=== PATIENT | male | born 1950 | race Caucasian/White ===

== ENCOUNTER 2019-10-17 04:38 | Emergency (ER) | payer OTHER, SELFPAY ==
[2019-10-17 04:39] VITALS: BP 125/73; PULSE 89; RESP 16; TEMP 36; O2SAT 97
--- NOTE | 2019-10-17 04:45 | ED.GENADUL_ITS ---
Discharge Plan Disposition Patient Disposition[facility] Condition: Stable Discharge Details Chief Complaint: Trauma Clinical Impression: Alcohol intoxication, Fall Primary Care Provider: [facility] ED Provider: Jae Andrew Home Meds and New Rx's Prescriptions: Continued tamsulosin [Flomax] 0.4 MG capsule 0.4 mg PO DAILY AM RF: 0 phenazopyridine 100 MG tablet PRNRF: 0 ibuprofen 600 MG tablet 600 mg PO Q6H PRNQty: 16 RF: 0 aspirin [Aspir-81] 81 mg Tablet,Delayed Release (Dr/Ec) RF: 0 Discharge Instructions Instructions: Alcohol Intoxication (ED) Additional Instructions: limit alcohol use to 2 drinks daily follow up with your primary care provider within 1-2 weeks Medical Decision Making 69 yo male with unknown medical history comes in with ems after he was found by a neighbor at the bottom of his stairs. EMS states when they arrived he was only reacting to sternal rubs. BGFS 130 per ems. He arrives alert though refusing to answer most questions but does have clear speech when he does talk. Refuses to cooperate with neuro exam. Has bruising of the left scalp, does move all extremities spontaneously. He has strong odor of alcohol on his breath. Given his intoxictaion and likely fall down stairs will obtain ct head/cspine/chest/abd/pelvis to evaluate for traumatic injuries. labs unrmarkable other than etoh over 300, awaiting CT results labs and imaging unremarkable other than the alcohol level, nonspecific thickening or right collecting system without evidence on exam and hx not consistent with kidney stone as he has no pain. Will consult mental health for ICP to have him brought to custodial while he lala Differential Diagnosis Differential Diagnosis: alcohol intoxication, tbi, c spine injury Imaging Data Radiologic Study: Attestation: I personally reviewed and interpreted this imaging study as follows: Imaging: CT Scan Radiologist's impression: no acute findings on head, c spine and chest CT IMPRESSION: No acute findings Fullness of the right-sided renal collecting system and ureter without evidence for ureteral stone. Slight thickening noted at the right UVJ. Further evaluation is recommended if symptoms of rightsided renal colic are present. Lab Data Lab results reviewed: Yes I reviewed the patient's lab results. ECG Data Attestation: I personally reviewed and interpreted this ECG (s) as follows: Prior ECG tracings: not available for review Interpretation: sinus rhythm, rate of 96, pr 122, no acute st t wave ischemic findings HPI General Mode of arrival: ambulatory . Date/Time Provider Initiated Documentation: 10/17/19 04:44 . Limitations to Documentation: no limitations . Information obtained by: patient . History of Present Illness 69 year old M presents to the emergency department with the chief complaint of found at bottom of stairs, Patient started experiencing this unknown Patient notes denies cough. Patient did receive the following treatments prior to arrival, none Related Data Home Medications Medication Instructions Recorded Confirmed ibuprofen 600 mg PO Q6H PRN #16 tablet 10/16/17 phenazopyridine PRN 10/16/17 tamsulosin [Flomax] 0.4 mg PO DAILY AM 10/16/17 10/16/17 aspirin [Aspir-81] 10/17/19 Previous Rx's Medication Instructions Recorded ibuprofen 600 mg PO Q6H PRN #16 tablet 10/16/17 Allergies Allergy/AdvReac Type Severity Reaction Status Date / Time No Known Allergies Allergy Unverified 10/17/19 04:51 Review of Systems Unobtainable due to mental status (alcohol intoxication, refuses to answer) PFSH Social History Smoking/Tobacco Use Status: Never Alcohol Intake: current Details: pt chooses not to answers questions, states back up, just back up Additional Social history: pt chooses not to answer Exam Const General: no acute distress Orientation: alert HENMT Head: no palpable skull fracture Ears: external ears normal General nose exam: external nose normal Mouth: moist mucous membranes Eyes General: appearance normal, both eyes and all related structures Neck Neck: normal visual inspection Resp Effort & Inspection: normal respiratory effort and able to speak in complete sentences Cardio Rate: regular rate GI Palpation: soft Skin General skin exam: no rashes or lesions noted Neuro General: alert Extrem General: normal to inspection Psych Mental Status: mental status grossly normal
[2019-10-17 04:47] VITALS: BP 125/73; PULSE 88; RESP 14
--- NOTE | 2019-10-17 05:11 | DI.CT_ITS ---
EXAM: CT HEAD CERVICAL SPINE WO CLINICAL HISTORY: trauma, alcohol TECHNIQUE: The exam was performed according to the usual protocol without contrast. COMPARISON: No exams were available for comparison FINDINGS: CT head: No acute intracranial hemorrhage. No acute midline shift or mass effect. Physiologic calcifications are seen in the basal ganglia bilaterally in the cerebellum. The ventricles are intact. The basila r cisterns are patent. There is a cavum septum pellucidum which is a normal variant. Areas of decre ased attenuation in the white matter are most suggestive of small vessel ischemic disease. No calvar ial fracture is seen. The visualized paranasal sinuses are clear. CT cervical spine: The odontoid is intact. The lateral masses are well aligned. No acute fracture or subluxation in th e cervical spine is noted. There are nondisplaced fractures of the left transverse processes of T1 and T2. Prevertebral soft tissues are unremarkable. There are moderate degenerative changes seen in the cervical spine. IMPRESSION: 1. No acute intracranial process. 2. No evidence of a fracture or subluxation of the cervical spine. 3. Nondisplaced fractures involving the left transverse processes of T1 and T2. 4. The findings were discussed with the emergency department on the date of the examination.
[2019-10-17 05:15] LABS: ALT 48 U/L (16-63); AST 30 U/L (15-37); Albumin 3.7 g/dL (3.4-5.0); Alkaline Phosphatase 97 U/L (46-116); Anion Gap 12.9 mmol/L (3-11); BUN 13 mg/dL (7-18); Bilirubin, Total 0.3 mg/dL (0.2-1.0); CO2 26.1 mmol/L (21.0-32.0); CREATININE 1.32 mg/dL (0.70-1.30); Calcium 8.6 mg/dL (8.5-10.1); Chloride 105 mmol/L (98-107); Estimated GFR 53.78 (mL/min/1.73m2); Glucose 151 mg/dL (74-106); Potassium 3.7 mmol/L (3.5-5.1); Sodium 144 mmol/L (136-145); Total Protein 7.6 g/dL (6.4-8.2)
[2019-10-17 05:18] LABS: Prothrombin Time 9.7 sec (9.3-11.0)
[2019-10-17 05:20] LABS: ETHANOL BLOOD 306.2 mg/dL (<3)
--- NOTE | 2019-10-17 05:20 | DI.CT_ITS ---
EXAM: CT CHEST/ABD/PEL W CLINICAL HISTORY: trauma, alcohol. TECHNIQUE: Imaging Protocol: Axial computed tomography images of the with coronal and sagittal refo rmatted images were created and reviewed CONTRAST MATERIAL: Intravenous: Omnipaque 350 Contrast volume:100 mL contrast route:IV - Oral: No COMPARISON: No exams were available for comparison FINDINGS: CHEST: Tracheobronchial tree: Patent where visualized. Mediastinum and Essie: No dominant adenopathy or fluid collection. Pulmonary parenchyma: Dependent atelectasis. No focal consolidating infiltrate. No architectural di stortion. Pleura: No effusion or pneumothorax. Aorta: No aneurysm or dissection. Atherosclerosis. Lymph nodes: Within normal limits. Heart: No cardiomegaly. No pericardial effusion. Coronary artery calcifications. Bones: Nondisplaced fractures involving the left transverse processes of T1 through T4. There are al so nondisplaced fractures involving the posteromedial aspects of the left 4th through 8th ribs. The re may also be fractures in the posteromedial aspects of the left 2nd and 3rd ribs. There is a compr ession deformity of the L1 vertebral body which appears old. ABDOMEN: Liver: Normal density. No measurable mass. Gallbladder and biliary tract: No radiodense calculus or dilation. Pancreas: Normal density, no abnormal calcifications or inflammatory process. Spleen: Normal. Kidneys: Normal size, contour and axis. Bilateral nephrolithiasis. Renal cysts. Mild prominence of the renal collecting systems. No ureteral stone is present. No obstructing mass is seen. Adrenal glands: No masses seen. Lymph nodes: Within normal limits. Aorta: Atherosclerosis. No aneurysm. PELVIS: Bladder: Symmetric distention, no gross wall thickening. Bowel: No obstruction or bowel wall thickening. No evidence of acute appendicitis. Peritoneal cavity: No ascites, collection or mesenteric inflammatory response. Small bilateral fat co ntaining inguinal hernia. Reproductive organs: Prostate gland is mildly enlarged and impinges upon the base of the urinary david dder. Bones: No acute fracture. IMPRESSION: 1. Nondisplaced fractures involving the left transverse processes of T1 through T4. 2. Nondisplaced fractures involving the posterior medial aspects of the left 4th through 8th ribs. 3. No evidence of abdominal or pelvic organ injury. 4. These findings were discussed with the emergency department on the date of the examination. DATA REPOSITORY: All CT scans at this facility are submitted to the National Radiology Data Registry (NRDR) Dose Index Registry (DIR) with the [employer] (A[employer]). RADIATION OPTIMIZATION: All CT scans at this facility use at least one of these dose optimization te chniques: automated exposure control; mA and/or kV adjustment per patient size (includes targeted exa ms where dose is matched to clinical indication); or iterative reconstruction.
[2019-10-17 05:28] VITALS: BP 140/69; PULSE 96; PULSE 98; RESP 22; O2SAT 96
[2019-10-17] MEDS: Omnipaque 350 MG/ML 100 ML BTL IJ (05:28)
[2019-10-17 05:30] VITALS: BP 152/77; PULSE 92; PULSE 98; RESP 23; O2SAT 98
[2019-10-17 05:33] LABS: Abs Immature Grans 0.09 k/cumm (0.0-0.09); Absolute Basophil Count 0.05 k/cumm (0.0-0.2); Absolute Eosinophil Count 0.04 k/cumm (0.0-0.7); Absolute Lymphocyte Count 3.45 k/cumm (1.2-3.4); Absolute Monocyte Count 0.97 k/cumm (0.11-0.7); Basophils % 0.5; Eosinophils % 0.4; HCT 45.3 % (40.0-50.0); HGB 15.2 g/dL (13.5-17.5); Immature Grans % 0.8 %; Lymphocytes % 31.9; Mean Corp. HGB Concentration 33.6 g/dL (32.0-36.0); Mean Corpuscular Hemoglobin 33.8 pg (27.0-33.0); Mean Corpuscular Volume 100.7 fL (80-95); Mean Platelet Volume 9.2 fL (8.0-11.0); Neutrophils % 57.4; Platelet Count 245 x1000/uL (130-400); RBC Distribution Width 12.3 % (11.8-14.1); White Blood Cell Count 10.81 k/cumm (4.4-10.8)
--- NOTE | 2019-10-17 05:39 | DI.VRAD_ITS ---
PROCEDURE INFORMATION: Exam: CT Head Without Contrast Exam date and time: 10/17/2019 5:07 AM Age: 69 years old Clinical indication: Injury or trauma; Fall; Initial encounter; Blunt trauma (contusions or hematomas); With loss of consciousness; Not specified; Injury date: 10/16/19; Injury details: Found at the bottom of the stairs, AMS, unable to give detail of injury; Patient HX: Chest pain, AMS TECHNIQUE: Imaging protocol: Computed tomography of the head without contrast. Radiation optimization: All CT scans at this facility use at least one of these dose optimization techniques: automated exposure control; mA and/or kV adjustment per patient size (includes targeted exams where dose is matched to clinical indication); or iterative reconstruction. COMPARISON: No relevant prior studies available. FINDINGS: Brain: Calcifications within the basal ganglia/lentiform nuclei is believed to be physiologic. No CT evidence of mass hemorrhage or acute infarction. Midline shift: No bleed, mass, or shift of structures. Mild atrophy. Areas of low attenuation in the periventricular white matter believed to be the manifestatiion of small vessel ischemic disease. Ventricles: Persistent cavum septum pellucidum. This is a normal variant. Bones/joints: Unremarkable. No acute fracture. Sinuses: Visualized sinuses are unremarkable. No fluid levels. Mastoid air cells: Visualized mastoid air cells are well aerated. Soft tissues: Unremarkable. IMPRESSION: No acute intracranial process is appreciated. PROCEDURE INFORMATION: Exam: CT Cervical Spine Without Contrast Exam date and time: 10/17/2019 5:07 AM Age: 69 years old Clinical indication: Injury or trauma; Fall; Initial encounter; Blunt trauma (contusions or hematomas); With loss of consciousness; Not specified; Injury date: 10/16/19; Injury details: Found at the bottom of the stairs, AMS, unable to give detail of injury; Patient HX: Chest pain, AMS TECHNIQUE: Imaging protocol: Computed tomography images of the cervical spine without contrast. Radiation optimization: All CT scans at this facility use at least one of these dose optimization techniques: automated exposure control; mA and/or kV adjustment per patient size (includes targeted exams where dose is matched to clinical indication); or iterative reconstruction. COMPARISON: No relevant prior studies available. FINDINGS: Vertebrae: alignment is normal. posterior vertebral line and the spinal laminar line are normal odontoid process normal no fracture Discs/Spinal canal/Neural foramina: Diffuse severe degenerative disc disease throughout the cervical spine. Soft tissues: Unremarkable. Lungs: Lung apices are normal. Other findings: . IMPRESSION: 1. No fracture. 2. Diffuse severe degenerative disc disease throughout the cervical spine. Dictated and Authenticated by: Ravin Sun MD. Ordering:AYANA Rowe MD
--- NOTE | 2019-10-17 05:42 | DI.VRAD_ITS ---
PROCEDURE INFORMATION: Exam: CT Chest With Contrast Exam date and time: 10/17/2019 5:18 AM Age: 69 years old Clinical indication: Injury or trauma; Fall; Initial encounter; Generalized; Blunt trauma (contusions or hematomas); Injury date: 10/16/19; Injury details: Found at the bottom of the stairs, unknown details of trauma, AMS, unable to answer questions TECHNIQUE: Imaging protocol: Computed tomography of the chest with intravenous contrast. Radiation optimization: All CT scans at this facility use at least one of these dose optimization techniques: automated exposure control; mA and/or kV adjustment per patient size (includes targeted exams where dose is matched to clinical indication); or iterative reconstruction. Contrast material: OMNIPAQUE 350; Contrast volume: 100 ml; Contrast route: IV RAC; COMPARISON: No relevant prior studies available. FINDINGS: Lungs: Basilar dependent pulmonary atelectasis is present. Pleural space: Unremarkable. No pneumothorax. No pleural effusion. Heart: Unremarkable. No cardiomegaly. No pericardial effusion. Aorta: Unremarkable. No aortic aneurysm. Lymph nodes: Unremarkable. No enlarged lymph nodes. Bones/joints: Unremarkable. No acute fracture. Soft tissues: Unremarkable. IMPRESSION: No acute findings PROCEDURE INFORMATION: Exam: CT Abdomen And Pelvis With Contrast Exam date and time: 10/17/2019 5:18 AM Age: 69 years old Clinical indication: Injury or trauma; Fall; Initial encounter; Generalized; Blunt trauma (contusions or hematomas); Injury date: 10/16/19; Injury details: Found at the bottom of the stairs, unknown details of trauma, AMS, unable to answer questions TECHNIQUE: Imaging protocol: Computed tomography of the abdomen and pelvis with intravenous contrast. Radiation optimization: All CT scans at this facility use at least one of these dose optimization techniques: automated exposure control; mA and/or kV adjustment per patient size (includes targeted exams where dose is matched to clinical indication); or iterative reconstruction. Contrast material: OMNIPAQUE 350; Contrast volume: 100 ml; Contrast route: IV RAC; COMPARISON: No relevant prior studies available. FINDINGS: Liver: Normal. No mass. Gallbladder and bile ducts: Normal. No calcified stones. No ductal dilation. Pancreas: Normal. No ductal dilation. Spleen: Normal. No splenomegaly. Adrenals: Normal. No mass. Kidneys and ureters: Fullness of the right-sided renal collecting system and ureter without evidence for ureteral stone. Slight thickening noted at the right UVJ. Further evaluation is recommended if symptoms of right-sided renal colic are present. Stomach and bowel: Unremarkable. No obstruction. No mucosal thickening. Appendix: No evidence of appendicitis. Intraperitoneal space: Unremarkable. No free air. No significant fluid collection. Vasculature: Unremarkable. No abdominal aortic aneurysm. Lymph nodes: Unremarkable. No enlarged lymph nodes. Bladder: Unremarkable as visualized. Reproductive: Unremarkable as visualized. Bones/joints: Probable old L1 compression fracture deformity Soft tissues: Unremarkable. IMPRESSION: No acute findings Fullness of the right-sided renal collecting system and ureter without evidence for ureteral stone. Slight thickening noted at the right UVJ. Further evaluation is recommended if symptoms of right-sided renal colic are present. Dictated and Authenticated by: Denis Pat MD. Ordering:AYANA Rowe MD
[2019-10-17 05:45] VITALS: BP 132/83; PULSE 94; O2SAT 97
[2019-10-17 06:09] LABS: Troponin I < 0.05 ng/Ml (<0.06)
--- NOTE | 2019-10-17 06:13 | NUR.NOTE ---
Nursing Note: Pt assisted multiple times with urinal in bed- attempting to exit bed over and over again. Pt much more alert, though asking repetitive questions. Pt grabbed and held this nurse's arm tightly and would not let go. Pt asked to remove chinchilla farmer numerous times. This nurse stated I have to go now and take care of another one of my patients Pt responded No you don't, I'm more important than they are. Eventually, loosened chinchilla farmer on arm and this nurse was able to pull away. Assisted wth urinal, warm blankets given.
--- NOTE | 2019-10-17 06:38 | NUR.NOTE ---
Nursing Note: Mental health in to see pt at approx 0620 to evaluate pt for ICP.
--- NOTE | 2019-10-17 20:22 | W.ED.FU ---
Received call from radiology noting that there was a discrepancy in the imaging read as negative on his ED visit earlier today. Read of CT abdomen and pelvis per virtual radiology read as negative. In-house radiologist noted 1. Nondisplaced fractures involving the left transverse processes of T1 through T4. 2. Nondisplaced fractures involving the posterior medial aspects of the left 4th through 8th ribs. Transverse process fractures discussed with Ortho and there are no acute recommendations. Patient was discharged to the correctional facility from the emergency department this morning. Per ED staff, plan was to discharge patient from the correctional facility once his alcohol level was 0. Called the correctional facility to inform patient to call the ED once he is sober for his radiology results but did not hear from the patient. Patient has no contact number listed in his chart. Case was discussed with care management who will attempt to reach patient to inform him of these findings and recommend follow-up with the PCP, incentive spirometry, pain control.
--- NOTE | 2019-10-19 15:48 | CMPROGNOTE_ITS ---
- If Service Date Differs Date of service: 10/17/19 Time of Service: 21:00 Care Management Progress Note CM was contacted by to follow up with patient after ED visit and ensure he has follow up with his primary care provider r/t fractured ribs. CM contacted [place] police department and spoke with dispatch. Dispatch is unfamiliar with the patient however identified officer Naresh as the one to contact. CM left a voicemail for the officer and requested a well check if he kn ows patients whereabouts. CM contacted [facility] police and they sent CM to correctional facility. Per corrections he was released yesterday. [facility]. MARY reviewed film findings with RN coordinator Arielle Cerda and [facility]ed all reports and [facility] to the [facility], She has no additional contact information for the patient. CM reached out to home health agency they also do not have contact information. CM is unable to contact the patient, will update provider and wait for return call from [place] police or patrol park officer.
== END 2019-10-17 07:30 | disposition home or self-care (01) ==
PROVIDERS: Emergency Provider Emergency Medicine; PCP Internal Medicine
DX: F10.120 Alcohol abuse with intoxication, uncomplicated (principal); Y90.8 Blood alcohol level of 240 mg/100 ml or more; R47.81 Slurred speech; S00.03XA Contusion of scalp, initial encounter; W10.8XXA Fall (on) (from) other stairs and steps, initial encounter
CPT/HCPCS: 74177; 80053; 93005; 99285; 70450; 71260; 72125; 80320; 84484; 85025; 85610; 85730; 93010; 99284; J3490

== ENCOUNTER 2020-09-17 04:02 | Emergency (ER) | payer OTHER, SELFPAY ==
[2020-09-17] VITALS (13 sets, daily range): BP systolic 120–153; BP diastolic 69–84; PULSE 73–99; RESP 13–23; O2SAT 91–99
--- NOTE | 2020-09-17 03:45 | RT.EKG_ITS ---
APPROVED REPORT Exam: Resting ECG Patient Location: E HR:96 bpm ECG Measurements Heart Rate 96 AXIS IN 135 P 60 QRSd 81 QRS 53 QT 361 T 68 QTc 457 Conclusion Sinus rhythm...normal P axis, V-rate 60- 99 Probable left atrial enlargement...P >50mS, <-0.10mV V1
--- NOTE | 2020-09-17 04:12 | ED.GENADUL_ITS ---
Discharge Plan Disposition Patient Disposition: HOME Condition: Stable Discharge Details Clinical Impression: Chest pain, Alcohol intoxication Primary Care Provider: Jae Del Toro ED Provider: Victor M Bailey Home Meds and New Rx's Prescriptions: Continued hydroxyzine HCl 50 mg Tablet 50 mg PO BID PRNRF: 0 tramadol 50 mg Tablet 50 mg PO QHS PRNRF: 0 bupropion HCl 150 mg Tablet Extended Release 24 Hr 150 mg PO QAM RF: 0 ibuprofen 600 MG tablet 800 mg PO Q6H PRNRF: 0 rosuvastatin [Crestor] 10 mg Tablet 10 mg PO DAILY RF: 0 tamsulosin [Flomax] 0.4 MG capsule 0.4 mg PO DAILY AM RF: 0 phenazopyridine 100 MG tablet 200 mg PO TID PRNRF: 0 aspirin [Aspir-81] 81 mg Tablet,Delayed Release (Dr/Ec) 81 mg PO DAILY RF: 0 No Action cyclobenzaprine [Flexeril] 10 mg Tablet 10 mg PO TID PRNRF: 0 acetaminophen [Tylenol] 325 mg Tablet 325 mg PO QID PRNRF: 0 loperamide 2 mg Capsule 2 mg PO Q6H PRNRF: 0 docusate sodium 50 mg Capsule 50 mg PO BID PRNRF: 0 oxycodone-acetaminophen 5-325 mg Tablet 1 tab PO Q6H PRNRF: 0 dicyclomine [Bentyl] 20 mg Tablet 20 mg PO TID PRNRF: 0 buspirone 10 mg Tablet 10 mg PO BID RF: 0 pvzufyrvrn-sgnhobi-ruaprhsa [Fiorinal] 50-325-40 mg Tablet 1 tab PO Q6H PRNRF: 0 B12 Active 1,000 mcg Tablet,Chewable 1,000 mcg PO DAILY RF: 0 Discharge Instructions Instructions: Chest Pain (ED), Alcohol Intoxication (ED) Additional Instructions: Your CT scan showed no evidence of pulmonary embolism, cardiac size was normal. A final reading will be performed by our in-house radiologist and may be reviewed with your primary care physician. Follow up with your primary care provider this week Try to limit alcohol consumption If you have severe worsening pain, feel more ill or have worsening difficulty breathing return to the emergency department Medical Decision Making <Jae Andrew MD - Last Filed: 09/17/20 07:22> 70 yo male who denies any chronic medical problems comes in with ems after he called for chest pain that resolved when ems arrived but now states on arrival he does have pain. He admits to drinking alcohol and on arrival appears anxious. He will intermittently fall asleep and will awaken to painful stimuli. He withdraws all extremities to painful stimuli but doesn't follow commands. HE will intermittently say I don't know to questions but then several minutes later will know the answer (for exam when asked what year it is he said he didn't know but then was able to answer the year, his full name, , where he was and most other questions but then goes back to saying I don't know.). He has no abdominal tenderness clear lungs and no jvd or lower extremity swelling or calf pain. I suspect his symptoms could be due to anxiety vs alcohol intoxication and possible drug ingestion though he denies. Given the altered mental status intermittently will obtain ct head though symptoms don't seem conssitent with cva and unknown last known well time. Heart score is 3, will obtain troponin. No tearing back pain so doubt dissection. Given he has chest pain and shortness of breath per report will obtain CTA to evaluate for PE pts labs unremarkable other than mild increase in creatinine and significantly elevated alcohol level, ct of the head and his cta of the chest show no acute findings. He is now sleeping on reassessment and awakens to voice and is caox4 without complaints. He states he drinks a pint of hard alcohol a night and doesn't feel intoxicated. Will continue to monitor and obtain delta troponin and ecg pt signed out pending reassessment when clinically sober Differential Diagnosis Differential Diagnosis: alcohol intoxication, acs, pe, anxiety Imaging Data Radiologic Study: Attestation: I personally reviewed and interpreted this imaging study as follows: Imaging: CT Scan Radiologist's impression: PROCEDURE INFORMATION: Exam: CT Head Without Contrast Exam date and time: 09/17/2020 4:10 AM Age: 70 years old Clinical indication: Altered mental status/memory loss; Confusion or disorientation; Patient HX: AMS; Additional info: Could not answer questions about medical HX TECHNIQUE: Imaging protocol: Computed tomography of the head without contrast. Radiation optimization: All CT scans at this facility use at least one of these dose optimization techniques: automated exposure control; mA and/or kV adjustment per patient size (includes targeted exams where dose is matched to clinical indication); or iterative r econstruction. COMPARISON: CT HEAD CERVICAL SPINE WO 10/17/2019 5:11 AM FINDINGS: Brain: Mild volume loss No hemorrhage. Unremarkable white matter. No mass effect. Basal ganglia and cerebellar calcifications noted Cerebral ventricles: No ventriculomegaly. A cavum septum pellucidum at vergae is noted, a normal variant. Bones/joints: Unremarkable. No acute fracture. Paranasal sinuses: A polyp/retention cyst is noted in the left maxillary sinus.No fluid levels. Mastoid air cells: Visualized mastoid air cells are well aerated. Soft tissues: Unremarkable. IMPRESSION: No acute intracranial abnormality. Radiologic Study #2: Attestation: I personally reviewed and interpreted this imaging study as follows: Imaging: CT Scan Radiologist's impression: IMPRESSION: 1. No evidence of acute pulmonary embolism. 2. Cardiac size normal. No pericardial effusion. No right heart strain. 3. Aorta normal caliber without aneurysm, dissection or disruption. 4. Borderline congestive changes. Mild dependent basilar atelectasis. No consolidative pneumonia. No overt pulmonary edema Lab Data Lab results reviewed: Yes I reviewed the patient's lab results. ECG Data Attestation: I personally reviewed and interpreted this ECG (s) as follows: Prior ECG tracings: not available for review Interpretation: sinus rhythm, rate of 96, pr 135, qtc 457 2nd ekg shows sinus rhythm, rate of 74, pr 135, qtc 433, no acute st t wave ischemic changes <Victor M Bailey MD - Last Filed: 09/17/20 08:25> Patient signout from Dr. Andrew. Please see his note regarding details of the initial presentation, exam, plan of care. Patient's repeat troponin unremarkable. He arouses normally, ordered and ate breakfast, felt improved and was ambulatory without distress. We briefly discussed his alcohol consumption which he acknowledges, but does not want to pursue any treatment at this time, preferring to self limit his use. We will arrange outpatient follow-up for him in primary care clinic.. Lab Data Lab results reviewed: Yes I reviewed the patient's lab results. Labs: Laboratory Results - last 24 hr 09/17/20 09/17/20 09/17/20 04:18 04:18 04:18 WBC 9.12 RBC 4.74 Hgb 15.9 Hct 46.2 MCV 97.5 H MCH 33.5 H MCHC 34.4 RDW 12.5 Plt Count 245 MPV 9.4 Immature Gran % 1.0 Neutrophils % 44.2 Lymphocytes % 46.9 Monocytes % 6.9 Eosinophils % 0.7 Basophils % 0.3 Nucleated RBC % 0 Absolute Neutrophils 4.03 Absolute Lymphocytes 4.28 H Absolute Monocytes 0.63 Absolute Eosinophils 0.06 Absolute Basophils 0.03 PT 10.0 INR 1.0 APTT 24.9 Sodium 141 Potassium 3.4 L Chloride 105 Carbon Dioxide 22.9 Anion Gap 13.1 H BUN 11 Creatinine 1.53 H Estimated GFR/1.73 m2 45.22 Glucose 112 H Calcium 9.1 Magnesium 2.2 Total Bilirubin 0.3 Conjugated Bilirubin 0.12 AST 25 ALT 37 Alkaline Phosphatase 103 Troponin I < 0.05 NT-Pro-B Natriuret Pep 21 Total Protein 7.8 Albumin 4.0 Lipase 134 Urine Color Urine Clarity Urine pH Ur Specific Proctor Urine Protein Urine Ketones Urine Blood Urine Nitrite Urine Bilirubin Urine Urobilinogen Ur Leukocyte Esterase Urine RBC Urine WBC Ur Epithelial Cells Urine Crystals Urine Bacteria Urine Casts Urine Mucus Ur Culture Indicated? Urine Glucose Urine Opiates Screen Urine Methadone Screen Ur Barbiturates Screen Ur Tricyclics Screen Ur Amphetamines Screen U Benzodiazepines Scrn Urine Cocaine Screen Ur THC Screen Ethyl Alcohol 09/17/20 09/17/20 09/17/20 04:18 05:20 05:20 WBC RBC Hgb Hct MCV MCH MCHC RDW Plt Count MPV Immature Gran % Neutrophils % Lymphocytes % Monocytes % Eosinophils % Basophils % Nucleated RBC % Absolute Neutrophils Absolute Lymphocytes Absolute Monocytes Absolute Eosinophils Absolute Basophils PT INR APTT Sodium Potassium Chloride Carbon Dioxide Anion Gap BUN Creatinine Estimated GFR/1.73 m2 Glucose Calcium Magnesium Total Bilirubin Conjugated Bilirubin AST ALT Alkaline Phosphatase Troponin I NT-Pro-B Natriuret Pep Total Protein Albumin Lipase Urine Color Yellow Urine Clarity Clear Urine pH 6.0 Ur Specific Proctor 1.010 Urine Protein Negative Urine Ketones Negative Urine Blood Trace-intact H Urine Nitrite Negative Urine Bilirubin Negative Urine Urobilinogen 0.2 Ur Leukocyte Esterase Negative Urine RBC 0-2 Urine WBC Negative Ur Epithelial Cells Negative Urine Crystals Negative Urine Bacteria Negative Urine Casts Negative Urine Mucus Negative Ur Culture Indicated? No Urine Glucose Negative Urine Opiates Screen Negative Urine Methadone Screen Negative Ur Barbiturates Screen Negative Ur Tricyclics Screen Negative Ur Amphetamines Screen Negative U Benzodiazepines Scrn Negative Urine Cocaine Screen Negative Ur THC Screen Negative Ethyl Alcohol 294.2 09/17/20 07:15 WBC RBC Hgb Hct MCV MCH MCHC RDW Plt Count MPV Immature Gran % Neutrophils % Lymphocytes % Monocytes % Eosinophils % Basophils % Nucleated RBC % Absolute Neutrophils Absolute Lymphocytes Absolute Monocytes Absolute Eosinophils Absolute Basophils PT INR APTT Sodium Potassium Chloride Carbon Dioxide Anion Gap BUN Creatinine Estimated GFR/1.73 m2 Glucose Calcium Magnesium Total Bilirubin Conjugated Bilirubin AST ALT Alkaline Phosphatase Troponin I < 0.05 NT-Pro-B Natriuret Pep Total Protein Albumin Lipase Urine Color Urine Clarity Urine pH Ur Specific Proctor Urine Protein Urine Ketones Urine Blood Urine Nitrite Urine Bilirubin Urine Urobilinogen Ur Leukocyte Esterase Urine RBC Urine WBC Ur Epithelial Cells Urine Crystals Urine Bacteria Urine Casts Urine Mucus Ur Culture Indicated? Urine Glucose Urine Opiates Screen Urine Methadone Screen Ur Barbiturates Screen Ur Tricyclics Screen Ur Amphetamines Screen U Benzodiazepines Scrn Urine Cocaine Screen Ur THC Screen Ethyl Alcohol HPI <Jae Andrew MD - Last Filed: 09/17/20 07:22> General Mode of arrival: EMS . Date/Time Provider Initiated Documentation: 09/17/20 04:07 . Limitations to Documentation: altered mental status . Information obtained by: patient . History of Present Illness 70 year old M presents to the emergency department with the chief complaint of chest pain, described as moderate, and it has been constant. No relieving factors impr ove symptom(s), No exacerbating factors reported . Patient did receive the following treatments prior to arrival, none Related Data Home Medications Medication Instructions Recorded Confirmed phenazopyridine 200 mg PO TID PRN 10/16/17 09/17/20 tamsulosin [Flomax] 0.4 mg PO DAILY AM 10/16/17 09/17/20 aspirin [Aspir-81] 81 mg PO DAILY 10/17/19 09/17/20 acetaminophen [Tylenol] 325 mg PO QID PRN 09/17/20 09/17/20 bupropion HCl 150 mg PO QAM 09/17/20 09/17/20 buspirone 10 mg PO BID 09/17/20 09/17/20 mazrimymtg-ahdvadv-epvypogy 1 tab PO Q6H PRN 09/17/20 09/17/20 [Fiorinal] cyclobenzaprine [Flexeril] 10 mg PO TID PRN 09/17/20 09/17/20 dicyclomine [Bentyl] 20 mg PO TID PRN 09/17/20 09/17/20 docusate sodium 50 mg PO BID PRN 09/17/20 09/17/20 hydroxyzine HCl 50 mg PO BID PRN 09/17/20 09/17/20 ibuprofen 800 mg PO Q6H PRN 09/17/20 09/17/20 loperamide 2 mg PO Q6H PRN 09/17/20 09/17/20 mecobalamin (vitamin B12) [B12 1,000 mcg PO DAILY 09/17/20 09/17/20 Active] oxycodone-acetaminophen 1 tab PO Q6H PRN 09/17/20 09/17/20 rosuvastatin [Crestor] 10 mg PO DAILY 09/17/20 09/17/20 tramadol 50 mg PO QHS PRN 09/17/20 09/17/20 Allergies Allergy/AdvReac Type Severity Reaction Status Date / Time No Known Allergies Allergy Unverified 09/17/20 04:10 General Stated Complaint: AMS/LOC RICKI: 2 Review of Systems <Jae Andrew MD - Last Filed: 09/17/20 07:22> All systems reviewed & are unremarkable except as noted in HPI and below Constitutional Constitutional: Denies chills, Denies fever(s) and Denies weakness Respiratory Respiratory: Denies cough Gastrointestinal Gastrointestinal: Denies abdominal pain, Denies nausea and Denies vomiting Musculoskeletal Musculoskeletal: Denies joint swelling Integumentary/Breasts Skin/Breast: Denies rash Neurologic Neurologic: Denies weakness Endocrine Endocrine: Denies heat intolerance PFS <Jae Andrew MD - Last Filed: 09/17/20 07:22> Medical History (Updated 09/17/20 @ 05:09 by Jae Andrew MD) Anxiety BPH (benign prostatic hyperplasia) Depression High cholesterol Kidney stones Sleep apnea Social History Smoking/Tobacco Use Status: Never Smoking risk assessment performed?: Yes Alcohol Intake: current Alcohol Intake frequency: 0-2 drinks per day Alcohol type: hard liquor Substance use type: does not use Do you feel safe at home: Yes Do you feel safe in your relationship?: Yes Exam <Jae Andrew MD - Last Filed: 09/17/20 07:22> Const General: anxious Orientation: alert HENPA Head: normal to inspection Ears: external ears normal General nose exam: external nose normal Mouth: moist mucous membranes Eyes General: appearance normal, both eyes and all related structures Neck Neck: normal visual inspection Resp Effort & Inspection: normal respiratory effort and able to speak in complete sentences Cardio Rate: regular rate Skin General skin exam: no rashes or lesions noted Neuro General: patient alert and patient oriented x3 Extrem General: normal to inspection Course <Jae Andrew MD - Last Filed: 09/17/20 07:22> Vital Signs Vital signs: Vital Signs Pulse 99 H 09/17/20 04:02 Respiratory Rate 18 09/17/20 04:02 Blood Pressure 153/80 H 09/17/20 04:02 Pulse Oximetry 99 09/17/20 04:02 Pulse 99 H 09/17/20 04:02 Respiratory Rate 18 09/17/20 04:02 Blood Pressure 153/80 H 09/17/20 04:02 Blood Pressure Position Supine 09/17/20 04:02 Pulse Oximetry 99 09/17/20 04:02 Oxygen Delivery Method Room Air 09/17/20 04:02 Oxygen Flow Rate 0 09/17/20 04:02 Pain Level 7 09/17/20 04:02 Sign Out <Jae Andrew MD - Last Filed: 09/17/20 07:22> Sign Out Data: Sign Out Comment: alcohol intoxication and chest pain, reassess when clinically sober Last updated by Jae Andrew MD at 09/17/20 06:11
[2020-09-17] MEDS: Omnipaque 350 MG/ML 100 ML BTL IJ (04:22)
[2020-09-17 04:25] LABS: Abs Immature Grans 0.09 10^3/uL (0.0-0.06); Absolute Basophil Count 0.03 10^3/uL (0.0-0.2); Absolute Eosinophil Count 0.06 10^3/uL (0.0-0.7); Absolute Lymphocyte Count 4.28 10^3/uL (1.2-3.4); Absolute Monocyte Count 0.63 10^3/uL (0.1-0.8); Absolute Neutrophil Count 4.03 10^3/uL (1.2-6.7); Basophils % 0.3; Eosinophils % 0.7; HCT 46.2 % (40.0-50.0); HGB 15.9 g/dL (13.5-17.5); Lymphocytes % 46.9; MCH 33.5 pg (27.0-33.0); MCHC 34.4 % (32.0-36.0); MCV 97.5 fL (80-95); MPV 9.4 fL (8.0-11.0); Monocytes % 6.9; Neutrophils % 44.2; Nucleated RBC 0 %; Platelet Count 245 10^3/uL (130-400); RBC 4.74 10^6/uL (4.36-5.78); RDW 12.5 % (11.8-14.1); RDW-SD 45.1 fL; WBC 9.12 10^3/uL (4.4-10.8)
--- NOTE | 2020-09-17 04:40 | DI.CT_ITS ---
EXAM: CT HEAD WO CLINICAL HISTORY: altered mental status. TECHNIQUE: Imaging Protocol: Axial computed tomography images with coronal and sagittal reformatted images were created and reviewed COMPARISON: CT CT HEAD CERVICAL SPINE WO from 10/17/2019 FINDINGS: Ventricles and Extra axial spaces: Normal in size and morphology for the patient's age. Note is made of a cavum septum pellucidum and vergae which is a normal variant. Hemorrhage: None. Cerebral parenchyma: Normal. There are stable calcifications seen in the basal ganglia and cerebellum . Midline shift: None. Brainstem/Cerebellum: Normal. Calvarium: Normal. Visualized Paranasal sinuses/Mastoids: There is a mucous retention cyst or polyp in the left maxillar y sinus. The remaining visualized paranasal sinuses and mastoid air cells are clear. Soft Tissues: Unremarkable. IMPRESSION: No acute intracranial process. RADIATION DOSE DELIVERED: 784.25mGy.cm Total DLP DATA REPOSITORY: All CT scans at this facility are submitted to the National Radiology Data Registry (NRDR) Dose Index Registry (DIR) with the [employer] (ACR). RADIATION OPTIMIZATION: All CT scans at this facility use at least one of these dose optimization te chniques: automated exposure control; mA and/or kV adjustment per patient size (includes targeted exa ms where dose is matched to clinical indication); or iterative reconstruction.
[2020-09-17 04:41] LABS: ETHANOL BLOOD 294.2 mg/dL (<3)
[2020-09-17] MEDS: Normal Saline Flush 10 ML SYR IVP (04:42)
--- NOTE | 2020-09-17 04:45 | DI.CT_ITS ---
EXAM: CT CHEST PE CTA CLINICAL HISTORY: chest pain and shortness of breath. TECHNIQUE: Imaging Protocol: Axial CT angiography was performed with multi-slice acquisition and mu lti-planar and/or 3D reconstructions. CONTRAST MATERIAL: Intravenous: Omnipaque 350 Contrast volume:100 mL COMPARISON: CT CT CHEST/ABD/PEL W from 10/17/2019 FINDINGS: Pulmonary Arteries: No evidence of filling defect to suggest pulmonary emboli. Tracheobronchial tree: Patent where visualized. Mediastinum and Essie: No dominant adenopathy or fluid collection. Pulmonary parenchyma: No consolidation or dominant measurable mass. No architectural distortion. Mild dependent atelectasis. Pleura: No effusion or pneumothorax. Heart: The heart is not dilated. No coronary artery calcifications are seen. No pericardial effusion. Aorta: Thoracic aorta non-dilated. No evidence of dissection. Mild atherosclerosis. Upper abdomen: Stable left renal cyst. Bones: Degenerative changes are seen in the spine. There is a stable old L1 compression fracture def ormity. Soft tissues: Unremarkable. IMPRESSION: 1. No evidence of pulmonary embolism, thoracic aortic dissection or aneurysm. 2. Mild dependent atelectasis. RADIATION DOSE DELIVERED: 443.04mGy.cm Total DLP DATA REPOSITORY: All CT scans at this facility are submitted to the National Radiology Data Registry (NRDR) Dose Index Registry (DIR) with the [employer] (ACR). RADIATION OPTIMIZATION: All CT scans at this facility use at least one of these dose optimization te chniques: automated exposure control; mA and/or kV adjustment per patient size (includes targeted exa ms where dose is matched to clinical indication); or iterative reconstruction.
--- NOTE | 2020-09-17 04:48 | DI.VRAD_ITS ---
PROCEDURE INFORMATION: Exam: CT Head Without Contrast Exam date and time: 09/17/2020 4:10 AM Age: 70 years old Clinical indication: Altered mental status/memory loss; Confusion or disorientation; Patient HX: AMS; Additional info: Could not answer questions about medical HX TECHNIQUE: Imaging protocol: Computed tomography of the head without contrast. Radiation optimization: All CT scans at this facility use at least one of these dose optimization techniques: automated exposure control; mA and/or kV adjustment per patient size (includes targeted exams where dose is matched to clinical indication); or iterative reconstruction. COMPARISON: CT HEAD CERVICAL SPINE WO 10/17/2019 5:11 AM FINDINGS: Brain: Mild volume loss No hemorrhage. Unremarkable white matter. No mass effect. Basal ganglia and cerebellar calcifications noted Cerebral ventricles: No ventriculomegaly. A cavum septum pellucidum at vergae is noted, a normal variant. Bones/joints: Unremarkable. No acute fracture. Paranasal sinuses: A polyp/retention cyst is noted in the left maxillary sinus.No fluid levels. Mastoid air cells: Visualized mastoid air cells are well aerated. Soft tissues: Unremarkable. IMPRESSION: No acute intracranial abnormality. Dictated and Authenticated by: Jose Caballero MD. Ordering:AYANA Rowe MD
[2020-09-17 04:49] LABS: ALT 37 U/L (16-63); AST 25 U/L (15-37); Alkaline Phosphatase 103 U/L (46-116); Anion Gap 13.1 mmol/L (3-11); BUN 11 mg/dL (7-18); Bilirubin, Direct 0.12 mg/dL (0.00-0.20); Bilirubin, Total 0.3 mg/dL (0.2-1.0); CO2 22.9 mmol/L (21.0-32.0); CREATININE 1.53 mg/dL (0.70-1.30); Calcium 9.1 mg/dL (8.5-10.1); Chloride 105 mmol/L (98-107); Estimated GFR 45.22 (mL/min/1.73m2); Glucose 112 mg/dL (74-106); Lipase 134 U/L (73-393); Magnesium 2.2 mg/dL (1.8-2.4); NT-proBNP 21 pg/mL (<300); Potassium 3.4 mmol/L (3.5-5.1); Sodium 141 mmol/L (136-145); Total Protein 7.8 g/dL (6.4-8.2)
[2020-09-17] MEDS: Normal Saline - Diluent 50 ML VIAL IV (04:49)
[2020-09-17 04:51] LABS: Troponin I < 0.05 ng/mL (<0.06)
--- NOTE | 2020-09-17 04:59 | DI.VRAD_ITS ---
PROCEDURE INFORMATION: Exam: CT Angiography Chest With Contrast Exam date and time: 09/17/2020 4:10 AM Age: 70 years old Clinical indication: Shortness of breath; Type not specified; Patient HX: Chest pain SOB TECHNIQUE: Imaging protocol: Computed tomographic angiography of the chest with intravenous contrast. 3D rendering (Not supervised by radiologist): MIP and/or 3D reconstructed images were created by the technologist. Radiation optimization: All CT scans at this facility use at least one of these dose optimization techniques: automated exposure control; mA and/or kV adjustment per patient size (includes targeted exams where dose is matched to clinical indication); or iterative reconstruction. Contrast material: OMNIPAQUE 350; Contrast volume: 100 ml; Contrast route: INTRAVENOUS (IV); COMPARISON: CT CHEST/ABD/PEL W 10/17/2019 5:20 AM FINDINGS: Pulmonary arteries: No evidence of acute pulmonary embolism. Aorta: Aorta normal caliber without aneurysm, dissection or disruption. Lungs: Borderline congestive changes. Mild dependent basilar atelectasis. No consolidative pneumonia. No overt pulmonary edema. Pleural space: No pleural effusions. No pneumothorax. Heart: Cardiac size normal. No pericardial effusion. No right heart strain. Mediastinal space: Patulous distal esophagus. Lymph nodes: Unremarkable. No enlarged lymph nodes. Kidneys and ureters: Left renal cyst measures 1.8 cm. Bones/joints: Mild degenerative changes noted throughout the spine. Remote superior endplate compression L1, stable. No acute fracture or posttraumatic subluxation. No displaced rib fractures. No sternal fracture. Soft tissues: Unremarkable. IMPRESSION: 1. No evidence of acute pulmonary embolism. 2. Cardiac size normal. No pericardial effusion. No right heart strain. 3. Aorta normal caliber without aneurysm, dissection or disruption. 4. Borderline congestive changes. Mild dependent basilar atelectasis. No consolidative pneumonia. No overt pulmonary edema. Dictated and Authenticated by: Stuart Singer MD. Ordering:AYANA Rowe MD
--- NOTE | 2020-09-17 05:00 | RT.EKG_ITS ---
APPROVED REPORT Exam: Resting ECG Patient Location: E HR:74 bpm ECG Measurements Heart Rate 74 AXIS HI 135 P 20 QRSd 79 QRS 50 QT 390 T 47 QTc 433 Conclusion Sinus rhythm...normal P axis, V-rate 60- 99
[2020-09-17 05:08] LABS: PTT Activated 24.9 sec (21.0-27.5)
[2020-09-17 05:32] LABS: Bilirubin Negative (Negative); Blood Trace-intact (Negative); Clarity Clear (Clear); Glucose Negative (Negative); Ketones Negative (Negative); Leukocyte Esterase Negative (Negative); Nitrite Negative (Negative); Urobilinogen 0.2 EU/dL (Up TO 0.2)
[2020-09-17 05:37] LABS: *AMPHETAMINES SCREEN URINE Negative (Negative); *BARBITURATES SCREEN URINE Negative (Negative); *BENZODIAZEPINES SCREEN URINE Negative (Negative); Cannabinoids THC Negative (Negative); Cocaine Screen,Urine Negative (Negative); METHADONE URINE SCREEN Negative (Negative); OPIATES URINE SCREEN Negative (Negative)
[2020-09-17 05:38] LABS: Tricyclic Antidepressants Negative (Negative)
[2020-09-17 05:46] LABS: Bacteria Negative HPF (Negative); C & S Indicated? No; Casts Negative LPF (Negative); Crystals Negative HPF (Negative); Epithelial Cells Negative HPF (Negative); Mucus Negative (Negative); RBC 0-2 HPF (0-2); WBC Negative HPF (0-5)
[2020-09-17 07:48] LABS: Troponin I < 0.05 ng/mL (<0.06)
--- NOTE | 2020-09-17 08:32 | NUR.NOTE ---
pt awake and ALERT. pain free. eating breakfast. tolerating without difficulty.:
== END 2020-09-17 09:55 | disposition home or self-care (01) ==
PROVIDERS: Emergency Medicine; Emergency Provider Emergency Medicine; PCP Internal Medicine
DX: R07.89 Other chest pain (principal); F10.120 Alcohol abuse with intoxication, uncomplicated; Y90.8 Blood alcohol level of 240 mg/100 ml or more
CPT/HCPCS: 36415; 71275; 80053; 80307; 83690; 93005; 99285; 70450; 80320; 81003; 81015; 82248; 83735; 83880; 84484; 85025; 85610; 85730; 93010; J3490

== ENCOUNTER 2020-10-01 15:05 | Emergency (ER) | payer OTHER, SELFPAY ==
[2020-10-01] VITALS (54 sets, daily range): BP systolic 116–159; BP diastolic 67–100; PULSE 79–118; RESP 11–26; TEMP 36.1; O2SAT 95–99
--- NOTE | 2020-10-01 15:00 | RT.EKG_ITS ---
APPROVED REPORT Exam: Resting ECG Patient Location: E HR:104 bpm ECG Measurements Heart Rate 104 AXIS NC 113 P 53 QRSd 76 QRS 43 QT 331 T 38 QTc 436 Conclusion Sinus tachycardia...rate> 99 physician: Rate 104, intervals normal, sinus tachycardia, no significant ST elevations or depressions . Small Q waves in lead III. No evidence of STEMI
--- NOTE | 2020-10-01 15:15 | DI.CT_ITS ---
EXAM: CT CHEST PE CTA CLINICAL HISTORY: CP, SOB, r/o PE. TECHNIQUE: Imaging Protocol: Axial CT angiography was performed with multi-slice acquisition and mu lti-planar and/or 3D reconstructions. CONTRAST MATERIAL: Intravenous: Omnipaque 350 Contrast volume:structured data in ml COMPARISON: CT CT CHEST/ABD/PEL W from 10/17/[address] CHEST PE CTA from 09/17/2020 FINDINGS: CT angiography of the chest was performed with intravenous infusion of 80 cc of Omnipaque 350. The lungs are clear. No pleural effusion. Tracheobronchial tree appears intact. No evidence of pulmonary embolic disease. Thoracic aorta is of normal diameter, no thoracic aortic an eurysm or dissection, major branch vessels appear intact. No mediastinal or hilar adenopathy. Images obtained through the upper abdomen show unremarkable appearance of the visualized portions of the liver, spleen, pancreas, adrenals, and kidneys with small incidental left renal cyst noted. There is an apparent interval flap of posterior aspect of the abdominal aorta at the level of the destin al artery origins, this appears slightly larger than on prior CT October 17, 2019. This suggests inc reased risk of dissection at this site, no gross aneurysm or pseudoaneurysm. Vascular surgery consul t recommended. IMPRESSION: No evidence of acute pulmonary embolic disease. 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 This measures about 5 x 15 x 8 millimeters in size. Incre ased risk for propagation of dissection, vascular surgery consult recommended. RADIATION DOSE DELIVERED: 481.19mGy.cm Total DLP 481.19mGy.cm Total DLP DATA REPOSITORY: All CT scans at this facility are submitted to the National Radiology Data Registry (NRDR) Dose Index Registry (DIR) with the [employer] (ACR). RADIATION OPTIMIZATION: All CT scans at this facility use at least one of these dose optimization te chniques: automated exposure control; mA and/or kV adjustment per patient size (includes targeted exa ms where dose is matched to clinical indication); or iterative reconstruction.
--- NOTE | 2020-10-01 15:35 | ED.GENADUL_ITS ---
Discharge Plan Disposition Patient Disposition: [facility] Condition: Stable Discharge Details Clinical Impression: Chest pain Primary Care Provider: Jae Del Toro ED Provider: Jenn Oleary Home Meds and New Rx's Prescriptions: No Action ibuprofen 600 MG tablet 800 mg PO BID PRNRF: 0 acetaminophen [Tylenol] 325 mg Tablet 325 mg PO QID PRNRF: 0 rosuvastatin [Crestor] 10 mg Tablet 5 mg PO DAILY RF: 0 tamsulosin [Flomax] 0.4 MG capsule 0.4 mg PO DAILY AM RF: 0 famotidine 10 mg Tablet 10 mg PO BID RF: 0 hydroxyzine HCl 50 mg Tablet 50 mg PO BID PRNRF: 0 melatonin 3 mg Tablet 3 mg PO HS PRNRF: 0 vitamin A 10,000 unit Capsule 10,000 unit PO DAILY RF: 0 psyllium Powder 1 tbsp PO BID RF: 0 carboxymethylcellulose sodium 0.5 % Drops 1 drp ophthalmic (eye) QID RF: 0 pantoprazole 40 mg Tablet,Delayed Release (Dr/Ec) 40 mg PO DAILY RF: 0 folic acid 1 mg Tablet 1 mg PO DAILY RF: 0 albuterol 90 mcg/actuation Aerosol INHALATION QID PRNRF: 0 finasteride 5 mg Tablet 5 mg PO DAILY RF: 0 bupropion HCl 300 mg Tablet Extended Release 24 Hr 300 mg PO QAM RF: 0 tiotropium bromide 18 mcg Capsule, W/Inhalation Device 1 cap INHALATION DAILY RF: 0 budesonide-formoterol 160-4.5 mcg/actuation Hfa Aerosol Inhaler 2 puff INHALATION BID RF: 0 diclofenac sodium 1 % Gel 2 g TOPICAL QID RF: 0 simethicone 80 mg Tablet 80 mg PO BID-QID PRNRF: 0 magnesium oxide 400 mg magnesium Tablet 400 mg PO DAILY RF: 0 Discharge Data Discharge Date/Time-TO BE ENTERED AT DEPARTURE: 10/01/20 22:40 Medical Decision Making <Tan Loredo DO - Last Filed: 10/01/20 15:51> 70-year-old male with a past medical history of BPH, high cholesterol, previous kidney stones, presents today for evaluation of chest pain and shortness of breath. Patient states that for the last 2 weeks he has had sharp chest pain which is transitioned to dull pain, radiates to his left arm, there is a pleuritic component, he also has notable shortness of breath compared to normal. His symptoms definitely worsened with exertion and activity and he states they improved with rest. He did have a vertebral body fusion surgery 2 months ago, otherwise he denies any long trips, cough, or hemoptysis. No other complaints at this time. He denies history of cardiac disease. He did smoke in the distant past. No other modifying factors. Physical exam is unremarkable, patient does demonstrate mild tachycardia, of her O2 saturations are normal. Differential includes PE from his recent surgery, cardiac etiology 2 weeks ago, less likely musculoskeletal chest pain. Will get CTA, cardiac work-up, monitor closely and reassess. Of note the patient was evaluated 2 weeks ago with similar symptoms, was intoxicated at that time. CTA was negative then, but with the persistent symptoms I do feel that repeat imaging is indicated. The patient will be signed out to my colleague Jenn for reassessment, follow-up on labs and imaging and final disposition. EKG 15: 17 Rate 104, intervals normal, sinus tachycardia, no significant ST elevations or depressions. Small Q waves in lead III. No evidence of STEMI. <ROMIE Gregory - Last Filed: 10/05/20 23:43> Care transitioned to myself from Dr. Loredo with labs and imaging pending. Please see his initial note for history, exam and presentation. Labs reviewed. No leukocytosis. Stable H&H. Creatinine is elevated at 1.51, this is chronic. Troponin <0.05. Contacted by radiologist. He notes that the patient has chronic appearing, focal abdominal aorta at the level of the renal arteries. He states stable from 2 weeks ago. Did not recommend emergent evaluation for this. FINDINGS: Pulmonary arteries: No filling defects within the pulmonary arteries are identified to suggest pulmonary embolism. The central pulmonary arteries are not dilated. Aorta: There is no thoracic aortic dissection or aneurysm. There is moderate to severe atherosclerotic calcification involving the visualized superior aspect of the abdominal aorta. There is a focal intimal flap within the posterior aspect of the abdominal aorta at the level of the renal arteries, as seen around image 625, series 7. This is unchanged from prior study. There is no intimal flap extending distally from this region within the abdominal aorta. There is no involvement of branch vessels. Lungs: There is mild subsegmental atelectasis at both lung bases. Lungs are otherwise clear. The central airways are patent. Pleural space: Unremarkable. No pneumothorax. No pleural effusion. Heart: There is no bowing of the interventricular septum or disproportionate enlargement of the right heart. There is no reflux of contrast into the IVC or hepatic veins. The heart is normal in size. There is no pericardial effusion. Lymph nodes: Unremarkable. No enlarged lymph nodes. Kidneys and ureters: Again noted is an exophytic left lower pole renal cyst as well as a parapelvic right renal cyst, the largest cyst residing on the right and measuring 1.8 x 2.3 cm, stable. Bones/joints: There is a stable chronic appearing anterior wedge compression deformity of the L1 vertebra. There is stable multilevel mild degenerative changes of the lower thoracic spine. Soft tissues: Unremarkable. IMPRESSION: 1. No pulmonary embolism identified. 2. Moderate to severe atherosclerotic calcification of the visualized abdominal aorta with focal intimal flap visualized within its lumen at the level of the renal arteries, unchanged from prior study. This may be chronic. There is no distal propagation of the intimal flap or involvement of branch vessels. Discussed findings witht he patient. While the disection was reported chronic. His history is most concerning for unstable angina. He responded well to SL nitro. I am concerned about safety of the patient going home despite no ischemic changes on ECG as well as normal troponin. Will consult with vascular regarding stress testing with the focal dissection. Dr. Zee from vascular surgery. We discussed imaging and findings of the dissection. He agrees for f/u with vascular. Advises Vascular medicine instead of vascular , in particular, Dr. Palacios. He advises that the patient can be stressed as we typically woud despite the dissection. Discussed admissionwith the patient, he agrees to admission. Consulted with Dr. Bernal who agrees to admission for CP. Patient and I discussed disposition. [facility] if [facility] would [facility], patient typically gets [facility]. Pain is coming back, will give more SL nitro. Patient states this was less effective but believes some is hunger, pain relieved after eating. [facility] accepted the patient. He was transferred via EMS to [facility] in [facility]. Pain well controlled. All of his questions and concerns were addressed, he is in agreement with this plan. HPI <Tan Loredo DO - Last Filed: 10/01/20 15:51> General Date/Time Provider Initiated Documentation: 10/01/20 15:06 . HPI Narrative: 70-year-old male with a past medical history of BPH, high cholesterol, previous kidney stones, presents today for evaluation of chest pain and shortness of breath. Patient states that for the last 2 weeks he has had sharp chest pain which is transitioned to dull pain, radiates to his left arm, there is a pleuritic component, he also has notable shortness of breath compared to normal. His symptoms definitely worsened with exertion and activity and he states they improved with rest. He did have a vertebral body fusion surgery 2 months ago, otherwise he denies any long trips, cough, or hemoptysis. No other complaints at this time. He denies history of cardiac disease. He did smoke in the distant past. No other modifying factors. Patient did take 650 mg of aspirin prior to arrival. Related Data Home Medications Medication Instructions Recorded Confirmed tamsulosin [Flomax] 0.4 mg PO DAILY AM 10/16/17 10/01/20 acetaminophen [Tylenol] 325 mg PO QID PRN 09/17/20 10/01/20 ibuprofen 800 mg PO BID PRN 09/17/20 10/01/20 rosuvastatin [Crestor] 5 mg PO DAILY 09/17/20 10/01/20 albuterol mcg INHALATION QID PRN 10/01/20 budesonide-formoterol 2 puff INHALATION BID 10/01/20 10/01/20 bupropion HCl 300 mg PO QAM 10/01/20 10/01/20 carboxymethylcellulose sodium 1 drp OPHTHALMIC (EYE) QID 10/01/20 10/01/20 diclofenac sodium 2 g TOPICAL QID 10/01/20 10/01/20 famotidine 10 mg PO BID 10/01/20 10/01/20 finasteride 5 mg PO DAILY 10/01/20 10/01/20 folic acid 1 mg PO DAILY 10/01/20 10/01/20 hydroxyzine HCl 50 mg PO BID PRN 10/01/20 10/01/20 magnesium oxide 400 mg PO DAILY 10/01/20 10/01/20 melatonin 3 mg PO HS PRN 10/01/20 10/01/20 pantoprazole 40 mg PO DAILY 10/01/20 10/01/20 psyllium 1 tbsp PO BID 10/01/20 10/01/20 simethicone 80 mg PO BID-QID PRN 10/01/20 10/01/20 tiotropium bromide 1 cap INHALATION DAILY 10/01/20 10/01/20 vitamin A 10,000 unit PO DAILY 10/01/20 10/01/20 Allergies Allergy/AdvReac Type Severity Reaction Status Date / Time No Known Allergies Allergy Unverified 10/01/20 15:14 General Stated Complaint: Chest Pain RICKI: 2 <ROMIE Gregory - Last Filed: 10/05/20 23:43> General Mode of arrival: ambulatory . Limitations to Documentation: no limitations . Information obtained by: patient . Review of Systems <Tan Loredo DO - Last Filed: 10/01/20 15:51> All systems reviewed & are unremarkable except as noted in HPI and below PFSH <Tan Loredo DO - Last Filed: 10/01/20 15:51> Medical History Anxiety BPH (benign prostatic hyperplasia) Depression High cholesterol Kidney stones Sleep apnea Social History Smoking/Tobacco Use Status: Never Smoking risk assessment performed?: Yes Alcohol Intake: current Alcohol Intake frequency: 0-2 drinks per day Alcohol type: hard liquor Drug use: Never Substance use type: does not use Do you feel safe at home: Yes Do you feel safe in your relationship?: Yes Exam <Tan Loredo DO - Last Filed: 10/01/20 15:51> Narrative Exam Narrative: 1.Const: Well-nourished, Well-developed, appearing stated age 2.Eyes: PERRL, no conjunctival injection, and symmetrical lids. 3.ENT: Atraumatic external nose and ears. Moist MM. Neck: Symmetric, trachea midline, No thyromegaly. 4.CVS: +S1/S2, No murmurs or gallops. Peripheral pulses 2+ and equal in all extremities. Brisk capillary refill in all extremities. 5.RESP: Unlabored respiratory effort. Clear to auscultation bilaterally. No wheezes rales or rhonchi 6.GI: Soft, Nontender/Nondistended, No hepatosplenomegaly. No guarding or rebound. 7.MSK: Normocephalic/Atraumatic, Extremities w/o deformity or ttp No cyanosis or clubbing, Normal movement of all extremities no calf tenderness. 8.Skin: Warm, Dry. No rashes or lesions. 9.Neuro: engine lathe tender II-XII grossly intact. Sensation grossly intact, no focal neurologic deficits. 10.Psych: (AAO) x3. Appropriate mood and affect Course <Tan Loredo DO - Last Filed: 10/01/20 15:51> Vital Signs Vital signs: Vital Signs Temperature 36.1 C L 10/01/20 15:11 Pulse 108 H 10/01/20 15:11 Respiratory Rate 22 10/01/20 15:11 Blood Pressure 152/96 H 10/01/20 15:11 Pulse Oximetry 99 10/01/20 15:11 Temperature 36.1 C L 10/01/20 15:11 Temperature Source Skin 10/01/20 15:11 Pulse 108 H 10/01/20 15:11 Respiratory Rate 22 10/01/20 15:11 Blood Pressure 152/96 H 10/01/20 15:11 Blood Pressure Position Sitting 10/01/20 15:11 Pulse Oximetry 99 10/01/20 15:11 Oxygen Delivery Method Room Air 10/01/20 15:11 Oxygen Flow Rate 0 10/01/20 15:11 Pain Level 8 10/01/20 15:11 Sign Out <Tan Loredo DO - Last Filed: 10/01/20 15:51> Sign Out Data: Sign Out Comment: Pending labs, imaging, and follow-up. Last updated by Tan Loredo DO at 10/01/20 16:06
[2020-10-01 15:36] LABS: Abs Immature Grans 0.03 10^3/uL (0.0-0.06); Absolute Basophil Count 0.03 10^3/uL (0.0-0.2); Absolute Eosinophil Count 0.03 10^3/uL (0.0-0.7); Absolute Lymphocyte Count 2.27 10^3/uL (1.2-3.4); Absolute Monocyte Count 0.85 10^3/uL (0.1-0.8); Basophils % 0.3; Eosinophils % 0.3; HCT 48.3 % (40.0-50.0); Immature Grans % 0.3; Lymphocytes % 24.6; MCH 34.2 pg (27.0-33.0); MCHC 35.2 % (32.0-36.0); MCV 97.2 fL (80-95); MPV 9.2 fL (8.0-11.0); Monocytes % 9.2; Neutrophils % 65.3; Nucleated RBC 0 %; Platelet Count 268 10^3/uL (130-400); RBC 4.97 10^6/uL (4.36-5.78); RDW 11.7 % (11.8-14.1); RDW-SD 42.4 fL; WBC 9.21 10^3/uL (4.4-10.8)
--- NOTE | 2020-10-01 15:47 | NUR.NOTE ---
Nursing Note: Pt unsure of current medications and [facility] [place], and requested medication list to be faxed to ED.
[2020-10-01] MEDS: nitroGLYcerin 0.4 MG TAB SL ×3 (15:48→19:01)
[2020-10-01 15:53] LABS: Prothrombin Time 10.4 sec (9.3-11.0)
[2020-10-01 16:02] LABS: ALT 49 U/L (16-63); AST 39 U/L (15-37); Albumin 4.1 g/dL (3.4-5.0); Alkaline Phosphatase 112 U/L (46-116); Anion Gap 7.6 mmol/L (3-11); BUN 11 mg/dL (7-18); Bilirubin, Total 0.6 mg/dL (0.2-1.0); CO2 28.4 mmol/L (21.0-32.0); CREATININE 1.51 mg/dL (0.70-1.30); Calcium 9.2 mg/dL (8.5-10.1); Chloride 101 mmol/L (98-107); Estimated GFR 45.91 (mL/min/1.73m2); Glucose 113 mg/dL (74-106); Magnesium 1.6 mg/dL (1.8-2.4); NT-proBNP 11 pg/mL (<300); Potassium 4.3 mmol/L (3.5-5.1); Sodium 137 mmol/L (136-145)
[2020-10-01 16:05] LABS: Troponin I < 0.05 ng/mL (<0.06)
[2020-10-01] MEDS: Omnipaque 350 MG/ML 100 ML BTL IV (16:24)
[2020-10-01] MEDS: Normal Saline - Diluent 50 ML VIAL IV (16:48)
[2020-10-01] MEDS: Normal Saline Flush 10 ML SYR IVP (16:49)
--- NOTE | 2020-10-01 17:22 | DI.VRAD_ITS ---
PROCEDURE INFORMATION: Exam: CT Angiography Chest With Contrast Exam date and time: 10/01/2020 3:28 PM Age: 70 years old Clinical indication: Other: Cp, SOB, R/O pe TECHNIQUE: Imaging protocol: Computed tomographic angiography of the chest with intravenous contrast. 3D rendering (Not supervised by radiologist): MIP and/or 3D reconstructed images were created by the technologist. Radiation optimization: All CT scans at this facility use at least one of these dose optimization techniques: automated exposure control; mA and/or kV adjustment per patient size (includes targeted exams where dose is matched to clinical indication); or iterative reconstruction. Contrast material: OMNIPAQUE 350; Contrast volume: 80 ml; Contrast route: INTRAVENOUS (IV); COMPARISON: CT CHEST PE CTA 09/17/2020 4:34 AM FINDINGS: Pulmonary arteries: No filling defects within the pulmonary arteries are identified to suggest pulmonary embolism. The central pulmonary arteries are not dilated. Aorta: There is no thoracic aortic dissection or aneurysm. There is moderate to severe atherosclerotic calcification involving the visualized superior aspect of the abdominal aorta. There is a focal intimal flap within the posterior aspect of the abdominal aorta at the level of the renal arteries, as seen around image 625, series 7. This is unchanged from prior study. There is no intimal flap extending distally from this region within the abdominal aorta. There is no involvement of branch vessels. Lungs: There is mild subsegmental atelectasis at both lung bases. Lungs are otherwise clear. The central airways are patent. Pleural space: Unremarkable. No pneumothorax. No pleural effusion. Heart: There is no bowing of the interventricular septum or disproportionate enlargement of the right heart. There is no reflux of contrast into the IVC or hepatic veins. The heart is normal in size. There is no pericardial effusion. Lymph nodes: Unremarkable. No enlarged lymph nodes. Kidneys and ureters: Again noted is an exophytic left lower pole renal cyst as well as a parapelvic right renal cyst, the largest cyst residing on the right and measuring 1.8 x 2.3 cm, stable. Bones/joints: There is a stable chronic appearing anterior wedge compression deformity of the L1 vertebra. There is stable multilevel mild degenerative changes of the lower thoracic spine. Soft tissues: Unremarkable. IMPRESSION: 1. No pulmonary embolism identified. 2. Moderate to severe atherosclerotic calcification of the visualized abdominal aorta with focal intimal flap visualized within its lumen at the level of the renal arteries, unchanged from prior study. This may be chronic. There is no distal propagation of the intimal flap or involvement of branch vessels. Findings were discussed with Jenn GRUBBS at 10/01/2020 5:20 PM EST. Dictated and Authenticated by: Milind Arreguin MD. Ordering:LEONOR Maddox MD
--- NOTE | 2020-10-01 18:00 | RT.EKG_ITS ---
APPROVED REPORT Exam: Resting ECG Patient Location: E HR:94 bpm ECG Measurements Heart Rate 94 AXIS CO 113 P 41 QRSd 83 QRS 35 QT 362 T 39 QTc 453 Conclusion Sinus rhythm...normal P axis, V-rate 60- 99 I have reviewed and interpreted ECG and agree with software generated interpretation.
[2020-10-01 18:57] LABS: Troponin I < 0.05 ng/mL (<0.06)
[2020-10-01 22:53] LABS: Troponin I < 0.05 ng/mL (<0.06)
[2020-10-02 20:50] LABS: COVID-19 RT-PCR UVMMC Result Negative (Negative)
--- NOTE | 2020-10-03 08:34 | NUR.NOTE ---
Nursing Note: [id number]---There is not a phone number or a area field person for Oniel Barbosa. A letter with the Negative Covid test result was mailed to the address listed in his demographic data.
== END 2020-10-01 22:40 | disposition short-term general hospital (02) ==
PROVIDERS: Student in an Organized Health Care Education/Training Program; Emergency Provider Physician Assistant; PCP Internal Medicine
DX: R07.89 Other chest pain (principal); R06.02 Shortness of breath; Z03.818 Encounter for observation for suspected exposure to other biological agents ruled out; Z87.891 Personal history of nicotine dependence
CPT/HCPCS: 36415; 71275; 80053; 93005; 99285; U0003; 83735; 83880; 84484; 85025; 85610; 85730; 93010; J3490

== ENCOUNTER 2021-06-02 19:51 | Outpatient (REF) | payer SELFPAY ==
[2021-06-04 16:48] LABS: COVID-19 RT-PCR UVMMC Result Negative (Negative)
== END 2021-06-02 19:52 | disposition home or self-care (01) ==
LOC: LBN 19:51
PROVIDERS: PCP Internal Medicine; Visit Provider Internal Medicine
DX: Z20.822 Contact with and (suspected) exposure to COVID-19 (principal)
CPT/HCPCS: U0003

== ENCOUNTER 2021-06-25 19:11 | Outpatient (REF) | payer SELFPAY ==
[2021-06-27 10:53] LABS: COVID-19 RT-PCR UVMMC Result Negative (Negative)
== END 2021-06-25 19:12 | disposition home or self-care (01) ==
LOC: LBN 19:11
PROVIDERS: PCP Internal Medicine; Visit Provider Internal Medicine
DX: Z20.822 Contact with and (suspected) exposure to COVID-19 (principal)
CPT/HCPCS: U0003

== ENCOUNTER 2022-02-23 04:36 | Outpatient (CLI) | payer OTHER, SELFPAY ==
--- NOTE | 2022-02-23 10:53 | PDOC.EEG ---
Neurology EEG EEG: [facility] Department of Neurology EEG REPORT Date of Recordin02/23/22 Interpreting Physician: Dr. Paola Chavez PCP/Referring Provider: Dr. Jabari Padron Reason for study: Mr. Barbosa is a 71 year-old man with 2 recent unwitnessed episodes of loss of counsciousness. Current Medications: buspirone 10mg daily, diltiazem 30mg BID, famotidine 10mg BID, finasteride 5mg daily, hydroxyzine 50mg prn, metaxalone 800mh, propranolol 10mg TID, rosuvastatin 20mg daily, terazosin 2mg HS. METHODS: A 21 channel digitized electroencephalogram was performed in the [facility] Clinical Neurophysiology Laboratory. The 10/20 international system of electrode placement was used and bipolar and referential electrode montages were recorded. In addition to EEG the patient was monitored for EKG and lateral/vertical eye movements. Activation procedures of photic stimulation and hyperventilation were performed if applicable. Video was used during activation procedures and during events where applicable. The duration of the recording was 30 minutes. DESCRIPTION OF EEG: The patient was noted to be awake only during the recording. During maximal wakefulness a 9-Hz posterior background rhythm was present which was well-modulated, symmetrical, reactive to eye opening, and of moderate voltage. With eye opening the background activity changed to a low voltage mixture of alpha, beta, and occasional theta range frequencies. Faster frequencies were present in the bilateral anterior head regions. There was a normal anterior-posterior voltage gradient. No drowsiness or stage II sleep was recorded. Activating Procedures: Photic stimulation was performed which produced no posterior driving response. Hyperventilation was performed with moderate effort and produced no physiological slowing of the background. EKG: EKG revealed normal sinus rhythm. INTERPRETATION: This EEG is normal during the awake state as well as during photic stimulation and hyperventilation. PRIOR EEG: none CLINICAL CORRELATION: No focal regions of cerebral dysfunction or epileptiform activity was present. No sleep was recorded during the study which reduces the sensitivity of the exam. If seizure remains a part of the differential, consider a repeat sleep-deprived EEG or overnight ambulatory EEG. Paola Chavez MD
== END 2022-02-23 04:37 | disposition home or self-care (01) ==
LOC: RT 04:37
PROVIDERS: PCP Internal Medicine; Visit Provider Psychiatry & Neurology Neurology
DX: R55 Syncope and collapse (principal)
CPT/HCPCS: 95816

== ENCOUNTER 2022-06-19 15:58 | Inpatient (IN) | payer OTHER, SELFPAY ==
[2022-06-19] VITALS (43 sets, daily range): BP systolic 110–189; BP diastolic 62–96; PULSE 68–116; RESP 11–28; TEMP 37.1–38.7; O2SAT 96–100
--- NOTE | 2022-06-19 16:00 | RT.EKG_ITS ---
APPROVED REPORT Exam: Resting ECG Reason for Exam: chest pain Patient Location: E HR:99 bpm ECG Measurements Heart Rate 99 AXIS ME 123 P 51 QRSd 79 QRS 51 QT 339 T 41 QTc 436 Conclusion Sinus rhythm...normal P axis, V-rate 60- 99 Probable left atrial enlargement...P >50mS, <-0.10mV V1 Low voltage, precordial leads...precordial leads <1.0mV Physician: no stemi, unchanged
--- NOTE | 2022-06-19 16:29 | DI.CT_ITS ---
Exam(s) CT THORAX ABD/PEL CTA EXAM: CT THORAX ABD/PEL CTA CLINICAL HISTORY: chest and epigastric pain, hx of dissection/aaa. TECHNIQUE: Imaging Protocol: Axial computed tomography images with coronal and sagittal reformatted images were created and reviewed CONTRAST MATERIAL: Intravenous: Omnipaque 350 Contrast volume:100 ml Oral: None COMPARISON: CT CT CHEST PE CTA from 10/01/2020 FINDINGS: CHEST: AORTA: The diameter of the thoracic aorta is within normal limits. The maximum diameter of the ascen ding thoracic aorta is 3.5 cm. There is no evidence of dissection flap in the thoracic aorta. No si gnificant findings at the origin of the great vessels off the aortic arch. Diameter of the descendin g thoracic aorta is within normal limits. The abdominal aorta exhibits some atherosclerotic disease but no aneurysmal dilatation. There is a focal nonobstructive intimal flak posteriorly in the aorta just above the level the renal artery takeoff points and this flap not extending into the arterial or igins. This exhibits stable appearance from the prior September 2020 study. No tight stenosis at the origin of the celiac artery. 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 No tight stenosis at the origin of the renal arteries nor intimal flap therein. The inferior mesenteric artery is patent. There is no significant stenosis at the aortic bifurcati on. Diameter of the common and external iliac arteries is upper normal. No intimal flaps therein. No significant stenosis. Common femoral arteries are also patent. PULMONARY ARTERIES: No evidence of intra arterial filling defects to suggest acute pulmonary emboli. LUNGS: No new infiltrates nor pleural effusions. Mild atelectasis in the right middle lobe and lingu lar segment left lung, both unchanged.. Mild benign-appearing increased markings in the posterior ba nikole segment of the left lower lobe, more so than previous.. No significant findings in the trachea a nd mainstem bronchi. MEDIASTINUM: There is no hilar nor mediastinal adenopathy. Visualized thyroid unremarkable. CARDIAC: Heart size upper normal. No pericardial effusion. ABDOMEN: There is no ascites. LIVER: There are no focal hepatic lesions nor dilatation of intrahepatic ducts. GALLBLADDER/BILIARY: No obvious gallbladder pathology. CBD is not dilated. PANCREAS: No evidence of pancreatic mass nor dilatation of the pancreatic duct. SPLEEN: Spleen is not enlarged. There are no intrasplenic lesions. Splenic and portal veins are barr nt. ADRENALS: There are no significant adrenal masses. KIDNEYS: There is a benign exophytic cyst off the lateral aspect of the inferior pole left kidney jakub suring 2 cm. There is a parapelvic cyst in the right kidney measuring 2.6 x 2.5 cm. Smaller cyst in the inferior pole of the right kidney also noted which measures 1.5 cm. No solid renal masses. No solid renal masses. There are 2 small nonobstructive calculi in the right kidney. Other possibly th at these are opacified focal vessels. Similar findings not seen in the left kidney. There is no hyd ronephrosis on either side. Urinary bladder is not distended. Prostate is enlarged, measuring 5 cm transverse by 4.5 cm AP. ABDOMINAL AORTA: As above. LYMPH NODES: There is no retroperitoneal nor para-aortic adenopathy. No obvious mesenteric masses. ABDOMINAL WALL: No evidence of significant anterior abdominal wall hernia. GI: There is no evidence of bowel obstruction, free air, nor abscess.No appendicitis. PELVIS: LYMPH NODES: There is no intrapelvic nor inguinal adenopathy. GI: No evidence of appendicitis.No evidence of sigmoid diverticulitis. URINARY BLADDER: No calculi nor masses evident REPRODUCTIVE: Enlarged prostate gland, measuring 5 cm wide by 4.5 cm AP. Seminal vesicles appear unr emarkable. OSSEOUS: Moles noted invagination in the superior endplate of L1 again noted. Multilevel degenerativ e disc disease in the lumbar spine evident. IMPRESSION: 1. Compared to prior CT scan of 10/01/2020 there is stable appearance of the focal posterior intimal flap within the posterior aspect of the abdominal aorta in the region of the renal artery origins. T here is no flap extension into the renal arteries. There is no evidence of aneurysm inferior OS ossi fic and abdominal aorta. 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 2. No evidence of acute pulmonary emboli. Lungs are clear. No infiltrates and no pleural effusions. 3. No acute intra-abdominal/intrapelvic findings. 4. Enlarged prostate gland. Urinary bladder is not distended. No hydronephrosis. Appendix unremarkable. RADIATION DOSE DELIVERED: 966.98mGy.cm Total DLP DATA REPOSITORY: All CT scans at this facility are submitted to the National Radiology Data Registry (NRDR) Dose Index Registry (DIR) with the [employer] (ACR). RADIATION OPTIMIZATION: All CT scans at this facility use at least one of these dose optimization te chniques: automated exposure control; mA and/or kV adjustment per patient size (includes targeted exa ms where dose is matched to clinical indication); or iterative reconstruction.
--- NOTE | 2022-06-19 16:30 | ED.GENADUL_ITS ---
Discharge Plan Disposition Patient Disposition: [facility] INPATIENT Condition: Improving Discharge Details Clinical Impression: Non-ST elevation SC (NSTEMI), Chest pain Primary Care Provider: Jae Del Toro ED Provider: Tan Loredo Home Meds and New Rx's Prescriptions: No Action ibuprofen 600 MG tablet 800 mg PO BID PRN acetaminophen [Tylenol] 325 mg Tablet 325 mg PO QID PRN rosuvastatin [Crestor] 10 mg Tablet 5 mg PO DAILY tamsulosin [Flomax] 0.4 MG capsule 0.4 mg PO DAILY AM famotidine 10 mg Tablet 10 mg PO BID hydroxyzine HCl 50 mg Tablet 50 mg PO BID PRN melatonin 3 mg Tablet 3 mg PO HS PRN vitamin A 10,000 unit Capsule 10,000 unit PO DAILY psyllium Powder 1 tbsp PO BID carboxymethylcellulose sodium 0.5 % Drops 1 drp ophthalmic (eye) QID pantoprazole 40 mg Tablet,Delayed Release (Dr/Ec) 40 mg PO DAILY folic acid 1 mg Tablet 1 mg PO DAILY albuterol 90 mcg/actuation Aerosol INHALATION QID PRN Rx Instructions: INHALE 2 PUFFS BY MOUTH FOUR TIMES DAILY NEEDED finasteride 5 mg Tablet 5 mg PO DAILY bupropion HCl 300 mg Tablet Extended Release 24 Hr 300 mg PO QAM tiotropium bromide 18 mcg Capsule, W/Inhalation Device 1 cap INHALATION DAILY budesonide-formoterol 160-4.5 mcg/actuation Hfa Aerosol Inhaler 2 puff INHALATION BID diclofenac sodium 1 % Gel 2 g TOPICAL QID Rx Instructions: NTE 16GMS DAILY simethicone 80 mg Tablet 80 mg PO BID-QID PRN magnesium oxide 400 mg magnesium Tablet 400 mg PO DAILY Medical Decision Making This is a 72-year-old male with a past medical history of BPH, depression, high cholesterol, previous kidney stones, as well as an abdominal aortic dissection that is chronic who presents today for evaluation of chest pain. Patient states that for the last 2 to 3 days he has had a sensation of a baseball bat hitting his chest. It is been constant. It is not related to exertion. It does not appear to be changed by position. He has had some noted dizziness and lightheadedness as well. He denies headache or syncope. He denies any vomiting but does admit to nausea. He denies any diarrhea. He denies any blood in his stool. He denies having symptoms like this before. Patient has had a stress test within the last 2 years, and it was negative. He denies any history of previous cardiac disease. He does have a history of COPD and tobacco abuse. He has not taken any breathing treatments. He denies any other complaints at this time Exam demonstrates well-appearing male, mild discomfort. Peripheral pulses are normal. No pulsatile abdominal mass. Bedside ultrasound demonstrates somewhat diminished ejection fraction with what appears to be slight bowing at the apex of the heart. Ejection fraction looks to be around 35 to 40%. Differential includes dissection, ACS, less likely PE. We will evaluate for these concerning etiologies, give nitro, give a breathing treatment for potential reactive airway disease, evaluate for cardiac strain with a proBNP, monitor closely and reassess. Initial screening EKG shows no evidence of STEMI. Unchanged from prior EKGs. 8:16 PM Laboratory work-up returned, no white count bandemia or left shift. Electrolytes and renal function stable. Troponin elevated at 3000, proBNP is 400. Lipase normal. CTA demonstrates no acute process, the old flap is still present and unchanged. Patient's chest pain did resolve after the first nitroglycerin, and then came back. He has required 2 additional doses. last episode of chest pain went away for quite some time and now is slowly coming back in a very mild form. We will apply Nitropaste. Patient otherwise is stable. Symptoms consistent with an. No evidence of STEMI at this time. We did reach out to [facility] they are full and are unable to accept any patients at this time. We did reach out to [facility] and they are also full unable to accept any patients at this time. We did reach out to the [place], and they are full and unable to accept any patients at this time. I did contact [facility] cardiology and discussed the case with , and he agrees with the current plan as the patient has been heparinized, has received 300 of Plavix, and has received full dose aspirin. He recommends calling back in the morning for potential transfer bed availability then. In the meantime we will keep the patient on nitro as needed, heparin, and continued monitoring. I did contact the hospitalist Dr. Diaz, he agrees with the assessment and plan. I have extensively reviewed the treatment plan with the patient. I have addressed all patient concerns at this time. I have also discussed the plan with the admitting physician and they agree with the current assessment and plan and have agreed to assume responsibility for the patient. All parties demonstrate verbal understanding and agreement with our assessment and plan at this time. The documentation in this chart was dictated using [employer] dictation software. Please excuse any dictation errors. FI NDINGS: VASCULATURE: Pulmonary arteries: No evidence of acute pulmonary embolism. Aorta: The thoracic / abdominal aorta is normal in caliber without aneurysm. Stable posterior focal intimal flap (versus ulcerated posterior plaque) within the abdominal aorta in the region of the artery origins. Celiac trunk and mesenteric arteries: No occlusion or significant stenosis. Renal arteries: No occlusion or significant stenosis. Right iliac arteries: No occlusion or significant stenosis. Left iliac arteries: No occlusion or significant stenosis. CHEST: Lungs: No acute infiltrate in either lung base. Pleural spaces: Unremarkable. No pneumothorax. No pleural effusion. Heart: Unremarkable. No cardiomegaly. No pericardial effusion. ABDOMEN AND PELVIS: Liver: No mass. Gallbladder and bile ducts: Unremarkable. No calcified stones. No ductal dilation. Pancreas: Unremarkable. No mass. No ductal dilation. Spleen: Unremarkable. No splenomegaly. Adrenal glands: Unremarkable. No mass. Kidneys and ureters: No perinephric fluid. No hydronephrosis. Non-obstructing calcified renal stones. Right renal stable benign cysts. No follow-up imaging is recommended. Stomach and bowel: No generalized ileus or bowel obstruction. A few scattered colon diverticuli without evidence of diverticulitis. Appendix: Normal appendix. Intraperitoneal space: Unremarkable. No free air. No significant fluid collection. Urinary bladder: Unremarkable. No mass. Reproductive: Enlarged prostate gland measuring 5.1 cm transversely. Lymph nodes: Unremarkable. No enlarged lymph nodes. Bones/joints: Spinal degenerative changes. Minimal retrolisthesis of L5 with respect to L4. Old mild loss of height of L1. Soft tissues: Fat-containing inguinal and umbilical hernias. IMPRESSION: 1. The thoracic / abdominal aorta is normal in caliber without aneurysm. Stable posterior focal intimal flap (versus ulcerated posterior plaque) within the abdominal aorta in the region of the artery origins. 2. No evidence of acute pulmonary embolism. 3. No pulmonary infiltrate or pleural fluid collection. 4. No acute intra-abdominal or pelvic process. 5. A few scattered colon diverticuli without evidence of diverticulitis. 6. Enlarged prostate gland measuring 5.1 cm transversely. Thank you for allowing us to participate in the care of your patient. Dictated and Authenticated by: Greg Lion MD 06/19/2022 6:18 PM Eastern Time ([place] & [place]) HPI General Date/Time Provider Initiated Documentation: 06/19/22 16:12 . HPI Narrative: This is a 72-year-old male with a past medical history of BPH, depression, high cholesterol, previous kidney stones, as well as an abdominal aortic dissection that is chronic who presents today for evaluation of chest pain. Patient states that for the last 2 to 3 days he has had a sensation of a baseball bat hitting his chest. It is been constant. It is not related to exertion. It does not appear to be changed by position. He has had some noted dizziness and lightheadedness as well. He denies headache or syncope. He den ies any vomiting but does admit to nausea. He denies any diarrhea. He denies any blood in his stool. He denies having symptoms like this before. Patient has had a stress test within the last 2 years, and it was negative. He denies any history of previous cardiac disease. He does have a history of COPD and tobacco abuse. He has not taken any breathing treatments. He denies any other complaints at this time Related Data Home Medications Medication Instructions Recorded Confirmed tamsulosin 0.4 mg capsule (Flomax) 0.4 mg PO DAILY AM 10/16/17 10/01/20 acetaminophen 325 mg tablet 325 mg PO QID PRN 09/17/20 10/01/20 (Tylenol) ibuprofen 600 mg tablet 800 mg PO BID PRN 09/17/20 10/01/20 rosuvastatin 10 mg tablet (Crestor) 5 mg PO DAILY 09/17/20 10/01/20 albuterol 90 mcg/actuation aerosol mcg inhalation QID PRN 10/01/20 inhaler budesonide-formoterol HFA 160 2 puff inhalation BID 10/01/20 10/01/20 mcg-4.5 mcg/actuation aerosol inhaler bupropion HCl 300 mg 24 hr tablet, 300 mg PO QAM 10/01/20 10/01/20 extended release carboxymethylcellulose sodium 0.5 1 drp ophthalmic (eye) QID 10/01/20 10/01/20 % eye drops diclofenac sodium 1 % topical gel 2 g topical QID 10/01/20 10/01/20 famotidine 10 mg tablet 10 mg PO BID 10/01/20 10/01/20 finasteride 5 mg tablet 5 mg PO DAILY 10/01/20 10/01/20 folic acid 1 mg tablet 1 mg PO DAILY 10/01/20 10/01/20 hydroxyzine HCl 50 mg tablet 50 mg PO BID PRN 10/01/20 10/01/20 magnesium oxide 400 mg PO DAILY 10/01/20 10/01/20 melatonin 3 mg tablet 3 mg PO HS PRN 10/01/20 10/01/20 pantoprazole 40 mg tablet,delayed 40 mg PO DAILY 10/01/20 10/01/20 release psyllium 1 tbsp PO BID 10/01/20 10/01/20 simethicone 80 mg tablet 80 mg PO BID-QID PRN 10/01/20 10/01/20 tiotropium bromide 18 mcg capsule 1 cap inhalation DAILY 10/01/20 10/01/20 with inhalation device vitamin A 10,000 unit capsule 10,000 unit PO DAILY 10/01/20 10/01/20 Allergies Allergy/AdvReac Type Severity Reaction Status Date / Time No Known Allergies Allergy Unverified 06/19/22 16:09 General Stated Complaint: Chest Pain RICKI: 2 Review of Systems All systems reviewed & are unremarkable except as noted in HPI and below PFSH All Active Problems (Updated 06/19/22 @ 20:29 by Tan Loredo DO) Non-ST elevation SC (NSTEMI) (Acute) Chest pain (Acute) Medical History Anxiety BPH (benign prostatic hyperplasia) Depression High cholesterol Kidney stones Sleep apnea Social History Smoking/Tobacco Use Status: Never Smoking risk assessment performed?: Yes Alcohol Intake: current Alcohol Intake frequency: 0-2 drinks per day Alcohol type: beer and hard liquor Drug use: Never Substance use type: does not use Do you feel safe at home: Yes Do you feel safe in your relationship?: Yes Exam Narrative Exam Narrative: 1.Const: Well-nourished, Well-developed, appearing stated age 2.Eyes: PERRL, no conjunctival injection, and symmetrical lids. 3.ENT: Atraumatic external nose and ears. Moist MM. Neck: Symmetric, trachea midline, No thyromegaly. 4.CVS: +S1/S2, No murmurs or gallops. Peripheral pulses 2+ and equal in all extremities. Brisk capillary refill in all extremities. 5.RESP: Unlabored respiratory effort. Clear to auscultation bilaterally. No wheezes rales or rhonchi. No reproducible chest wall tenderness 6.GI: Soft, Nontender/Nondistended, No hepatosplenomegaly. No guarding or rebound. 7.MSK: Normocephalic/Atraumatic, Extremities w/o deformity or ttp No cyanosis or clubbing, Normal movement of all extremities. Dorsalis pedis and posterior tibial pulses +2 bilaterally. No peripheral edema. 8.Skin: Warm, Dry. No rashes or lesions. 9.Neuro: coater helper II-XII grossly intact. Sensation grossly intact, no focal neurologic deficits. 10.Psych: (AAO) x3. Appropriate mood and affect Course Vital Signs Vital signs: Vital Signs Temperature 37.1 C 06/19/22 16:03 Pulse 108 H 06/19/22 16:03 Respiratory Rate 13 06/19/22 16:03 Blood Pressure 181/96 H 06/19/22 16:03 Pulse Oximetry 100 06/19/22 16:03 Temperature 37.1 C 06/19/22 16:03 Temperature Source Temporal Artery Scan 06/19/22 16:03 Pulse 108 H 06/19/22 16:03 Respiratory Rate 13 06/19/22 16:03 Respiratory Effort Labored 06/19/22 16:07 Blood Pressure 181/96 H 06/19/22 16:03 Blood Pressure Position Sitting 06/19/22 16:03 Pulse Oximetry 100 06/19/22 16:03 Oxygen Delivery Method Room Air 06/19/22 16:03 Oxygen Flow Rate 0 06/19/22 16:03 Critical Care Time Critical Care Time Critical Care Time: Yes Total Critical Care Time: 45 Attestation: Upon my evaluation, this patient had a high probability of imminent or life- threatening deterioration, which required my direct attention, intervention, and personal management. I have personally provided 45 minutes of critical care time exclusive of time spent on separately billable procedures. Time includes review of laboratory data, radiology results, discussion with consultants, and monitoring for potential decompensation. Interventions were performed as documented. PAWSS Have you Been Recently Intoxicated or Drunk Within the Last 30 days?: No Have you Ever Experienced Previous Episodes of Alcohol Withdrawal?: No Have you ever Experienced Withdrawal Seizures?: No Have you ever Experienced Delirium Tremens(DT)s?: No Have you ever undergone Alcohol Rehabilitation Treatment (i.e, inpt ot outpatient treatment programs)?: No Have you ever Experienced Blackouts?: No Have you ever Combined Alcohol with other Downers within the last 90 days?: No Have you ever Combined Alcohol with any other Substance of Abuse during the last 90 days?: No Result: 0
[2022-06-19 16:34] LABS: Abs Immature Grans 0.01 10^3/uL (0.0-0.06); Absolute Basophil Count 0.02 10^3/uL (0.0-0.2); Absolute Eosinophil Count 0.11 10^3/uL (0.0-0.7); Absolute Lymphocyte Count 2.58 10^3/uL (1.2-3.4); Absolute Monocyte Count 0.67 10^3/uL (0.1-0.8); Absolute Neutrophil Count 3.04 10^3/uL (1.2-6.7); Basophils % 0.3; Eosinophils % 1.7; HCT 42.7 % (40.0-50.0); HGB 14.9 g/dL (13.5-17.5); Immature Grans % 0.2; Lymphocytes % 40.1; MCH 31.9 pg (27.0-33.0); MCHC 34.9 % (32.0-36.0); MCV 91 fL (80-95); MPV 9.5 fL (8.0-11.0); Monocytes % 10.4; Neutrophils % 47.3; Platelet Count 230 10^3/uL (130-400); RBC 4.67 10^6/uL (4.36-5.78); RDW 12.1 % (11.8-14.1); RDW-SD 40.6 fL; WBC 6.43 10^3/uL (4.4-10.8)
[2022-06-19] MEDS: Normal Saline 1,000 ML 1000 ML IV (16:42)
[2022-06-19] MEDS: Albuterol/Ipratropium 3 ML UPD VIAL UPD (16:42)
[2022-06-19] MEDS: nitroGLYcerin 0.4 MG TAB SL ×2 (16:42→17:52)
--- NOTE | 2022-06-19 16:44 | NUR.NOTE ---
Nursing Note: 1x Nitro given with effect. Provider notified. Hold Morphine order until further notice.
[2022-06-19 16:45] LABS: Prothrombin Time 9.9 sec (9.3-11.0)
[2022-06-19 16:57] LABS: ALT 29 U/L (16-63); AST 21 U/L (15-37); Albumin 3.7 g/dL (3.4-5.0); Alkaline Phosphatase 82 U/L (46-116); Anion Gap 7.7 mmol/L (3-11); BUN 18 mg/dL (7-18); Bilirubin, Total 0.3 mg/dL (0.2-1.0); CO2 28.3 mmol/L (21.0-32.0); CREATININE 1.4 mg/dL (0.70-1.30); Calcium 9.4 mg/dL (8.5-10.1); Chloride 105 mmol/L (98-107); Glucose 117 mg/dL (74-106); Lipase 95 U/L (73-393); NT-proBNP 411 pg/mL (<300); Potassium 4.1 mmol/L (3.5-5.1); Sodium 141 mmol/L (136-145); Total Protein 7.6 g/dL (6.4-8.2)
[2022-06-19 17:02] LABS: Troponin I 3168 ng/L (<or=60)
[2022-06-19] MEDS: Omnipaque 350 MG/ML 100 ML BTL IJ (17:26)
[2022-06-19] MEDS: Normal Saline Flush 10 ML SYR IVP (17:30)
--- NOTE | 2022-06-19 18:19 | DI.VRAD_ITS ---
PROCEDURE INFORMATION: Exam: CTA Chest With Contrast CTA Abdomen and Pelvis With Contrast Exam date and time: 06/19/2022 5:19 PM Age: 72 years old Clinical indication: Chest and epigastric pain, HX aortic dissection TECHNIQUE: Imaging protocol: Computed tomographic angiography of the chest with contrast. Computed tomographic angiography of the abdomen and pelvis with contrast. 3D rendering (Not supervised by radiologist): MIP and/or 3D reconstructed images were created by the technologist. Contrast material: OMNIOAQUE 350; Contrast volume: 100 ml; Contrast route: INTRAVENOUS (IV); COMPARISON: CT CHEST PE CTA 10/01/2020 4:25 PM FINDINGS: VASCULATURE: Pulmonary arteries: No evidence of acute pulmonary embolism. Aorta: The thoracic / abdominal aorta is normal in caliber without aneurysm. Stable posterior focal intimal flap (versus ulcerated posterior plaque) within the abdominal aorta in the region of the artery origins. Celiac trunk and mesenteric arteries: No occlusion or significant stenosis. Renal arteries: No occlusion or significant stenosis. Right iliac arteries: No occlusion or significant stenosis. Left iliac arteries: No occlusion or significant stenosis. CHEST: Lungs: No acute infiltrate in either lung base. Pleural spaces: Unremarkable. No pneumothorax. No pleural effusion. Heart: Unremarkable. No cardiomegaly. No pericardial effusion. ABDOMEN AND PELVIS: Liver: No mass. Gallbladder and bile ducts: Unremarkable. No calcified stones. No ductal dilation. Pancreas: Unremarkable. No mass. No ductal dilation. Spleen: Unremarkable. No splenomegaly. Adrenal glands: Unremarkable. No mass. Kidneys and ureters: No perinephric fluid. No hydronephrosis. Non-obstructing calcified renal stones. Right renal stable benign cysts. No follow-up imaging is recommended. Stomach and bowel: No generalized ileus or bowel obstruction. A few scattered colon diverticuli without evidence of diverticulitis. Appendix: Normal appendix. Intraperitoneal space: Unremarkable. No free air. No significant fluid collection. Urinary bladder: Unremarkable. No mass. Reproductive: Enlarged prostate gland measuring 5.1 cm transversely. Lymph nodes: Unremarkable. No enlarged lymph nodes. Bones/joints: Spinal degenerative changes. Minimal retrolisthesis of L5 with respect to L4. Old mild loss of height of L1. Soft tissues: Fat-containing inguinal and umbilical hernias. IMPRESSION: 1. The thoracic / abdominal aorta is normal in caliber without aneurysm. Stable posterior focal intimal flap (versus ulcerated posterior plaque) within the abdominal aorta in the region of the artery origins. 2. No evidence of acute pulmonary embolism. 3. No pulmonary infiltrate or pleural fluid collection. 4. No acute intra-abdominal or pelvic process. 5. A few scattered colon diverticuli without evidence of diverticulitis. 6. Enlarged prostate gland measuring 5.1 cm transversely. Dictated and Authenticated by: Greg Lion MD. Ordering:LEONOR Maddox MD
[2022-06-19] MEDS: Clopidogrel 300 MG TAB PO (18:37)
[2022-06-19] MEDS: Aspirin 325 MG TAB PO (18:37)
[2022-06-19] MEDS: nitroGLYcerin 2% 1 INCH/1 GM PKT TP (20:33)
[2022-06-19 20:43] LABS: Source Nasal/Nares
[2022-06-19 21:14] LABS: COVID-19 PCR Negative (Negative)
[2022-06-19 21:19] LABS: Troponin I 3305 ng/L (<or=60)
--- NOTE | 2022-06-19 22:43 | HPE_ITS ---
Date of service: 06/19/22 Time of Service: 22:44 Assessment and Plan Assessment and plan (1) Non-ST elevation CO (NSTEMI): Status: Acute Assessment and plan: Typical cardiac chest pain and elevated troponins c/w ACS, EKG does not demonstrate NTEMI. Currently being monitored with telemetry on ICU, medically stable on ntg patch. Continue anticoag / dual antiplatelet therapy, switch from low- to high-doese statin, nitroglycerin. Pt had a negative experience with morphine in the past, try to avoid. (2) BPH (benign prostatic hyperplasia): Assessment and plan: Stable on medications. Monitor I/Os bladderscan if necessary. (3) Depression: Assessment and plan: Stable, continue buproprion at home dose (4) GERD (gastroesophageal reflux disease): Assessment and plan: Stable on pantoprazole 40 mg BID continue (5) TAYLOR (obstructive sleep apnea): Status: Chronic Assessment and plan: confirm if using home CPAP (6) AAA (abdominal aortic aneurysm) without rupture: Assessment and plan: On rosuvastatin, and other treatments for vascular dz as above. No evidence of progression on CTA of C/A/P. Get [facility] or [place] records. (7) DVT prophylaxis: Status: Acute Assessment and plan: on anticoagulation (8) Discharge planning issues: Status: Acute Assessment and plan: Stable in the ICU on medical treatment for NSTEMI. Pending transfer for catheterization when bed available. 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 This occurs in the context of three months of reoccurring 9/10 non-radiating band-like chest pain. The pain is a/w dizziness and shortness of breath (it hurts to breathe) that occurred as he climbs the three flights of stairs to his apartment, but would resolve with rest. Not a/w diaphoresis or palpitations. He also had a hospitalization 2 yr ago for similar symptoms when he was transferred to the [facility] for chest pain and ruled out for CO. Chest pain finally did resolve in the ED after 4th NTG, returned and then resolved again after NTG paste. He is also having difficulty concentrating, frequent slight headache, sinus problems, medically managed BPH, and medically managed anxiety. Has a lump on left og from falling through stairs over a month ago. Review of Systems Narrative: Positive for recent headache, dizziness, nausea, chest pain, SOB, sinus problems, anxiety, constipation, Negative for emesis, diaphoresis, changes in bowel and bladder habits, edema, p alpitations, syncope Constitutional Constitutional: Reports headache(s) (chronic ROLLE, no change) Eyes Eyes: Reports blurry vision (over the past months, no acute) ENT Ears, Nose, Mouth, and Throat: Reports headache(s) (chronic ROLLE, no change), Denies nasal congestion, Denies nasal discharge and Denies sore throat Respiratory Respiratory: Denies cough and Denies wheezing Gastrointestinal Gastrointestinal: Denies melena and Denies hematochezia Genitourinary Genitourinary: Denies hematuria and Reports difficulty urinating (chronic LUTS) Integumentary/Breasts Skin/Breast: Denies rash and Denies skin ulcer Neurologic Neurologic: Reports headache(s) (chronic ROLLE, no change), Denies localized weak ness and Denies sensory deficit Psychiatric Psychiatric: Reports anxiety (some increase he attributes to the chest pain) and Denies depression Allergic/Immunologic Allergic/Immunologic: Denies wheezing PFSH All Active Problems Discharge planning issues (Acute) DVT prophylaxis (Acute) TAYLOR (obstructive sleep apnea) (Chronic) Non-ST elevation CO (NSTEMI) (Acute) Chest pain (Acute) Medical History AAA (abdominal aortic aneurysm) without rupture Anxiety BPH (benign prostatic hyperplasia) Depression GERD (gastroesophageal reflux disease) High cholesterol Kidney stones Sleep apnea Surgical History (Updated 06/19/22 @ 23:40 by Milind Bernal) S/P spinal surgery multiple cervical and lumbar spine surgeries Family History (Updated 06/19/22 @ 23:42 by Milind Bernal) Father Dementia Mother Dementia Social History (Updated 06/19/22 @ 23:43 by Milind Bernal) Smoking/Tobacco Use Status: Never Smoking risk assessment performed?: Yes Alcohol Intake: current Alcohol Intake frequency: 0-2 drinks per day Alcohol type: beer and hard liquor Drug use: Never Substance use type: does not use Do you feel safe at home: Yes Do you feel safe in your relationship?: Yes Additional Social history: Lives alone [address] in [facility], Grew up in [facility], family goes back generations there. Served in [employer] out of [place], [place]. On disability for spinal injuries since. Meds Allergies and Home Medications Allergies Allergy/AdvReac Type Severity Reaction Status Date / Time simvastatin AdvReac Unknown abdominal Unverified 06/19/22 23:04 pain Home Medications Medication Instructions Recorded Confirmed Type tamsulosin 0.4 mg capsule (Flomax) 0.4 mg PO DAILY AM 10/16/17 10/01/20 History acetaminophen 325 mg tablet 325 mg PO QID PRN 09/17/20 10/01/20 History (Tylenol) ibuprofen 600 mg tablet 800 mg PO BID PRN 09/17/20 10/01/20 History rosuvastatin 10 mg tablet (Crestor) 5 mg PO DAILY 09/17/20 10/01/20 History albuterol 90 mcg/actuation aerosol mcg inhalation QID PRN 10/01/20 History inhaler budesonide-formoterol HFA 160 2 puff inhalation BID 10/01/20 10/01/20 History mcg-4.5 mcg/actuation aerosol inhaler bupropion HCl 300 mg 24 hr tablet, 300 mg PO QAM 10/01/20 10/01/20 History extended release carboxymethylcellulose sodium 0.5 1 drp ophthalmic (eye) QID 10/01/20 10/01/20 History % eye drops diclofenac sodium 1 % topical gel 2 g topical QID 10/01/20 10/01/20 History famotidine 10 mg tablet 10 mg PO BID 10/01/20 10/01/20 History finasteride 5 mg tablet 5 mg PO DAILY 10/01/20 10/01/20 History folic acid 1 mg tablet 1 mg PO DAILY 10/01/20 10/01/20 History hydroxyzine HCl 50 mg tablet 50 mg PO BID PRN 10/01/20 10/01/20 History magnesium oxide 400 mg PO DAILY 10/01/20 10/01/20 History melatonin 3 mg tablet 3 mg PO HS PRN 10/01/20 10/01/20 History pantoprazole 40 mg tablet,delayed 40 mg PO DAILY 10/01/20 10/01/20 History release psyllium 1 tbsp PO BID 10/01/20 10/01/20 History simethicone 80 mg tablet 80 mg PO BID-QID PRN 10/01/20 10/01/20 History tiotropium bromide 18 mcg capsule 1 cap inhalation DAILY 10/01/20 10/01/20 Histo ry with inhalation device vitamin A 10,000 unit capsule 10,000 unit PO DAILY 10/01/20 10/01/20 History Exam Const Other: Pleasant, well-nutritioned, bearded man appearing stated age laying on stretcher shirtless with tele wires with clean jeans and still in sneakers [facility] Ears: hearing grossly impaired ( asked us to speak up a few times) Face and sinus: face symmetric Mouth: oral mucosae normal, oropharynx normal and moist mucous membranes Teeth and gingiva: gingiva normal and poor dentition (missing a few teeth, some crowns / caps) Throat: posterior oropharynx normal Eyes General: appearance normal, both eyes and all related structures Conjunctivae: conjunctivae normal Pupils: PERRL and accommodation normal EOM: EOM intact bilaterally Chest Chest: normal inspection of the chest Resp Other: Lungs clear bilaterally, no wheezes, crackles or rales Cardio Rate: regular rate Rhythm: regular rhythm Heart Sounds: S1 normal and S2 normal Other: no murmers, rubs, or gallops GI Inspection: normal to inspection and obesity Other: no scars, visible pulsations or distensin Skin General skin exam: no rashes or lesions noted Trauma: no lacerations or abrasions Other: One tender lump on left og Neuro General: patient alert, patient awake, patient oriented x3, moves all extremi ties, no meningeal signs and no focal motor deficits Cranial Nerves: PERRL, accommodation normal, EOM intact bilaterally and no nystagmus Cognition: normal cognition Speech: speech normal Extrem General: normal to inspection, no clubbing, cyanosis or edema, no pedal edema and no calf tenderness Right lower extremity: normal to inspection and normal capillary refill Left lower extremity: normal to inspection and normal capillary refill Other: pedal pulses intact b/l Psych Appearance: grossly normal and well kempt Mental Status: mental status grossly normal Speech and Movement: speech and movement normal and speech clear Mood: anxious mood Affect: normal affect (euthymic, reactive, engaging, well-related) Attitude: cooperative Thought Process: normal (linear and goal directed) Thought Content: normal (good fund of knowledge) Insight: insight good Judgment: judgment good Results Imaging EKG: report reviewed and image reviewed (NSR, no ST-T elevation) Imaging Studies: CTA of C/A/P: IMPRESSION: 1.? The thoracic / abdominal aorta is normal in caliber without aneurysm. Stable posterior focal intimal flap (versus ulcerated posterior plaque) within the abdominal aorta in the region of the artery origins. 2.? No evidence of acute pulmonary embolism. 3.? No pulmonary infiltrate or pleural fluid collection. 4.? No acute intra-abdominal or pelvic process. 5.? A few scattered colon diverticuli without evidence of diverticulitis. 6.? Enlarged prostate gland measuring 5.1 cm transversely. Labs Result diagrams: 06/19/22 16:20 06/19/22 16:20 Labs: Laboratory Results - last 24 hr 06/19/22 06/19/22 06/19/22 16:20 16:20 16:20 WBC 6.43 RBC 4.67 Hgb 14.9 Hct 42.7 MCV 91 MCH 31.9 MCHC 34.9 RDW 12.1 Plt Count 230 MPV 9.5 Immature Gran % 0.2 Neutrophils % 47.3 Lymphocytes % 40.1 Monocytes % 10.4 Eosinophils % 1.7 Basophils % 0.3 Nucleated RBC % 0.0 Absolute Neutrophils 3.04 Absolute Lymphocytes 2.58 Absolute Monocytes 0.67 Absolute Eosinophils 0.11 Absolute Basophils 0.02 PT 9.9 INR 1.0 APTT 25.0 Sodium 141 Potassium 4.1 Chloride 105 Carbon Dioxide 28.3 Anion Gap 7.7 BUN 18 Creatinine 1.4 H Est GFR (CKD-EPI 2020) 53.40 Glucose 117 H Calcium 9.4 Total Bilirubin 0.3 AST 21 ALT 29 Alkaline Phosphatase 82 Troponin I 3168 H* NT-Pro-B Natriuret Pep 411 H Total Protein 7.6 Albumin 3.7 Lipase 95 COVID-19 Source SARS-CoV-2 (PCR) 06/19/22 06/19/22 20:30 20:30 WBC RBC Hgb Hct MCV MCH MCHC RDW Plt Count MPV Immature Gran % Neutrophils % Lymphocytes % Monocytes % Eosinophils % Basophils % Nucleated RBC % Absolute Neutrophils Absolute Lymphocytes Absolute Monocytes Absolute Eosinophils Absolute Basophils PT INR APTT Sodium Potassium Chloride Carbon Dioxide Anion Gap BUN Creatinine Est GFR (CKD-EPI 2020) Glucose Calcium Total Bilirubin AST ALT Alkaline Phosphatase Troponin I 3305 H* NT-Pro-B Natriuret Pep Total Protein Albumin Lipase COVID-19 Source Nasal/Nares SARS-CoV-2 (PCR) Negative Last Vital Signs Temp 37.1 C 06/19/22 16:03 Pulse 104 H 06/19/22 18:46 Resp 18 06/19/22 18:50 BP 110/77 06/19/22 18:46 Pulse Ox 99 06/19/22 18:50 PAWSS Have you Been Recently Intoxicated or Drunk Within the Last 30 days?: No Have you Ever Experienced Previous Episodes of Alcohol Withdrawal?: No Have you ever Experienced Withdrawal Seizures?: No Have you ever Experienced Delirium Tremens(DT)s?: No Have you ever undergone Alcohol Rehabilitation Treatment (i.e, inpt ot outpatient treatment programs)?: No Have you ever Experienced Blackouts?: No Have you ever Combined Alcohol with other Downers within the last 90 days?: No Have you ever Combined Alcohol with any other Substance of Abuse during the last 90 days?: No Result: 0
[2022-06-20] VITALS (43 sets, daily range): BP systolic 88–141; BP diastolic 37–80; PULSE 67–107; RESP 11–34; TEMP 36.6–38.5; O2SAT 92–100
[2022-06-20 00:43] LABS: PTT Activated 89.1 sec (21.0-27.5)
[2022-06-20 06:40] LABS: Abs Immature Grans 0.01 10^3/uL (0.0-0.06); Absolute Basophil Count 0.02 10^3/uL (0.0-0.2); Absolute Eosinophil Count 0.11 10^3/uL (0.0-0.7); Absolute Monocyte Count 0.78 10^3/uL (0.1-0.8); Absolute Neutrophil Count 5.11 10^3/uL (1.2-6.7); Basophils % 0.2; Eosinophils % 1.4; HCT 38.7 % (40.0-50.0); Immature Grans % 0.1; Lymphocytes % 24.9; MCH 31.6 pg (27.0-33.0); MCHC 33.6 % (32.0-36.0); MCV 94 fL (80-95); MPV 9.8 fL (8.0-11.0); Monocytes % 9.7; Neutrophils % 63.7; Platelet Count 196 10^3/uL (130-400); RBC 4.11 10^6/uL (4.36-5.78); RDW 12.1 % (11.8-14.1); RDW-SD 42.2 fL; WBC 8.03 10^3/uL (4.4-10.8)
[2022-06-20] MEDS: Acetaminophen 325 MG TAB PO ×2 (06:45→15:25)
[2022-06-20 06:57] LABS: PTT Activated 54.2 sec (21.0-27.5)
--- NOTE | 2022-06-20 07:00 | RT.EKG_ITS ---
APPROVED REPORT Exam: Resting ECG Reason for Exam: NSTEMI Patient Location: I HR:79 bpm ECG Measurements Heart Rate 79 AXIS MI 129 P 10 QRSd 93 QRS 49 QT 400 T 50 QTc 459 Conclusion Sinus rhythm...normal P axis, V-rate 50- 99
[2022-06-20 07:08] LABS: Anion Gap 8.2 mmol/L (3-11); BUN 16 mg/dL (7-18); CO2 25.8 mmol/L (21.0-32.0); CREATININE 1.3 mg/dL (0.70-1.30); Calcium 8.5 mg/dL (8.5-10.1); Chloride 107 mmol/L (98-107); Estimated GFR 58.37 (mL/min/1.73m2); Glucose 120 mg/dL (74-106); Potassium 3.7 mmol/L (3.5-5.1); Sodium 141 mmol/L (136-145)
[2022-06-20 07:12] LABS: Troponin I 11072 ng/L (<or=60)
--- NOTE | 2022-06-20 07:50 | PGE_ITS ---
Date of Service Date of service: 06/20/22 Time of Service: 07:50 Assessment and Plan Assessment and plan (1) Non-ST elevation [place] (NSTEMI): Status: Acute Assessment and plan: Continue heparin drip and nitroglycerin drip. Titrate nitroglycerin drip to alleviate chest discomfort. Patient was loaded with aspirin 325 mg last night and Plavix 300 mg. Daily doses were not reordered for this morning. I have corrected this and ordered 81 mg aspirin and 75 mg of Plavix to be given now. Patient would benefit from low-dose beta-lexi as he is not in any overt heart failure. Patient's rosuvastatin's been increased to 40 mg daily. I discussed his case with [facility] director paid media Dr. John Luther who reviewed the patient's case and has excepted the patient for transfer to [facility] to the service of Dr. Valeria Costa Critical care time spent interviewing and examining the patient, reviewing studies, discussing case with patient's nurse and consulting physicians was 60 minutes outside of time spent performing POCUS exam. Subjective Subjective Interval history since last seen: 72-year-old male with a past medical history of BPH, depression, high cholesterol, previous kidney stones, as well as an abdominal aortic dissection that is chronic but stable and hx of COPD. He has been having CP for past 2 to 3 days, and was found to have NSTEMI last night w/ troponin I of 3100 that lebron to 11,000 this morning. He was given Plavix 300 mg and aspirin 325 mg and begun on heparin drip after he had CTA of his chest and abdomen which did not show any acute dissection (he has posterior intimal flap in the abdominal aorta but no acute dissection and no aneurysm of his thoracic or abdominal aorta and no PE. His EKG demonstrated NSR w/out ST elevation or depression. Patient was put on NTG paste however he has had some more angina this morning. At 2 am he required NTG SL, which he says improved his CP but when I evaluated him he was still having some residual anterior chest pressure/ache rated a 2/10. I have put him on NTG drip which has taken his CP down to 1 (current drip at 5 mcg/min) Exam Narrative Exam Narrative: Mr. aBrbosa is alert and oriented first place time circumstance lying in; competent position. Lungs reveal bibasilar rales Heart is regular rate and rhythm I do not appreciate murmur rub or gallop Abdomen soft and nontender Lower extremities without peripheral edema Objective Last Vital Signs Temp 37.0 C 06/20/22 06:45 Pulse 77 06/20/22 04:01 Resp 18 06/20/22 04:01 BP 128/73 06/20/22 04:01 Pulse Ox 95 06/20/22 04:01 Laboratory Results - last 24 hr 06/19/22 06/19/22 06/19/22 16:20 16:20 16:20 WBC 6.43 RBC 4.67 Hgb 14.9 Hct 42.7 MCV 91 MCH 31.9 MCHC 34.9 RDW 12.1 Plt Count 230 MPV 9.5 Immature Gran % 0.2 Neutrophils % 47.3 Lymphocytes % 40.1 Monocytes % 10.4 Eosinophils % 1.7 Basophils % 0.3 Nucleated RBC % 0.0 Absolute Neutrophils 3.04 Absolute Lymphocytes 2.58 Absolute Monocytes 0.67 Absolute Eosinophils 0.11 Absolute Basophils 0.02 PT 9.9 INR 1.0 APTT 25.0 Sodium 141 Potassium 4.1 Chloride 105 Carbon Dioxide 28.3 Anion Gap 7.7 BUN 18 Creatinine 1.4 H Est GFR (CKD-EPI 2020) 53.40 Glucose 117 H Calcium 9.4 Total Bilirubin 0.3 AST 21 ALT 29 Alkaline Phosphatase 82 Troponin I 3168 H* NT-Pro-B Natriuret Pep 411 H Total Protein 7.6 Albumin 3.7 Lipase 95 COVID-19 Source SARS-CoV-2 (PCR) 06/19/22 06/19/22 06/20/22 20:30 20:30 00:15 WBC RBC Hgb Hct MCV MCH MCHC RDW Plt Count MPV Immature Gran % Neutrophils % Lymphocytes % Monocytes % Eosinophils % Basophils % Nucleated RBC % Absolute Neutrophils Absolute Lymphocytes Absolute Monocytes Absolute Eosinophils Absolute Basophils PT INR APTT 89.1 H* Sodium Potassium Chloride Carbon Dioxide Anion Gap BUN Creatinine Est GFR (CKD-EPI 2020) Glucose Calcium Total Bilirubin AST ALT Alkaline Phosphatase Troponin I 3305 H* NT-Pro-B Natriuret Pep Total Protein Albumin Lipase COVID-19 Source Nasal/Nares SARS-CoV-2 (PCR) Negative 06/20/22 06/20/22 06/20/22 06:30 06:30 06:30 WBC 8.03 RBC 4.11 L Hgb 13.0 L Hct 38.7 L MCV 94 MCH 31.6 MCHC 33.6 RDW 12.1 Plt Count 196 MPV 9.8 Immature Gran % 0.1 Neutrophils % 63.7 Lymphocytes % 24.9 Monocytes % 9.7 Eosinophils % 1.4 Basophils % 0.2 Nucleated RBC % 0.0 Absolute Neutrophils 5.11 Absolute Lymphocytes 2.00 Absolute Monocytes 0.78 Absolute Eosinophils 0.11 Absolute Basophils 0.02 PT INR APTT 54.2 H Sodium 141 Potassium 3.7 Chloride 107 Carbon Dioxide 25.8 Anion Gap 8.2 BUN 16 Creatinine 1.3 Est GFR (CKD-EPI 2020) 58.37 Glucose 120 H Calcium 8.5 Total Bilirubin AST ALT Alkaline Phosphatase [place] I 45656 H* NT-Pro-B Natriuret Pep Total Protein Albumin Lipase COVID-19 Source SARS-CoV-2 (PCR) Reviewed Pertinent PMH: Yes Objective Narrative Objective Narrative: POCUS echocardiogram was performed and based on his limited echocardiogram LV function appears to be well preserved with no apparent wall motion abnormalities. No pericardial effusion. He does have a trace of mitral regurgitation. PAWSS Have you Been Recently Intoxicated or Drunk Within the Last 30 days?: No Have you Ever Experienced Previous Episodes of Alcohol Withdrawal?: No Have you ever Experienced Withdrawal Seizures?: No Have you ever Experienced Delirium Tremens(DT)s?: No Have you ever undergone Alcohol Rehabilitation Treatment (i.e, inpt ot outpatient treatment programs)?: No Have you ever Experienced Blackouts?: No Have you ever Combined Alcohol with other Downers within the last 90 days?: No Have you ever Combined Alcohol with any other Substance of Abuse during the last 90 days?: No Result: 0
[2022-06-20] MEDS: nitroGLYcerin in D5W 50 MG/250 ML BTL IV (08:44)
--- NOTE | 2022-06-20 08:53 | PDOC.CMIN ---
- If Service Date Differs Date of service: 06/20/22 Time of Service: 08:53 Care Management Initial Assess REASON FOR HOSPITALIZATION:: NSTEMI PAST MEDICAL HISTORY/PAST SURGICAL HISTORY:: Medical History . AAA (abdominal aortic aneurysm) without rupture. Anxiety. BPH (benign prostatic hyperplasia). Depression. GERD (gastroesophageal reflux disease). High cholesterol. Kidney stones. Sleep apnea. Surgical History (Updated 06/19/22 @ 23:40 by Milind Bernal). S/P spinal surgery. multiple cervical and lumbar spine surgeries PREVIOUS FUNCTIONAL STATUS/SOCIAL/FAMILY SUPPORTS:: Resides alone in [facility], independent at baseline in the community. ADVANCE DIRECTIVES:: On file: Aracely Epps [phone] Has patient been provided with info about the portal/API?: Yes Did the patient sign up for the portal?: No CODE STATUS:: Full Code INSURANCE COVERAGE / FINANCIAL ISSUES:: MD CURRENT HOME/COMMUNITY SERVICES/EQUIPMENT:: MOW, side rails, CPAP PRIMARY CARE PHYSICIAN:: Jae Del Toro: MD POTENTIAL DISCHARGE NEEDS:: Anticipate transfer coordination. PATIENT/FAMILY EDUCATION NEEDS:: Review of instructions. ANTICIPATED BARRIERS TO DISCHARGE:: Bed availabilty TRANSPORTATION:: EMS PLAN:: Stable in the ICU on medical treatment for NSTEMI. Pending transfer for catheterization when bed available.
--- NOTE | 2022-06-20 09:33 | W.POCUS ---
Pocus Exam Limited Cardiac Exam DATE OF EXAM: 06/20/22 TIME OF EXAM: 09:35 IS THIS A REPEAT EXAM DURING THIS ENCOUNTER: no REASON FOR EXAM: Chest pain and Other (NSTEMI) indication: NSTEMI VISUALIZED STRUCTURES: four chambers, LVOT, aortic valve, mitral valve, Interventricular septum and IVC VIEW OBTAINED: Apical 4-Chamber, Parasternal long-axis, Parasternal short-axis and Subxiphoid PERTINENT FINDINGS/IMPRESSION: Other (dilated LV (5.96 cm LVEDd)) dilated LV w/ low normal LV systolic function w/ no RWMA; no pericardial effusion, trace to mild mitral regurgitation; normal RV systolic function, non-dilated IVC w/ less than 50% collapsibility w/ estimated RAP of 8 cm; Pacheco biplane was not performed. Assisted CO was calculated at average of 3.4 L/min (avg VTI 16.4) ; no IVC inspiratory collapsability (40% collapsability w/ max. IVC diam. of 1.63 cm), No pericardial effusion and No RV dilation Exam complete
[2022-06-20] MEDS: Budesonide/Formoterol 160/4.5 6 GM 60 PUFF INH IH (09:36)
[2022-06-20] MEDS: buPROPion-XL 150 MG TABCR 300 MG PO (09:41)
[2022-06-20] MEDS: Tiotropium Bromide-Respimat 10 PUFF INH 2 PUFF IH (09:42)
[2022-06-20] MEDS: Famotidine 20 MG TAB 10 MG PO (09:43)
[2022-06-20] MEDS: Pantoprazole 40 MG TABCR PO (09:44)
[2022-06-20] MEDS: Magnesium Oxide 400 MG TAB PO (09:44)
[2022-06-20] MEDS: Finasteride 5 MG TAB PO (09:44)
[2022-06-20] MEDS: Folic Acid 1 MG TAB PO (09:44)
[2022-06-20] MEDS: Rosuvastatin 10 MG TAB 40 MG PO (09:45)
[2022-06-20] MEDS: Tamsulosin 0.4 MG CAPCR PO (09:45)
[2022-06-20] MEDS: Refresh PLUS Eye Drops 0.4ml 1 EACH OP (09:46)
[2022-06-20] MEDS: Aspirin E.C. 81 MG TABEC PO (10:25)
[2022-06-20] MEDS: Clopidogrel 75 MG TAB PO (10:25)
--- NOTE | 2022-06-20 12:31 | NUR.NOTE ---
RN calls lab to draw APTT as same is scheduled for 12:30.Nursing Note:
--- NOTE | 2022-06-20 12:55 | NUR.NOTE ---
APTT is drawn by lab.Nursing Note:
[2022-06-20 13:31] LABS: PTT Activated 48.5 sec (21.0-27.5)
--- NOTE | 2022-06-20 13:33 | NUR.NOTE ---
APTT is 48.5 and is therapeutic. No change in dosing is required.Nursing Note:
[2022-06-20 14:20] LABS: Bilirubin Negative (Negative); Blood Negative (Negative); Clarity Clear (Clear); Glucose Negative (Negative); Ketones Negative (Negative); Leukocyte Esterase Negative (Negative); Nitrite Negative (Negative); Urobilinogen 0.2 EU/dL (Up TO 0.2)
--- NOTE | 2022-06-20 14:25 | DSE_ITS ---
Date of service: 06/20/22 Time of Service: 14:25 DS: Diagnosis Discharge Diagnosis (1) Non-ST elevation [place] (NSTEMI): Status: Acute Asessment and Plan: Patient has 3 month hx of waxing and waning exertional CP and dyspnea, and has a PMH of COPD, TAYLOR, BPH, kidney stones, GERD and an abdominal aortic intimal tear that has been stable. he presented to the ED d/t 3 days of chest tightness and was found to have an NSTEMI. Initial EKG did not show any ST elevation or depression, CP improved after 4th NTG SL but returned and improved after initiation of NTG paste. His 1st troponin I was elevated at 3168 and his pro-BNP was elevated minimally at 411. His 2nd troponin plateaued at 3305. He was begun on heparin drip, given ASA 325 mg and Plavix 300 mg. [facility] [place] [place], [place], [place] and [facility] ([facility] in [place], [place]) were consulted however both were at capacity and could not accept the patient in transfer. Therefore, the patient was admitted to the ICU at [facility]. Patient had recurrent CP during the night treated w/ NTG SL 0.3 mg which improved his CP but did not resolve his CP. Repeat troponin on the morning of 06/20/22 was higher at 11,072 and repeat EKG was done which demonstrated NSR w/ no acute ST elevation or depression. His CP improved and resolved w/ NTG drip. Atorvastatin home dose was increased to 40 mg. Lopressor 12.5 mg po q8hr was initiated. Bedside POCUS echo was done. Overall LV systolic fxn appeared to be preserved. LV however is dilated w/ trace to mild MR; no pericardial effusion. RV is not dilated and appears to have normal sytolic function. Formal echocardiogram is not available at this time. Discharge Plan Disposition Patient Disposition: [facility] Condition: Serious Discharge Details Reason For Visit: NSTEMI Admit Date/Time: 06/19/22 20:29 Admit Provider: Milind Bernal Attending Provider: Milind Bernal Primary Care Provider: Jae Del Toro Hospital Course Hospital Course: 72-year-old male [place] who is followed through the [place] clinic in [facility] who presented with acute onset of chest tightness has been going on for 2 days now. He has had intermittent episodes of chest tightness over the last 3 months. Previously had a cardiac stress test 2 years ago that was normal. Evaluation emergency department revealed that he was having NSTEMI. Initially his chest pain improved with a fourth nitroglycerin tablet given in the emergency department but then returned and then resolved after nitroglycerin paste. However throughout the night chest pain waxed and waned and he required a nitroglycerin drip. His EKG showed no acute ST elevation or depression and rhythm remained normal sinus rhythm. He was started on a heparin drip and given a loading dose of Plavix 300 mg and aspirin 325 mg. He was placed on increased dose of rosuvastatin 40 mg daily. He was continued on daily Plavix at 75 mg daily and aspirin 81 mg daily. Chest pain did improve with nitroglycerin drip and is resting comfortably. [facility] was contacted through our ED but because there is no bed availability at [facility] and also no availability at [facility] patient was admitted to [facility] overnight. [facility] was recontacted on 06/20/2022 and I spoke with the solution make up operator Dr. John Goff who accepted the patient for transfer to [facility] on the service of Dr. Anne Bell. The patient's troponin on admission was 3168 on admission and during the night le[place] to 3305 but climbed to 11,702 by the morning of 06/20/22. Repeat EKG was done and again did not demonstrate any ST elevation and no depression.CTA imaging of the chest/abdomen/pelvis was done on admission through the ER d/t his prior hx of abdominal aortic dissection. This did not show any acute dissection and no thoracic or abdominal aortic aneurysm was seen. He has a stable posterior abdominal aortic flab within the region of the artery origins.No P.E. was seen. He has some diverticulosis but no diverticulitis. he has BPH. Patient is being transferred [place] [facility] [place] cardiac cath. He remains in serious but hemodynamically stable condition. Home Meds and New Rx's Prescriptions: No Action ibuprofen 600 MG tablet 800 mg PO BID PRN acetaminophen [Tylenol] 325 mg Tablet 325 mg PO QID PRN rosuvastatin [Crestor] 10 mg Tablet 5 mg PO DAILY tamsulosin [Flomax] 0.4 MG capsule 0.4 mg PO DAILY AM famotidine 10 mg Tablet 10 mg PO BID hydroxyzine HCl 50 mg Tablet 50 mg PO BID PRN melatonin 3 mg Tablet 3 mg PO HS PRN vitamin A 10,000 unit Capsule 10,000 unit PO DAILY psyllium Powder 1 tbsp PO BID carboxymethylcellulose sodium 0.5 % Drops 1 drp ophthalmic (eye) QID pantoprazole 40 mg Tablet,Delayed Release (Dr/Ec) 40 mg PO DAILY folic acid 1 mg Tablet 1 mg PO DAILY albuterol 90 mcg/actuation Aerosol INHALATION QID PRN Rx Instructions: INHALE 2 PUFFS BY MOUTH FOUR TIMES DAILY NEEDED finasteride 5 mg Tablet 5 mg PO DAILY bupropion HCl 300 mg Tablet Extended Release 24 Hr 300 mg PO QAM tiotropium bromide 18 mcg Capsule, W/Inhalation Device 1 cap INHALATION DAILY budesonide-formoterol 160-4.5 mcg/actuation Hfa Aerosol Inhaler 2 puff INHALATION BID diclofenac sodium 1 % Gel 2 g TOPICAL QID Rx Instructions: NTE 16GMS DAILY simethicone 80 mg Tablet 80 mg PO BID-QID PRN magnesium oxide 400 mg magnesium Tablet 400 mg PO DAILY Discharge Instructions Instructions: Heart Attack (GEN), Heart Healthy Diet (DC) Activity:: Bed rest Diet:: Cardiac Discharge Orders Discharge Orders: Discharge Order (Routine); Ordered 06/20/22 Ordered By: Stephen Garcia DS: Summary Time Spent with Patient providing and/or coordinating discharge services: Greater than 30 minutes Specific discharge activities: Interview/exam of patient; review of discharge instructions, completion of prescriptions/discharge instructions; discussion w/ nursing and CM; documentation of hospital visit Status at Discharge Functional status at discharge: independent ambulation Overall status at discharge: patient is not back to baseline Mental Status: mental status grossly normal Speech and Movement: speech and movement normal Mood: congruent mood Affect: normal affect Quality: AMI Clinical Trial Participant: No Contraindication for No Fibrinolytic Therapy: Not indicated Exam Narrative Exam Narrative: Mr. Barbosa is alert and oriented first place time circumstance. Neck: no overt JVD Lungs reveal bibasilar rales Heart is regular rate and rhythm I do not appreciate murmur rub or gallop Abdomen soft and nontender Lower extremities without peripheral edema Psych Mental Status: mental status grossly normal Speech and Movement: speech and movement normal Mood: congruent mood Affect: normal affect DS: Data Vitals/I&O Vitals and I&O: Vital Signs Temperature 37.3 C 06/20/22 12:53 Temperature Source Temporal Artery Scan 06/20/22 12:53 Pulse 88 06/20/22 14:16 Pulse 89 06/20/22 14:16 Respiratory Rate 16 06/20/22 14:16 Respiratory Effort Non-Labored 06/20/22 09:59 Respiratory Depth Normal 06/20/22 09:59 Respiratory Pattern Normal 06/20/22 09:59 Blood Pressure 130/69 06/20/22 14:16 Blood Pressure Mean 82 06/20/22 14:16 Blood Pressure Position Supine 06/20/22 09:59 Pulse Oximetry 96 06/20/22 14:16 Oxygen Delivery Method Room Air 06/20/22 12:53 Oxygen Flow Rate 0 06/20/22 12:53 Pain Level 0 06/20/22 12:53 Intake & Output 06/19/22 06/20/22 06/20/22 23:59 11:59 23:59 Intake Total 1000 / 1744 919.333 / 1079.333 160 / 1079.333 Output Total 300 / 500 200 / 500 Balance 1000 / 1444 619.333 / 579.333 -40 / 579.333 Weight 64 kg Intake: IV 1000 / 1000 55.333 / 55.333 Oral 864 / 1024 160 / 1024 Output: Urine 300 / 500 200 / 500 Other: Urine Color Pale Yellow Urine Appearance Clear Clear Urine Odor Normal None Voiding Methods Urinal Urinal Data Completed and Pending Labs on day of discharge: Labs from last 24 hours 06/20/22 06/20/22 06/20/22 14:17 12:40 06:30 WBC 8.03 RBC 4.11 L Hgb 13.0 L Hct 38.7 L MCV 94 MCH 31.6 MCHC 33.6 RDW 12.1 Plt Count 196 MPV 9.8 Immature Gran % 0.1 Neutrophils % 63.7 Lymphocytes % 24.9 Monocytes % 9.7 Eosinophils % 1.4 Basophils % 0.2 Nucleated RBC % 0.0 Absolute Neutrophils 5.11 Absolute Lymphocytes 2.00 Absolute Monocytes 0.78 Absolute Eosinophils 0.11 Absolute Basophils 0.02 PT INR APTT 48.5 H Sodium Potassium Chloride Carbon Dioxide Anion Gap BUN Creatinine Est GFR (CKD-EPI 2021) Glucose Calcium Total Bilirubin AST ALT Alkaline Phosphatase Troponin I Pending NT-Pro-B Natriuret Pep Total Protein Albumin Lipase Urine Color Urine Clarity Urine pH Ur Specific [place] Urine Protein Urine Ketones Urine Blood Urine Nitrite Urine Bilirubin Urine Urobilinogen Ur Leukocyte Esterase Urine Glucose COVID-19 Source SARS-CoV-2 (PCR) 06/20/22 06/20/22 06/20/22 06:30 06:30 00:30 WBC RBC Hgb Hct MCV MCH MCHC RDW Plt Count MPV Immature Gran % Neutrophils % Lymphocytes % Monocytes % Eosinophils % Basophils % Nucleated RBC % Absolute Neutrophils Absolute Lymphocytes Absolute Monocytes Absolute Eosinophils Absolute Basophils PT INR APTT 54.2 H Sodium 141 Potassium 3.7 Chloride 107 Carbon Dioxide 25.8 Anion Gap 8.2 BUN 16 Creatinine 1.3 Est GFR (CKD-EPI 2020) 58.37 Glucose 120 H Calcium 8.5 Total Bilirubin AST ALT Alkaline [place] [address] H* NT-Pro-B Natriuret Pep Total Protein Albumin Lipase Urine Color Yellow Urine Clarity Clear Urine pH 6.0 Ur Specific [place] 1.020 Urine Protein Negative Urine Ketones Negative Urine Blood Negative Urine Nitrite Negative Urine Bilirubin Negative Urine Urobilinogen 0.2 Ur Leukocyte Esterase Negative Urine Glucose Negative COVID-19 Source SARS-CoV-2 (PCR) 06/20/22 06/19/22 06/19/22 00:15 20:30 20:30 WBC RBC Hgb Hct MCV MCH MCHC RDW Plt Count MPV Immature Gran % Neutrophils % Lymphocytes % Monocytes % Eosinophils % Basophils % Nucleated RBC % Absolute Neutrophils Absolute Lymphocytes Absolute Monocytes Absolute Eosinophils Absolute Basophils PT INR APTT 89.1 H* Sodium Potassium Chloride Carbon Dioxide Anion Gap BUN Creatinine Est GFR (CKD-EPI 2020) Glucose Calcium Total Bilirubin AST ALT Alkaline Phosphatase Troponin I 3305 H* NT-Pro-B Natriuret Pep Total Protein Albumin Lipase Urine Color Urine Clarity Urine pH Ur Specific [place] Urine Protein Urine Ketones Urine Blood Urine Nitrite Urine Bilirubin Urine Urobilinogen Ur Leukocyte Esterase Urine Glucose COVID-19 Source Nasal/Nares SARS-CoV-2 (PCR) Negative 06/19/22 06/19/22 06/19/22 16:20 16:20 16:20 WBC 6.43 RBC 4.67 Hgb 14.9 Hct 42.7 MCV 91 MCH 31.9 MCHC 34.9 RDW 12.1 Plt Count 230 MPV 9.5 Immature Gran % 0.2 Neutrophils % 47.3 Lymphocytes % 40.1 Monocytes % 10.4 Eosinophils % 1.7 Basophils % 0.3 Nucleated RBC % 0.0 Absolute Neutrophils 3.04 Absolute Lymphocytes 2.58 Absolute Monocytes 0.67 Absolute Eosinophils 0.11 Absolute Basophils 0.02 PT 9.9 INR 1.0 APTT 25.0 Sodium 141 Potassium 4.1 Chloride 105 Carbon Dioxide 28.3 Anion Gap 7.7 BUN 18 Creatinine 1.4 H Est GFR (CKD-EPI 2020) 53.40 Glucose 117 H Calcium 9.4 Total Bilirubin 0.3 AST 21 ALT 29 Alkaline Phosphatase 82 Troponin I 3168 H* NT-Pro-B Natriuret Pep 411 H Total Protein 7.6 Albumin 3.7 Lipase 95 Urine Color Urine Clarity Urine pH Ur Specific [place] Urine Protein Urine Ketones Urine Blood Urine Nitrite Urine Bilirubin Urine Urobilinogen Ur Leukocyte Esterase Urine Glucose COVID-19 Source SARS-CoV-2 (PCR) PFSH All Active Problems Discharge planning issues (Acute) DVT prophylaxis (Acute) TAYLOR (obstructive sleep apnea) (Chronic) Non-ST elevation [place] (NSTEMI) (Acute) Chest pain (Acute) Medical History AAA (abdominal aortic aneurysm) without rupture Anxiety BPH (benign prostatic hyperplasia) Depression GERD (gastroesophageal reflux disease) High cholesterol Kidney stones Sleep apnea Surgical History (Updated 06/19/22 @ 23:40 by Milnid Bernal) S/P spinal surgery multiple cervical and lumbar spine surgeries Family History (Updated 06/19/22 @ 23:42 by Milind Bernal) Father Dementia Mother Dementia Social History (Updated 06/19/22 @ 23:43 by Milind Bernal) Smoking/Tobacco Use Status: Never Smoking risk assessment performed?: Yes Alcohol Intake: current Alcohol Intake frequency: 0-2 drinks per day Alcohol type: beer and hard liquor Drug use: Never Substance use type: does not use Do you feel safe at home: Yes Do you feel safe in your relationship?: Yes Additional Social history: Lives alone on [address] in [place], Grew up in [place], family goes back generations there. Served in [employer] out of [place], [place]. On disability for spinal injuries since.
--- NOTE | 2022-06-20 14:28 | NUR.NOTE ---
Patient has been accepted to [facility] but is awaiting a bed assignment.Nursing Note:
[2022-06-20] MEDS: Metoprolol 12.5 MG TAB PO (15:25)
[2022-06-20 15:35] LABS: Troponin I 12869 ng/L (<or=60)
== END 2022-06-20 16:45 | disposition short-term general hospital (02) | DRG 280 ==
LOC: ER 20:37 → ICU 21:53
PROVIDERS: Internal Medicine; Admitting Provider Family Medicine; Emergency Provider Student in an Organized Health Care Education/Training Program; PCP Internal Medicine; Visit Provider Family Medicine
DX: I21.4 Non-ST elevation (NSTEMI) myocardial infarction (principal); I71.02 Dissection of abdominal aorta; N40.0 Benign prostatic hyperplasia without lower urinary tract symptoms; F32.A Depression, unspecified; K21.9 Gastro-esophageal reflux disease without esophagitis; G47.33 Obstructive sleep apnea (adult) (pediatric); F41.9 Anxiety disorder, unspecified; E78.00 Pure hypercholesterolemia, unspecified; Z87.442 Personal history of urinary calculi; I34.0 Nonrheumatic mitral (valve) insufficiency
CPT/HCPCS: 93308; 36415; 71275; 80048; 80053; 83690; 87040; 87635; 93005; 94640; 96360; 99291; 74174; 81003; 83880; 84484; 85025; 85610; 85730; 93010; J3490; J7620

== ENCOUNTER 2022-06-25 12:36 | Emergency (ER) | payer OTHER, SELFPAY ==
[2022-06-25] VITALS (26 sets, daily range): BP systolic 118–144; BP diastolic 60–82; PULSE 62–84; RESP 14–23; O2SAT 97–100
--- NOTE | 2022-06-25 12:30 | RT.EKG_ITS ---
APPROVED REPORT Exam: Resting ECG Reason for Exam: chest pain Patient Location: E HR:77 bpm ECG Measurements Heart Rate 77 AXIS [place] 141 P 21 QRSd 86 QRS 57 QT 369 T 73 QTc 417 Conclusion Sinus rhythm. Probable left atrial enlargement. T wave inversions anterior
--- NOTE | 2022-06-25 12:45 | DI.RAD_ITS ---
Exam(s) XR CHEST 2V PA LATERAL EXAM: XR CHEST 2V PA LATERAL CLINICAL HISTORY: left arm cheikh recent CO TECHNIQUE: 2D digital imaging was performed. COMPARISON: CR PORTABLE AP CHEST from 10/31/2010 FINDINGS: HEART: Normal size. Aorta: PULMONARY VASCULATURE: Normal. LUNGS: Suboptimally inflated but clear. PLEURAL SPACE: No pleural effusion or pneumothorax. BONE:Unremarkable for age. IMPRESSION: No acute abnormality. DATA REPOSITORY: RADIATION DOSE DELIVERED:
--- NOTE | 2022-06-25 12:45 | DI.US_ITS ---
Exam(s) US UPPER EXTREMITY VENOUS LT EXAM: US UPPER EXTREMITY VENOUS LT CLINICAL HISTORY: arm pain, recent CO with cath. TECHNIQUE: Ultrasound examination of the left upper extremity venous system(s) is performed using gr ayscale, color-flow, and spectral Doppler analysis. COMPARISON: No exams were available for comparison FINDINGS: The left internal jugular, axillary, subclavian, cephalic, basilic, brachial, radial, and ulnar veins are patent without evidence of thrombosis. No hematoma or localized fluid collection is seen. IMPRESSION: No negative left upper extremity ultrasound. DATA REPOSITORY:
[2022-06-25 13:07] LABS: Abs Immature Grans 0.02 10^3/uL (0.0-0.06); Absolute Basophil Count 0.03 10^3/uL (0.0-0.2); Absolute Eosinophil Count 0.13 10^3/uL (0.0-0.7); Absolute Neutrophil Count 4.05 10^3/uL (1.2-6.7); Basophils % 0.4; Eosinophils % 1.9; HCT 41.5 % (40.0-50.0); HGB 13.9 g/dL (13.5-17.5); Immature Grans % 0.3; Lymphocytes % 26.4; MCH 31.4 pg (27.0-33.0); MCHC 33.5 % (32.0-36.0); MCV 94 fL (80-95); MPV 9.6 fL (8.0-11.0); Monocytes % 11.7; Neutrophils % 59.3; Platelet Count 267 10^3/uL (130-400); RBC 4.42 10^6/uL (4.36-5.78); RDW-SD 41.5 fL; WBC 6.83 10^3/uL (4.4-10.8)
[2022-06-25 13:35] LABS: ALT 45 U/L (16-63); AST 22 U/L (15-37); Albumin 3.6 g/dL (3.4-5.0); Alkaline Phosphatase 83 U/L (46-116); Anion Gap 6.7 mmol/L (3-11); BUN 17 mg/dL (7-18); Bilirubin, Total 0.5 mg/dL (0.2-1.0); CO2 28.3 mmol/L (21.0-32.0); CREATININE 1.4 mg/dL (0.70-1.30); Chloride 103 mmol/L (98-107); Glucose 83 mg/dL (74-106); Magnesium 1.8 mg/dL (1.8-2.4); NT-proBNP 202 pg/mL (<300); Potassium 3.9 mmol/L (3.5-5.1); Sodium 138 mmol/L (136-145); Total Protein 7.6 g/dL (6.4-8.2)
[2022-06-25 13:36] LABS: Troponin I 3344 ng/L (<or=60)
--- NOTE | 2022-06-25 14:11 | ED.GENADUL_ITS ---
Discharge Plan Disposition Patient Disposition: HOME Condition: Stable Discharge Details Clinical Impression: Nerve pain Primary Care Provider: Jae Del Toro ED Provider: Nichol Acharya Home Meds and New Rx's Prescriptions: New gabapentin [Neurontin] 100 mg capsule 100 mg PO QHS Qty: 7 0RF Continued ibuprofen 600 MG tablet 800 mg PO BID PRN acetaminophen [Tylenol] 325 mg Tablet 325 mg PO QID PRN rosuvastatin [Crestor] 10 mg Tablet 40 mg PO DAILY tamsulosin [Flomax] 0.4 MG capsule 0.4 mg PO DAILY AM famotidine 10 mg Tablet 20 mg PO BID hydroxyzine HCl 50 mg Tablet 50 mg PO BID PRN melatonin 3 mg Tablet 3 mg PO HS PRN vitamin A 10,000 unit Capsule 10,000 unit PO DAILY psyllium Powder 1 tbsp PO BID carboxymethylcellulose sodium 0.5 % Drops 1 drp ophthalmic (eye) QID pantoprazole 40 mg Tablet,Delayed Release (Dr/Ec) 40 mg PO DAILY PRN folic acid 1 mg Tablet 1 mg PO DAILY albuterol 90 mcg/actuation Aerosol INHALATION QID PRN Rx Instructions: INHALE 2 PUFFS BY MOUTH FOUR TIMES DAILY NEEDED finasteride 5 mg Tablet 5 mg PO DAILY bupropion HCl 300 mg Tablet Extended Release 24 Hr 300 mg PO QAM tiotropium bromide 18 mcg Capsule, W/Inhalation Device 1 cap INHALATION DAILY budesonide-formoterol 160-4.5 mcg/actuation Hfa Aerosol Inhaler 2 puff INHALATION BID diclofenac sodium 1 % Gel 2 g TOPICAL QID Rx Instructions: NTE 16GMS DAILY simethicone 80 mg Tablet 80 mg PO BID-QID PRN magnesium oxide 400 mg magnesium Tablet 400 mg PO DAILY clopidogrel [Plavix] 75 mg Tablet 75 mg PO DAILY aspirin 81 mg Capsule 81 mg PO DAILY metoprolol succinate 50 mg Tablet Extended Release 24 Hr 50 mg PO DAILY losartan 25 mg Tablet 25 mg PO DAILY nitroglycerin [Nitrostat] 0.4 mg Tablet, Sublingual 0.4 mg sublingual PRN PRN bupropion HCl 150 mg Tablet Extended Release 24 Hr 300 mg PO DAILY ascorbic acid (vitamin C) 1,000 mg Tablet 1,000 mg PO DAILY ketoconazole 2 % Shampoo 1 applic TOPICAL PRN PRN potassium citrate 10 mEq (1,080 mg) Tablet Extended Release 10 meq PO DAILY oxybutynin chloride 5 mg Tablet 5 mg PO TID diazepam 5 mg Tablet 5 mg PO PRN PRN gabapentin 300 mg Tablet 300 mg PO TID Discharge Instructions Additional Instructions: I suspect this is a superficial branch of the radial nerve, and encouraged rest, Tylenol, this will resolve on its own in the next several weeks You may try taking Neurontin at night if needed for discomfort, use caution with your other medications and do not drive for 8 hours after taking this medication Please return earlier should you have new or worsening complaints and follow-up with both your supervisor last model department and your primary care physician at your scheduled appointment Discharge Data Discharge Date/Time-TO BE ENTERED AT DEPARTURE: 06/25/22 16:54 Medical Decision Making <Mason Hwang NP - Last Filed: 06/29/22 13:54> Patient presenting to the emergency department for chief complaint of left arm pain. Patient recently had NSTEMI and catheterization at [facility]. Today he started having worsening left arm pain. He states that they catheterize his right arm so there was no provoking incident to the left arm pain or discomfort. He does state that it is worse with movement. Patient denies any chest pain shortness of breath or other systemic symptoms. Patient did note some unusual bruising to the left forearm with again no injury or trauma to explain this. Physical exam does show tenderness to the left midshaft forearm that is somewhat reproducible with palpation and there is areas of ecchymosis otherwise unremarkable exam. We will plan on checking labs, perform EKG, and ultrasound imaging of the left upper extremity. Please see physician interpretation for full interpretation of EKG but patient is in sinus rhythm, rate of 77, there are noted some T wave inversions which are changed from previous EKG and mainly noted in V3. Reviewed labs and patient has unremarkable CBC, unremarkable CMP except for creatinine of 1.4. Magnesium normal. BNP of 202 and troponin of 3344 which is down from previous labs when he went to [facility] of 12,000. We will continue to monitor patient's condition. Imaging Data Radiologic Study: Imaging: Ultrasound Radiologist's impression: FINDINGS: The left internal jugular, axillary, subclavian, cephalic, basilic, brachial, radial, and ulnar veins are patent without evidence of thrombosis. No hematoma or localized fluid collection is seen. IMPRESSION: No negative left upper extremity ultrasound. Radiologic Study #2: Attestation: I personally reviewed and interpreted this imaging study as follows: Imaging: X-Ray Radiologist's impression: FINDINGS: HEART: Normal size. Aorta: PULMONARY VASCULATURE: Normal. LUNGS: Suboptimally inflated but clear. PLEURAL SPACE: No pleural effusion or pneumothorax. BONE:Unremarkable for age. IMPRESSION: No acute abnormality <ROMIE Palomino - Last Filed: 06/26/22 08:45> Patient presenting to the emergency department for chief complaint of left arm pain. Patient recently had NSTEMI and catheterization at [facility]. Today he started having worsening left arm pain. He states that they catheterize his right arm so there was no provoking incident to the left arm pain or discomfort. He does state that it is worse with movement. Patient denies any chest pain shortness of breath or other systemic symptoms. Patient did note some unusual bruising to the left forearm with again no injury or trauma to explain this. Physical exam does show tenderness to the left midshaft forearm that is somewhat reproducible with palpation and there is areas of ecchymosis otherwise unremarkable exam. We will plan on checking labs, perform EKG, and ultrasound imaging of the left upper extremity. Please see physician interpretation for full interpretation of EKG but patient is in sinus rhythm, rate of 77, there are noted some T wave inversions which are changed from previous EKG and mainly noted in V3. Reviewed labs and patient has unremarkable CBC, unremarkable CMP except for creatinine of 1.4. Magnesium normal. BNP of 202 and troponin of 3344 which is down from previous labs when he went to [facility] of 12,000. We will continue to monitor patient's condition. LB: repeat trop<3000 and pt with likely musculoskeletal cause of pain given clinical exam low suspicion for cardiac etiology of pts complaints dcd home in stable condition with stable vitals recheck with pcp in 24-48 hours recommended return precautions discussed and pt expressed understanding HPI <Mason Hwang NP - Last Filed: 06/29/22 13:54> General Mode of arrival: ambulatory . Date/Time Provider Initiated Documentation: 06/25/22 12:37 . Limitations to Documentation: no limitations . Information obtained by: patient and RN notes reviewed . History of Present Illness 72 year old M presents to the emergency department with the chief complaint of Left arm pain , described as moderate, with intensity rated at 3. Quality is described as aching, and is localized to the left and upper extremity. Patient reports no radiation. Patient started experiencing this day(s) (2) and it has been constant. No relieving factors improve symptom(s), Movement worsens symptoms . Patient notes no other symptoms.. Patient did receive the following treatments prior to arrival, none Related Data Home Medications Medication Instructions Recorded Confirmed tamsulosin 0.4 mg capsule (Flomax) 0.4 mg PO DAILY AM 10/16/17 06/25/22 acetaminophen 325 mg tablet 325 mg PO QID PRN 09/17/20 06/25/22 (Tylenol) ibuprofen 600 mg tablet 800 mg PO BID PRN 09/17/20 10/01/20 rosuvastatin 10 mg tablet (Crestor) 40 mg PO DAILY 09/17/20 06/25/22 albuterol 90 mcg/actuation aerosol mcg inhalation QID PRN 10/01/20 inhaler budesonide-formoterol HFA 160 2 puff inhalation BID 10/01/20 06/25/22 mcg-4.5 mcg/actuation aerosol inhaler bupropion HCl 300 mg 24 hr tablet, 300 mg PO QAM 10/01/20 06/25/22 extended release carboxymethylcellulose sodium 0.5 1 drp ophthalmic (eye) QID 10/01/20 10/01/20 % eye drops diclofenac sodium 1 % topical gel 2 g topical QID 10/01/20 10/01/20 famotidine 10 mg tablet 20 mg PO BID 10/01/20 10/01/20 finasteride 5 mg tablet 5 mg PO DAILY 10/01/20 06/25/22 folic acid 1 mg tablet 1 mg PO DAILY 10/01/20 06/25/22 hydroxyzine HCl 50 mg tablet 50 mg PO BID PRN 10/01/20 06/25/22 magnesium oxide 400 mg PO DAILY 10/01/20 06/25/22 melatonin 3 mg tablet 3 mg PO HS PRN 10/01/20 06/25/22 pantoprazole 40 mg tablet,delayed 40 mg PO DAILY PRN 10/01/20 06/25/22 release psyllium 1 tbsp PO BID 10/01/20 10/01/20 simethicone 80 mg tablet 80 mg PO BID-QID PRN 10/01/20 06/25/22 tiotropium bromide 18 mcg capsule 1 cap inhalation DAILY 10/01/20 06/25/22 with inhalation device vitamin A 10,000 unit capsule 10,000 unit PO DAILY 10/01/20 06/25/22 ascorbic acid (vitamin C) 1,000 mg 1,000 mg PO DAILY 06/25/22 06/25/22 tablet aspirin 81 mg capsule 81 mg PO DAILY 06/25/22 06/25/22 bupropion HCl 150 mg 24 hr tablet, 300 mg PO DAILY 06/25/22 06/25/22 extended release clopidogrel 75 mg tablet (Plavix) 75 mg PO DAILY 06/25/22 06/25/22 diazepam 5 mg tablet 5 mg PO PRN PRN 06/25/22 06/25/22 gabapentin 100 mg capsule 100 mg PO QHS #7 caps 06/25/22 (Neurontin) gabapentin 300 mg tablet 300 mg PO TID 06/25/22 06/25/22 ketoconazole 2 % shampoo 1 applic topical PRN PRN 06/25/22 06/25/22 losartan 25 mg tablet 25 mg PO DAILY 06/25/22 06/25/22 metoprolol succinate 50 mg 50 mg PO DAILY 06/25/22 06/25/22 tablet,extended release 24 hr nitroglycerin 0.4 mg sublingual 0.4 mg sublingual PRN PRN 06/25/22 06/25/22 tablet (Nitrostat) oxybutynin chloride 5 mg tablet 5 mg PO TID 06/25/22 06/25/22 potassium citrate 10 mEq (1,080 10 meq PO DAILY 06/25/22 06/25/22 mg) tablet,extended release Previous Rx's Medication Instructions Recorded gabapentin 100 mg capsule 100 mg PO QHS #7 caps 06/25/22 (Neurontin) Allergies Allergy/AdvReac Type Severity Reaction Status Date / Time simvastatin AdvReac Unknown abdominal Unverified 06/19/22 23:04 pain General Stated Complaint: GenMedical RICKI: 3 Review of Systems <Mason Hwang NP - Last Filed: 06/29/22 13:54> Constitutional Constitutional: Denies chills, Denies fever(s) and Denies malaise ENT Ears, Nose, Mouth, and Throat: Denies neck pain and Denies sore throat Cardiovascular Cardiovascular: Denies chest pain, Denies leg edema, Denies dyspnea and Denies dyspnea on exertion Respiratory Respiratory: Denies cough, Denies dyspnea and Denies dyspnea on exertion Gastrointestinal Gastrointestinal: Denies abdominal pain, Denies nausea and Denies vomiting Musculoskeletal Musculoskeletal: Reports as per HPI, Denies neck pain and Denies tingling Integumentary/Breasts Skin/Breast: Denies rash and Reports unusual bruising Neurologic Neurologic: Denies sensory deficit, Denies tingling and Denies paresthesias Psychiatric Psychiatric: Denies anxiety PFSH <Mason Hwang NP - Last Filed: 06/29/22 13:54> All Active Problems (Updated 06/25/22 @ 16:45 by ROMIE Palomino) Nerve pain (Acute) TAYLOR (obstructive sleep apnea) (Chronic) Non-ST elevation [place] (NSTEMI) (Acute) Medical History AAA (abdominal aortic aneurysm) without rupture Anxiety BPH (benign prostatic hyperplasia) Depression GERD (gastroesophageal reflux disease) High cholesterol Kidney stones Sleep apnea Surgical History S/P spinal surgery multiple cervical and lumbar spine surgeries Family History Father Dementia Mother Dementia Social History Smoking/Tobacco Use Status: Never Smoking risk assessment performed?: Yes Alcohol Intake: current Alcohol Intake frequency: a few times a week Alcohol type: beer and hard liquor Drug use: Never Substance use type: does not use Do you feel safe at home: Yes Do you feel safe in your relationship?: Yes Additional Social history: Lives alone on [address] in [place], Grew up in [place], family goes back generations there. Served in [employer] on [address] out of [place], [place]. On disability for spinal injuries since. Exam <Mason Hwang NP - Last Filed: 06/29/22 13:54> Const General: cooperative, healthy appearing, comfortable, no acute distress, not diaphoretic and not ill appearing Nutritional Appearance: average body habitus Orientation: alert, awake and oriented x3 Limitations: mental status not altered Neck Neck: normal visual inspection, full ROM, trachea midline, supple and no anterior neck swelling Thyroid: thyroid normal Carotids: normal carotid upstroke and no bruits Chest Chest: normal inspection of the chest Resp Effort & Inspection: normal respiratory effort and able to speak in complete sentences Auscultation: clear to auscultation bilaterally Cardio Jugular venous pressure: no JVD Palpation: normal PMI Rate: regular rate Rhythm: regular rhythm Heart Sounds: S1 normal, S2 normal, no click, no gallops, no murmurs and no rubs Pulses: radial pulses present bilaterally 2+ GI Inspection: normal to inspection Palpation: soft, no aortic enlargement, no pulsatile masses and nontender Auscultation: normal bowel sounds Skin General skin exam: no rashes or lesions noted Neuro General: patient alert, patient awake, patient oriented x3, tone normal and moves all extremities Extrem Left upper extremity: shoulder/upper arm Details: inspection abnormal, axillary nerve sensory function normal and normal ROM; no tenderness, elbow/forearm Details: tenderness Location: of the mid-shaft forearm and normal ROM, wrist Details: normal ROM, normal vascular exam and radial pulse present; no tenderness and hand Details: normal capillary refill, neuromotor exam normal and neurosensory exam normal; no tenderness Course <Mason Hwang NP - Last Filed: 06/29/22 13:54> Vital Signs Vital signs: Vital Signs Pulse 84 06/25/22 12:43 Respiratory Rate 18 06/25/22 12:43 Blood Pressure 142/74 H 06/25/22 12:43 Pulse Oximetry 97 06/25/22 12:43 Temperature Source Temporal Artery Scan 06/25/22 12:43 Pulse 84 06/25/22 12:43 Respiratory Rate 18 06/25/22 12:43 Respiratory Effort 06/25/22 13:19 Respiratory Depth Normal 06/25/22 13:19 Respiratory Pattern Normal 06/25/22 13:19 Blood Pressure 142/74 H 06/25/22 12:43 Blood Pressure Position Sitting 06/25/22 12:43 Pulse Oximetry 97 06/25/22 12:43 Oxygen Delivery Method Room Air 06/25/22 12:43 Oxygen Flow Rate 0 06/25/22 12:43 Pain Level 3 06/25/22 12:43 Lab/Test Results Lab/Test Results: Laboratory Tests Range/Units 06/25/22 06/25/22 13:00 13:00 WBC (4.4-10.8) 10^3/uL 6.83 RBC (4.36-5.78) 10^6/uL 4.42 Hgb (13.5-17.5) g/dL 13.9 Hct (40.0-50.0) % 41.5 MCV (80-95) fL 94 MCH (27.0-33.0) pg 31.4 MCHC (32.0-36.0) % 33.5 RDW (11.8-14.1) % 12.0 Plt Count (130-400) 10^3/uL 267 MPV (8.0-11.0) fL 9.6 Immature Gran % 0.3 Neutrophils % 59.3 Lymphocytes % 26.4 Monocytes % 11.7 Eosinophils % 1.9 Basophils % 0.4 Nucleated RBC % (0.0-0.3) % 0.0 Absolute Neutrophils (1.2-6.7) 10^3/uL 4.05 Absolute Lymphocytes (1.2-3.4) 10^3/uL 1.80 Absolute Monocytes (0.1-0.8) 10^3/uL 0.80 Absolute Eosinophils (0.0-0.7) 10^3/uL 0.13 Absolute Basophils (0.0-0.2) 10^3/uL 0.03 Sodium (136-145) mmol/L 138 Potassium (3.5-5.1) mmol/L 3.9 Chloride (98-107) mmol/L 103 Carbon Dioxide (21.0-32.0) mmol/L 28.3 Anion Gap (3-11) mmol/L 6.7 BUN (7-18) mg/dL 17 Creatinine (0.70-1.30) mg/dL 1.4 H Est GFR (CKD-EPI 2020) (mL/min/1.73m2) 53.40 Glucose (74-106) mg/dL 83 Calcium (8.5-10.1) mg/dL 9.0 Magnesium (1.8-2.4) mg/dL 1.8 Total Bilirubin (0.2-1.0) mg/dL 0.5 AST (15-37) U/L 22 ALT (16-63) U/L 45 Alkaline Phosphatase (46-116) U/L 83 Troponin I (<or=60) ng/L 3344 H* NT-Pro-B Natriuret Pep (<300) pg/mL 202 Total Protein (6.4-8.2) g/dL 7.6 Albumin (3.4-5.0) g/dL 3.6 Sign Out <Mason Hwang NP - Last Filed: 06/29/22 13:54> Sign Out Data: Sign Out Comment: Patient pending second troponin and plan to discharge home with wrist brace for musculoskeletal pain of left forearm Last updated by Mason Hwang NP at 06/25/22 16:06
[2022-06-25] MEDS: Normal Saline 500 ML IV (15:07)
[2022-06-25] MEDS: ACETAMINOPHEN 1,000 MG/100 ML BTL 400 MG IVPB (15:08)
[2022-06-25 16:27] LABS: Troponin I 2239 ng/L (<or=60)
[2022-06-25 20:27] LABS: Creatine Kinase 47 U/L (39-308)
== END 2022-06-25 16:54 | disposition home or self-care (01) ==
PROVIDERS: Nurse Practitioner Family; Emergency Provider Physician Assistant; PCP Internal Medicine
DX: M79.2 Neuralgia and neuritis, unspecified (principal); R23.3 Spontaneous ecchymoses
CPT/HCPCS: 36415; 80053; 82550; 93005; 96361; 96374; 99284; 71046; 83735; 83880; 84484; 85025; 85610; 85730; 93010; 93971; J0131

== ENCOUNTER 2022-07-03 07:48 | Emergency (ER) | payer OTHER, SELFPAY ==
[2022-07-03] VITALS (75 sets, daily range): BP systolic 98–135; BP diastolic 57–90; PULSE 58–77; RESP 12–31; O2SAT 94–99
--- NOTE | 2022-07-03 07:45 | RT.EKG_ITS ---
APPROVED REPORT Exam: Resting ECG Reason for Exam: Chest pain Patient Location: E HR:71 bpm ECG Measurements Heart Rate 71 AXIS MT 142 P 5 QRSd 88 QRS 60 QT 395 T 81 QTc 431 Conclusion Sinus rhythm...normal P axis, V-rate 60- 99 Abnormal T, consider ischemia, anterior leads...T <-0.20mV, V2-V4 <1mm st elev inferiorly, biphasic t waves anteriorly Abnormal Electrocardiogram
--- NOTE | 2022-07-03 08:00 | DI.RAD_ITS ---
Exam(s) XR PORTABLE CHEST AP EXAM: XR PORTABLE CHEST AP CLINICAL HISTORY: chest pain. TECHNIQUE: 2D digital imaging was performed. COMPARISON: No exams were available for comparison FINDINGS: LUNGS: Clear. No pleural abnormality seen. HEART: Normal. MEDIASTINUM: Normal. OTHER FINDINGS: None. IMPRESSION: No acute pulmonary findings. DATA REPOSITORY: RADIATION DOSE DELIVERED: Total DLP
[2022-07-03] MEDS: nitroGLYcerin 0.4 MG TAB SL (08:05)
--- NOTE | 2022-07-03 08:11 | ED.GENADUL_ITS ---
Discharge Plan Disposition Patient Disposition: [facility] Condition: Critical Discharge Details Clinical Impression: Acute non-ST elevation myocardial infarction (NSTEMI) Primary Care Provider: Jae Del Toro ED Provider: Matthieu Salinas Home Meds and New Rx's Prescriptions: No Action acetaminophen [Tylenol] 325 mg Tablet 650 mg PO QID PRN ibuprofen 800 mg Tablet 800 mg PO BID PRN cyanocobalamin (vitamin B-12) 1,000 mcg Tablet 1,000 mcg PO DAILY aspirin [Aspir-81] 81 mg Tablet,Delayed Release (Dr/Ec) 81 mg PO DAILY potassium citrate-citric acid 1,100-334 mg/5 mL Solution 5 ml PO DAILY buspirone 10 mg Tablet 20 mg PO DAILY terazosin 2 mg Tablet 2 mg PO QHS hydroxyzine HCl 25 mg Tablet 25 mg PO TID PRN diltiazem HCl 30 mg Tablet 30 mg PO DAILY rosuvastatin 40 mg Tablet 40 mg PO DAILY cholecalciferol (vitamin D3) 25 mcg (1,000 unit) Tablet 25 mcg PO DAILY famotidine 10 mg Tablet 10 mg PO BID PRN melatonin 3 mg Tablet 3 mg PO HS vitamin A 10,000 unit Capsule 10,000 unit PO DAILY psyllium Powder 1 tbsp PO DAILY PRN folic acid 1 mg Tablet 1 mg PO DAILY albuterol 90 mcg/actuation Aerosol 180 mcg INHALATION QID PRN Rx Instructions: INHALE 2 PUFFS BY MOUTH FOUR TIMES DAILY NEEDED finasteride 5 mg Tablet 5 mg PO DAILY simethicone 80 mg Tablet 80 mg PO BID-QID PRN magnesium oxide 400 mg magnesium Tablet 400 mg PO DAILY clopidogrel [Plavix] 75 mg Tablet 75 mg PO DAILY metoprolol succinate 50 mg Tablet Extended Release 24 Hr 50 mg PO DAILY losartan 25 mg Tablet 25 mg PO DAILY nitroglycerin [Nitrostat] 0.4 mg Tablet, Sublingual 0.4 mg sublingual PRN PRN bupropion HCl 150 mg Tablet Extended Release 24 Hr 300 mg PO DAILY ascorbic acid (vitamin C) 1,000 mg Tablet 1,000 mg PO DAILY ketoconazole 2 % Shampoo 1 applic TOPICAL PRN PRN gabapentin [Neurontin] 100 mg capsule 100 mg PO QHS Qty: 7 0RF Medical Decision Making 8:18 -- 72-year-old male with history of coronary disease status post NSTEMI and catheterization with stent placed about 2 weeks ago, here with chest pain that started this morning refractory to nitroglycerin SL x2. Concern for ACS. EKG was reviewed and interpreted by me: Subtle ST elevation noted inferiorly lead II, 3, aVF with biphasic T waves V2 and V3. Compared this EKG to prior EKG from 06/25/2022?demonstrates similar although less pronounced ST segment changes. I will give nitroglycerin sublingual and start nitroglycerin infusion. Will give aspirin 325 mg. I have initiated stat consult with cardiology at [facility]. EKG was sent for review and I am awaiting callback. 8:33 --I spoke with Dr. Dyson, on-call cardiology at [facility], discussed ED presentation course and reviewed EKG. She feels EKG also does not meet STEMI criteria with approximately [address] elevation in lead II and less than [address] elevation in lead III and elsewhere, she does not shows any significant changes from prior and does not recommend thrombolytics at this time. Plan to trend troponin as well as EKGs. I will initiate treatment with heparin bolus and infusion. We will give Plavix 300 mg. 10:35 --initial troponin is elevated at 100. Repeat EKG shows some subtle changes anteriorly and stable ST elevation inferiorly. I called [facility] transfer center to request transfer. I spoke with nurse practitioner and discussed ED presentation course including diagnostics, she will accept the patient in behalf of Dr. Oseguera. Awaiting bed. 1351-- Patient reassessed multiple times. Stable on 20mcg/min of nitroglycerin. Patient does have headache and I will give Tylenol. Bed has been concerns at [facility]. We will arrange for [employer] transfer. Lab Data Lab results reviewed: Yes I reviewed the patient's lab results. Labs: Laboratory Tests Range/Units 07/03/22 07/03/22 07/03/22 08:05 08:05 08:05 WBC (4.4-10.8) 10^3/uL 8.54 RBC (4.36-5.78) 10^6/uL 4.38 Hgb (13.5-17.5) g/dL 13.8 Hct (40.0-50.0) % 40.7 MCV (80-95) fL 93 MCH (27.0-33.0) pg 31.5 MCHC (32.0-36.0) % 33.9 RDW (11.8-14.1) % 12.3 Plt Count (130-400) 10^3/uL 284 MPV (8.0-11.0) fL 9.4 Immature Gran % 0.4 Neutrophils % 68.3 Lymphocytes % 24.2 Monocytes % 6.1 Eosinophils % 0.6 Basophils % 0.4 Nucleated RBC % (0.0-0.3) % 0.0 Absolute Neutrophils (1.2-6.7) 10^3/uL 5.84 Absolute Lymphocytes (1.2-3.4) 10^3/uL 2.07 Absolute Monocytes (0.1-0.8) 10^3/uL 0.52 Absolute Eosinophils (0.0-0.7) 10^3/uL 0.05 Absolute Basophils (0.0-0.2) 10^3/uL 0.03 PT (9.3-11.0) sec 10.0 INR (0.9-1.1) 1.0 APTT (21.0-27.5) sec 24.2 Sodium (136-145) mmol/L 140 Potassium (3.5-5.1) mmol/L 3.5 Chloride (98-107) mmol/L 104 Carbon Dioxide (21.0-32.0) mmol/L 27.4 Anion Gap (3-11) mmol/L 8.6 BUN (7-18) mg/dL 18 Creatinine (0.70-1.30) mg/dL 1.3 Est GFR (CKD-EPI 2020) (mL/min/1.73m2) 58.37 Glucose (74-106) mg/dL 104 Calcium (8.5-10.1) mg/dL 9.1 Magnesium (1.8-2.4) mg/dL 1.9 Total Bilirubin (0.2-1.0) mg/dL 0.2 AST (15-37) U/L 16 ALT (16-63) U/L 38 Alkaline Phosphatase (46-116) U/L 81 Troponin I (<or=60) ng/L 100 H* Total Protein (6.4-8.2) g/dL 7.8 Albumin (3.4-5.0) g/dL 4.0 COVID-19 Source Range/Units 07/03/22 09:15 WBC (4.4-10.8) 10^3/uL RBC (4.36-5.78) 10^6/uL Hgb (13.5-17.5) g/dL Hct (40.0-50.0) % MCV (80-95) fL MCH (27.0-33.0) pg MCHC (32.0-36.0) % RDW (11.8-14.1) % Plt Count (130-400) 10^3/uL MPV (8.0-11.0) fL Immature Gran % Neutrophils % Lymphocytes % Monocytes % Eosinophils % Basophils % Nucleated RBC % (0.0-0.3) % Absolute Neutrophils (1.2-6.7) 10^3/uL Absolute Lymphocytes (1.2-3.4) 10^3/uL Absolute Monocytes (0.1-0.8) 10^3/uL Absolute Eosinophils (0.0-0.7) 10^3/uL Absolute Basophils (0.0-0.2) 10^3/uL PT (9.3-11.0) sec INR (0.9-1.1) APTT (21.0-27.5) sec Sodium (136-145) mmol/L Potassium (3.5-5.1) mmol/L Chloride (98-107) mmol/L Carbon Dioxide (21.0-32.0) mmol/L Anion Gap (3-11) mmol/L BUN (7-18) mg/dL Creatinine (0.70-1.30) mg/dL Est GFR (CKD-EPI 2020) (mL/min/1.73m2) Glucose (74-106) mg/dL Calcium (8.5-10.1) mg/dL Magnesium (1.8-2.4) mg/dL Total Bilirubin (0.2-1.0) mg/dL AST (15-37) U/L ALT (16-63) U/L Alkaline Phosphatase (46-116) U/L Troponin I (<or=60) ng/L Total Protein (6.4-8.2) g/dL Albumin (3.4-5.0) g/dL COVID-19 Source Nasal/Nares HPI General Mode of arrival: ambulatory . Date/Time Provider Initiated Documentation: 07/03/22 07:59 . Limitations to Documentation: no limitations . Information obtained by: patient . HPI Narrative: 72-year-old male with history of coronary artery disease status post single stent placed earlier this month at [facility] for NSTEMI, here with chief complaint of chest pain. Pain started this morning around 720 upon waking. Pain described as a pressure in his anterior chest. Pain is constant. Currently moderate to severe rated 7/10. Pain has no radiation. He has no associated nausea or shortness of breath. No leg swelling. Patient has been taking aspirin and Plavix as prescribed. He is yet to take his medicine today. Patient does note that during catheterization there was attempt to stent an additional lesion and was unsuccessful. Related Data Home Medications Medication Instructions Recorded Confirmed acetaminophen 325 mg tablet 650 mg PO QID PRN 09/17/20 07/03/22 (Tylenol) albuterol 90 mcg/actuation aerosol 180 mcg inhalation QID PRN 10/01/20 07/03/22 inhaler famotidine 10 mg tablet 10 mg PO BID PRN 10/01/20 07/03/22 finasteride 5 mg tablet 5 mg PO DAILY 10/01/20 07/03/22 folic acid 1 mg tablet 1 mg PO DAILY 10/01/20 07/03/22 magnesium oxide 400 mg PO DAILY 10/01/20 07/03/22 melatonin 3 mg tablet 3 mg PO HS 10/01/20 07/03/22 psyllium 1 tbsp PO DAILY PRN 10/01/20 07/03/22 simethicone 80 mg tablet 80 mg PO BID-QID PRN 10/01/20 07/03/22 vitamin A 10,000 unit capsule 10,000 unit PO DAILY 10/01/20 07/03/22 ascorbic acid (vitamin C) 1,000 mg 1,000 mg PO DAILY 06/25/22 07/03/22 tablet bupropion HCl 150 mg 24 hr tablet, 300 mg PO DAILY 06/25/22 07/03/22 extended release clopidogrel 75 mg tablet (Plavix) 75 mg PO DAILY 06/25/22 07/03/22 gabapentin 100 mg capsule 100 mg PO QHS #7 caps 06/25/22 07/03/22 (Neurontin) ketoconazole 2 % shampoo 1 applic topical PRN PRN 06/25/22 07/03/22 losartan 25 mg tablet 25 mg PO DAILY 06/25/22 07/03/22 metoprolol succinate 50 mg 50 mg PO DAILY 06/25/22 07/03/22 tablet,extended release 24 hr nitroglycerin 0.4 mg sublingual 0.4 mg sublingual PRN PRN 06/25/22 07/03/22 tablet (Nitrostat) aspirin 81 mg tablet,delayed 81 mg PO DAILY 07/03/22 07/03/22 release buspirone 10 mg tablet 20 mg PO DAILY 07/03/22 07/03/22 cholecalciferol (vitamin D3) 25 25 mcg PO DAILY 07/03/22 07/03/22 mcg (1,000 unit) tablet cyanocobalamin (vitamin B-12) 1,000 mcg PO DAILY 07/03/22 07/03/22 1,000 mcg tablet diltiazem HCl 30 mg tablet 30 mg PO DAILY 07/03/22 07/03/22 hydroxyzine HCl 25 mg tablet 25 mg PO TID PRN 07/03/22 07/03/22 ibuprofen 800 mg tablet 800 mg PO BID PRN 07/03/22 07/03/22 potassium citrate-citric acid 5 ml PO DAILY 07/03/22 07/03/22 1,100 mg-334 mg/5 mL oral solution rosuvastatin 40 mg tablet 40 mg PO DAILY 07/03/22 07/03/22 terazosin 2 mg tablet 2 mg PO QHS 07/03/22 07/03/22 Previous Rx's Medication Instructions Recorded gabapentin 100 mg capsule 100 mg PO QHS #7 caps 06/25/22 (Neurontin) Allergies Allergy/AdvReac Type Severity Reaction Status Date / Time simvastatin AdvReac Unknown abdominal Unverified 07/03/22 07:57 pain General Stated Complaint: Chest Pain RICKI: 2 Review of Systems All systems reviewed & are unremarkable except as noted in HPI and below Constitutional Constitutional: Denies fever(s) Cardiovascular Cardiovascular: Reports chest pain PFSH All Active Problems (Updated 07/03/22 @ 10:38 by Matthieu Salinas MD) Nerve pain (Acute) Acute non-ST elevation myocardial infarction (NSTEMI) (Acute) TAYLOR (obstructive sleep apnea) (Chronic) Non-ST elevation [place] (NSTEMI) (Acute) Medical History AAA (abdominal aortic aneurysm) without rupture Anxiety BPH (benign prostatic hyperplasia) Depression GERD (gastroesophageal reflux disease) High cholesterol Kidney stones Sleep apnea Surgical History S/P spinal surgery multiple cervical and lumbar spine surgeries Family History Father Dementia Mother Dementia Social History Smoking/Tobacco Use Status: Never Smoking risk assessment performed?: Yes Alcohol Intake: current Alcohol Intake frequency: a few times a week Alcohol type: beer and hard liquor Drug use: Never Substance use type: does not use Do you feel safe at home: Yes Do you feel safe in your relationship?: Yes Additional Social history: Lives alone on [address] in [place], Grew up in [place], family goes back generations there. Served in [employer] on [employer] out of [place], [place]. On disability for spinal injuries since. Exam Const General: cooperative and no acute distress HENMT Mouth: moist mucous membranes Eyes Conjunctivae: normal conjunctivae Sclera: normal sclerae Neck Neck: trachea midline and supple Resp Auscultation: clear to auscultation bilaterally, no rales, no rhonchi and no wheezes Cardio Rate: regular rate and not tachycardic Rhythm: regular rhythm GI Palpation: soft, not firm, no guarding, no masses, not rigid and nontender Skin General skin exam: no rashes or lesions noted Neuro General: patient alert, patient awake, patient oriented x3 and tone normal Extrem General: no calf tenderness and no edema Psych Appearance: grossly normal Mental Status: mental status grossly normal Speech and Movement: speech and movement normal Course Vital Signs Vital signs: Vital Signs Pulse 73 07/03/22 07:55 Respiratory Rate 18 07/03/22 07:55 Blood Pressure 124/71 07/03/22 07:55 Pulse Oximetry 99 07/03/22 07:55 Pulse 73 07/03/22 07:55 Respiratory Rate 18 07/03/22 07:55 Blood Pressure 124/71 07/03/22 07:55 Blood Pressure Position Supine 07/03/22 07:55 Pulse Oximetry 99 07/03/22 07:55 Oxygen Delivery Method Room Air 07/03/22 07:55 Oxygen Flow Rate 0 09/30/22 07:55 Critical Care Time Critical Care Time Critical Care Time: Yes Total Critical Care Time: 100 Attestation: I spent greater than 100 minutes addressing this patient's immediate life threats. Please see MDM section of note. This time was spent engaged in work directly related to the patient's care, exclusive of separate procedures, and failure to initiate these interventions would have likely resulted in clinically significant or life threatening deterioration in the patient's condition.
[2022-07-03] MEDS: nitroGLYcerin in D5W 50 MG/250 ML BTL IV (08:12)
[2022-07-03] MEDS: Aspirin 325 MG TAB PO (08:16)
[2022-07-03 08:17] LABS: Abs Immature Grans 0.03 10^3/uL (0.0-0.06); Absolute Basophil Count 0.03 10^3/uL (0.0-0.2); Absolute Eosinophil Count 0.05 10^3/uL (0.0-0.7); Absolute Lymphocyte Count 2.07 10^3/uL (1.2-3.4); Absolute Monocyte Count 0.52 10^3/uL (0.1-0.8); Absolute Neutrophil Count 5.84 10^3/uL (1.2-6.7); Basophils % 0.4; Eosinophils % 0.6; HCT 40.7 % (40.0-50.0); HGB 13.8 g/dL (13.5-17.5); Immature Grans % 0.4; Lymphocytes % 24.2; MCH 31.5 pg (27.0-33.0); MCHC 33.9 % (32.0-36.0); MCV 93 fL (80-95); MPV 9.4 fL (8.0-11.0); Monocytes % 6.1; Neutrophils % 68.3; Platelet Count 284 10^3/uL (130-400); RBC 4.38 10^6/uL (4.36-5.78); RDW 12.3 % (11.8-14.1); RDW-SD 42.4 fL; WBC 8.54 10^3/uL (4.4-10.8)
[2022-07-03 08:30] LABS: PTT Activated 24.2 sec (21.0-27.5)
[2022-07-03 08:47] LABS: ALT 38 U/L (16-63); AST 16 U/L (15-37); Alkaline Phosphatase 81 U/L (46-116); Anion Gap 8.6 mmol/L (3-11); BUN 18 mg/dL (7-18); Bilirubin, Total 0.2 mg/dL (0.2-1.0); CO2 27.4 mmol/L (21.0-32.0); CREATININE 1.3 mg/dL (0.70-1.30); Calcium 9.1 mg/dL (8.5-10.1); Chloride 104 mmol/L (98-107); Estimated GFR 58.37 (mL/min/1.73m2); Glucose 104 mg/dL (74-106); Magnesium 1.9 mg/dL (1.8-2.4); Potassium 3.5 mmol/L (3.5-5.1); Sodium 140 mmol/L (136-145); Total Protein 7.8 g/dL (6.4-8.2)
[2022-07-03 08:48] LABS: Troponin I 100 ng/L (<or=60)
[2022-07-03 09:19] LABS: Source Nasal/Nares
--- NOTE | 2022-07-03 09:30 | RT.EKG_ITS ---
APPROVED REPORT Exam: Resting ECG Reason for Exam: chest pain Patient Location: E HR:61 bpm ECG Measurements Heart Rate 61 AXIS PA 150 P 8 QRSd 82 QRS 50 QT 408 T 75 QTc 411 Conclusion Sinus rhythm...normal P axis, V-rate 60- 99 Low voltage, precordial leads...precordial leads <1.0mV Abnormal T, consider ischemia, anterior leads...T <-0.20mV, V2-V4 Abnormal Electrocardiogram
[2022-07-03] MEDS: Lactated Ringers 500 ML 1000 ML IV (09:45)
--- NOTE | 2022-07-03 10:32 | NUR.NOTE ---
Heparin 25,000 units in 250ml; cont. infusion unable to undo end time.
[2022-07-03] MEDS: Clopidogrel 300 MG TAB PO (10:39)
[2022-07-03 11:41] LABS: Troponin I 79 ng/L (<or=60)
--- NOTE | 2022-07-03 12:41 | TELEP.MEDR_ITS ---
Date of service: 07/03/22 Time of Service: 12:56 [facility] Home Med Rec Allergies Allergies: simvastatin Adverse Reaction (Unknown, Unverified 07/03/22 07:57) abdominal pain Interview Person Interviewed: * Patient Quality Quality of Interview/Accuracy of Medication List: Poor Sources Sources used to compile medication list: [employer] Medication List and Other Changes made to Home Medication List: ADDITIONS: * Citric acid/K citrate 5mL PO daily * Buspirone 20mg PO daily * Terazosin 2mg PO qHS * Vitamin D3- 1000 units PO daily * Vitamin B12- 1000mcg PO daily * Diltiazem 30mg PO daily DELETIONS: * Symbicort (stopped at ) * Diazepam * Diclofenac gel * Gabapentin 300mg TID (pt still using 100mg caps) * Oxybutynin * Pantoprazole * Tamsulosin * Tiotropium CHANGES: * Hydroxyzine HCl 25mg PO TID PRN Additional Notes Additional Notes: * Patient is not a good historian- does not have a good handle of what he takes and when. * Oxybutynin- on home med list in [facility], pt not sure if he is taking. This medications not listed anywhere in [facility] records (removed from home med list) * Buspirone- prescribed 20mg (10mg x2) PO BID, however pt reports taking only daily (I don't like to take too many pills) * Diltiazem- prescribed 15mg (30mg tab x 0.5) PO BID, pt reports taking 1 tablet once daily (30mg QD) * Propranolol- was listed as fairly recently filled at the [facility], and still listed as active. However, it appears to have been replaced by Toprol. Pt was not sure if he is still taking. Recommended Changes Recommended Changes(reason for recommendation): * none Attestation: The home medication list is now updated to the best of my knowledge and is ready to be reconciled by the provider. Please contact the [facility] Medication Reconciliation Pharmacist at for any questions.
--- NOTE | 2022-07-03 12:41 | TELEP.MEDREC ---
Date of service: 07/03/22 Time of Service: 12:56 [facility] Home Med Rec Allergies Allergies: simvastatin Adverse Reaction (Unknown, Unverified 07/03/22 07:57) abdominal pain Interview Person Interviewed: Patient Quality Quality of Interview/Accuracy of Medication List: Poor Sources Sources used to compile medication list: [employer] Medication List and Other Changes made to Home Medication List: ADDITIONS: Citric acid/K citrate 5mL PO daily Buspirone 20mg PO daily Terazosin 2mg PO qHS Vitamin D3- 1000 units PO daily Vitamin B12- 1000mcg PO daily Diltiazem 30mg PO daily DELETIONS: Symbicort (stopped at ) Diazepam Diclofenac gel Gabapentin 300mg TID (pt still using 100mg caps) Oxybutynin Pantoprazole Tamsulosin Tiotropium CHANGES: Hydroxyzine HCl 25mg PO TID PRN Additional Notes Additional Notes: Patient is not a good historian- does not have a good handle of what he takes and when. Oxybutynin- on home med list in [facility], pt not sure if he is taking. This medications [facility] (removed from home med list) Buspirone- prescribed 20mg (10mg x2) PO BID, however pt reports taking only daily (I don't like to take too many pills) Diltiazem- prescribed 15mg (30mg tab x 0.5) PO BID, pt reports taking 1 tablet once daily (30mg QD) Propranolol- was listed as fairly recently filled at the [facility], and still listed as active. However, it appears to have been replaced by Toprol. Pt was not sure if he is still taking. Recommended Changes Recommended Changes(reason for recommendation): none Attestation: The home medication list is now updated to the best of my knowledge and is ready to be reconciled by the provider. Please contact the [facility] Medication Reconciliation Pharmacist at for any questions.
[2022-07-03 13:15] LABS: COVID-19 PCR Negative (Negative)
[2022-07-03] MEDS: Acetaminophen 325 MG TAB 650 MG PO (13:53)
--- NOTE | 2022-07-05 15:01 | NUR.NOTE ---
Nursing Note: Accessed pt chart to get transfer information for the forms.
== END 2022-07-03 14:18 | disposition short-term general hospital (02) ==
PROVIDERS: Emergency Provider Student in an Organized Health Care Education/Training Program; PCP Internal Medicine
DX: I21.4 Non-ST elevation (NSTEMI) myocardial infarction (principal); R94.31 Abnormal electrocardiogram [ECG] [EKG]; R77.8 Other specified abnormalities of plasma proteins; Z79.82 Long term (current) use of aspirin
CPT/HCPCS: 36415; 80053; 87635; 93005; 96365; 96366; 96368; 99291; 99292; 71045; 83735; 84484; 85025; 85610; 85730; 93010

== ENCOUNTER 2022-07-29 00:52 | Inpatient (IN) | payer OTHER, SELFPAY ==
[2022-07-29] VITALS (120 sets, daily range): BP systolic 84–160; BP diastolic 37–81; PULSE 57–82; RESP 11–28; TEMP 36.3–37.2; O2SAT 92–99
--- NOTE | 2022-07-29 00:45 | RT.EKG_ITS ---
APPROVED REPORT Exam: Resting ECG Reason for Exam: fall Patient Location: E HR:67 bpm ECG Measurements Heart Rate 67 AXIS IN 153 P 24 QRSd 80 QRS 43 QT 417 T 55 QTc 441 Conclusion Sinus rhythm...normal P axis, V-rate 60- 99 Low voltage, precordial leads...precordial leads <1.0mV sinus rhtyhm, normal axis, normal intervals, non ischemic
[2022-07-29] MEDS: Normal Saline 1,000 ML 1000 ML IV (01:00)
--- NOTE | 2022-07-29 01:00 | DI.CT_ITS ---
Exam(s) CT HEAD WO EXAM: CT HEAD WO CLINICAL HISTORY: ams. TECHNIQUE: Imaging Protocol: Axial computed tomography images with coronal and sagittal reformatted images were created and reviewed COMPARISON: CT CT HEAD WO from 09/17/2020 FINDINGS: There is mild generalized cerebral atrophy. There is tiny right basal ganglia lacunar infarct. Inc idental note is made of cavum vergae.. No evidence of acute intracranial hemorrhage, mass effect, or midline shift. The orbital structures are unremarkable. The temporal bone structures appear intact. Calvarium: Normal. Visualized Paranasal sinuses/Mastoids: Clear with an incidental small left maxillary polyp or retenti on cyst. IMPRESSION: No evidence of acute intracranial process. RADIATION DOSE DELIVERED: 764.22mGy.cm Total DLP 764.22mGy.cm Total DLP !Error CTDIvol DATA REPOSITORY: All CT scans at this facility are submitted to the National Radiology Data Registry (NRDR) Dose Index Registry (DIR) with the [employer] ([employer]). RADIATION OPTIMIZATION: All CT scans at this facility use at least one of these dose optimization te chniques: automated exposure control; mA and/or kV adjustment per patient size (includes targeted exa ms where dose is matched to clinical indication); or iterative reconstruction.
--- NOTE | 2022-07-29 01:00 | DI.RAD_ITS ---
Exam(s) XR CHEST 1V IN DI DEPT EXAM: XR CHEST 1V IN DI DEPT CLINICAL HISTORY: chest pain TECHNIQUE: COMPARISON: CR XR PORTABLE CHEST AP from 07/03/2022 FINDINGS: There is a poor inspiration. There is some crowding of pulmonary markings in the lung bases. Small areas of atelectasis or consolidation may be present in the left lung base. Pleural effusion not exc luded on this frontal film. No gross cardiomegaly. IMPRESSION: Question left basilar infiltrate and or pleural effusion, PA and lateral chest suggested for further evaluation. RADIATION DOSE DELIVERED: Total DLP
--- NOTE | 2022-07-29 01:04 | ED.GENADUL_ITS ---
Discharge Plan Disposition Patient Disposition: STILL A PATIENT Discharge Details Chief Complaint: GenMedical Primary Care Provider: Jae Del Toro ED Provider: Trent Bishop Home Meds and New Rx's Prescriptions: No Action acetaminophen [Tylenol] 325 mg Tablet 650 mg PO QID PRN ibuprofen 800 mg Tablet 800 mg PO BID PRN cyanocobalamin (vitamin B-12) 1,000 mcg Tablet 1,000 mcg PO DAILY aspirin [Aspir-81] 81 mg Tablet,Delayed Release (Dr/Ec) 81 mg PO DAILY potassium citrate-citric acid 1,100-334 mg/5 mL Solution 5 ml PO DAILY buspirone 10 mg Tablet 20 mg PO DAILY terazosin 2 mg Tablet 2 mg PO QHS hydroxyzine HCl 25 mg Tablet 25 mg PO TID PRN diltiazem HCl 30 mg Tablet 30 mg PO DAILY rosuvastatin 40 mg Tablet 40 mg PO DAILY cholecalciferol (vitamin D3) 25 mcg (1,000 unit) Tablet 25 mcg PO DAILY famotidine 10 mg Tablet 10 mg PO BID PRN melatonin 3 mg Tablet 3 mg PO HS vitamin A 10,000 unit Capsule 10,000 unit PO DAILY psyllium Powder 1 tbsp PO DAILY PRN folic acid 1 mg Tablet 1 mg PO DAILY albuterol 90 mcg/actuation Aerosol 180 mcg INHALATION QID PRN Rx Instructions: INHALE 2 PUFFS BY MOUTH FOUR TIMES DAILY NEEDED finasteride 5 mg Tablet 5 mg PO DAILY simethicone 80 mg Tablet 80 mg PO BID-QID PRN magnesium oxide 400 mg magnesium Tablet 400 mg PO DAILY clopidogrel [Plavix] 75 mg Tablet 75 mg PO DAILY metoprolol succinate 50 mg Tablet Extended Release 24 Hr 50 mg PO DAILY losartan 25 mg Tablet 25 mg PO DAILY nitroglycerin [Nitrostat] 0.4 mg Tablet, Sublingual 0.4 mg sublingual PRN PRN bupropion HCl 150 mg Tablet Extended Release 24 Hr 300 mg PO DAILY ascorbic acid (vitamin C) 1,000 mg Tablet 1,000 mg PO DAILY ketoconazole 2 % Shampoo 1 applic TOPICAL PRN PRN gabapentin [Neurontin] 100 mg capsule 100 mg PO QHS Qty: 7 0RF Medical Decision Making 72-year-old male brought in by EMS for evaluation of possible collapse at home, patient initially denied alcohol use however now endorses having a couple drinks. History physical limited by patient's mental status as he appears clinically intoxicated however is alert oriented interactive following commands, cranial nerves intact, moving all extremities without deficit, hemodynamically stable, does have dry oral mucosa and cool skin. Consider collapse in the setting of alcohol intoxication versus orthostatic hypotension in the setting of dehydration versus metabolic derangement versus less likely infectious etiology. Lower suspicion for CVA or intracranial hemorrhage. Lower suspicion for ACS. Given age and comorbidities will obtain labs and imaging fluids rest close reassessment 08: 03 patient resting comfortably no acute distress. Clinically sobering. Given Trop slightly elevated 94 awaiting third troponin results. No chest pain no shortness of breath hemodynamically stable. HPI General Date/Time Provider Initiated Documentation: 07/29/22 00:53 . HPI Narrative: 72-year-old male history of coronary disease, presents brought in by EMS for altered mental status and possible collapse at home, patient was found near high proof liquor, patient initially denied drinking but then endorses having a couple drinks. Related Data Home Medications Medication Instructions Recorded Confirmed acetaminophen 325 mg tablet 650 mg PO QID PRN 09/17/20 07/29/22 (Tylenol) albuterol 90 mcg/actuation aerosol 180 mcg inhalation QID PRN 10/01/20 07/29/22 inhaler famotidine 10 mg tablet 10 mg PO BID PRN 10/01/20 07/29/22 finasteride 5 mg tablet 5 mg PO DAILY 10/01/20 07/29/22 folic acid 1 mg tablet 1 mg PO DAILY 10/01/20 07/29/22 magnesium oxide 400 mg PO DAILY 10/01/20 07/29/22 melatonin 3 mg tablet 3 mg PO HS 10/01/20 07/29/22 psyllium 1 tbsp PO DAILY PRN 10/01/20 07/29/22 simethicone 80 mg tablet 80 mg PO BID-QID PRN 10/01/20 07/29/22 vitamin A 10,000 unit capsule 10,000 unit PO DAILY 10/01/20 07/29/22 ascorbic acid (vitamin C) 1,000 mg 1,000 mg PO DAILY 06/25/22 07/29/22 tablet bupropion HCl 150 mg 24 hr tablet, 300 mg PO DAILY 06/25/22 07/29/22 extended release clopidogrel 75 mg tablet (Plavix) 75 mg PO DAILY 06/25/22 07/29/22 gabapentin 100 mg capsule 100 mg PO QHS #7 caps 06/25/22 07/29/22 (Neurontin) ketoconazole 2 % shampoo 1 applic topical PRN PRN 06/25/22 07/29/22 losartan 25 mg tablet 25 mg PO DAILY 06/25/22 07/29/22 metoprolol succinate 50 mg 50 mg PO DAILY 06/25/22 07/29/22 tablet,extended release 24 hr nitroglycerin 0.4 mg sublingual 0.4 mg sublingual PRN PRN 06/25/22 07/29/22 tablet (Nitrostat) aspirin 81 mg tablet,delayed 81 mg PO DAILY 07/03/22 07/29/22 release buspirone 10 mg tablet 20 mg PO DAILY 07/03/22 07/29/22 cholecalciferol (vitamin D3) 25 25 mcg PO DAILY 07/03/22 07/29/22 mcg (1,000 unit) tablet cyanocobalamin (vitamin B-12) 1,000 mcg PO DAILY 07/03/22 07/29/22 1,000 mcg tablet diltiazem HCl 30 mg tablet 30 mg PO DAILY 07/03/22 07/29/22 hydroxyzine HCl 25 mg tablet 25 mg PO TID PRN 07/03/22 07/29/22 ibuprofen 800 mg tablet 800 mg PO BID PRN 07/03/22 07/29/22 potassium citrate-citric acid 5 ml PO DAILY 07/03/22 07/29/22 1,100 mg-334 mg/5 mL oral solution rosuvastatin 40 mg tablet 40 mg PO DAILY 07/03/22 07/29/22 terazosin 2 mg tablet 2 mg PO QHS 07/03/22 07/29/22 Previous Rx's Medication Instructions Recorded gabapentin 100 mg capsule 100 mg PO QHS #7 caps 06/25/22 (Neurontin) Allergies Allergy/AdvReac Type Severity Reaction Status Date / Time simvastatin AdvReac Unknown abdominal Unverified 07/29/22 01:04 pain General Stated Complaint: GenMedical RICKI: 2 Review of Systems Narrative: Review of Systems Constitutional: Altered mental status Eyes: negative ENT: negative Cardiovascular: negative Respiratory: negative Gastrointestinal: negative : negative Musculoskeletal: negative Skin: negative Neurologic: negative Psych: negative PFSH All Active Problems (Updated 07/26/22 @ 00:05 by CLYDE LIU) Acute non-ST elevation myocardial infarction (NSTEMI) (Acute) TAYLOR (obstructive sleep apnea) (Chronic) Non-ST elevation CO (NSTEMI) (Acute) Medical History AAA (abdominal aortic aneurysm) without rupture Anxiety BPH (benign prostatic hyperplasia) Depression GERD (gastroesophageal reflux disease) High cholesterol Kidney stones Sleep apnea Surgical History S/P spinal surgery multiple cervical and lumbar spine surgeries Family History Father Dementia Mother Dementia Social History Smoking/Tobacco Use Status: Never Smoking risk assessment performed?: Yes Alcohol Intake: current Alcohol Intake frequency: a few times a week Alcohol type: beer and hard liquor Drug use: Never Substance use type: does not use Do you feel safe at home: Yes Do you feel safe in your relationship?: Yes Additional Social history: Lives alone on [address] [address] in [facility], Grew up in [place], family goes back generations there. Served in [employer] out of [place], [place]. On disability for spinal injuries since. Exam Narrative Exam Narrative: Physical Examination General: alert, awake, cooperative, resting comfortably, no acute distress; appears clinically intoxicated HEENT: normocephalic, atraumatic; PERRL, EOM intact, conjunctiva normal; no nasal discharge; moist mucous membranes, dry oral mucosa Neck: supple, trachea midline; full ROM Chest: normal to inspection Respiratory: normal respiratory effort, speaking in full sentences, clear to auscultation, no wheezing, rales or rhonchi Cardiac: regular rate, regular rhythm, S1S2 intact, no murmurs rubs or gallops GI: abdomen soft, non-tender, non-distended; no palpable mass or hepatosplenomegaly Skin: no lesions, rashes or trauma appreciated; cool to the touch Neuro: AAOx3, normal speech, moving all extremities; cranial nerves II to XII intact, 5 out of 5 strength upper and lower extremities Extremities: No trauma Psych: Appropriate mood and affect Course Vital Signs Vital signs: Vital Signs Temperature 37.0 C 07/29/22 00:57 Pulse 69 07/29/22 00:57 Respiratory Rate 26 H 07/29/22 00:57 Blood Pressure 115/64 07/29/22 00:57 Pulse Oximetry 98 07/29/22 00:57 Temperature 37.0 C 07/29/22 00:57 Temperature Source Temporal Artery Scan 07/29/22 00:57 Pulse 69 07/29/22 00:57 Respiratory Rate 26 H 07/29/22 00:57 Respiratory Effort 07/29/22 00:57 Blood Pressure 115/64 07/29/22 00:57 Blood Pressure Position Supine 07/29/22 00:57 Pulse Oximetry 98 07/29/22 00:57 Oxygen Delivery Method Room Air 07/29/22 00:57 Oxygen Flow Rate 0 07/29/22 00:57 PAWSS Have you Been Recently Intoxicated or Drunk Within the Last 30 days?: Yes Have you Ever Experienced Previous Episodes of Alcohol Withdrawal?: No Have you ever Experienced Withdrawal Seizures?: No Have you ever Experienced Delirium Tremens(DT)s?: No Have you ever undergone Alcohol Rehabilitation Treatment (i.e, inpt ot outpatient treatment programs)?: No Have you ever Experienced Blackouts?: No Result: 1
[2022-07-29 01:10] LABS: Abs Immature Grans 0.04 10^3/uL (0.0-0.06); Absolute Basophil Count 0.02 10^3/uL (0.0-0.2); Absolute Eosinophil Count 0.07 10^3/uL (0.0-0.7); Absolute Lymphocyte Count 2.95 10^3/uL (1.2-3.4); Absolute Monocyte Count 0.96 10^3/uL (0.1-0.8); Basophils % 0.2; Eosinophils % 0.8; HCT 38.8 % (40.0-50.0); HGB 13.1 g/dL (13.5-17.5); Immature Grans % 0.5; Lymphocytes % 33.4; MCH 31.2 pg (27.0-33.0); MCHC 33.8 % (32.0-36.0); MCV 92 fL (80-95); MPV 9.1 fL (8.0-11.0); Monocytes % 10.9; Neutrophils % 54.2; Platelet Count 155 10^3/uL (130-400); RDW 12.7 % (11.8-14.1); WBC 8.84 10^3/uL (4.4-10.8)
--- NOTE | 2022-07-29 01:45 | RT.EKG_ITS ---
APPROVED REPORT Exam: Resting ECG Reason for Exam: repeat trop Patient Location: E HR:60 bpm ECG Measurements Heart Rate 60 AXIS IL 161 P 32 QRSd 89 QRS 49 QT 444 T 56 QTc 444 Conclusion Sinus rhythm...normal P axis, V-rate 60- 99 sinus rhtyhm, normal axis, normal intervals, non ischemic
[2022-07-29 01:47] LABS: ALT 46 U/L (16-63); AST 28 U/L (15-37); Albumin 3.5 g/dL (3.4-5.0); Alkaline Phosphatase 69 U/L (46-116); BUN 20 mg/dL (7-18); Bilirubin, Total 0.3 mg/dL (0.2-1.0); CREATININE 1.4 mg/dL (0.70-1.30); Calcium 8.8 mg/dL (8.5-10.1); Chloride 103 mmol/L (98-107); ETHANOL BLOOD 272.9 mg/dL (<10); Glucose 109 mg/dL (74-106); Potassium 3.6 mmol/L (3.5-5.1); Sodium 137 mmol/L (136-145); TSH (W/Ref FT4) 4.37 uIU/mL (0.36-3.74); Total Protein 6.9 g/dL (6.4-8.2)
[2022-07-29 01:48] LABS: Troponin I 93 ng/L (<or=60)
--- NOTE | 2022-07-29 01:53 | DI.VRAD_ITS ---
PROCEDURE INFORMATION: Exam: CT Head Without Contrast Exam date and time: 07/29/2022 1:15 AM Age: 72 years old Clinical indication: Altered mental status/memory loss; Confusion or disorientation; Additional info: AMS TECHNIQUE: Imaging protocol: Computed tomography of the head without contrast. Radiation optimization: All CT scans at this facility use at least one of these dose optimization techniques: automated exposure control; mA and/or kV adjustment per patient size (includes targeted exams where dose is matched to clinical indication); or iterative reconstruction. COMPARISON: CT HEAD WO 09/17/2020 4:26 AM FINDINGS: Brain: Small chronic right basal ganglia lacunar infarct. Chronic basal ganglia and dentate nuclei calcifications. No intracranial hemorrhage or extra-axial fluid collection. No evidence of mass effect or midline shift. Byrne-white matter differentiation is normal. Cerebral ventricles: Mild prominence of the ventricles and sulci, most likely attributed to parenchymal volume loss. Cavum septum pellucidum. Paranasal sinuses: Unremarkable. No fluid levels. Mastoid air cells: Unremarkable. Bones/joints: No acute osseus lesion or fracture. Soft tissues: Unremarkable. IMPRESSION: 1. No acute intracranial pathology. 2. Other chronic findings, as above. Dictated and Authenticated by: Donny Nelson MD. Ordering:MYKEL Newman MD
--- NOTE | 2022-07-29 01:57 | DI.VRAD_ITS ---
PROCEDURE INFORMATION: Exam: XR Chest Exam date and time: 07/29/2022 1:19 AM Age: 72 years old Clinical indication: Pain; Chest pressure; Additional info: Cp TECHNIQUE: Imaging protocol: Radiologic exam of the chest. Views: 1 view. COMPARISON: CR XR PORTABLE CHEST AP 07/03/2022 8:26 AM FINDINGS: Lungs: Crowding of lung markings, likely secondary to low lung volumes. Mild left basilar atelectasis Pleural spaces: Questionable small left pleural effusion. No pneumothorax. Heart/Mediastinum: Cardiac and mediastinal silhouettes are unremarkable. Bones/joints: No acute osseus lesion or fracture. IMPRESSION: Left basilar atelectasis and questionable small left pleural effusion. Dictated and Authenticated by: Donny Nelson MD. Ordering:MYKEL Newman MD
[2022-07-29] MEDS: Normal Saline 1,000 ML 150 ML IV (02:00)
[2022-07-29 04:30] LABS: Troponin I 94 ng/L (<or=60)
--- NOTE | 2022-07-29 08:00 | RT.EKG_ITS ---
APPROVED REPORT Exam: Resting ECG Reason for Exam: 2nd ekg Patient Location: E HR:62 bpm ECG Measurements Heart Rate 62 AXIS TX 148 P 18 QRSd 89 QRS 43 QT 420 T 50 QTc 427 Conclusion Sinus rhythm...normal P axis, V-rate 60- 99 Low voltage, precordial leads...precordial leads <1.0mV Physician: no stemi, unchanged
[2022-07-29 09:04] LABS: Troponin I 105 ng/L (<or=60)
[2022-07-29] MEDS: Aspirin 325 MG TAB PO (10:24)
[2022-07-29] MEDS: Clopidogrel 300 MG TAB PO (10:24)
--- NOTE | 2022-07-29 10:24 | ED.PROG_ITS ---
Date of service: 07/29/22 Time of Service: 10:25 Medical Decision Making Admit patient was signed out to me by my colleague Dr. Haseeb Fuchs. Please refer to his HPI, physical exam, assessment and plan. At time of signout we are awaiting reassessment and repeat troponin to look for uptrending or downtrending. Repeat troponin has continued to slowly upward trend. Review of the patient's last visit demonstrate similar troponin levels, at that time he was eventually sent to [facility], and while there he was restented. I did rediscuss this with the patient as he is now clinically sober and currently states that he has had progressive chest pain over the last few weeks and has been generally worsening. Right now his chest pain is minimal. With the patient's known history, and his current complaints, I am concerned for a repeat cardiac etiology of concern. I did reach out to [facility] and discussed the case with Radha and Melisa, they agree with the plan and recommend heparinization, aspirin Plavix and transfer. Unfortunately no beds are available until tomorrow morning. We will keep the patient here in the meantime. Patient will be admitted to Dr Joseph repeat exam demonstrates a stable appearing patient. No focal neurologic deficits. He does appear clinically sober at this time. No evidence of significant cranial trauma to suggest intracranial bleed or abnormality both clinically or on physical exam. We will start heparin as recommended by [facility]. Patient will be discussed with hospitalist Dr. Garcia for admission. I have extensively reviewed the treatment plan with the patient. I have addressed all patient concerns at this time. I have also discussed the plan with the admitting physician and they agree with the current assessment and plan and have agreed to assume responsibility for the patient. All parties demonstrate verbal understanding and agreement with our assessment and plan at this time. The documentation in this chart was dictated using [employer] dictation software. Please excuse any dictation errors. Critical Care Time Critical Care Time Critical Care Time: Yes Total Critical Care Time: 30 Attestation: Upon my evaluation, this patient had a high probability of imminent or life- threatening deterioration, which required my direct attention, intervention, and personal management. I have personally provided 30 minutes of critical care time exclusive of time spent on separately billable procedures. Time includes review of laboratory data, radiology results, discussion with consultants, and monitoring for potential decompensation. Interventions were performed as documented. Sign Out Sign Out Data: Sign Out Comment: pending third trop and sobriety for dc home Last updated by Trent Bishop MD at 07/29/22 08:17 Discharge Plan Disposition Patient Disposition: [facility] INPATIENT Condition: Stable Discharge Details Clinical Impression: Acute non-ST elevation myocardial infarction (NSTEMI), Elevated ETOH level, Chest pain Primary Care Provider: Jae Del Toro ED Provider: Tan Loredo [place] Meds and New Rx's Prescriptions: No Action acetaminophen [Tylenol] 325 mg Tablet 650 mg PO QID PRN ibuprofen 800 mg Tablet 800 mg PO BID PRN cyanocobalamin (vitamin B-12) 1,000 mcg Tablet 1,000 mcg PO DAILY aspirin [Aspir-81] 81 mg Tablet,Delayed Release (Dr/Ec) 81 mg PO DAILY potassium citrate-citric acid 1,100-334 mg/5 mL Solution 5 ml PO DAILY buspirone 10 mg Tablet 20 mg PO DAILY terazosin 2 mg Tablet 2 mg PO QHS hydroxyzine HCl 25 mg Tablet 25 mg PO TID PRN diltiazem HCl 30 mg Tablet 30 mg PO DAILY rosuvastatin 40 mg Tablet 40 mg PO DAILY cholecalciferol (vitamin D3) 25 mcg (1,000 unit) Tablet 25 mcg PO DAILY famotidine 10 mg Tablet 10 mg PO BID PRN melatonin 3 mg Tablet 3 mg PO HS vitamin A 10,000 unit Capsule 10,000 unit PO DAILY psyllium Powder 1 tbsp PO DAILY PRN folic acid 1 mg Tablet 1 mg PO DAILY albuterol 90 mcg/actuation Aerosol 180 mcg INHALATION QID PRN Rx Instructions: INHALE 2 PUFFS BY MOUTH FOUR TIMES DAILY NEEDED finasteride 5 mg Tablet 5 mg PO DAILY simethicone 80 mg Tablet 80 mg PO BID-QID PRN magnesium oxide 400 mg magnesium Tablet 400 mg PO DAILY clopidogrel [Plavix] 75 mg Tablet 75 mg PO DAILY metoprolol succinate 50 mg Tablet Extended Release 24 Hr 50 mg PO DAILY losartan 25 mg Tablet 25 mg PO DAILY nitroglycerin [Nitrostat] 0.4 mg Tablet, Sublingual 0.4 mg sublingual PRN PRN bupropion HCl 150 mg Tablet Extended Release 24 Hr 300 mg PO DAILY ascorbic acid (vitamin C) 1,000 mg Tablet 1,000 mg PO DAILY ketoconazole 2 % Shampoo 1 applic TOPICAL PRN PRN gabapentin [Neurontin] 100 mg capsule 100 mg PO QHS Qty: 7 0RF
[2022-07-29 10:35] LABS: Source Nasal/Nares
[2022-07-29 10:49] LABS: PTT Activated 24.4 sec (21.0-27.5); Prothrombin Time 10.2 sec (9.3-11.0)
[2022-07-29 11:18] LABS: COVID-19 PCR Negative (Negative)
[2022-07-29] MEDS: nitroGLYcerin 2% 1 INCH/1 GM PKT 0.5 GM TP (11:44)
--- NOTE | 2022-07-29 14:30 | W.PM.HP.N ---
Date of service: 07/29/22 Time of Service: 14:30 Assessment and Plan Assessment and plan (1) Acute non-ST elevation myocardial infarction (NSTEMI): Status: Acute Assessment and plan: accepted at [facility] under Dr Joseph heparin drip, nitropaste cycle troponins telemetry was plavix loaded, will continue at 75 mg daily. continue asa, bb and statin. will change beta lexi to immediate release for better control over blood pressure as they had been soft. hold losartan for now. (2) Elevated ETOH level: Status: Acute Assessment and plan: now sober. (3) Depression: Status: Chronic Assessment and plan: continue home medication (4) BPH (benign prostatic hyperplasia): Status: Chronic Assessment and plan: voiding well, continue finasteride and terazosin (5) Discharge planning issues: Status: Acute Assessment and plan: transfer to [facility] as planned discussed with Dr Garcia History of Present Illness History of Present Illness Chief Complaint: chest pain Narrative: This is a 72 year old male with history of recent VT s/p STENT who presented to the ED following a possible collapse at home. work up showed JEANNIE of 270, also with elevated troponins. His case was discussed with cardiology at [facility] and recommendations for heparin drip, plavix load and transfer for cardiac catheterization. He has been accepted for tomorrow under DR Joseph. He will be observed here overnight until bed available. He remains hemodynamically stable. he reported chest pain on admission to the floor. this was relieved with sl nitroglycerin. Review of Systems All systems reviewed & are unremarkable except as noted in HPI and below Constitutional Constitutional: Denies fever(s) ENT Ears, Nose, Mouth, and Throat: Reports dizziness Cardiovascular Cardiovascular: Reports chest pain, Reports lightheadedness and Reports dyspnea Respiratory Respiratory: Reports dyspnea Gastrointestinal Gastrointestinal: Denies nausea and Denies vomiting Neurologic Neurologic: Reports dizziness PFSH All Active Problems (Updated 07/29/22 @ 14:40 by Shaista Tony NP) Discharge planning issues (Acute) BPH (benign prostatic hyperplasia) (Chronic) Depression (Chronic) Acute non-ST elevation myocardial infarction (NSTEMI) (Acute) Elevated ETOH level (Acute) Chest pain (Acute) TAYLOR (obstructive sleep apnea) (Chronic) Non-ST elevation VT (NSTEMI) (Acute) Medical History AAA (abdominal aortic aneurysm) without rupture Anxiety BPH (benign prostatic hyperplasia) Depression GERD (gastroesophageal reflux disease) High cholesterol Kidney stones Sleep apnea Surgical History S/P spinal surgery multiple cervical and lumbar spine surgeries Family History Father Dementia Mother Dementia Social History Smoking/Tobacco Use Status: Never Smoking risk assessment performed?: Yes Alcohol Intake: current Alcohol Intake frequency: a few times a week Alcohol type: beer and hard liquor Drug use: Never Substance use type: does not use Do you feel safe at home: Yes Do you feel safe in your relationship?: Yes Additional Social history: Lives alone on [address] in [facility], Grew up in [place], family goes back generations there. Served in [employer] out of [place], [place]. On disability for spinal injuries since. Meds Allergies and Home Medications Allergies Allergy/AdvReac Type Severity Reaction Status Date / Time simvastatin AdvReac Unknown abdominal Unverified 07/29/22 01:04 pain Home Medications Medication Instructions Recorded Confirmed Type acetaminophen 325 mg tablet 650 mg PO QID PRN 09/17/20 07/29/22 History (Tylenol) albuterol 90 mcg/actuation aerosol 180 mcg inhalation QID PRN 10/01/20 07/29/22 History inhaler famotidine 10 mg tablet 10 mg PO BID PRN 10/01/20 07/29/22 History finasteride 5 mg tablet 5 mg PO DAILY 10/01/20 07/29/22 History folic acid 1 mg tablet 1 mg PO DAILY 10/01/20 07/29/22 History magnesium oxide 400 mg PO DAILY 10/01/20 07/29/22 History melatonin 3 mg tablet 3 mg PO HS 10/01/20 07/29/22 History psyllium 1 tbsp PO DAILY PRN 10/01/20 07/29/22 History simethicone 80 mg tablet 80 mg PO BID-QID PRN 10/01/20 07/29/22 History vitamin A 10,000 unit capsule 10,000 unit PO DAILY 10/01/20 07/29/22 History ascorbic acid (vitamin C) 1,000 mg 1,000 mg PO DAILY 06/25/22 07/29/22 History tablet bupropion HCl 150 mg 24 hr tablet, 300 mg PO DAILY 06/25/22 07/29/22 History extended release clopidogrel 75 mg tablet (Plavix) 75 mg PO DAILY 06/25/22 07/29/22 History gabapentin 100 mg capsule 100 mg PO QHS #7 caps 06/25/22 07/29/22 Rx (Neurontin) ketoconazole 2 % shampoo 1 applic topical PRN PRN 06/25/22 07/29/22 History losartan 25 mg tablet 25 mg PO DAILY 06/25/22 07/29/22 History metoprolol succinate 50 mg 50 mg PO DAILY 06/25/22 07/29/22 History tablet,extended release 24 hr nitroglycerin 0.4 mg sublingual 0.4 mg sublingual PRN PRN 06/25/22 07/29/22 History tablet (Nitrostat) aspirin 81 mg tablet,delayed 81 mg PO DAILY 07/03/22 07/29/22 History release buspirone 10 mg tablet 10 mg PO BID 07/03/22 07/29/22 History cholecalciferol (vitamin D3) 25 25 mcg PO DAILY 07/03/22 07/29/22 History mcg (1,000 unit) tablet cyanocobalamin (vitamin B-12) 1,000 mcg PO DAILY 07/03/22 07/29/22 History 1,000 mcg tablet diltiazem HCl 30 mg tablet 30 mg PO DAILY 07/03/22 07/29/22 History hydroxyzine HCl 25 mg tablet 25 mg PO TID PRN 07/03/22 07/29/22 History ibuprofen 800 mg tablet 800 mg PO BID PRN 07/03/22 07/29/22 History potassium citrate-citric acid 5 ml PO DAILY 07/03/22 07/29/22 History 1,100 mg-334 mg/5 mL oral solution rosuvastatin 40 mg tablet 40 mg PO DAILY 07/03/22 07/29/22 History terazosin 2 mg tablet 2 mg PO QHS 07/03/22 07/29/22 History Exam Const General: cooperative and no acute distress HENMT Head: normal to inspection and normocephalic Mouth: moist mucous membranes Eyes Conjunctivae: normal conjunctivae Sclera: normal sclerae Neck Neck: trachea midline and supple Chest Chest: normal inspection of the chest Resp Auscultation: clear to auscultation bilaterally, no rales, no rhonchi and no wheezes Cardio Rate: regular rate Rhythm: regular rhythm GI Palpation: soft, no guarding and nontender Skin General skin exam: no rashes or lesions noted Neuro General: patient alert, patient awake and patient oriented x3 Extrem General: no edema Psych Appearance: grossly normal Mental Status: mental status grossly normal Speech and Movement: speech and movement normal Results Labs Result diagrams: 07/30/22 06:02 07/30/22 06:02 Labs: Laboratory Results - last 24 hr 07/29/22 07/29/22 07/29/22 01:05 01:05 04:00 WBC 8.84 RBC 4.20 L Hgb 13.1 L Hct 38.8 L MCV 92 MCH 31.2 MCHC 33.8 RDW 12.7 Plt Count 155 MPV 9.1 Immature Gran % 0.5 Neutrophils % 54.2 Lymphocytes % 33.4 Monocytes % 10.9 Eosinophils % 0.8 Basophils % 0.2 Nucleated RBC % 0.0 Absolute Neutrophils 4.80 Absolute Lymphocytes 2.95 Absolute Monocytes 0.96 H Absolute Eosinophils 0.07 Absolute Basophils 0.02 PT INR APTT Sodium 137 Potassium 3.6 Chloride 103 Carbon Dioxide 25.0 Anion Gap 9.0 BUN 20 H Creatinine 1.4 H Est GFR (CKD-EPI 2020) 53.40 Glucose 109 H Calcium 8.8 Total Bilirubin 0.3 AST 28 ALT 46 Alkaline Phosphatase 69 Troponin I 93 H* 94 H* Total Protein 6.9 Albumin 3.5 TSH 4.37 H Free T4 0.80 Ethyl Alcohol 272.9 H COVID-19 Source SARS-CoV-2 (PCR) 07/29/22 07/29/22 07/29/22 08:26 10:19 10:30 WBC RBC Hgb Hct MCV MCH MCHC RDW Plt Count MPV Immature Gran % Neutrophils % Lymphocytes % Monocytes % Eosinophils % Basophils % Nucleated RBC % Absolute Neutrophils Absolute Lymphocytes Absolute Monocytes Absolute Eosinophils Absolute Basophils PT 10.2 INR 1.0 APTT 24.4 Sodium Potassium Chloride Carbon Dioxide Anion Gap BUN Creatinine Est GFR (CKD-EPI 2020) Glucose Calcium Total Bilirubin AST ALT Alkaline Phosphatase Troponin I 105 H* Total Protein Albumin TSH Free T4 Ethyl Alcohol COVID-19 Source Nasal/Nares SARS-CoV-2 (PCR) Negative Last Vital Signs Temp 36.3 C L 07/29/22 13:21 Pulse 67 07/29/22 13:21 Resp 18 07/29/22 13:21 BP 132/70 07/29/22 13:21 Pulse Ox 99 07/29/22 13:21 PAWSS Have you Been Recently Intoxicated or Drunk Within the Last 30 days?: No Have you Ever Experienced Previous Episodes of Alcohol Withdrawal?: No Have you ever Experienced Withdrawal Seizures?: No Have you ever Experienced Delirium Tremens(DT)s?: No Have you ever undergone Alcohol Rehabilitation Treatment (i.e, inpt ot outpatient treatment programs)?: No Have you ever Experienced Blackouts?: No Have you ever Combined Alcohol with other Downers within the last 90 days?: No Have you ever Combined Alcohol with any other Substance of Abuse during the last 90 days?: No Positive Blood Alcohol level on Presentation? [PCS.BAL]: No Evidence of Increased Autonomic Activity (i.e. HR>120, tremor, sweating, agitation, nausea)?: No Result: 0
[2022-07-29 14:45] LABS: Troponin I 108 ng/L (<or=60)
[2022-07-29] MEDS: nitroGLYcerin 0.4 MG TAB SL (14:53)
--- NOTE | 2022-07-29 16:22 | PDOC.CMIN ---
- If Service Date Differs Date of service: 07/29/22 Time of Service: 16:22 Care Management Initial Assess REASON FOR HOSPITALIZATION:: NSTEMI PAST MEDICAL HISTORY/PAST SURGICAL HISTORY:: Medical History . AAA (abdominal aortic aneurysm) without rupture. Anxiety. BPH (benign prostatic hyperplasia). Depression. GERD (gastroesophageal reflux disease). High cholesterol. Kidney stones. Sleep apnea. Surgical History . S/P spinal surgery. multiple cervical and lumbar spine surgeries PREVIOUS FUNCTIONAL STATUS/SOCIAL/FAMILY SUPPORTS:: Resides alone in [facility], independent at baseline in the community. Recently transferred to [facility] with same presenting issue. CURRENT FUNCTIONAL STATUS:: Awaiting transfer, on room air, CIWA protocol: scoring 10 for headache, light sensitivity, agitation, and tremors. ADVANCE DIRECTIVES:: Aracely Huynh: [phone] Has patient been provided with info about the portal/API?: No Did the patient sign up for the portal?: No CODE STATUS:: Full Code INSURANCE COVERAGE / FINANCIAL ISSUES:: [facility] CURRENT HOME/COMMUNITY SERVICES/EQUIPMENT:: Cane, CPAP, MOW, side rails PRIMARY CARE PHYSICIAN:: Jae Del Toro: PR POTENTIAL DISCHARGE NEEDS:: Coordinated transfer for cardiac cathertization. PATIENT/FAMILY EDUCATION NEEDS:: Review of transfer process. ANTICIPATED BARRIERS TO DISCHARGE:: Bed availability TRANSPORTATION:: EMS PLAN:: Accepted to [facility] for tomorrow; accepting provider: Dr. Joseph
[2022-07-29] MEDS: Metoprolol 12.5 MG TAB PO (18:07)
[2022-07-29 18:13] LABS: PTT Activated 72.4 sec (21.0-27.5)
[2022-07-29] MEDS: buPROPion-XL 150 MG TABCR 300 MG PO (18:43)
[2022-07-29] MEDS: busPIRone 5 MG TAB 10 MG PO (20:15)
[2022-07-29] MEDS: Terazosin 2 MG CAP PO (22:10)
[2022-07-29] MEDS: Melatonin 3 MG TAB PO (22:10)
[2022-07-30] VITALS (9 sets, daily range): BP systolic 114–145; BP diastolic 69–82; PULSE 52–87; RESP 16–18; TEMP 36.1–36.7; O2SAT 95–98
[2022-07-30 00:47] LABS: PTT Activated 44.3 sec (21.0-27.5)
[2022-07-30] MEDS: Metoprolol 12.5 MG TAB PO ×5 (00:51→23:45)
[2022-07-30 07:13] LABS: HCT 35.3 % (40.0-50.0); HGB 12.5 g/dL (13.5-17.5); MCH 32.2 pg (27.0-33.0); MCHC 35.4 % (32.0-36.0); MCV 91 fL (80-95); MPV 9.8 fL (8.0-11.0); Platelet Count 139 10^3/uL (130-400); RBC 3.88 10^6/uL (4.36-5.78); RDW 13.1 % (11.8-14.1); RDW-SD 42.3 fL; WBC 6.55 10^3/uL (4.4-10.8)
[2022-07-30 07:18] LABS: PTT Activated 58.3 sec (21.0-27.5)
[2022-07-30 07:56] LABS: Anion Gap 6.4 mmol/L (3-11); BUN 20 mg/dL (7-18); CO2 25.6 mmol/L (21.0-32.0); CREATININE 1.3 mg/dL (0.70-1.30); Calcium 8.6 mg/dL (8.5-10.1); Chloride 105 mmol/L (98-107); Estimated GFR 58.37 (mL/min/1.73m2); Glucose 107 mg/dL (74-106); Magnesium 1.8 mg/dL (1.8-2.4); Potassium 3.5 mmol/L (3.5-5.1); Sodium 137 mmol/L (136-145)
[2022-07-30] MEDS: dilTIAZem 30 MG TAB PO (08:41)
[2022-07-30] MEDS: Folic Acid 1 MG TAB PO (08:41)
[2022-07-30] MEDS: Cholecalciferol (Vitamin D3) 1,000 UNIT TAB 1000 UNITS PO (08:41)
[2022-07-30] MEDS: busPIRone 5 MG TAB 10 MG PO ×2 (08:42→21:09)
[2022-07-30] MEDS: Magnesium Oxide 400 MG TAB PO (08:42)
[2022-07-30] MEDS: Finasteride 5 MG TAB PO (08:42)
[2022-07-30] MEDS: Rosuvastatin 10 MG TAB 40 MG PO (08:42)
[2022-07-30] MEDS: Clopidogrel 75 MG TAB PO (08:42)
[2022-07-30] MEDS: Ascorbic Acid 500 MG TAB 1000 MG PO (08:42)
[2022-07-30] MEDS: Cyanocobalamin 500 MCG TAB 1000 MCG PO (08:42)
[2022-07-30] MEDS: Aspirin E.C. 81 MG TABEC PO (08:43)
[2022-07-30 09:49] LABS: Calculated LDL 74 mg/dL (<100); Cholesterol 155 mg/dL (<200); HDL Cholesterol 65 mg/dL (40-60); Triglyceride 80 mg/dL (<150)
[2022-07-30 09:51] LABS: Troponin I 108 ng/L (<or=60)
--- NOTE | 2022-07-30 10:11 | RESPIRATORY ---
Patient has a CPAP at home but doesn't have anyone to bring it in. Discussed using one of hospital machines that can do CPAP, patient refused and stated he's all set.
[2022-07-30] MEDS: nitroGLYcerin 2% 1 INCH/1 GM PKT TP ×3 (12:11→23:45)
--- NOTE | 2022-07-30 14:30 | W.PM.DS.N ---
Date of service: 07/30/22 Time of Service: 14:30 DS: Diagnosis Discharge Diagnosis (1) Acute non-ST elevation myocardial infarction (NSTEMI): Status: Acute Asessment and Plan: continue heparin drip plavix, asa statin nitropaste accepted at [facility] for cardiac cath (2) Elevated ETOH level: Status: Acute Asessment and Plan: sober with no withdrawal symptoms noted. (3) Depression: Status: Chronic Asessment and Plan: stable, continue home medication (4) BPH (benign prostatic hyperplasia): Status: Chronic Asessment and Plan: voiding without difficulty Discharge Plan Disposition Patient Disposition: [facility] Condition: Stable Discharge Details Reason For Visit: NSTEMI Admit Date/Time: 07/29/22 11:45 Admit Provider: Stephen Garcia Attending Provider: Stephen Garcia Primary Care Provider: Jae Del Toro Hospital Course Hospital Course: This is a 72 year old male with history of recent IN s/p STENT who presented to the ED following a possible collapse at home.? work up showed JEANNIE of 270, also with elevated troponins.? His case was discussed with cardiology at [facility] and recommendations for heparin drip, plavix load and transfer for cardiac catheterization.? He has been accepted for tomorrow under DR Joseph.? He was observed here overnight until bed available.? He remains hemodynamically stable.? he reported chest pain intermittently while on the floor.? this was relieved with sl nitroglycerin, he had nitroglycerin paste applied. He has been on heparin drip and received 300 mg of oral plavix yesterday, 75 mg today. His serial troponins has remained flat. His echo report: EF 56% with segmental wall motion abnormalities. apical, inferior septal and inferior wall hypokinesis. discussed with DR Storey. ? Home Meds and New Rx's Prescriptions: No Action acetaminophen [Tylenol] 325 mg Tablet 650 mg PO QID PRN ibuprofen 800 mg Tablet 800 mg PO BID PRN cyanocobalamin (vitamin B-12) 1,000 mcg Tablet 1,000 mcg PO DAILY aspirin [Aspir-81] 81 mg Tablet,Delayed Release (Dr/Ec) 81 mg PO DAILY potassium citrate-citric acid 1,100-334 mg/5 mL Solution 5 ml PO DAILY buspirone 10 mg Tablet 10 mg PO BID terazosin 2 mg Tablet 2 mg PO QHS hydroxyzine HCl 25 mg Tablet 25 mg PO TID PRN diltiazem HCl 30 mg Tablet 30 mg PO DAILY rosuvastatin 40 mg Tablet 40 mg PO DAILY cholecalciferol (vitamin D3) 25 mcg (1,000 unit) Tablet 25 mcg PO DAILY famotidine 10 mg Tablet 10 mg PO BID PRN melatonin 3 mg Tablet 3 mg PO HS vitamin A 10,000 unit Capsule 10,000 unit PO DAILY psyllium Powder 1 tbsp PO DAILY PRN folic acid 1 mg Tablet 1 mg PO DAILY albuterol 90 mcg/actuation Aerosol 180 mcg INHALATION QID PRN Rx Instructions: INHALE 2 PUFFS BY MOUTH FOUR TIMES DAILY NEEDED finasteride 5 mg Tablet 5 mg PO DAILY simethicone 80 mg Tablet 80 mg PO BID-QID PRN magnesium oxide 400 mg magnesium Tablet 400 mg PO DAILY clopidogrel [Plavix] 75 mg Tablet 75 mg PO DAILY metoprolol succinate 50 mg Tablet Extended Release 24 Hr 50 mg PO DAILY losartan 25 mg Tablet 25 mg PO DAILY nitroglycerin [Nitrostat] 0.4 mg Tablet, Sublingual 0.4 mg sublingual PRN PRN bupropion HCl 150 mg Tablet Extended Release 24 Hr 300 mg PO DAILY ascorbic acid (vitamin C) 1,000 mg Tablet 1,000 mg PO DAILY ketoconazole 2 % Shampoo 1 applic TOPICAL PRN PRN gabapentin [Neurontin] 100 mg capsule 100 mg PO QHS Qty: 7 0RF Discharge Instructions Instructions: Heart Attack (DC) Referrals: Jae Del Toro [Primary Care Provider] - (upon discharge) Activity:: Activity as Tolerated Diet:: npo DS: Summary Time Spent with Patient providing and/or coordinating discharge services: Greater than 30 minutes Status at Discharge Functional status at discharge: independent ambulation Overall status at discharge: patient is not back to baseline Mental Status: mental status grossly normal Speech and Movement: speech and movement normal Mood: congruent mood Affect: normal affect Exam Const General: cooperative and no acute distress HENMT Head: normal to inspection and normocephalic Mouth: moist mucous membranes Eyes Conjunctivae: normal conjunctivae Sclera: normal sclerae Neck Neck: trachea midline and supple Chest Chest: normal inspection of the chest Resp Auscultation: clear to auscultation bilaterally, no rales, no rhonchi and no wheezes Cardio Rate: regular rate Rhythm: regular rhythm GI Palpation: soft, no guarding and nontender Skin General skin exam: no rashes or lesions noted Neuro General: patient alert, patient awake and patient oriented x3 Extrem General: no edema Psych Appearance: grossly normal Mental Status: mental status grossly normal Speech and Movement: speech and movement normal Mood: congruent mood Affect: normal affect DS: Data Vitals/I&O Vitals and I&O: Vital Signs Temperature 36.1 C L 07/30/22 11:06 Temperature Source Tympanic 07/30/22 11:06 Pulse 62 07/30/22 11:06 Pulse Rhythm Regular 07/30/22 10:08 Pulse 61 07/29/22 11:50 Respiratory Rate 16 07/30/22 11:06 Respiratory Effort Non-Labored 07/30/22 10:08 Respiratory Depth Normal 07/30/22 10:08 Respiratory Pattern Normal 07/30/22 10:08 Blood Pressure 123/69 07/30/22 11:06 Blood Pressure Mean 79 07/29/22 11:45 Blood Pressure Position Supine 07/29/22 00:57 Pulse Oximetry 96 07/30/22 11:06 Oxygen Delivery Method Room Air 07/30/22 11:06 Oxygen Flow Rate 0 07/30/22 11:06 Pain Level 1 07/30/22 11:06 Intake & Output 07/29/22 07/30/22 07/30/22 23:59 11:59 23:59 Intake Total 58.083 / 2058.083 250.000 / 250.000 Output Total 650 / 1050 875 / 875 Balance -591.917 / 1008.083 -625.000 / -625.000 Weight 170 kg 70.2 kg Intake: IV 58.083 / 2058.083 250.000 / 250.000 Output: Urine 650 / 1050 875 / 875 Other: Urine Color Yellow Light [place] Straw Urine Appearance Clear Clear Urine Odor Normal None Comment pt inc at this time Voiding Methods Diaper Urinal Incontinent Data Completed and Pending Labs on day of discharge: Labs from last 24 hours 07/30/22 07/30/22 07/30/22 10:10 08:30 07:30 WBC RBC Hgb Hct MCV MCH MCHC RDW Plt Count MPV APTT 59.0 H Cancelled Sodium Potassium Chloride Carbon Dioxide Anion Gap BUN Creatinine Est GFR (CKD-EPI 2020) Glucose Calcium Magnesium Troponin I 108 H* Triglycerides 80 Total Cholesterol 155 LDL Cholesterol, Calc 74 HDL Cholesterol 65 07/30/22 07/30/22 07/30/22 06:02 06:02 06:02 WBC 6.55 RBC 3.88 L Hgb 12.5 L Hct 35.3 L MCV 91 MCH 32.2 MCHC 35.4 RDW 13.1 Plt Count 139 MPV 9.8 APTT 58.3 H Sodium 137 Potassium 3.5 Chloride 105 Carbon Dioxide 25.6 Anion Gap 6.4 BUN 20 H Creatinine 1.3 Est GFR (CKD-EPI 2020) 58.37 Glucose 107 H Calcium 8.6 Magnesium 1.8 Troponin I Triglycerides Total Cholesterol LDL Cholesterol, Calc HDL Cholesterol 07/30/22 07/29/22 07/29/22 00:30 17:51 14:03 WBC RBC Hgb Hct MCV MCH MCHC RDW Plt Count MPV APTT 44.3 H 72.4 H Sodium Potassium Chloride Carbon Dioxide Anion Gap BUN Creatinine Est GFR (CKD-EPI 2020) Glucose Calcium Magnesium Troponin I 108 H* Triglycerides Total Cholesterol LDL Cholesterol, Calc HDL Cholesterol PFSH All Active Problems (Updated 07/29/22 @ 14:40 by Shaista Tony NP) Discharge planning issues (Acute) BPH (benign prostatic hyperplasia) (Chronic) Depression (Chronic) Acute non-ST elevation myocardial infarction (NSTEMI) (Acute) Elevated ETOH level (Acute) Chest pain (Acute) TAYLOR (obstructive sleep apnea) (Chronic) Non-ST elevation IN (NSTEMI) (Acute) Medical History AAA (abdominal aortic aneurysm) without rupture Anxiety BPH (benign prostatic hyperplasia) Depression GERD (gastroesophageal reflux disease) High cholesterol Kidney stones Sleep apnea Surgical History S/P spinal surgery multiple cervical and lumbar spine surgeries Family History Father Dementia Mother Dementia Social History Smoking/Tobacco Use Status: Never Smoking risk assessment performed?: Yes Alcohol Intake: current Alcohol Intake frequency: a few times a week Alcohol type: beer and hard liquor Drug use: Never Substance use type: does not use Do you feel safe at home: Yes Do you feel safe in your relationship?: Yes Additional Social history: Lives alone [address] in [place], Grew up in [place] [facility], family goes back generations there. Served in [employer] out of [place], [place]. On disability for spinal injuries since.
[2022-07-30] MEDS: Normal Saline 1,000 ML 80 ML IV (16:33)
--- NOTE | 2022-07-30 16:53 | CHAPLAIN ---
Oniel was watching tv and resting in bed when I visited. He was pleasant and easily engaged in a conversation. He explained that he is waiting to be transferred to [facility] for a cardiac cath, which he's done twice in the past two weeks. Oniel lives in [facility] and is part of the 8th generation of his family to live here. He talked places he likes to eat in [facility].
[2022-07-30] MEDS: Terazosin 2 MG CAP PO (21:08)
[2022-07-30] MEDS: Melatonin 3 MG TAB PO (21:10)
--- NOTE | 2022-07-31 01:07 | NUR.NOTE ---
Nursing Note: handoff report given to Nirmal at [facility],and [facility]. Patient picked up for transport at 0100 with all belongings he arrived with, care transferred at this time
== END 2022-07-31 01:03 | disposition short-term general hospital (02) | DRG 282 ==
LOC: ER 12:23 → MS 12:48
PROVIDERS: Emergency Medicine; Internal Medicine; Nurse Practitioner Acute Care; Admitting Provider Internal Medicine; Emergency Provider Student in an Organized Health Care Education/Training Program; PCP Internal Medicine; Visit Provider Internal Medicine
DX: I21.4 Non-ST elevation (NSTEMI) myocardial infarction (principal); F32.A Depression, unspecified; N40.0 Benign prostatic hyperplasia without lower urinary tract symptoms; Z95.5 Presence of coronary angioplasty implant and graft; Y90.8 Blood alcohol level of 240 mg/100 ml or more; G47.33 Obstructive sleep apnea (adult) (pediatric); I71.40 Abdominal aortic aneurysm, without rupture, unspecified; K21.9 Gastro-esophageal reflux disease without esophagitis; E78.00 Pure hypercholesterolemia, unspecified; I25.10 Atherosclerotic heart disease of native coronary artery without angina pectoris; F10.929 Alcohol use, unspecified with intoxication, unspecified
CPT/HCPCS: 36415; 80048; 80053; 80061; 85027; 87635; 93005; 96361; 96365; 96376; 99291; 70450; 71045; 80320; 83735; 84439; 84443; 84484; 85025; 85610; 85730; 93010; 93306; 99223; 99239; J3490

== ENCOUNTER 2022-09-01 12:23 | Inpatient (IN) | payer OTHER, SELFPAY ==
[2022-09-01] VITALS (11 sets, daily range): BP systolic 105–136; BP diastolic 51–78; PULSE 60–74; RESP 11–20; TEMP 36.7–37; O2SAT 95–100
--- NOTE | 2022-09-01 12:30 | RT.EKG_ITS ---
APPROVED REPORT Exam: Resting ECG Reason for Exam: dizzy syncope Patient Location: E HR:68 bpm ECG Measurements Heart Rate 68 AXIS MS 144 P 16 QRSd 76 QRS 46 QT 378 T 59 QTc 403 Conclusion Sinus rhythm...normal P axis, V-rate 60- 99 Physician: no stemi
--- NOTE | 2022-09-01 12:45 | DI.CT_ITS ---
Exam(s) CT THORAX ABD/PEL CTA EXAM: CT THORAX ABD/PEL CTA CLINICAL HISTORY: sob, chest pain, hx of aortic dissection. TECHNIQUE: Imaging Protocol: Axial CT angiography was performed with multi-slice acquisition and m ulti-planar and/or 3D reconstructions. CONTRAST MATERIAL: Intravenous: Omnipaque 350 contrast volume:67 mL Oral: No COMPARISON: CT CT THORAX ABD/PEL CTA from 06/19/2022 FINDINGS: CHEST: Tracheobronchial tree: Patent where visualized. Pulmonary parenchyma: No consolidation or dominant measurable mass. No architectural distortion. Ther e is dependent atelectasis. Pulmonary Arteries: The pulmonary arteries are not adequately opacified for evaluation of pulmonary e mboli. Mediastinum and Essie: No dominant adenopathy or fluid collection. Visualized thyroid: Unremarkable. Pleura: No effusion or pneumothorax. Heart: The heart is not dilated. Coronary artery calcifications are present. No pericardial effusion. Aorta: Thoracic aorta non-dilated. There is no aortic dissection. Atherosclerosis is present. Soft Tissues: Unremarkable. Bones: Within normal limits for the patient's age.Postsurgical changes are seen in the lower cervical spine. ABDOMEN AND PELVIS: Abdomen: Celiac axis/mesenteric arteries: There is atherosclerosis at the origins of both the celiac axis and the superior mesenteric artery. There is approximately 50 percent stenosis of the proximal superior m esenteric artery. Renal Arteries: No evidence of occlusion or significant stenosis. Mild atherosclerosis at the origin s of both renal arteries. Aorta: No evidence of occlusion or significant stenosis. There is no aneurysm. No acute dissection is seen. There is again seen a small intimal flap at the posterior aspect of the abdominal aorta at t he level of the renal arteries. Pelvis: Iliac Arteries: No evidence of occlusion or significant stenosis. Common Femoral Arteries: No evidence of occlusion or significant stenosis. ABDOMEN: Liver: Normal density. No measurable mass. Gallbladder and Biliary Tract: No radiodense calculus or dilation. Pancreas: Normal density, no abnormal calcifications or inflammatory process. Spleen: Normal. Adrenals: No masses seen. Kidneys: Normal size, contour and axis. Right nephrolithiasis, but no hydronephrosis. Stable bilatera l renal cysts. Bowel: No obstruction or bowel wall thickening. Appendix is unremarkable. Peritoneal Cavity: No ascites, collection or mesenteric inflammatory response. No free air. Lymph Nodes: Within normal limits. Bones: Within normal limits for the patient's age. Soft Tissues: There are bilateral fat containing inguinal hernias. PELVIS: Bladder: Symmetric distention, no gross wall thickening. Reproductive Organs: There is an enlarged prostate gland. Lymph Nodes: Within normal limits. Bones: Within normal limits for the patient's age. IMPRESSION: 1. No evidence of an acute arterial dissection or aneurysm. 2. Stable intimal flap seen in the abdominal aorta. 3. The pulmonary arteries are not opacified adequately on this examination for evaluation of pulmonar y emboli. 4. Atherosclerosis is present with approximately 50 percent narrowing of the proximal superior mesent teresa artery. 5. No acute process seen in the chest, abdomen or pelvis. 6. Findings were discussed with Mason Hwang in the emergency department at 3 p.m. on 09/01/2022. RADIATION DOSE DELIVERED: 676.48mGy.cm Total DLP DATA REPOSITORY: All CT scans at this facility are submitted to the National Radiology Data Registry (NRDR) Dose Index Registry (DIR) with the [employer] (ACR). RADIATION OPTIMIZATION: All CT scans at this facility use at least one of these dose optimization te chniques: automated exposure control; mA and/or kV adjustment per patient size (includes targeted exa ms where dose is matched to clinical indication); or iterative reconstruction.
--- NOTE | 2022-09-01 12:55 | W.ED.GENAD ---
Discharge Plan Disposition Patient Disposition: Admit to [facility] Condition: Good Discharge Details Chief Complaint: Dizzy/Sync Clinical Impression: Chest pain Primary Care Provider: Jae Del Toro ED Provider: Tan Loredo Home Meds and New Rx's Prescriptions: No Action acetaminophen [Tylenol] 325 mg Tablet 650 mg PO QID PRN ibuprofen 800 mg Tablet 800 mg PO BID PRN cyanocobalamin (vitamin B-12) 1,000 mcg Tablet 1,000 mcg PO DAILY aspirin [Aspir-81] 81 mg Tablet,Delayed Release (Dr/Ec) 81 mg PO DAILY potassium citrate-citric acid 1,100-334 mg/5 mL Solution 5 ml PO DAILY buspirone 10 mg Tablet 10 mg PO BID terazosin 2 mg Tablet 2 mg PO QHS hydroxyzine HCl 25 mg Tablet 25 mg PO TID PRN diltiazem HCl 30 mg Tablet 30 mg PO DAILY rosuvastatin 40 mg Tablet 40 mg PO DAILY cholecalciferol (vitamin D3) 25 mcg (1,000 unit) Tablet 25 mcg PO DAILY gabapentin [Neurontin] 100 mg capsule 100 mg PO QHS PRN famotidine 10 mg Tablet 10 mg PO BID PRN melatonin 3 mg Tablet 3 mg PO HS vitamin A 10,000 unit Capsule 10,000 unit PO DAILY psyllium Powder 1 tbsp PO DAILY PRN folic acid 1 mg Tablet 1 mg PO DAILY albuterol 90 mcg/actuation Aerosol 180 mcg INHALATION QID PRN Rx Instructions: INHALE 2 PUFFS BY MOUTH FOUR TIMES DAILY NEEDED finasteride 5 mg Tablet 5 mg PO DAILY simethicone 80 mg Tablet 80 mg PO BID-QID PRN magnesium oxide 400 mg magnesium Tablet 400 mg PO DAILY clopidogrel [Plavix] 75 mg Tablet 75 mg PO DAILY metoprolol succinate 50 mg Tablet Extended Release 24 Hr 50 mg PO DAILY losartan 25 mg Tablet 25 mg PO DAILY nitroglycerin [Nitrostat] 0.4 mg Tablet, Sublingual 0.4 mg sublingual PRN PRN bupropion HCl 150 mg Tablet Extended Release 24 Hr 300 mg PO DAILY ascorbic acid (vitamin C) 1,000 mg Tablet 1,000 mg PO DAILY ketoconazole 2 % Shampoo 1 applic TOPICAL PRN PRN Medical Decision Making 72-year-old male with a past medical history of coronary artery disease with multiple stents, BPH, hypertension, obstructive sleep apnea, 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 Patient states that for the last 3 to 4 days he has been progressively more short of breath both with activity and in general. Additionally he has noted that whenever he gets up and stands he feels lightheaded and feels like he almost wants to pass out. He also notes that he cannot walk further than a few feet without getting extremely tired, winded and his legs becoming numb. He denies any chest pain, tearing or ripping pain, abdominal pain, or recent trauma to the head. No other complaints at this time. No other modifying factors. Exam demonstrates evidence of well-appearing male, vital signs stable. Blood pressure normal. Pulses in the extremities including lower extremities are equal, capillary refill is 3 to 4 seconds. Differential includes dehydration, more likely cardiac etiology, but also potential PE or aortic pathology secondary to his previous aortic complications. We will evaluate for these, monitor closely, and reassess. We will evaluate for signs of heart strain from PE with proBNP. 8 PM Laboratory work-up has returned, and troponin on initial value is slightly elevated at 78, repeat is down to the low 70s. EKG is stable and unchanged. No evidence of STEMI. CTA has returned and demonstrates no evidence of acute process. Stable intimal aortic flap, no other significant abnormalities. On reassessment patient is feeling stable but still demonstrates mild chest achiness, mild shortness of breath whenever he gets up. He still continues to feel weak. I did contact [facility] and discussed the case with Dr. Corado of cardiology, she feels that with the patient's increasing exertional dyspnea, increasing exertional chest pain over the last week or so, now with his lightheadedness and worsening symptoms, that the patient would benefit from repeat catheterization/angiography. Unfortunately [facility] does not have any beds right now, but they are expecting openings on September 03. They recommend TTE in the meantime, and do not recommend for heparinization currently. [facility], we did contact [facility] and they do not have any availability either. I did contact the hospitalist and discussed the case with him. Dr. Lucy ortiz agrees with the assessment and plan. Patient will be admitted to [facility] for continued monitoring, TTE. I have extensively reviewed the treatment plan with the patient. I have addressed all patient concerns at this time. I have also discussed the plan with the admitting physician and they agree with the current assessment and plan and have agreed to assume responsibility for the patient. All parties demonstrate verbal understanding and agreement with our assessment and plan at this time. The documentation in this chart was dictated using [employer] dictation software. Please excuse any dictation errors. FINDINGS: CHEST: Tracheobronchial tree: Patent where visualized. Pulmonary parenchyma: No consolidation or dominant measurable mass. No architectural distortion. There is dependent atelectasis. Pulmonary Arteries: The pulmonary arteries are not adequately opacified for evaluation of pulmonary emboli. Mediastinum and Essie: No dominant adenopathy or fluid collection. Visualized thyroid: Unremarkable. Pleura: No effusion or pneumothorax. Heart: The heart is not dilated. Coronary artery calcifications are present. No pericardial effusion. Aorta: Thoracic aorta non-dilated. There is no aortic dissection. Atherosclerosis is present. Soft Tissues: Unremarkable. Bones: Within normal limits for the patient's age.Postsurgical changes are seen in the lower cervical spine. ABDOMEN AND PELVIS: Abdomen: Celiac axis/mesenteric arteries: There is atherosclerosis at the origins of both the celiac axis and the superior mesenteric artery. There is approximately 50 percent stenosis of the proximal superior mesenteric artery. Renal Arteries: No evidence of occlusion or significant stenosis. Mild atherosclerosis at the origins of both renal arteries. Aorta: No evidence of occlusion or significant stenosis. There is no aneurysm. No acute dissection is seen. There is again seen a small intimal flap at the posterior aspect of the abdominal aorta at the level of the renal arteries. Pelvis: Iliac Arteries: No evidence of occlusion or significant stenosis. Common Femoral Arteries: No evidence of occlusion or significant stenosis. ABDOMEN: Liver: Normal density. No measurable mass. Gallbladder and Biliary Tract: No radiodense calculus or dilation. Pancreas: Normal density, no abnormal calcifications or inflammatory process. Spleen: Normal. Adrenals: No masses seen. Kidneys: Normal size, contour and axis. Right nephrolithiasis, but no hydronephrosis. Stable bilateral renal cysts. Bowel: No obstruction or bowel wall thickening. Appendix is unremarkable. Peritoneal Cavity: No ascites, collection or mesenteric inflammatory response. No free air. Lymph Nodes: Within normal limits. Bones: Within normal limits for the patient's age. Soft Tissues: There are bilateral fat containing inguinal hernias. PELVIS: Bladder: Symmetric distention, no gross wall thickening. Reproductive Organs: There is an enlarged prostate gland. Lymph Nodes: Within normal limits. Bones: Within normal limits for the patient's age. IMPRESSION: 1. No evidence of an acute arterial dissection or aneurysm. 2. Stable intimal flap seen in the abdominal aorta. 3. The pulmonary arteries are not opacified adequately on this examination for evaluation of pulmonary emboli. 4. Atherosclerosis is present with approximately 50 percent narrowing of the proximal superior mesenteric artery. 5. No acute process seen in the chest, abdomen or pelvis. 6. Findings were discussed with Mason Hwang in the emergency department at 3 p.m. on 09/01/2022. Sign Out No HPI General Date/Time Provider Initiated Documentation: 09/01/22 12:42. 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 Patient states that for the last 3 to 4 days he has been progressively more short of breath both with activity and in general. Additionally he has noted that whenever he gets up and stands he feels lightheaded and feels like he almost wants to pass out. He also notes that he cannot walk further than a few feet without getting extremely tired, winded and his legs becoming numb. He denies any chest pain, tearing or ripping pain, abdominal pain, or recent trauma to the head. No other complaints at this time. No other modifying factors. Related Data Home Medications Medication Instructions Recorded Confirmed acetaminophen 325 mg tablet 650 mg PO QID PRN 09/17/20 09/01/22 (Tylenol) albuterol 90 mcg/actuation aerosol 180 mcg inhalation QID PRN 10/01/20 09/01/22 inhaler famotidine 10 mg tablet 10 mg PO BID PRN 10/01/20 09/01/22 finasteride 5 mg tablet 5 mg PO DAILY 10/01/20 09/01/22 folic acid 1 mg tablet 1 mg PO DAILY 10/01/20 09/01/22 magnesium oxide 400 mg PO DAILY 10/01/20 09/01/22 melatonin 3 mg tablet 3 mg PO HS 10/01/20 09/01/22 psyllium 1 tbsp PO DAILY PRN 10/01/20 09/01/22 simethicone 80 mg tablet 80 mg PO BID-QID PRN 10/01/20 09/01/22 vitamin A 10,000 unit capsule 10,000 unit PO DAILY 10/01/20 09/01/22 ascorbic acid (vitamin C) 1,000 mg 1,000 mg PO DAILY 06/25/22 09/01/22 tablet bupropion HCl 150 mg 24 hr tablet, 300 mg PO DAILY 06/25/22 09/01/22 extended release clopidogrel 75 mg tablet (Plavix) 75 mg PO DAILY 06/25/22 09/01/22 ketoconazole 2 % shampoo 1 applic topical PRN PRN 06/25/22 09/01/22 losartan 25 mg tablet 25 mg PO DAILY 06/25/22 09/01/22 metoprolol succinate 50 mg 50 mg PO DAILY 06/25/22 09/01/22 tablet,extended release 24 hr nitroglycerin 0.4 mg sublingual 0.4 mg sublingual PRN PRN 06/25/22 09/01/22 tablet (Nitrostat) aspirin 81 mg tablet,delayed 81 mg PO DAILY 07/03/22 09/01/22 release buspirone 10 mg tablet 10 mg PO BID 07/03/22 09/01/22 cholecalciferol (vitamin D3) 25 25 mcg PO DAILY 07/03/22 09/01/22 mcg (1,000 unit) tablet cyanocobalamin (vitamin B-12) 1,000 mcg PO DAILY 07/03/22 09/01/22 1,000 mcg tablet diltiazem HCl 30 mg tablet 30 mg PO DAILY 07/03/22 09/01/22 hydroxyzine HCl 25 mg tablet 25 mg PO TID PRN 07/03/22 09/01/22 ibuprofen 800 mg tablet 800 mg PO BID PRN 07/03/22 09/01/22 potassium citrate-citric acid 5 ml PO DAILY 07/03/22 09/01/22 1,100 mg-334 mg/5 mL oral solution rosuvastatin 40 mg tablet 40 mg PO DAILY 07/03/22 09/01/22 terazosin 2 mg tablet 2 mg PO QHS 07/03/22 09/01/22 gabapentin 100 mg capsule 100 mg PO QHS PRN 09/01/22 09/01/22 (Neurontin) Allergies Allergy/AdvReac Type Severity Reaction Status Date / Time simvastatin AdvReac Unknown abdominal Unverified 09/01/22 17:02 pain General Stated Complaint: Dizzy/Sync RICKI: 3 Review of Systems All systems reviewed & are unremarkable except as noted in HPI and below PFSH All Active Problems (Updated 09/01/22 @ 20:05 by Tan Loredo DO) Chest pain (Acute) Discharge planning issues (Acute) BPH (benign prostatic hyperplasia) (Chronic) Depression (Chronic) Acute non-ST elevation myocardial infarction (NSTEMI) (Acute) Elevated ETOH level (Acute) Chest pain (Acute) TAYLOR (obstructive sleep apnea) (Chronic) Non-ST elevation [place] (NSTEMI) (Acute) Medical History AAA (abdominal aortic aneurysm) without rupture Anxiety GERD (gastroesophageal reflux disease) High cholesterol Kidney stones Sleep apnea Surgical History S/P spinal surgery multiple cervical and lumbar spine surgeries Family History Father Dementia Mother Dementia Social History Smoking/Tobacco Use Status: Never Smoking risk assessment performed?: Yes Alcohol Intake: current Alcohol Intake frequency: a few times a week Alcohol type: beer and hard liquor Drug use: Never Substance use type: does not use Do you feel safe at home: Yes Do you feel safe in your relationship?: Yes Additional Social history: Lives alone on [address] in [place], Grew up in [place], family goes back generations there. Served in [employer] on [employer] out of [place], [place]. On disability for spinal injuries since. Exam Narrative Exam Narrative: 1.Const: Well-nourished, Well-developed, appearing stated age 2.Eyes: PERRL, no conjunctival injection, and symmetrical lids. 3.ENT: Atraumatic external nose and ears. Moist MM. Neck: Symmetric, trachea midline, No thyromegaly. 4.CVS: +S1/S2, No murmurs or gallops. Peripheral pulses 2+ and equal in all extremities. Brisk capillary refill in all extremities. 5.RESP: Unlabored respiratory effort. Clear to auscultation bilaterally. No wheezes rales or rhonchi 6.GI: Soft, Nontender/Nondistended, No hepatosplenomegaly. No guarding or rebound. No pulsatile abdominal mass. 7.MSK: Normocephalic/Atraumatic, Extremities w/o deformity or ttp No cyanosis or clubbing, Normal movement of all extremities. Radial pulse +2 bilaterally, dorsalis pedis pulse +2 bilaterally. Capillary refill is about 4 seconds. 8.Skin: Warm, Dry. No rashes or lesions. 9.Neuro: technical illustrations map inker II-XII grossly intact. Sensation grossly intact, no focal neurologic deficits. 10.Psych: (AAO) x3. Appropriate mood and affect Course Vital Signs Vital signs: Vital Signs Temperature 37 C 09/01/22 12:27 Pulse 73 09/01/22 12:27 Respiratory Rate 18 09/01/22 12:27 Blood Pressure 107/71 09/01/22 12:27 Pulse Oximetry 100 09/01/22 12:27 Temperature 37 C 09/01/22 12:27 Temperature Source Tympanic 09/01/22 12:27 Pulse 73 09/01/22 12:27 Respiratory Rate 18 09/01/22 12:46 Respiratory Effort Non-Labored 09/01/22 12:46 Respiratory Depth Normal 09/01/22 12:46 Respiratory Pattern Normal 09/01/22 12:46 Blood Pressure 107/71 09/01/22 12:27 Blood Pressure Position Supine 09/01/22 12:27 Pulse Oximetry 100 09/01/22 12:27 Oxygen Delivery Method Room Air 09/01/22 12:27 Oxygen Flow Rate 0 09/01/22 12:27 Pain Level 2 09/01/22 12:27
[2022-09-01] MEDS: Normal Saline 500 ML IV (13:01)
[2022-09-01 13:05] LABS: Abs Immature Grans 0.04 10^3/uL (0.0-0.06); Absolute Basophil Count 0.03 10^3/uL (0.0-0.2); Absolute Eosinophil Count 0.06 10^3/uL (0.0-0.7); Absolute Lymphocyte Count 2.24 10^3/uL (1.2-3.4); Absolute Monocyte Count 0.94 10^3/uL (0.1-0.8); Absolute Neutrophil Count 5.72 10^3/uL (1.2-6.7); Basophils % 0.3; Eosinophils % 0.7; HCT 39.9 % (40.0-50.0); HGB 13.5 g/dL (13.5-17.5); Immature Grans % 0.4; Lymphocytes % 24.8; MCH 31.9 pg (27.0-33.0); MCHC 33.8 % (32.0-36.0); MCV 94 fL (80-95); MPV 9.7 fL (8.0-11.0); Monocytes % 10.4; Neutrophils % 63.4; Platelet Count 214 10^3/uL (130-400); RBC 4.23 10^6/uL (4.36-5.78); RDW 13.1 % (11.8-14.1); RDW-SD 44.8 fL; WBC 9.03 10^3/uL (4.4-10.8)
[2022-09-01 13:24] LABS: NT-proBNP 26 pg/mL (<300); TSH (W/Ref FT4) 1.75 uIU/mL (0.36-3.74)
[2022-09-01 13:26] LABS: Troponin I 78 ng/L (<or=60)
[2022-09-01 13:39] LABS: ALT 42 U/L (16-63); AST 18 U/L (15-37); Albumin 3.7 g/dL (3.4-5.0); Alkaline Phosphatase 73 U/L (46-116); Anion Gap 8.3 mmol/L (3-11); BUN 16 mg/dL (7-18); Bilirubin, Total 0.7 mg/dL (0.2-1.0); CO2 27.7 mmol/L (21.0-32.0); CREATININE 1.5 mg/dL (0.70-1.30); Calcium 8.9 mg/dL (8.5-10.1); Chloride 100 mmol/L (98-107); Estimated GFR 49.16 (mL/min/1.73m2); Glucose 110 mg/dL (74-106); Potassium 3.7 mmol/L (3.5-5.1); Sodium 136 mmol/L (136-145); Total Protein 7.1 g/dL (6.4-8.2)
[2022-09-01] MEDS: Omnipaque 350 MG/ML 100 ML BTL IJ (14:39)
[2022-09-01] MEDS: Normal Saline - Diluent 50 ML VIAL IV (14:40)
--- NOTE | 2022-09-01 15:45 | RT.EKG_ITS ---
APPROVED REPORT Exam: Resting ECG Reason for Exam: Syncope Patient Location: E HR:58 bpm ECG Measurements Heart Rate 58 AXIS LA 157 P 21 QRSd 87 QRS 25 QT 414 T 48 QTc 408 Conclusion Sinus bradycardia...rate< 60 Low voltage, precordial leads...precordial leads <1.0mV Physician: no stemi
[2022-09-01 16:20] LABS: Troponin I 72 ng/L (<or=60)
--- NOTE | 2022-09-01 18:39 | HPE_ITS ---
Date of service: 09/01/22 Time of Service: 18:39 Assessment and Plan Assessment and plan (1) Unstable angina: Status: Acute Assessment and plan: [facility] did not recommend heparinaztion at this time. If he has ongoing pain and he has rising troponin levels then I will plan on systemic heparin and start NTG drip and move him to ICU. Cont. DAPT, statins and BB. Note: diltiazem was taken off his med list by [facility] and his Toprol XL dose is actually 75 mg daily not 50 mg daily. I will get echo in the a.m. to look for new RWMA. Note that we do not have his Ranexa (Ranolazine). (2) Coronary artery disease: Status: Chronic (3) Status post coronary artery stent placement: (4) BPH (benign prostatic hyperplasia): Status: Chronic Assessment and plan: cont. terazosin and flomax (5) Depression: Status: Chronic Assessment and plan: cont. home meds (6) Anxiety: Assessment and plan: cont home meds (valium, buspar and Wellbutrin) (7) GERD (gastroesophageal reflux disease): Assessment and plan: cont. Pepcid however he should not be on prilosec and on Plavix. If he needs additional protection then I would suggest carafate (8) Discharge planning issues: Status: Acute Assessment and plan: transfer to [facility] cardiology when bed becomes available History of Present Illness History of Present Illness Chief Complaint: Dyspnea, lightheadedness Narrative: 72-year-old male with history of coronary artery disease who has had recurrent admissions in June and July with acute non-ST elevation myocardial infarction's. I took care of this gentleman June 20, 2022 and transferred him to [facility] after he had a non-ST elevation myocardial infarction. During that admission his initial EKG showed no ST elevation or depression but he was found to have elevated troponin I level of 3100 and with accelerating angina requiring nitroglycerin drip his troponins peaked at 11,000. Patient was transferred to [facility] where he underwent coronary stenting of his LAD. He had 90% obstruction and post angioplasty and stenting was down to 0% obstruction. He had some distal disease in his LAD that was 100% blocked and he had residual 70% narrowing of his RCA which was not stented. He later presented again to the emergency department [facility] on July 03, 2022 again with an NSTEMI and was treated with heparin and nitroglycerin and transferred to [facility]. Unclear as to what was performed at that time. He then presented to [facility] third time on June 29, 2022 and was hospitalized overnight as there was no bed capacity at [facility] and again he had an episode which she had near syncope and was found to have a NSTEMI. He was treated with heparin drip and topical nitroglycerin paste and was transferred to [facility] on 07/30/2022. Patient possibly had subsequent cardiac catheterization and had a second stent placed in the same LAD distribution. He now presents the emergency department again today with symptoms of dizziness but no syncope along with exertional dyspnea. Symptoms have been progressive over the last 3 to 4 days. Says when he stands up for any prolonged period of time he gets lightheaded feels like he is in a pass out and with ambulation he will get out of breath and his legs feel like they are going numb. Evaluation in the ER included routine labs including a CBC that was unremarkable. CMP was remarkable for stable chronic renal insufficiency with a creatinine 1.5. Troponin I levels were monitored and were 78, 72, 82. ECG was performed and demonstrated sinus bradycardia rate of 58 bpm with no acute ischemic or injury pattern. CT was performed he had no evidence of acute arterial dissection or aneurysm although he has a stable intimal flap in his abdominal aorta. Pulmonary arteries were not adequately opacified to rule out pulmonary embolus. He has atherosclerosis of the superior mesenteric artery measured approximately 50% narrowing. Otherwise no acute process was seen in the chest abdomen or pelvis. Dr. Loredo spoke with [facility]. They read bed capacity but did express an interest in transfer him down to [facility] for cardiac catheterization as soon as a bed became available. They recommend hospitalizing him here and obtaining an echocardiogram in the morning to evaluate for any new wall motion abnormalities. They did not recommend heparinization at this time. Dr. Loredo also spoke with the [facility] as well as [facility] neither 1 of those had bed capacity to accept the patient. [facility] indicated that they probably would not have any openings until September 03 which is 2 days from now. Review of Systems All systems reviewed & are unremarkable except as noted in HPI and below Cardiovascular Cardiovascular: Reports as per HPI Respiratory Respiratory: Reports as per HPI PFS All Active Problems (Updated 09/01/22 @ 21:44 by Stephen Garcia MD) Coronary artery disease (Chronic) Unstable angina (Acute) Chest pain (Acute) Discharge planning issues (Acute) BPH (benign prostatic hyperplasia) (Chronic) Depression (Chronic) Acute non-ST elevation myocardial infarction (NSTEMI) (Acute) Elevated ETOH level (Acute) Chest pain (Acute) TAYLOR (obstructive sleep apnea) (Chronic) Non-ST elevation PR (NSTEMI) (Acute) Medical History (Updated 09/01/22 @ 21:44 by Stephen Garcia MD) AAA (abdominal aortic aneurysm) without rupture Anxiety GERD (gastroesophageal reflux disease) High cholesterol Kidney stones Sleep apnea Surgical History (Updated 09/01/22 @ 21:44 by Stephen Garcia MD) S/P spinal surgery multiple cervical and lumbar spine surgeries Status post coronary artery stent placement Family History Father Dementia Mother Dementia Social History Smoking/Tobacco Use Status: Never Smoking risk assessment performed?: Yes Alcohol Intake: current Alcohol Intake frequency: a few times a week Alcohol type: beer and hard liquor Drug use: Never Substance use type: does not use Do you feel safe at home: Yes Do you feel safe in your relationship?: Yes Additional Social history: Lives alone on [address] in [place], Grew up in [place], family goes back generations there. Served in [employer] out of [place], [place]. On disability for spinal injuries since. Meds Allergies and Home Medications Allergies Allergy/AdvReac Type Severity Reaction Status Date / Time simvastatin AdvReac Unknown abdominal Unverified 09/01/22 17:02 pain Home Medications Medication Instructions Recorded Confirmed Type acetaminophen 325 mg tablet 650 mg PO QID PRN 09/17/20 09/01/22 History (Tylenol) albuterol 90 mcg/actuation aerosol 180 mcg inhalation QID PRN 10/01/20 09/01/22 History inhaler famotidine 10 mg tablet 10 mg PO BID PRN 10/01/20 09/01/22 History finasteride 5 mg tablet 5 mg PO DAILY 10/01/20 09/01/22 History folic acid 1 mg tablet 1 mg PO DAILY 10/01/20 09/01/22 History magnesium oxide 400 mg PO DAILY 10/01/20 09/01/22 History melatonin 3 mg tablet 3 mg PO HS 10/01/20 09/01/22 History psyllium 1 tbsp PO DAILY PRN 10/01/20 09/01/22 History simethicone 80 mg tablet 80 mg PO BID-QID PRN 10/01/20 09/01/22 History vitamin A 10,000 unit capsule 10,000 unit PO DAILY 10/01/20 09/01/22 History ascorbic acid (vitamin C) 1,000 mg 1,000 mg PO DAILY 06/25/22 09/01/22 History tablet bupropion HCl 150 mg 24 hr tablet, 300 mg PO DAILY 06/25/22 09/01/22 History extended release clopidogrel 75 mg tablet (Plavix) 75 mg PO DAILY 06/25/22 09/01/22 History ketoconazole 2 % shampoo 1 applic topical PRN PRN 06/25/22 09/01/22 History losartan 25 mg tablet 25 mg PO DAILY 06/25/22 09/01/22 History metoprolol succinate 50 mg 50 mg PO DAILY 06/25/22 09/01/22 History tablet,extended release 24 hr nitroglycerin 0.4 mg sublingual 0.4 mg sublingual PRN PRN 06/25/22 09/01/22 History tablet (Nitrostat) aspirin 81 mg tablet,delayed 81 mg PO DAILY 07/03/22 09/01/22 History release buspirone 10 mg tablet 10 mg PO BID 07/03/22 09/01/22 History cholecalciferol (vitamin D3) 25 25 mcg PO DAILY 07/03/22 09/01/22 History mcg (1,000 unit) tablet cyanocobalamin (vitamin B-12) 1,000 mcg PO DAILY 07/03/22 09/01/22 History 1,000 mcg tablet diltiazem HCl 30 mg tablet 30 mg PO DAILY 07/03/22 09/01/22 History hydroxyzine HCl 25 mg tablet 25 mg PO TID PRN 07/03/22 09/01/22 History ibuprofen 800 mg tablet 800 mg PO BID PRN 07/03/22 09/01/22 History potassium citrate-citric acid 5 ml PO DAILY 07/03/22 09/01/22 History 1,100 mg-334 mg/5 mL oral solution rosuvastatin 40 mg tablet 40 mg PO DAILY 07/03/22 09/01/22 History terazosin 2 mg tablet 2 mg PO QHS 07/03/22 09/01/22 History gabapentin 100 mg capsule 100 mg PO QHS PRN 09/01/22 09/01/22 History (Neurontin) tamsulosin 0.4 mg capsule mg PO QHS 09/01/22 History Exam Narrative Exam Narrative: Bearded, elderly gentleman who is sitting up on gurney in the ER who appears to be calm and pain free, he is wearing his mask HEENT unremarkable Neck: supple, no overt JVD, normal carotid pulses Lungs: clear Heart: RRR, no murmur or rub or gallop Abdomen: soft, nontender, no bruits, no organomegaly Extremities: no cyanosis, or edema; feet cool but no mottling; pedal pulses intact Neuro: non focal, grossly normal strength and sensation Results Labs Result diagrams: 09/01/22 12:40 09/01/22 12:40 Labs: Laboratory Results - last 24 hr 09/01/22 09/01/22 09/01/22 12:40 12:40 12:40 WBC 9.03 RBC 4.23 L Hgb 13.5 Hct 39.9 L MCV 94 MCH 31.9 MCHC 33.8 RDW 13.1 Plt Count 214 MPV 9.7 Immature Gran % 0.4 Neutrophils % 63.4 Lymphocytes % 24.8 Monocytes % 10.4 Eosinophils % 0.7 Basophils % 0.3 Nucleated RBC % 0.0 Absolute Neutrophils 5.72 Absolute Lymphocytes 2.24 Absolute Monocytes 0.94 H Absolute Eosinophils 0.06 Absolute Basophils 0.03 Sodium 136 Potassium 3.7 Chloride 100 Carbon Dioxide 27.7 Anion Gap 8.3 BUN 16 Creatinine 1.5 H Est GFR (CKD-EPI 2020) 49.16 Glucose 110 H Calcium 8.9 Total Bilirubin 0.7 AST 18 ALT 42 Alkaline Phosphatase 73 Troponin I 78 H* NT-Pro-B Natriuret Pep 26 Total Protein 7.1 Albumin 3.7 TSH 1.75 09/01/22 15:56 WBC RBC Hgb Hct MCV MCH MCHC RDW Plt Count MPV Immature Gran % Neutrophils % Lymphocytes % Monocytes % Eosinophils % Basophils % Nucleated RBC % Absolute Neutrophils Absolute Lymphocytes Absolute Monocytes Absolute Eosinophils Absolute Basophils Sodium Potassium Chloride Carbon Dioxide Anion Gap BUN Creatinine Est GFR (CKD-EPI 2020) Glucose Calcium Total Bilirubin AST ALT Alkaline Phosphatase Troponin I 72 H* NT-Pro-B Natriuret Pep Total Protein Albumin TSH Last Vital Signs Temp 37 C 09/01/22 12:27 Pulse 66 09/01/22 13:02 Resp 16 09/01/22 13:10 BP 105/51 L 09/01/22 13:02 Pulse Ox 96 09/01/22 13:10
[2022-09-01 19:49] LABS: Source Nasal/Nares
[2022-09-01 20:20] LABS: COVID-19 PCR Negative (Negative)
[2022-09-01] MEDS: Acetaminophen 325 MG TAB PO (20:56)
[2022-09-01 21:13] LABS: Troponin I 83 ng/L (<or=60)
[2022-09-01] MEDS: Tamsulosin 0.4 MG CAPCR PO (22:45)
[2022-09-01] MEDS: Melatonin 3 MG TAB PO (22:46)
--- NOTE | 2022-09-01 23:03 | TELEP.MEDR_ITS ---
Date of service: 09/01/22 Time of Service: 23:04 [facility] Allergies Allergies: simvastatin Adverse Reaction (Unknown, Unverified 09/01/22 17:02) abdominal pain Interview Person Interviewed: * patient Quality Quality of Interview/Accuracy of Medication List: Excellent Sources Sources used to compile medication list: [employer] Medication List and Patient List Changes made to Home Medication List: ADDITIONS: * Imdur 60mg Po daily * Protonix 40mg Po daily * Ranexa 500mg PO BID * Diazepam 5mg Po daily PRn anxiety DELETIONS: * Melatonin * Diltiazem * Simethicone * Potassium citrate * Psyllium CHANGES: * Finasteride 5mg Po BID (patient said it changed from 5mg PO daily) * Bupropion XL 150mg Po HS (in addition to his 300mg in the morning- patient confirms it is ER formulation) Recommended Changes Attestation: The home medication list is now updated to the best of my knowledge and is ready to be reconciled by the provider. Please contact the [facility] Medication Reconciliation Pharmacist at for any questions.
--- NOTE | 2022-09-01 23:03 | TELEP.MEDREC ---
Date of service: 09/01/22 Time of Service: 23:04 [facility] Allergies Allergies: simvastatin Adverse Reaction (Unknown, Unverified 09/01/22 17:02) abdominal pain Interview Person Interviewed: patient Quality Quality of Interview/Accuracy of Medication List: Excellent Sources Sources used to compile medication list: [facility] Medication List and Patient List Changes made to Home Medication List: ADDITIONS: Imdur 60mg Po daily Protonix 40mg Po daily Ranexa 500mg PO BID Diazepam 5mg Po daily PRn anxiety DELETIONS: Melatonin Diltiazem Simethicone Potassium citrate Psyllium CHANGES: Finasteride 5mg Po BID (patient said it changed from 5mg PO daily) Bupropion XL 150mg Po HS (in addition to his 300mg in the morning- patient confirms it is ER formulation) Recommended Changes Attestation: The home medication list is now updated to the best of my knowledge and is ready to be reconciled by the provider. Please contact [facility] Pharmacist at for any questions.
[2022-09-01] MEDS: Terazosin 2 MG CAP PO (23:50)
[2022-09-02] VITALS (14 sets, daily range): BP systolic 89–115; BP diastolic 54–78; PULSE 55–71; RESP 16–18; TEMP 35.8–37.3; O2SAT 95–98
[2022-09-02] MEDS: hydrOXYzine HCL 25 MG TAB PO (00:02)
[2022-09-02] MEDS: Aspirin E.C. 81 MG TABEC PO (08:14)
[2022-09-02] MEDS: buPROPion-XL 150 MG TABCR 300 MG PO (08:14)
[2022-09-02] MEDS: busPIRone 5 MG TAB 10 MG PO (08:14)
[2022-09-02] MEDS: Magnesium Oxide 400 MG TAB PO (08:14)
[2022-09-02] MEDS: Folic Acid 1 MG TAB PO (08:14)
[2022-09-02] MEDS: Ascorbic Acid 500 MG TAB 1000 MG PO (08:14)
[2022-09-02] MEDS: Finasteride 5 MG TAB PO (08:15)
[2022-09-02] MEDS: Losartan 25 MG TAB PO (08:15)
[2022-09-02] MEDS: Clopidogrel 75 MG TAB PO (08:15)
[2022-09-02] MEDS: Cholecalciferol (Vitamin D3) 1,000 UNIT TAB 1000 UNITS PO (08:15)
[2022-09-02] MEDS: Isosorbide Mononitrate 60 MG TABCR PO (08:15)
[2022-09-02 08:29] LABS: Abs Immature Grans 0.02 10^3/uL (0.0-0.06); Absolute Basophil Count 0.02 10^3/uL (0.0-0.2); Absolute Eosinophil Count 0.08 10^3/uL (0.0-0.7); Absolute Lymphocyte Count 2.28 10^3/uL (1.2-3.4); Absolute Monocyte Count 0.56 10^3/uL (0.1-0.8); Absolute Neutrophil Count 3.08 10^3/uL (1.2-6.7); Basophils % 0.3; Eosinophils % 1.3; HCT 36.8 % (40.0-50.0); HGB 12.6 g/dL (13.5-17.5); Immature Grans % 0.3; Lymphocytes % 37.7; MCH 32.2 pg (27.0-33.0); MCHC 34.2 % (32.0-36.0); MCV 94 fL (80-95); MPV 9.5 fL (8.0-11.0); Monocytes % 9.3; Neutrophils % 51.1; Platelet Count 167 10^3/uL (130-400); RBC 3.91 10^6/uL (4.36-5.78); RDW 13.2 % (11.8-14.1); RDW-SD 45.5 fL; WBC 6.04 10^3/uL (4.4-10.8)
[2022-09-02] MEDS: Metoprolol CR 50 MG TABCR 75 MG PO (08:30)
[2022-09-02 08:49] LABS: Anion Gap 5.5 mmol/L (3-11); BUN 15 mg/dL (7-18); CO2 26.5 mmol/L (21.0-32.0); CREATININE 1.3 mg/dL (0.70-1.30); Calcium 8.7 mg/dL (8.5-10.1); Chloride 104 mmol/L (98-107); Estimated GFR 58.37 (mL/min/1.73m2); Glucose 102 mg/dL (74-106); Magnesium 1.9 mg/dL (1.8-2.4); Potassium 3.7 mmol/L (3.5-5.1); Sodium 136 mmol/L (136-145)
[2022-09-02 08:51] LABS: Troponin I 81 ng/L (<or=60)
--- NOTE | 2022-09-02 09:57 | INITIAL_ITS ---
- If Service Date Differs Date of service: 09/02/22 Time of Service: 09:57 Care Management Initial Assess REASON FOR HOSPITALIZATION:: Unstable angina PAST MEDICAL HISTORY/PAST SURGICAL HISTORY:: All Active Problems (Updated 09/01/22 @ 21:44 by Stephen Garcia MD). Coronary artery disease (Chronic). Unstable angina (Acute). Chest pain (Acute). Discharge planning issues (Acute). BPH (benign prostatic hyperplasia) (Chronic). Depression (Chronic). Acute non-ST elevation myocardial infarction (NSTEMI) (Acute). Elevated ETOH level (Acute). Chest pain (Acute). TAYLOR (obstructive sleep apnea) (Chronic). Non-ST elevation VT (NSTEMI) (Acute). Medical History (Updated 09/01/22 @ 21:44 by Stephen Garcia MD). AAA (abdominal aortic aneurysm) without rupture. Anxiety. GERD (gastroesophageal reflux disease). High cholesterol. Kidney stones. Sleep apnea. Surgical History (Updated 09/01/22 @ 21:44 by Stephen Garcia MD). S/P spinal surgery. multiple cervical and lumbar spine surgeries. Status post coronary artery stent placement PREVIOUS FUNCTIONAL STATUS/SOCIAL/FAMILY SUPPORTS:: Nicholas lives alone in an apartment in [place].He has no children and no family in the area but does have a few friends who provide support. 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 He receives Meals on Wheels but no other services and is independent at baseline. CURRENT FUNCTIONAL STATUS:: Nicholas was sitting up in bed when CM met with him. He was polite but a bit guarded in his responses, particularly when asked about close contacts, including emergency contacts. He stated that there was someone listed on his Advanced Directives, but declined to identify her or provide contact information. CM was able to verify that a copy of his AD is in his medical record and that there is a Healthcare agent identified along with contact information. The one concern that Nicholas verbalized was about the 2 flights of stairs he has to climb to get to his apartment.He indicated that he lives in a 2 room attic apartment with no elevator in the building. He did state that it has become difficult for him to manage the stairs. ADVANCE DIRECTIVES:: on file. Aracely Benz [facility] Has patient been provided with info about the portal/API?: Yes Did the patient sign up for the portal?: No CODE STATUS:: Full Code INSURANCE COVERAGE / FINANCIAL ISSUES:: Medicare. [place] [address] hotline called [id number]. [phone] CURRENT HOME/COMMUNITY SERVICES/EQUIPMENT:: Meals on Wheels PRIMARY CARE PHYSICIAN:: Jae Del Toro POTENTIAL DISCHARGE NEEDS:: follow up with PCP and plan of care PATIENT/FAMILY EDUCATION NEEDS:: Review of discharge instructions, limitations, follow up plan, activity, medications, Ask Me Three TRANSPORTATION:: via private vehicle PLAN:: Oniel has been accepted for transfer to [facility], hopefully for tomorrow. Transport will be via EMS coordinated by . Final discharge plans will be made by [facility]. CM will continue to support Nicholas and his discharge needs.
--- NOTE | 2022-09-02 11:30 | RT.EKG_ITS ---
APPROVED REPORT Exam: Resting ECG Reason for Exam: chest pain Patient Location: I HR:64 bpm ECG Measurements Heart Rate 64 AXIS MA 130 P 26 QRSd 79 QRS 23 QT 397 T 17 QTc 410 Conclusion Sinus rhythm...normal P axis, V-rate 50- 99 Low voltage, precordial leads...precordial leads <1.0mV Abnormal inferior Q waves...Qs add to 80 mS in II III aVF
--- NOTE | 2022-09-02 14:30 | PHA.REVIEW2 ---
Pharmacy Admission Review - Admission Clinical Review (Last Reviewed 09/01/22 @ 21:39 by Stephen Garcia MD) Unstable angina (Acute) Chest pain (Acute) Discharge planning issues (Acute) simvastatin Adverse Reaction (Unknown, Unverified 09/01/22 17:02) abdominal pain Resuscitation Status Full Code Height 5 ft 7 in Weight 74.843 kg - Renal Dosing Renal Dosing: BUN 15 mg/dL (7-18) 09/02/22 08:22 Creatinine 1.3 mg/dL (0.70-1.30) 09/02/22 08:22 Medications needing adjustments: Reviewed - Anticoagulation Anticoagulation: Hgb 12.6 g/dL (13.5-17.5) L 09/02/22 08:22 Hct 36.8 % (40.0-50.0) L 09/02/22 08:22 Plt Count 167 10^3/uL (130-400) 09/02/22 08:22 Creatinine 1.3 mg/dL (0.70-1.30) 09/02/22 08:22 DVT Prophylaxis: Reviewed Medications: Enoxaparin - Opiate Usage Evaluate Pain Scale/Pains Meds: N/A - Relevant Labs Sodium 136 mmol/L (136-145) 09/02/22 08:22 Potassium 3.7 mmol/L (3.5-5.1) 09/02/22 08:22 Chloride 104 mmol/L (98-107) 09/02/22 08:22 Magnesium 1.9 mg/dL (1.8-2.4) 09/02/22 08:22 Electrolytes, C-Reactive P, ESR: Reviewed - DM Control DM Control: Glucose 102 mg/dL (74-106) 09/02/22 08:22 DM Control: N/A - Cardiac Review Cardiac Review: Troponin I 81 ng/L (<or=60) H* 09/02/22 08:22 NT-Pro-B Natriuret Pep 26 pg/mL (<300) 09/01/22 12:40 BP, HR, EF%: Reviewed - Qtc Review QTc: Reviewed - IV to PO Switch IV Medications: Reviewed - Home Meds Home Med List reviewed: Intervened Relevent Home Meds Not ordered & why?: obtained list from [place] and updated accordingly (compared to med rec from recent admission and clarified doses/therapeutic duplications), notified provider, all pertinent meds ordered - Current meds Current Medication Order Review: Reviewed
--- NOTE | 2022-09-02 17:18 | PGE_ITS ---
Date of Service Date of service: 09/02/22 Time of Service: 17:18 Assessment and Plan Assessment and plan (1) Unstable angina: Status: Acute Assessment and plan: [facility] evidently did not accept the patient in transfer due to capacity, when I called to verify this today. I was also told they are not listing transfers for >24 hrs. Continue current therapy. Not heparinizing currently, but if develops symptoms, would heparinize. Obtain echo. Will call [facility] in am tomorrow to arrange transfer. (2) Coronary artery disease: Status: Chronic Assessment and plan: As above (3) Status post coronary artery stent placement: Assessment and plan: As above (4) BPH (benign prostatic hyperplasia): Status: Chronic Assessment and plan: [facility] fl[facility]. Medications adjusted (5) Depression: Status: Chronic Assessment and plan: Continue wellbutrin (dose adjusted to reflect outpatient prescription), (6) Anxiety: Assessment and plan: Continue valium, buspar and Wellbutrin (7) GERD (gastroesophageal reflux disease): Assessment and plan: Continue pepcid, protonix. (8) Discharge planning issues: Status: Acute Assessment and plan: Full code Will call [facility] in am to attempt to transfer to cardiology service since they are not listing for September 04 transfers today and are full for September 03. Subjective Subjective Interval history since last seen: Mr Barbosa has not had any CP, SOB (at rest), dizziness, nausea or palpitations today. Exam Narrative Exam Narrative: General: Pleasant male sitting up comfortably in bed, A&Ox3, NAD HEENT: EOMI, MMM Heart: RRR, no m/r/g Lungs: CTAB Abdomen: soft, nontender, nondistended Extremities: no edema BLEs Objective Last Vital Signs Temp 37.3 C 09/02/22 15:22 Pulse 68 09/02/22 15:40 Resp 16 09/02/22 15:22 BP 110/60 09/02/22 15:26 Pulse Ox 96 09/02/22 15:22 Laboratory Results - last 24 hr 09/01/22 09/01/22 09/01/22 19:40 19:45 20:30 WBC RBC Hgb Hct MCV MCH MCHC RDW Plt Count MPV Immature Gran % Neutrophils % Lymphocytes % Monocytes % Eosinophils % Basophils % Nucleated RBC % Absolute Neutrophils Absolute Lymphocytes Absolute Monocytes Absolute Eosinophils Absolute Basophils Sodium Potassium Chloride Carbon Dioxide Anion Gap BUN Creatinine Est GFR (CKD-EPI 2020) Glucose Calcium Magnesium Troponin I 83 H* COVID-19 Source Nasal/Nares Cancelled SARS-CoV-2 (PCR) Negative Cancelled 09/02/22 09/02/22 08:22 08:22 WBC 6.04 RBC 3.91 L Hgb 12.6 L Hct 36.8 L MCV 94 MCH 32.2 MCHC 34.2 RDW 13.2 Plt Count 167 MPV 9.5 Immature Gran % 0.3 Neutrophils % 51.1 Lymphocytes % 37.7 Monocytes % 9.3 Eosinophils % 1.3 Basophils % 0.3 Nucleated RBC % 0.0 Absolute Neutrophils 3.08 Absolute Lymphocytes 2.28 Absolute Monocytes 0.56 Absolute Eosinophils 0.08 Absolute Basophils 0.02 Sodium 136 Potassium 3.7 Chloride 104 Carbon Dioxide 26.5 Anion Gap 5.5 BUN 15 Creatinine 1.3 Est GFR (CKD-EPI 2020) 58.37 Glucose 102 Calcium 8.7 Magnesium 1.9 Troponin I 81 H* COVID-19 Source SARS-CoV-2 (PCR)
[2022-09-02] MEDS: Rosuvastatin 10 MG TAB 40 MG PO (19:26)
[2022-09-02] MEDS: Normal Saline Flush 10 ML SYR IVP (19:27)
[2022-09-02] MEDS: buPROPion-XL 150 MG TABCR PO (21:52)
[2022-09-02] MEDS: Melatonin 3 MG TAB PO (21:52)
[2022-09-02] MEDS: Terazosin 2 MG CAP PO (21:52)
[2022-09-03] VITALS (13 sets, daily range): BP systolic 100–121; BP diastolic 53–72; PULSE 58–68; RESP 16–18; TEMP 35.9–36.9; O2SAT 95–98
[2022-09-03 06:43] LABS: Abs Immature Grans 0.03 10^3/uL (0.0-0.06); Absolute Basophil Count 0.03 10^3/uL (0.0-0.2); Absolute Eosinophil Count 0.09 10^3/uL (0.0-0.7); Absolute Lymphocyte Count 2.27 10^3/uL (1.2-3.4); Absolute Monocyte Count 0.78 10^3/uL (0.1-0.8); Basophils % 0.4; Eosinophils % 1.1; HCT 37.1 % (40.0-50.0); HGB 12.5 g/dL (13.5-17.5); Immature Grans % 0.4; MCHC 33.7 % (32.0-36.0); MCV 95 fL (80-95); MPV 9.6 fL (8.0-11.0); Monocytes % 9.6; Neutrophils % 60.5; Platelet Count 178 10^3/uL (130-400); RBC 3.91 10^6/uL (4.36-5.78); RDW 13.2 % (11.8-14.1); RDW-SD 45.9 fL
[2022-09-03 07:13] LABS: Anion Gap 6.1 mmol/L (3-11); BUN 17 mg/dL (7-18); CO2 26.9 mmol/L (21.0-32.0); CREATININE 1.4 mg/dL (0.70-1.30); Calculated LDL 61 mg/dL (<100); Chloride 101 mmol/L (98-107); Cholesterol 121 mg/dL (<200); Glucose 108 mg/dL (74-106); HDL Cholesterol 48 mg/dL (40-60); Potassium 3.7 mmol/L (3.5-5.1); Sodium 134 mmol/L (136-145); Triglyceride 64 mg/dL (<150)
--- NOTE | 2022-09-03 07:15 | RT.EKG_ITS ---
APPROVED REPORT Exam: Resting ECG Reason for Exam: follow up angina Patient Location: I HR:63 bpm ECG Measurements Heart Rate 63 AXIS [place] 137 P 28 QRSd 89 QRS 51 QT 410 T 30 QTc 420 Conclusion Sinus rhythm...normal P axis, V-rate 50- 99 Abnormal R-wave progression, early transition...QRS area>0 in V2
[2022-09-03 07:21] LABS: Troponin I 83 ng/L (<or=60)
--- NOTE | 2022-09-03 08:39 | DI.US_ITS ---
APPROVED REPORT EXAM: Comprehensive 2D, Doppler, and color-flow Echocardiogram Patient Location: In-Patient Room/Bed: [address] [employer] Install[employer] Manager: Thalia Bryan RDCS (AE) Indications: Unstable angina, limited follow up to 07/29/22 echo Other Information Study Quality: Adequate Conclusion Normal left ventricular wall thickness and chamber size. Estimated ejection fraction is 55 to 60%. No segmental wall motion abnormalities are identified normal right ventricular size and systolic function Both atria are normal in size Wall motion Left Ventricle The left ventricle is normal size. The left ventricular systolic function is normal. The left ventric ular ejection fraction is within the normal range. There is normal left ventricular wall thickness. T here is normal LV segmental wall motion. LVEF is 57%. 2D Dimensions IVSD d PLAX 0.85 cm M: 0.6-1.2 LV Vol A2C d MOD 62.4 mL LVPW d PLAX 0.86 cm M: 0.6 - 1.2 LV Vol A4C d MOD 76.0 mL LVID d PLAX 4.36 cm M: 4.2 - 5.8 LA vol/ BSA A4C s A-L 21.1 mL/m2 LVDs 3.00 cm M: 2.5 - 4.0 LA Area A4C s MOD 14.73 cm2 LV EF Teichholz 58.9 % LV EF A4C MOD 57.7 % LVEF (Pacheco's) 56.86 % M: 52 - 72 LV EF A2C MOD 56.4 % LV Volume 53.17 mL M: 62 - 150 LV EF Biplane MOD 56.9 % LV Volume Index 28.58 mL/m2 M: 34 - 74 SV 39.35 mL LV Vol Biplane MOD 69.2 mL SV Index 21.12 mL/m2 FS 31.00 %
[2022-09-03] MEDS: Finasteride 5 MG TAB PO (10:37)
[2022-09-03] MEDS: Clopidogrel 75 MG TAB PO (10:38)
[2022-09-03] MEDS: Famotidine 20 MG TAB 10 MG PO (10:39)
[2022-09-03] MEDS: Cholecalciferol (Vitamin D3) 1,000 UNIT TAB 1000 UNITS PO (10:40)
[2022-09-03] MEDS: Aspirin E.C. 81 MG TABEC PO (10:40)
[2022-09-03] MEDS: Ascorbic Acid 500 MG TAB 1000 MG PO (10:40)
[2022-09-03] MEDS: Folic Acid 1 MG TAB PO (10:41)
[2022-09-03] MEDS: buPROPion-XL 150 MG TABCR 300 MG PO (10:42)
[2022-09-03] MEDS: busPIRone 5 MG TAB 10 MG PO (10:42)
[2022-09-03] MEDS: Losartan 25 MG TAB PO (10:45)
[2022-09-03] MEDS: Isosorbide Mononitrate 60 MG TABCR PO (10:46)
[2022-09-03] MEDS: Metoprolol CR 50 MG TABCR 75 MG PO (10:46)
[2022-09-03] MEDS: nitroGLYcerin 0.4 MG TAB SL (15:54)
--- NOTE | 2022-09-03 15:55 | PGE_ITS ---
Date of Service Date of service: 09/03/22 Time of Service: 15:57 Assessment and Plan Assessment and plan (1) Unstable angina: Status: Acute Assessment and plan: D[place] [facility] feel that at this time, we need to uptitrate beta blockers and ranexa and see if sx improve by attempting to increase activity. There is no indication for transfer for a cardiac cath at this time, given a low probability MPI stress test at the end of July and no wall motion abnormalities on the echo. I did heparinize the patient given CP and EKG changes now and will trend troponins. Should his troponins bump, would re-attempt [place] [facility] (2) Coronary artery disease: Status: Chronic Assessment and plan: As above (3) Status post coronary artery stent placement: Assessment and plan: As above (4) BPH (benign prostatic hyperplasia): Status: Chronic Assessment and plan: [facility]. Medications adjusted (5) Depression: Status: Chronic Assessment and plan: Continue wellbutrin (dose adjusted to reflect outpatient prescription), (6) Anxiety: Assessment and plan: Continue valium, buspar and Wellbutrin (7) GERD (gastroesophageal reflux disease): Assessment and plan: Continue pepcid, protonix. (8) Discharge planning issues: Status: Acute Assessment and plan: Full code Continues to require hospitalization. Subjective Subjective Interval history since last seen: The patient describes a quarter/10 chest pressure on the left side at rest. He states he got very winded when talking on the phone today. He states he was told to stop taking spiriva on his last [place] [facility] (I will have our pharmacy to verify this). Did not feel dizzy today when washing up today and didnt get short of breath, but did get palpitations. Denies n/v. Exam Narrative Exam Narrative: General: Pleasant male sitting up comfortably in bed, A&Ox3, NAD HEENT: EOMI, MMM Heart: RRR, no m/r/g Lungs: CTAB Abdomen: soft, nontender, nondistended Extremities: no edema BLEs Objective Last Vital Signs Temp 36.3 C L 09/03/22 11:38 Pulse 66 09/03/22 11:38 Resp 18 09/03/22 11:38 BP 121/72 09/03/22 11:38 Pulse Ox 98 09/03/22 11:38 Laboratory Results - last 24 hr 09/03/22 09/03/22 05:30 05:30 WBC 8.10 RBC 3.91 L Hgb 12.5 L Hct 37.1 L MCV 95 MCH 32.0 MCHC 33.7 RDW 13.2 Plt Count 178 MPV 9.6 Immature Gran % 0.4 Neutrophils % 60.5 Lymphocytes % 28.0 Monocytes % 9.6 Eosinophils % 1.1 Basophils % 0.4 Nucleated RBC % 0.0 Absolute Neutrophils 4.90 Absolute Lymphocytes 2.27 Absolute Monocytes 0.78 Absolute Eosinophils 0.09 Absolute Basophils 0.03 Sodium 134 L Potassium 3.7 Chloride 101 Carbon Dioxide 26.9 Anion Gap 6.1 BUN 17 Creatinine 1.4 H Est GFR (CKD-EPI 2020) 53.40 Glucose 108 H Calcium 9.0 Magnesium 2.0 Troponin I 83 H* Triglycerides 64 Total Cholesterol 121 LDL Cholesterol, Calc 61 HDL Cholesterol 48 Objective Narrative Objective Narrative: EKG: SR, HR 64, borderline ST elevations in lead AVF (seen somewhat better here than on prior EKGs).
[2022-09-03] MEDS: diazePAM 5 MG TAB PO (16:44)
[2022-09-03 16:57] LABS: PTT Activated 24.8 sec (21.0-27.5)
[2022-09-03 17:05] LABS: Troponin I 85 ng/L (<or=60)
--- NOTE | 2022-09-03 17:19 | CMPROGNOTE_ITS ---
- If Service Date Differs Date of service: 09/03/22 Time of Service: 17:19 Care Management Progress Note S/O: Oniel was sitting up in his chair, verbalized understanding of treatment plan at this time; treatment per [facility] consult, trending troponins to determine need for transfer-per MD. CM continues to follow. A: 72 year old male admitted to [facility] 09/01/22 for unstable angina P: Oniel will either transfer to [facility] or stabilize and return home with outpatient follow up. CM continues to follow.
--- NOTE | 2022-09-03 17:19 | PDOC.CMPRO ---
- If Service Date Differs Date of service: 09/03/22 Time of Service: 17:19 Care Management Progress Note S/O: Oniel was sitting up in his chair, verbalized understanding of treatment plan at this time; treatment [place] [facility] [place], trending troponins to determine need for transfer-per MD. CM continues to follow. A: 72 year old male admitted to [facility] 09/01/22 for unstable angina P: Oniel will either transfer to [facility] or stabilize and return home with outpatient follow up. CM continues to follow.
--- NOTE | 2022-09-03 18:00 | RT.EKG_ITS ---
APPROVED REPORT Exam: Resting ECG Reason for Exam: chest discomfot Patient Location: I HR:68 bpm ECG Measurements Heart Rate 68 AXIS IL 141 P 26 QRSd 81 QRS 45 QT 389 T 26 QTc 414 Conclusion Sinus rhythm...normal P axis, V-rate 50- 99 Low voltage, precordial leads...precordial leads <1.0mV Abnormal R-wave progression, early transition...QRS area>0 in V2 Abnormal inferior Q waves...Qs add to 80 mS in II III aVF
[2022-09-03 19:47] LABS: Troponin I 80 ng/L (<or=60)
[2022-09-03] MEDS: Ranolazine 500 MG TABCR 1000 MG PO (20:45)
[2022-09-03] MEDS: Rosuvastatin 10 MG TAB 40 MG PO (20:46)
[2022-09-03] MEDS: buPROPion-XL 150 MG TABCR PO (22:15)
[2022-09-04] VITALS (9 sets, daily range): BP systolic 101–124; BP diastolic 61–78; PULSE 57–68; RESP 16–18; TEMP 36.3–36.9; O2SAT 95–99
[2022-09-04 00:02] LABS: PTT Activated 59.2 sec (21.0-27.5)
[2022-09-04 05:36] LABS: Abs Immature Grans 0.03 10^3/uL (0.0-0.06); Absolute Basophil Count 0.03 10^3/uL (0.0-0.2); Absolute Eosinophil Count 0.13 10^3/uL (0.0-0.7); Absolute Monocyte Count 0.66 10^3/uL (0.1-0.8); Absolute Neutrophil Count 4.14 10^3/uL (1.2-6.7); Basophils % 0.4; Eosinophils % 1.8; HCT 36.6 % (40.0-50.0); HGB 12.4 g/dL (13.5-17.5); Immature Grans % 0.4; Lymphocytes % 32.5; MCH 32.1 pg (27.0-33.0); MCHC 33.9 % (32.0-36.0); MCV 95 fL (80-95); MPV 9.6 fL (8.0-11.0); Monocytes % 8.9; Platelet Count 185 10^3/uL (130-400); RBC 3.86 10^6/uL (4.36-5.78); RDW 13.2 % (11.8-14.1); RDW-SD 45.4 fL; WBC 7.39 10^3/uL (4.4-10.8)
[2022-09-04 05:46] LABS: Anion Gap 5.4 mmol/L (3-11); BUN 20 mg/dL (7-18); CO2 28.6 mmol/L (21.0-32.0); CREATININE 1.4 mg/dL (0.70-1.30); Calcium 8.5 mg/dL (8.5-10.1); Chloride 102 mmol/L (98-107); Glucose 101 mg/dL (74-106); Magnesium 1.9 mg/dL (1.8-2.4); Potassium 3.7 mmol/L (3.5-5.1); Sodium 136 mmol/L (136-145)
[2022-09-04 06:08] LABS: PTT Activated 60.4 sec (21.0-27.5)
[2022-09-04] MEDS: Cholecalciferol (Vitamin D3) 1,000 UNIT TAB 1000 UNITS PO (07:43)
[2022-09-04] MEDS: Ranolazine 500 MG TABCR 1000 MG PO ×2 (07:44→20:18)
[2022-09-04] MEDS: busPIRone 5 MG TAB 10 MG PO (07:45)
[2022-09-04] MEDS: Aspirin E.C. 81 MG TABEC PO (07:45)
[2022-09-04] MEDS: buPROPion-XL 150 MG TABCR 300 MG PO (07:45)
[2022-09-04] MEDS: Isosorbide Mononitrate 60 MG TABCR PO (07:45)
[2022-09-04] MEDS: Clopidogrel 75 MG TAB PO (07:45)
[2022-09-04] MEDS: Pantoprazole 40 MG TABCR PO (07:46)
[2022-09-04] MEDS: Ascorbic Acid 500 MG TAB 1000 MG PO (07:48)
[2022-09-04] MEDS: Metoprolol CR 50 MG TABCR 100 MG PO (07:48)
[2022-09-04] MEDS: Folic Acid 1 MG TAB PO (07:48)
[2022-09-04] MEDS: Losartan 25 MG TAB PO (07:48)
[2022-09-04] MEDS: Finasteride 5 MG TAB PO (07:49)
[2022-09-04] MEDS: Cyanocobalamin 500 MCG TAB 1000 MCG PO (07:49)
--- NOTE | 2022-09-04 08:21 | RESPIRATORY ---
Pt stated that he no longer takes his home inhalers, citing that [facility] recently told him they interfere with one of his other medications.
--- NOTE | 2022-09-04 08:59 | PDOC.CMPRO ---
- If Service Date Differs Date of service: 09/04/22 Time of Service: 08:59 Care Management Progress Note S/O: Nicholas was sitting up in bed when CM met with him. He was pleasant and engaged easily with CM. Nicholas informed CM that he had just worked with PT and was short of breath. Per PT he was able to walk 200 feet with a cane and do stairs. The therapist encouraged him to take a break but Nicholas declined. Nicholas stated that he feels that he will need to remain in the hospital at least until Wednesday. He shared that he believes that he must demonstrate the ability to walk 300 feet and climb 40 stairs before he can go home, as that is what he must do at home. He reported that when he was [place] [facility] they would not discharge him until he had reached that goal. A: 72 year old male admitted to [facility] 09/01/22 for unstable angina P: Nicholas had been accepted for transfer [place] [facility] but no bed has been available for him. His treatment plan has been modified with input from [facility] [place]. Nicholas will likely remain at [facility] to stabilize and return home with outpatient follow up with his PCP, cardiology and plan of care. He will transport with a friend. CM will continue to follow and assess for discharge needs..
--- NOTE | 2022-09-04 13:45 | CHAPLAIN ---
Oniel was sitting up in bed when I visit. He remembered that we've met before. Oniel shared some personal history, telling me about his time in the service and where he was assigned to be for his time of service. He talked about his time in the and the in general. He is originally from [facility], then lived in [place] and now lives in [facility]. According to Care Management notes he is awaiting transfer to [facility].
--- NOTE | 2022-09-04 14:36 | PT.INIE ---
PT Notes Visit Reasons: Unstable Angina Inpatient Physical Therapy Evaluation Date: 09/04/22 Referring Doctor: Dr. Storey PT Orders: PT CONSULT: limited ability to ambulate Precautions: standard Patient Profile/Admitting Diagnosis: Patient admitted for medical management of unstable angina and CAD after presenting to ER 09/01/22 with shortness of breath and lightheadedness. This was preceded by 2 previous NSTEMIs, with 3 visits to the ER and transfers to [facility] at each of those visits. He had coronary stents placed 06/30/22 and 07/29/22. PMHX: All Active Problems?(Updated 09/01/22 @ 21:44 by Stephen Garcia MD) Coronary artery disease (Chronic) Unstable angina (Acute) Chest pain (Acute) Discharge planning issues (Acute) BPH (benign prostatic hyperplasia) (Chronic) Depression (Chronic) Acute non-ST elevation myocardial infarction (NSTEMI) (Acute) Elevated ETOH level (Acute) Chest pain (Acute) TAYLOR (obstructive sleep apnea) (Chronic) Non-ST elevation [place] (NSTEMI) (Acute) Medical History?(Updated 09/01/22 @ 21:44 by Stephen Garcia MD) AAA (abdominal aortic aneurysm) without rupture Anxiety GERD (gastroesophageal reflux disease) High cholesterol Kidney stones Sleep apnea Social History/Home Situation: Patient lives alone in small apartment with ~40 steps to enter, single rail. Uses a cane for community ambulation, stating his knees give out when turning. Does not utilize AD in his home. Reports ability to walk approx 300' before getting short of breath at baseline. Current Functional Limitations: Reports feeling generally weaker than baseline, but otherwise denies. Equipment Owned/DME: cane Subjective: Pacheco states that he is ready to do some walking. Denies pain, shortness of breath. States that his primary issue at home is getting up the 40 steps into his house. He is often fatigued to the point of having to nap for up to 2 hours after completion. Objective: General Observation: Resting in bed with IV in RUE. Mental Status: A&Ox3. Pleasant throughout session. Demonstrates limited insight at times, with limited response to cues for pacing, resting, and utilizing hand support during stair management. Pain: denies Vital Signs: monitored on telemetry throughout ROM: Right Lower Extremity: Grossly WFL Left Lower Extremity: Grossly WFL Strength: Right Lower Extremity: Hip flexion 5/5. Quads 5/5. Ankle DF 5/5 Left Lower Extremity: Hip flexion 5/5. Quads 5/5. Ankle DF 5/5 Bed Mobility/Transfers: supine-sit: independent sit-supine: independent sit-stand: independent stand-sit: independent Gait: Patient ambulates 200' with straight cane, CGA-supervision. He demonstrates rapid darryn and intermittent use of cane, with minor path deviation. Cues for pacing, although with limited compliance to slowed gait pattern. Stairs: Patient manages therapeutic stairs, 6x10, 4x 15 with single rail and contralateral straight cane. Requires cues for utilization of rail and safe management of equipment. Balance: Static Sitting: normal Dynamic Sitting: normal Static Standing: good Dynamic Standing: fair Special Tests: Mobility Limitations Standardized Measure [facility] AM-PAC 6 clicks Basic Mobility Inpatient Short Form: Raw Score: 24 CMS Score: 0% impairment Informed Consent/Education: Patient instructed in purpose of PT consult and plan of care. Assessment: Patient is a 72 year old male referred to physical therapy services with the diagnosis of limited ability to ambulate in the presence of unstable angina and CAD. Patient presents with decreased activity tolerance and limited safety awareness, requiring cues for pacing and safe equipment management during session. He is, per his report, moving at baseline, outside of his fatigue levels. He is appropriate for transition back to community once medically stable, however will benefit from skilled PT intervention during his acute care stay to initiate early ambulation and begin introduction of cardiovascular retraining following cardiac event. He currently demonstrates the following impairment level findings: 1. decreased activity tolerance 2. decreased safety awareness Impairments are contributing to the following functional limitations: 1. decreased tolerance to stair management 2. decreased activity tolerance following cardiac event Patient is assessed as Low 40767 complexity based on the following: History: Patient presenting with decreased activity tolerance following NSTEMI x 2, now with unstable angina. Complicating factors include difficult access to home setting (~40 stairs), limitations in safety awareness, and extensive medical history as noted above. Examination: functional limitations as above Presentation: evolving Decision Making: moderate complexity Goals: Goals X1 week 1. Supine-Sit : independent 2. Sit-Supine : independent 3. Sit-Stand : independent 4. Stand-Sit : independent 5. Bed-Chair : supervision with cane 6. Chair-Bed : supervision with cane 7. Gait : 300' with cane, supervision, without RUIZ 8. Stairs : ascend and descend with consistent use of rail, supervision Plan of Care/Treatment Plan: 1-2x/day, 7 days/week x 1 week. Plan of care has been reviewed with the [employer] providing the service under Physical Therapy direction. Initiate Physical Therapy intervention for strengthening, bed mobility, transfers, gait, stairs, balance training, use of assistive device. DISCHARGE RECOMMENDATIONS: Home with services [Patient plans to attent Cardiac Rehab] TREATMENT CODE/TIME: 2:05-2:35 ([id number]) Marleen Simms, PT, DPT [facility]
--- NOTE | 2022-09-04 18:00 | PGE_ITS ---
Date of Service Date of service: 09/04/22 Time of Service: 18:01 Assessment and Plan Assessment and plan (1) Unstable angina: Status: Acute Assessment and plan: Discussed [place] with [place] [facility] We have uptitrated the beta lexi and the ranexa per their recommendations and increased activity today. Symptoms seem better. Will continue current tx. Will d/c heparin gtt and see if chest discomfort returns/worsens. If it does, I would be more concerned for etiology of the chest pressure being cardiac. There is no indication for transfer for a cardiac cath at this time, given a low probability MPI stress test at the end of July and no wall motion abnormalities on the echo. (2) Coronary artery disease: Status: Chronic Assessment and plan: As above (3) Status post coronary artery stent placement: Assessment and plan: As above (4) BPH (benign prostatic hyperplasia): Status: Chronic Assessment and plan: [facility] flomax. Medications adjusted (5) Depression: Status: Chronic Assessment and plan: Continue wellbutrin (dose adjusted to reflect outpatient prescription), (6) Anxiety: Assessment and plan: Continue valium, buspar and Wellbutrin (7) GERD (gastroesophageal reflux disease): Assessment and plan: Continue pepcid, protonix. (8) Discharge planning issues: Status: Acute Assessment and plan: Full code Continues to require hospitalization. Subjective Subjective Interval history since last seen: Reports SOB after walking and an episode of chest pressure that he thought may have been due to gas. It lasted 7 minutes. He didn't tell anyone. He ambulated in the hallway without symptoms. SOB happened after. Denies dizziness, palpitations, nausea. Exam Narrative Exam Narrative: General: Pleasant male sitting up comfortably in bed, A&Ox3, NAD HEENT: EOMI, MMM Heart: RRR, no m/r/g Lungs: CTAB Abdomen: soft, nontender, nondistended Extremities: no edema BLEs Objective Last Vital Signs Temp 36.7 C 09/04/22 15:42 Pulse 61 09/04/22 15:42 Resp 16 09/04/22 15:42 BP 113/65 09/04/22 15:42 Pulse Ox 98 09/04/22 15:42 Laboratory Results - last 24 hr 09/03/22 09/03/22 09/04/22 19:20 23:40 05:20 WBC RBC Hgb Hct MCV MCH MCHC RDW Plt Count MPV Immature Gran % Neutrophils % Lymphocytes % Monocytes % Eosinophils % Basophils % Nucleated RBC % Absolute Neutrophils Absolute Lymphocytes Absolute Monocytes Absolute Eosinophils Absolute Basophils APTT 59.2 H Sodium 136 Potassium 3.7 Chloride 102 Carbon Dioxide 28.6 Anion Gap 5.4 BUN 20 H Creatinine 1.4 H Est GFR (CKD-EPI 2020) 53.40 Glucose 101 Calcium 8.5 Magnesium 1.9 Troponin I 80 H* 09/04/22 09/04/22 05:20 05:20 WBC 7.39 RBC 3.86 L Hgb 12.4 L Hct 36.6 L MCV 95 MCH 32.1 MCHC 33.9 RDW 13.2 Plt Count 185 MPV 9.6 Immature Gran % 0.4 Neutrophils % 56.0 Lymphocytes % 32.5 Monocytes % 8.9 Eosinophils % 1.8 Basophils % 0.4 Nucleated RBC % 0.0 Absolute Neutrophils 4.14 Absolute Lymphocytes 2.40 Absolute Monocytes 0.66 Absolute Eosinophils 0.13 Absolute Basophils 0.03 APTT 60.4 H Sodium Potassium Chloride Carbon Dioxide Anion Gap BUN Creatinine Est GFR (CKD-EPI 2020) Glucose Calcium Magnesium Troponin I
[2022-09-04] MEDS: Normal Saline Flush 10 ML SYR IVP (18:13)
[2022-09-04] MEDS: Famotidine 20 MG TAB 10 MG PO (20:19)
[2022-09-04] MEDS: Rosuvastatin 10 MG TAB 40 MG PO (20:19)
[2022-09-04] MEDS: Terazosin 2 MG CAP PO (21:12)
[2022-09-04] MEDS: Melatonin 3 MG TAB PO (21:12)
[2022-09-04] MEDS: buPROPion-XL 150 MG TABCR PO (21:12)
[2022-09-05] VITALS (16 sets, daily range): BP systolic 101–129; BP diastolic 60–74; PULSE 60–70; RESP 16–20; TEMP 36.2–36.5; O2SAT 96–99
--- NOTE | 2022-09-05 07:24 | PT.INTREAT ---
Date of service: 09/05/22 PT Notes Visit Reasons: Unstable Angina Inpatient Physical Therapy Treatment Note [facility] Date: 09/05/2022 PRECAUTIONS: Activity as tolerated SUBJECTIVE: Oniel is pleasant and agreeable to participating in PT. He reports that he is not feeling better today, and that he is very tired. He states I probably won't pass on the stairs indicating that he does not feel he can navigate the stairs appropriately or safely today. OBJECTIVE: PAIN: No c/o pain BED MOBILITY/TRANSFERS Supine-sit: I with HOB at 20 degrees Sit-stand: I Stand-sit: I GAIT Assistive Device: SPC Weight bearing: Full Assist: I Distance: ~700' Deviation: Standing rest x1 due to legs stiffening up STAIRS: Up/down 40 x 6 using U rail and a step-over pattern, independently. Patient pauses briefly due to B LE stiffness. ASSESSMENT: Patient demonstrates independence with bed mobility, transfers, ambulation with SPC and stair training with U rail and a step-to pattern. He requires brief standing rest during both gait training and stair training due to B LE stiffness, which he is able to work through by performing SLS and independent LE stretches without assist nor device nor therapist support. PLAN: Discharge patient from PT services, as he demonstrates independence with all functional mobility at this time. TREATMENT CODE/TIME: 17 minutes; [id number] (06:46)
--- NOTE | 2022-09-05 07:58 | RESPIRATORY ---
RT discussed the listed history of TAYLOR in chart, patient does use one but did not bring with him due to he feels it's to heavy to transport. RT offered to let patient use a hospital device but let them him know it wont be like his own device. Patient refused device and stated he feels he will be ok with out it.
[2022-09-05] MEDS: Isosorbide Mononitrate 60 MG TABCR PO (08:25)
[2022-09-05] MEDS: buPROPion-XL 150 MG TABCR 300 MG PO (08:25)
[2022-09-05] MEDS: Cyanocobalamin 500 MCG TAB 1000 MCG PO (08:26)
[2022-09-05] MEDS: busPIRone 5 MG TAB 10 MG PO (08:26)
[2022-09-05] MEDS: Ascorbic Acid 500 MG TAB 1000 MG PO (08:26)
[2022-09-05] MEDS: Cholecalciferol (Vitamin D3) 1,000 UNIT TAB 1000 UNITS PO (08:26)
[2022-09-05] MEDS: Aspirin E.C. 81 MG TABEC PO (08:26)
[2022-09-05] MEDS: Losartan 25 MG TAB PO (08:26)
[2022-09-05] MEDS: Metoprolol CR 50 MG TABCR 100 MG PO (08:26)
[2022-09-05] MEDS: Folic Acid 1 MG TAB PO (08:26)
[2022-09-05] MEDS: Pantoprazole 40 MG TABCR PO (08:27)
[2022-09-05] MEDS: Montelukast 10 MG TAB PO (08:27)
[2022-09-05] MEDS: Finasteride 5 MG TAB PO (08:28)
[2022-09-05] MEDS: Clopidogrel 75 MG TAB PO (08:28)
[2022-09-05] MEDS: nitroGLYcerin 0.4 MG TAB SL ×2 (08:34→09:05)
[2022-09-05 08:36] LABS: Anion Gap 9.8 mmol/L (3-11); BUN 18 mg/dL (7-18); CO2 25.2 mmol/L (21.0-32.0); CREATININE 1.4 mg/dL (0.70-1.30); Calcium 9.2 mg/dL (8.5-10.1); Chloride 102 mmol/L (98-107); Glucose 103 mg/dL (74-106); Potassium 4.1 mmol/L (3.5-5.1); Sodium 137 mmol/L (136-145)
[2022-09-05] MEDS: Normal Saline Flush 10 ML SYR IVP ×2 (09:13→22:46)
--- NOTE | 2022-09-05 09:18 | NUR.NOTE ---
Nursing Note: Upon entering the room to administer morning medications, the patient states Can you come back I need to catch my breath. This RN assessed the patient and denied chest pain. When this RN reentered the room, the patient states Yes I will take my meds now, but I am having chest pain. This RN administered 0.4mg tablet of Nitro at 0834 for a 4/10 chest pain that did not radiate and cannot reproduce this pain. This Nitro had no relief. Dr. Ramey entered the room and stated to Give all morning mediations and wait before administering a second Nitro, unless his pain gets worse. This RN educated the patient on ringing for staff if the pain increases. This RN went to update the charge nurse on the status of the patient. The patient rang and states My pain moved into my right arm and my hand is now numb, but it still is right there in my chest too. This RN administered a second Nitro at 0905 for a 4/10 chest pain. During the reassessment five minutes later the patient states I can now feel my fingers, but there is no change of my pain. Vital signs taken, all are stable. Patient educated on the importance of letting his scheduled morning medications take affect before administering a third Nitro. Charge nurse Lida made aware of the situation.
[2022-09-05] MEDS: Ranolazine 500 MG TABCR 1000 MG PO (10:56)
--- NOTE | 2022-09-05 15:38 | PGE_ITS ---
Date of Service Date of service: 09/05/22 Time of Service: 15:41 Assessment and Plan Assessment and plan (1) Unstable angina: Status: Acute Assessment and plan: His care has been discussed with cardiology at [facility]. Have uptitrated the beta lexi and the ranexa per their recommendations and increased activity today. Will continue current tx and monitor symptoms severity/frequency/duration Heparin gtt was d/c'd on 09/04. There is no indication for transfer for a cardiac cath at this time, given a low probability MPI stress test at the end of July and no wall motion abnormalities on the echo. Can still uptitrate Imdur if needed. (2) Coronary artery disease: Status: Chronic Assessment and plan: As above (3) Status post coronary artery stent placement: Assessment and plan: As above (4) BPH (benign prostatic hyperplasia): Status: Chronic Assessment and plan: Per [place] records, terazosin was supposed to replace flomax. Medications adjusted (5) Depression: Status: Chronic Assessment and plan: Continue wellbutrin (dose adjusted to reflect outpatient prescription), (6) Anxiety: Assessment and plan: Continue valium, buspar and Wellbutrin (7) GERD (gastroesophageal reflux disease): Assessment and plan: Continue pepcid, protonix. (8) Discharge planning issues: Status: Acute Assessment and plan: Full code Continues to require hospitalization. Subjective Subjective Patient reports: tolerating a regular diet and afebrile; denies nausea or vomiting Interval history since last seen: CP this AM; sharp componenet in left lateral chest and a sensation of a softball sized pressure in the more mid chest to substernal area. Exam Narrative Exam Narrative: General: Pleasant male sitting up comfortably in bed, A&Ox3, NAD. Rates his pain at 4/10. HEENT: EOMI, MMM Heart: RRR, no murmur Lungs: CTAB Abdomen: soft, nontender, nondistended Extremities: no edema BLEs Objective Last Vital Signs Temp 36.3 C L 09/05/22 15:37 Pulse 69 09/05/22 15:37 Resp 16 09/05/22 15:37 BP 120/65 09/05/22 15:37 Pulse Ox 97 09/05/22 15:37 Laboratory Results - last 24 hr 09/05/22 07:55 Sodium 137 Potassium 4.1 Chloride 102 Carbon Dioxide 25.2 Anion Gap 9.8 BUN 18 Creatinine 1.4 H Est GFR (CKD-EPI 2020) 53.40 Glucose 103 Calcium 9.2 Magnesium 2.0
[2022-09-05] MEDS: Rosuvastatin 10 MG TAB 40 MG PO (19:51)
[2022-09-05] MEDS: Terazosin 2 MG CAP PO (22:45)
[2022-09-05] MEDS: Melatonin 3 MG TAB PO (22:45)
[2022-09-05] MEDS: buPROPion-XL 150 MG TABCR PO (22:46)
[2022-09-06] VITALS (8 sets, daily range): BP systolic 107–123; BP diastolic 63–68; PULSE 55–81; RESP 14–18; TEMP 36.1–36.9; O2SAT 96–98
[2022-09-06] MEDS: Finasteride 5 MG TAB PO (08:06)
[2022-09-06] MEDS: Folic Acid 1 MG TAB PO (08:06)
[2022-09-06] MEDS: Cholecalciferol (Vitamin D3) 1,000 UNIT TAB 1000 UNITS PO (08:06)
[2022-09-06] MEDS: Pantoprazole 40 MG TABCR PO (08:06)
[2022-09-06] MEDS: Isosorbide Mononitrate 60 MG TABCR PO (08:06)
[2022-09-06] MEDS: Ascorbic Acid 500 MG TAB 1000 MG PO (08:06)
[2022-09-06] MEDS: busPIRone 5 MG TAB 10 MG PO (08:07)
[2022-09-06] MEDS: buPROPion-XL 150 MG TABCR 300 MG PO (08:07)
[2022-09-06] MEDS: Ranolazine 500 MG TABCR 1000 MG PO ×2 (08:07→20:17)
[2022-09-06] MEDS: Clopidogrel 75 MG TAB PO (08:07)
[2022-09-06] MEDS: Cyanocobalamin 500 MCG TAB 1000 MCG PO (08:07)
[2022-09-06] MEDS: Metoprolol CR 50 MG TABCR 100 MG PO (08:07)
[2022-09-06] MEDS: Losartan 25 MG TAB PO (08:08)
[2022-09-06] MEDS: Aspirin E.C. 81 MG TABEC PO (08:08)
[2022-09-06] MEDS: Montelukast 10 MG TAB PO (08:08)
--- NOTE | 2022-09-06 14:59 | W.PM.PROGNOT ---
Date of Service Date of service: 09/06/22 Time of Service: 15:00 Assessment and Plan Assessment and plan (1) Unstable angina: Status: Acute Assessment and plan: His care has been discussed with cardiology at [facility]. Have uptitrated the beta lexi and the ranexa per their recommendations Will continue current tx and monitor symptoms severity/frequency/duration Heparin gtt was d/c'd on 09/04. There is no indication for transfer for a cardiac cath at this time, given a low probability MPI stress test at the end of July and no wall motion abnormalities on the echo. Can still uptitrate Imdur if needed. Echocardiogram on 09/03/22 showed Est EF of 55-60%. No segmental wall motion abnormalities noted. He walked stairs with PT yesterday unassisted. He describes being winded afterwards but no CP. (2) Coronary artery disease: Status: Chronic Assessment and plan: As above (3) Status post coronary artery stent placement: Assessment and plan: As above (4) BPH (benign prostatic hyperplasia): Status: Chronic Assessment and plan: [facility] flomax. Medications adjusted (5) Depression: Status: Chronic Assessment and plan: Continue wellbutrin (dose adjusted to reflect outpatient prescription), (6) Anxiety: Assessment and plan: Continue valium, buspar and Wellbutrin (7) GERD (gastroesophageal reflux disease): Assessment and plan: Continue pepcid, protonix. (8) Discharge planning issues: Status: Acute Assessment and plan: Full code Continues to require hospitalization. (9) Reactive airway disease: Status: Acute Assessment and plan: Pt on Advair, Spiriva and prn albuterol at home. No dx in chart stating if he has asthma or COPD. Symbicort is the therapeutic substitute at [facility] for Advair. However, there is a contraindication for famoterol with ranexa d/t potential QT prolongation. Cont Spiriva. Xopenex to be given before he walks stairs today to see if this helps with his dyspnea. Subjective Subjective Patient reports: no new complaints, feels better, tolerating a regular diet and afebrile; denies nausea or vomiting Interval history since last seen: No CP until early afternoon; 11/13. Exam Narrative Exam Narrative: General: Pleasant male lying supine comfortably in bed, A&Ox3, NAD. Rates his pain at 4/10. HEENT: EOMI, MMM Heart: RRR, no murmur Lungs: CTAB Abdomen: soft, nontender, nondistended Extremities: no edema BLEs Objective Last Vital Signs Temp 36.1 C L 09/06/22 11:17 Pulse 67 09/06/22 11:17 Resp 18 09/06/22 11:17 BP 107/63 09/06/22 11:17 Pulse Ox 97 09/06/22 11:17
[2022-09-06] MEDS: Rosuvastatin 10 MG TAB 40 MG PO (20:17)
[2022-09-06] MEDS: Terazosin 2 MG CAP PO (22:54)
[2022-09-06] MEDS: Melatonin 3 MG TAB PO (22:54)
[2022-09-06] MEDS: buPROPion-XL 150 MG TABCR PO (22:54)
[2022-09-07] VITALS: BP 119/65; PULSE 65; RESP 18; TEMP 36.7; O2SAT 96
[2022-09-07 03:35] VITALS: BP 115/65; PULSE 64; RESP 18; TEMP 36.8; O2SAT 98
[2022-09-07 06:48] LABS: HCT 37.6 % (40.0-50.0); MCH 32.5 pg (27.0-33.0); MCHC 34.6 % (32.0-36.0); MCV 94 fL (80-95); MPV 9.8 fL (8.0-11.0); Platelet Count 192 10^3/uL (130-400); RDW 13.2 % (11.8-14.1); RDW-SD 45.1 fL; WBC 9.18 10^3/uL (4.4-10.8)
[2022-09-07] MEDS: Tiotropium Bromide-Respimat 10 PUFF INH 2 PUFF IH (07:52)
[2022-09-07] MEDS: Isosorbide Mononitrate 60 MG TABCR PO (08:29)
[2022-09-07] MEDS: buPROPion-XL 150 MG TABCR 300 MG PO (08:30)
[2022-09-07] MEDS: Ranolazine 500 MG TABCR 1000 MG PO (08:30)
[2022-09-07] MEDS: Cholecalciferol (Vitamin D3) 1,000 UNIT TAB 1000 UNITS PO (08:30)
[2022-09-07] MEDS: Metoprolol CR 50 MG TABCR 100 MG PO (08:31)
[2022-09-07] MEDS: Cyanocobalamin 500 MCG TAB 1000 MCG PO (08:31)
[2022-09-07] MEDS: busPIRone 5 MG TAB 10 MG PO (08:31)
[2022-09-07] MEDS: Finasteride 5 MG TAB PO (08:32)
[2022-09-07] MEDS: Magnesium Oxide 400 MG TAB PO (08:32)
[2022-09-07] MEDS: Clopidogrel 75 MG TAB PO (08:32)
[2022-09-07] MEDS: Montelukast 10 MG TAB PO (08:33)
[2022-09-07] MEDS: Gabapentin 300 MG CAP PO (08:34)
[2022-09-07] MEDS: Ascorbic Acid 500 MG TAB 1000 MG PO (08:34)
[2022-09-07] MEDS: Folic Acid 1 MG TAB PO (08:36)
[2022-09-07] MEDS: Pantoprazole 40 MG TABCR PO (08:36)
[2022-09-07] MEDS: Aspirin E.C. 81 MG TABEC PO (08:37)
[2022-09-07] MEDS: Losartan 25 MG TAB PO (08:37)
[2022-09-07] MEDS: Normal Saline Flush 10 ML SYR IVP (08:38)
[2022-09-07] MEDS: Levalbuterol HFA 15 GM INH 2 PUFF IH (12:58)
[2022-09-07 13:00] VITALS: BP 134/77; PULSE 67; RESP 16; TEMP 35.4; O2SAT 99
--- NOTE | 2022-09-07 13:18 | INDS_ITS ---
Date of service: 09/07/22 Time of Service: 13:18 PT Notes Visit Reasons: Unstable Angina Physical Therapy Inpatient Discharge Summary Date: 09/07/22 Dates of Service: 09/04/2022, 09/05/2022, and 09/07/2022 Referring Doctor:? Dr. Storey PT Orders: PT CONSULT: limited ability to ambulate Precautions: standard Patient Profile/Admitting Diagnosis:?? Patient admitted for medical management of unstable angina and CAD after presenting to ER 09/01/22 with shortness of breath and lightheadedness. This was preceded by 2 previous NSTEMIs, with 3 visits to the ER and transfers to [facility] at each of those visits. He had coronary stents placed 06/30/22 and 07/29/22. PMHX: All Active Problems?(Updated 09/01/22 @ 21:44 by Stephen Garcia MD) Coronary artery disease (Chronic) Unstable angina (Acute) Chest pain (Acute) Discharge planning issues (Acute) BPH (benign prostatic hyperplasia) (Chronic) Depression (Chronic) Acute non-ST elevation myocardial infarction (NSTEMI) (Acute) Elevated ETOH level (Acute) Chest pain (Acute) TAYLOR (obstructive sleep apnea) (Chronic) Non-ST elevation IN (NSTEMI) (Acute) Medical History?(Updated 09/01/22 @ 21:44 by Stephen Garcia MD) AAA (abdominal aortic aneurysm) without rupture Anxiety GERD (gastroesophageal reflux disease) High cholesterol Kidney stones Sleep apnea Social History/Home Situation: Patient lives alone in small apartment with ~40 steps to enter, single rail. Uses a cane for community ambulation, stating his knees give out when turning. Does not utilize AD in his home. Reports ability to walk approx 300' before get ting short of breath at baseline. Current Functional Limitations: Reports feeling generally weaker than baseline, but otherwise denies. Equipment Owned/DME: cane Subjective:? Agreeable to trying another stair negotiation prior to today's discharge to determine effect of premedication for bronchodilation. Objective:? General Observation: Resting in bed with IV in RUE. Mental Status: A&Ox3. Pleasant throughout session. Demonstrates limited insight at times, with limited response to cues for pacing, resting, and utilizing hand support during stair management. Pain: denies Vital Signs: monitored on telemetry throughout ROM: Right Lower Extremity: Grossly WFL Left Lower Extremity: Grossly WFL Strength: Right Lower Extremity: Hip flexion 5/5. Quads 5/5. Ankle DF 5/5 Left Lower Extremity:? Hip flexion 5/5. Quads 5/5. Ankle DF 5/5 Bed Mobility/Transfers: supine-sit: independent sit-supine: independent sit-stand: independent stand-sit: independent Gait:? Able to ambulate up to 600-700 feet with SPC with reduced gait speed independently. Stairs:? Up and down 30 x 6-inch steps from med surg unit staircase to the third floor using SPC with step-over step pattern with relatively slower speed than what he wass used to. All vital signs were WNL after activity. Balance:? Static Sitting: normal Dynamic Sitting: normal Static Standing: good Dynamic Standing: good Special Tests: Mobility Limitations Standardized Measure [facility] 6 clicks Basic Mobility Inpatient Short Form: Raw Score: 24? CMS Score: 0% impairment ? ? ? Assessment:?? Supervised client with stair negotiation techniques for this session with cueing given for energy conservation techniques. Coordination with Nurse Bethea was done in order to premedicate for bronchodilator medication to maximize mobility performance with good response from patient. All vital signs were WNL and patient's shortness of breath resolved with few minutes of rest. Goals: Goals X1 week 1. Supine-Sit : independent MET 2. Sit-Supine : independent MET 3. Sit-Stand : independent MET 4. Stand-Sit : independent MET 5. Bed-Chair : supervision with cane MET 6. Chair-Bed : supervision with cane MET 7. Gait : 300' with cane, supervision, without RUIZ MET 8. Stairs : ascend and descend with consistent use of rail, supervision MET DISCHARGE RECOMMENDATIONS: Home with services [Patient plans to attend Cardiac Rehab] TREATMENT CODE/TIME: 91415 x 19 minutes beginning at 13:18 PM. Thank you for the opportunity to participate in the care of this patient. Mraia Esther Bassett PT, DPT, CLT [facility] [place], [place]
--- NOTE | 2022-09-07 14:52 | DSE_ITS ---
Date of service: 09/07/22 Time of Service: 14:52 DS: Diagnosis Discharge Diagnosis (1) Unstable angina: Status: Acute (2) Coronary artery disease: Status: Chronic (3) Status post coronary artery stent placement: (4) BPH (benign prostatic hyperplasia): Status: Chronic (5) Depression: Status: Chronic (6) Anxiety: (7) GERD (gastroesophageal reflux disease): (8) Discharge planning issues: Status: Acute (9) Reactive airway disease: Status: Acute Discharge Plan Disposition Patient Disposition: Home Condition: Improving Discharge Details Reason For Visit: Unstable Angina Admit Date/Time: 09/01/22 18:37 Admit Provider: Stephen Garcia Attending Provider: Stephen Garcia Primary Care Provider: Jae Del Toro [facility] Course Hospital Course: 72-year-old male with history of coronary artery disease who has had recurrent admissions in June and July with acute non-ST elevation myocardial infarction's.? I took care of this gentleman June 20, 2022 and transferred him to [facility] after he had a non-ST elevation myocardial infarction.? During that admission his initial EKG showed no ST elevation or depression but he was found to have elevated troponin I level of 3100 and with accelerating angina requiring nitroglycerin drip his troponins peaked at 11,000.? Patient was transferred to [facility] where he underwent coronary stenting of his LAD.? He had 90% obstruction and post angioplasty and stenting was down to 0% obstruction.? He had some distal disease in his LAD that was 100% blocked and he had residual 70% narrowing of his RCA which was not stented.? He later presented again to the emergency department [facility] on July 03, 2022 again with an NSTEMI and was treated with heparin and nitroglycerin and transferred to [facility].? Unclear as to what was performed at that time.? He then presented to [facility] third time on June 29, 2022 and was hospitalized overnight as there was no bed capacity at [facility] and again he had an episode which he had near syncope and was found to have a NSTEMI.? He was treated with heparin drip and topical nitroglycerin paste and was transferred to [facility] on 07/30/2022.? Patient possibly had subsequent cardiac catheterization and had a second stent placed in the same LAD distribution.? He now presents the emergency department again today with symptoms of dizziness but no syncope along with exertional dyspnea.? Symptoms have been progressive over the last 3 to 4 days.? Says when he stands up for any prolonged period of time he gets lightheaded feels like he is in a pass out and with ambulation he will get out of breath and his legs feel like they are going numb. Evaluation in the ER included routine labs including a CBC that was unremarkable.? CMP was remarkable for stable chronic renal insufficiency with a creatinine 1.5.? Troponin I levels were monitored and were 78, 72, 82.? ECG was performed and demonstrated sinus bradycardia rate of 58 bpm with no acute ischemic or injury pattern.? CT was performed he had no evidence of acute arter ial dissection or aneurysm although he has a stable intimal flap in his abdominal aorta.? Pulmonary arteries were not adequately opacified to rule out pulmonary embolus.? 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 Otherwise no acute process was seen in the chest abdomen or pelvis. Dr. Loredo spoke with [facility].? They read bed capacity but did express an interest in transfer him down to [facility] for cardiac catheterization as soon as a bed became available.? They recommend hospitalizing him here and obtaining an echocardiogram in the morning to evaluate for any new wall motion abnormalities.? They did not recommend heparinization at this time.? Dr. Loredo also spoke with the [facility] as well as [facility] neither 1 of those had bed capacity to accept the patient.? [facility] indicated that they probably would not have any openings until September 03 which is 2 days from now. An echocardiogram showed an estimated ejection fraction is 55 to 60%.? No segmental wall motion abnormalities are identified. [facility] was contacted on the second day of admission d/t ongoing CP. Still no bed availability so their recommendation was to increase Ranexa and his metoprolol if tolerated and if BP allows. This advice was followed and his CP. He was then placed on a heparin drip and troponin levels trended and found to be stable/flat in the low 80's. With the increase in medications. His symptoms improved and the heparin drip stopped and no escalation of symptoms noted. His concern was being able to negotiate the 5 stairs into his building and then the 2 flights of 13 stairs each once in the building. He accomplished this w/o assistance with PT but was short of air afterwords. He stated it took him appx 2 hours to recover. It had been recommended to him by his PCP that he use his albuterol MDI prior to acitivities such as going to the grocery store. He stated the albuterol tended to cause his heart to pound. Xopenex was ordered and when he used this prior to taking the stairs he was less short of breath and recovered much more quickly. He will continue at home with the higher doses of Ranexa and metoprolol. He will use the xopenex, 2 puffs, prior to activities. [facility]. Home Meds and New Rx's Prescriptions: New metoprolol succinate 50 mg Tablet Extended Release 24 Hr 100 mg PO DAILY Qty: 0 0RF simethicone 80 mg Tablet,Chewable 80 mg PO QID PRN PRNQty: 0 0RF ranolazine 500 mg Tablet Extended Release 12 Hr 1,000 mg PO BID Qty: 0 0RF Inhaler, Assist Devices [Pocket Chamber] 1 ea miscellaneous DIRECTED Qty: 0 0RF Patient's Own Medication 5 ea PO AC & HS PRNQty: 0 0RF Continued acetaminophen [Tylenol] 325 mg Tablet 650 mg PO QID PRN cyanocobalamin (vitamin B-12) 1,000 mcg Tablet 1,000 mcg PO DAILY aspirin 81 mg Tablet,Delayed Release (Dr/Ec) 81 mg PO DAILY buspirone 10 mg Tablet 20 mg PO BID hydroxyzine HCl 25 mg Tablet 25 mg PO TID PRN rosuvastatin 40 mg Tablet 40 mg PO DAILY cholecalciferol (vitamin D3) 25 mcg (1,000 unit) Tablet 25 mcg PO DAILY gabapentin [Neurontin] 100 mg capsule 100 mg PO TID isosorbide mononitrate 60 mg Tablet Extended Release 24 Hr 60 mg PO DAILY pantoprazole [Protonix] 40 mg Tablet,Delayed Release (Dr/Ec) 40 mg PO DAILY diazepam 5 mg Tablet 5 mg PO DAILY PRN (Reason: Anxiety) bupropion HCl 150 mg Tablet Extended Release 24 Hr 150 mg PO HS cetirizine 10 mg Tablet 10 mg PO DAILY PRN fluticasone propion-salmeterol [Advair Diskus] 250-50 mcg/dose Blister With Device 1 inh INHALATION BID ketoconazole 2 % Shampoo 1 applic TOPICAL DAILY cromolyn 5.2 mg/spray (4 %) [place],Non-Aerosol 1 spray INTRANASAL TID PRN loperamide 2 mg Capsule 2 mg PO QID PRN ibuprofen 800 mg Tablet 800 mg PO BID melatonin 3 mg Tablet 3 mg PO HS PRN gabapentin 300 mg Capsule 300 mg PO TID propranolol 10 mg Tablet 10 mg PO TID psyllium Powder 1 tbsp PO BID Rx Instructions: mix into at least 8 oz of water or juice before administering terazosin 2 mg Capsule 2 mg PO QHS montelukast 10 mg Tablet 10 mg PO DAILY Spiriva Respimat 2.5 mcg/actuation Mist 2 puff INHALATION DAILY famotidine 10 mg Tablet 10 mg PO BID PRN (Reason: GERD) vitamin A 10,000 unit Capsule 10,000 unit PO DAILY folic acid 1 mg Tablet 1 mg PO DAILY finasteride 5 mg Tablet 5 mg PO DAILY magnesium oxide 400 mg magnesium Tablet 400 mg PO HS clopidogrel [Plavix] 75 mg Tablet 75 mg PO DAILY losartan 25 mg Tablet 25 mg PO DAILY nitroglycerin [Nitrostat] 0.4 mg Tablet, Sublingual 0.4 mg sublingual PRN PRN bupropion HCl 150 mg Tablet Extended Release 24 Hr 300 mg PO DAILY ascorbic acid (vitamin C) 1,000 mg Tablet 1,000 mg PO DAILY Held albuterol 90 mcg/actuation Aerosol 180 mcg INHALATION QID PRN Hold Instructions: Now using Xopenex. Will restart if [facility]'t [facility] X[facility]ep[facility] Rx Instructions: INHALE 2 PUFFS BY MOUTH FOUR TIMES DAILY NEEDED Discontinued ranolazine [Ranexa] 500 mg Tablet Extended Release 12 Hr 500 mg PO BID metoprolol succinate 50 mg Tablet Extended Release 24 Hr 75 mg PO DAILY Discharge Instructions Activity:: Activity as Tolerated Equipment/Supplies:: No Equipment Needed Diet:: Resume usual home diet Discharge Orders Discharge Orders: Discharge Order (Routine); Ordered 09/07/22 Ordered By: Trent Ramey DS: Summary Time Spent with Patient providing and/or coordinating discharge services: Greater than 30 minutes Status at Discharge Functional status at discharge: independent ambulation Overall status at discharge: patient is back to baseline Mental Status: mental status grossly normal Speech and Movement: speech and movement normal Mood: congruent mood Affect: normal affect Exam Narrative Exam Narrative: General: Pleasant male lying supine comfortably in bed, A&Ox3, NAD. Rates his pain at 4/10. HEENT: EOMI, MMM Heart: RRR, no murmur Lungs: CTAB Abdomen: soft, nontender, nondistended Extremities: no edema BLEs Psych Mental Status: mental status grossly normal Speech and Movement: speech and movement normal Mood: congruent mood Affect: normal affect DS: Data Vitals/I&O Vitals and I&O: Vital Signs Temperature 35.4 C L 09/07/22 13:00 Temperature Source Tympanic 09/07/22 13:00 Pulse 67 09/07/22 13:00 Pulse Rhythm Regular 09/07/22 11:15 Pulse 63 09/01/22 13:10 Respiratory Rate 16 09/07/22 13:00 Respiratory Effort Non-Labored 09/07/22 11:15 Respiratory Depth Normal 09/07/22 11:15 Respiratory Pattern Normal 09/07/22 11:15 Blood Pressure 134/77 09/07/22 13:00 Blood Pressure Mean 64 09/01/22 13:02 Blood Pressure Position Supine 09/01/22 12:27 Pulse Oximetry 99 09/07/22 13:00 Oxygen Delivery Method Room Air 09/07/22 13:00 Oxygen Flow Rate 0 09/07/22 13:00 Pain Level 0 09/07/22 03:35 Comment 09/03/22 16:14 Intake & Output 09/06/22 09/07/22 09/07/22 23:59 11:59 23:59 Intake Total 720 / 720 490 / 990 500 / 990 Output Total 1450 / 1450 700 / 1500 800 / 1500 Balance -730 / -730 -210 / -510 -300 / -510 Intake: IV Oral 720 / 720 480 / 980 500 / 980 Output: Urine 1450 / 1450 700 / 1500 800 / 1500 Other: Urine Color Yellow Yellow Yellow Urine Appearance Clear Clear Clear Urine Odor Normal Normal Comment multiple voids into urinal Voiding Methods Urinal Urinal Data Completed and Pending Labs on day of discharge: Labs from last 24 hours 09/07/22 06:37 WBC 9.18 RBC 4.00 L Hgb 13.0 L Hct 37.6 L MCV 94 MCH 32.5 MCHC 34.6 RDW 13.2 Plt Count 192 MPV 9.8 PFSH All Active Problems Reactive airway disease (Acute) Coronary artery disease (Chronic) Unstable angina (Acute) Chest pain (Acute) Discharge planning issues (Acute) BPH (benign prostatic hyperplasia) (Chronic) Depression (Chronic) Acute non-ST elevation myocardial infarction (NSTEMI) (Acute) Elevated ETOH level (Acute) Chest pain (Acute) TAYLOR (obstructive sleep apnea) (Chronic) Non-ST elevation DC (NSTEMI) (Acute) Medical History AAA (abdominal aortic aneurysm) without rupture Anxiety GERD (gastroesophageal reflux disease) High cholesterol Kidney stones Sleep apnea Surgical History S/P spinal surgery multiple cervical and lumbar spine surgeries Status post coronary artery stent placement Family History Father Dementia Mother Dementia Social History Smoking/Tobacco Use Status: Never Smoking risk assessment performed?: Yes Alcohol Intake: current Alcohol Intake frequency: a few times a week Alcohol type: beer and hard liquor Drug use: Never Substance use type: does not use Do you feel safe at home: Yes Do you feel safe in your relationship?: Yes Additional Social history: Lives alone on [address] in [place], Grew up in [place], family goes back generations there. Served in [employer] on [employer] out of [place], [place]. On disability for spinal injuries since.
--- NOTE | 2022-09-07 15:57 | PDOC.CMDIS ---
- If Service Date Differs Date of service: 09/07/22 Time of Service: 15:57 LACE Index Scoring Tool - Questions: Length of Stay (in days): 4 - 6 Acuity (Admit via E.D.?): Yes Comorbidities: Previous M.I. E.D. Visits: 5 - Answers: Total Score: 12 Risk of Readmission: High Risk Care Management Discharge Reason for Hospitalization: Unstable angina Discharge Plan: Nicholas had been accepted for transfer to [facility] but no bed has been available for him. His treatment plan has been modified with input from [facility] specialists. Nicholas will return home with outpatient follow up with his PCP, cardiology and plan of care. He will transport via [facility] coordinated by CM. Patient/Family Education Needs: Review of discharge instructions, limitations, follow up plan, activity, medications, Ask Me Three Services Needed at Discharge: Home Health Care Services
== END 2022-09-07 16:34 | disposition home or self-care (01) | DRG 303 ==
LOC: ER 20:04 → MS 20:15
PROVIDERS: Family Medicine; Internal Medicine; Admitting Provider Internal Medicine; Emergency Provider Student in an Organized Health Care Education/Training Program; PCP Internal Medicine; Visit Provider Internal Medicine
DX: I25.110 Atherosclerotic heart disease of native coronary artery with unstable angina pectoris (principal); N40.0 Benign prostatic hyperplasia without lower urinary tract symptoms; G47.33 Obstructive sleep apnea (adult) (pediatric); F32.A Depression, unspecified; I71.40 Abdominal aortic aneurysm, without rupture, unspecified; E78.00 Pure hypercholesterolemia, unspecified; K21.9 Gastro-esophageal reflux disease without esophagitis; F41.9 Anxiety disorder, unspecified; Z95.5 Presence of coronary angioplasty implant and graft; I25.2 Old myocardial infarction; N18.9 Chronic kidney disease, unspecified; I12.9 Hypertensive chronic kidney disease with stage 1 through stage 4 chronic kidney disease, or unspecified chronic kidney disease; R94.31 Abnormal electrocardiogram [ECG] [EKG]; J45.909 Unspecified asthma, uncomplicated
CPT/HCPCS: 36415; 71275; 80048; 80053; 80061; 85027; 87635; 93005; 93306; 93308; 94640; 96360; 97162; 97530; 99285; 74174; 83735; 83880; 84443; 84484; 85025; 85730; 93010; 94664; 99222; 99232; 99233; 99239; J3490

== ENCOUNTER 2022-09-22 02:26 | Outpatient (CLI) | payer OTHER, SELFPAY ==
[2022-09-22] MEDS: Albuterol HFA 18 GM 200 PUFF INH IH (17:08)
[2022-09-22] MEDS: Inhaler, Assist Device 1 EACH MC (17:08)
--- NOTE | 2022-10-06 10:40 | W.PFT ---
Date of service: 09/22/22 Time of Service: 15:03 Pulmonary Function Test Result Requesting Provider Jae Del Toro Indications: RUIZ Interpretation Spirometry: There is no airflow limitation. There is no significant bronchodilator response. Lung Volumes: Normal lung volumes Diffusion Capacity: Normal diffusion Airway Pressure: Normal airways resistance Impression Normal pulmonary function testing Clinical Correlation therefore is recommended.
== END 2022-09-22 02:27 | disposition home or self-care (01) ==
LOC: RT 02:26
PROVIDERS: PCP Internal Medicine; Visit Provider Internal Medicine
DX: R06.09 Other forms of dyspnea (principal)
CPT/HCPCS: 94060; 94726; 94729

== ENCOUNTER 2022-10-21 13:38 | Outpatient (RCR) | payer OTHER, SELFPAY | END 2022-11-03 23:59 | disposition home or self-care (01) | LOC: CR 13:38 | PROVIDERS: PCP Internal Medicine; Visit Provider Internal Medicine Cardiovascular Disease | DX: I25.2 Old myocardial infarction (principal); Z95.5 Presence of coronary angioplasty implant and graft; Z51.89 Encounter for other specified aftercare | CPT/HCPCS: S9472 ==

== ENCOUNTER 2022-10-26 11:56 | Emergency (ER) | payer OTHER, SELFPAY ==
[2022-10-26 12:06] VITALS: BP 129/75; PULSE 64; RESP 18; TEMP 37.1; O2SAT 100
--- NOTE | 2022-10-26 12:15 | DI.RAD_ITS ---
Exam(s) XR RIBS LT W PA LAT CHEST CLINICAL HISTORY Fall, Back and rb pain. COMPARISON: CR,XR XR CHEST 1V IN DI DEPT from 07/29/2022 TECHNIQUE:: PA and lateral views of the chest and four views of the left ribs were performed. FINDINGS: LUNGS: Clear. No pleural abnormality seen. HEART: Normal. MEDIASTINUM: Normal. BONES: No displaced rib fracture is seen. No compression fractures are seen in the thoracic spine. No bony destructive lesion is seen. Degenerative changes in left shoulder and spine. OTHER FINDINGS: Coronary artery stents. IMPRESSION: 1. Unremarkable radiographic appearance of the left ribs. 2. No acute pulmonary findings.
--- NOTE | 2022-10-26 12:15 | DI.RAD_ITS ---
Exam(s) XR WRIST RT COMPLETE EXAM: XR WRIST RT COMPLETE CLINICAL HISTORY: fall, pain. TECHNIQUE: 2D digital imaging was performed. Three views. COMPARISON: No exams were available for comparison FINDINGS: BONES: Tiny bony fragment seen posterior to lunate on the lateral view, acute versus old fracture fra gment.. No bony destructive lesion is seen. JOINTS: The carpal bones are normally aligned. Degenerative changes scaphoid trapezium joint. SOFT TISSUE: Swelling at dorsum of wrist. IMPRESSION: Question of a acute versus chronic tiny chip fracture at the dorsum of the wrist. DATA REPOSITORY: RADIATION DOSE DELIVERED:
--- NOTE | 2022-10-26 12:15 | DI.RAD_ITS ---
Exam(s) XR LUMBAR SPINE AP, LAT EXAM: XR LUMBAR SPINE AP, LAT CLINICAL HISTORY: fall, pain. TECHNIQUE: 2D digital imaging was performed. Five views. COMPARISON: CT CT THORAX ABD/PEL CTA from 09/01/2022 FINDINGS: BONES: Stable mild L1 compression fracture. No new fractures peer degenerative disc changes througho ut greatest at L3-4 and L5-S1. Facet degenerative changes. DISKS: Intervertebral disc spaces are maintained. ALIGNMENT: Lumbar spinal alignment is within normal limits. SOFT TISSUE: Normal. IMPRESSION: No acute abnormality. DATA REPOSITORY: RADIATION DOSE DELIVERED:
--- NOTE | 2022-10-26 12:28 | W.ED.GENAD ---
Discharge Plan Disposition Patient Disposition: Home Condition: Improving Discharge Details Clinical Impression: Back strain, Injury of right wrist Primary Care Provider: Jae Del Toro ED Provider: Victor M Bailey Home Meds and New Rx's Prescriptions: New methocarbamol 500 mg tablet 500 mg PO Q6H PRN (Reason: Back pain or spasm) Qty: 14 0RF Continued acetaminophen [Tylenol] 325 mg Tablet 650 mg PO QID PRN cyanocobalamin (vitamin B-12) 1,000 mcg Tablet 1,000 mcg PO DAILY aspirin 81 mg Tablet,Delayed Release (Dr/Ec) 81 mg PO DAILY buspirone 10 mg Tablet 20 mg PO BID hydroxyzine HCl 25 mg Tablet 25 mg PO TID PRN rosuvastatin 40 mg Tablet 40 mg PO DAILY cholecalciferol (vitamin D3) 25 mcg (1,000 unit) Tablet 25 mcg PO DAILY gabapentin [Neurontin] 100 mg capsule 100 mg PO TID isosorbide mononitrate 60 mg Tablet Extended Release 24 Hr 60 mg PO DAILY pantoprazole [Protonix] 40 mg Tablet,Delayed Release (Dr/Ec) 40 mg PO DAILY diazepam 5 mg Tablet 5 mg PO DAILY PRN (Reason: Anxiety) bupropion HCl 150 mg Tablet Extended Release 24 Hr 150 mg PO HS cetirizine 10 mg Tablet 10 mg PO DAILY PRN fluticasone propion-salmeterol [Advair Diskus] 250-50 mcg/dose Blister With Device 1 inh INHALATION BID ketoconazole 2 % Shampoo 1 applic TOPICAL DAILY cromolyn 5.2 mg/spray (4 %) Brea,Non-Aerosol 1 spray INTRANASAL TID PRN loperamide 2 mg Capsule 2 mg PO QID PRN ibuprofen 800 mg Tablet 800 mg PO BID melatonin 3 mg Tablet 3 mg PO HS PRN gabapentin 300 mg Capsule 300 mg PO TID propranolol 10 mg Tablet 10 mg PO TID psyllium Powder 1 tbsp PO BID Rx Instructions: mix into at least 8 oz of water or juice before administering terazosin 2 mg Capsule 2 mg PO QHS montelukast 10 mg Tablet 10 mg PO DAILY Spiriva Respimat 2.5 mcg/actuation Mist 2 puff INHALATION DAILY metoprolol succinate 50 mg Tablet Extended Release 24 Hr 100 mg PO DAILY Qty: 0 0RF simethicone 80 mg Tablet,Chewable 80 mg PO QID PRN PRNQty: 0 0RF ranolazine 500 mg Tablet Extended Release 12 Hr 1,000 mg PO BID Qty: 0 0RF Inhaler, Assist Devices [Pocket Chamber] 1 ea miscellaneous DIRECTED Qty: 0 0RF Patient's Own Medication 5 ea PO AC & HS PRNQty: 0 0RF levalbuterol tartrate 45 mcg/actuation Hfa Aerosol Inhaler 2 puff inhalation Q4H PRN PRNQty: 15 0RF famotidine 10 mg Tablet 10 mg PO BID PRN (Reason: GERD) vitamin A 10,000 unit Capsule 10,000 unit PO DAILY folic acid 1 mg Tablet 1 mg PO DAILY albuterol 90 mcg/actuation Aerosol 180 mcg INHALATION QID PRN Hold Instructions: Now using Xopenex. Will restart if [facility]'t [facility] Xoepnex Rx Instructions: INHALE 2 PUFFS BY MOUTH FOUR TIMES DAILY NEEDED finasteride 5 mg Tablet 5 mg PO DAILY magnesium oxide 400 mg magnesium Tablet 400 mg PO HS clopidogrel [Plavix] 75 mg Tablet 75 mg PO DAILY losartan 25 mg Tablet 25 mg PO DAILY nitroglycerin [Nitrostat] 0.4 mg Tablet, Sublingual 0.4 mg sublingual PRN PRN bupropion HCl 150 mg Tablet Extended Release 24 Hr 300 mg PO DAILY ascorbic acid (vitamin C) 1,000 mg Tablet 1,000 mg PO DAILY Discharge Instructions Additional Instructions: May use the provided methocarbamol as needed 500 to 1000 mg every 6 hours for pain or spasm. We will have our care managers refer you to orthopedics for follow-up. The office #[phone]. Continue to wear your right wrist splint while awake and out of bed. Continue routine medications. Return to the emergency [facility] for any acute concerns. Medical Decision Making 72-year-old male presents from home stating he slipped and fell on his porch on Wednesday, falling backwards and striking his low back and right wrist. He had no loss of consciousness. Since that time he said a dull, achy and constant right wrist and left greater than right low back pain. No abdominal pain. No change to urine. Has not had any neck pain and denies any numbness or tingling. Patient's exam is reassuring, does demonstrate tenderness on examination of the right wrist, left posterior chest and lumbar spine. Patient referred for x-ray: Lumbar spine reveals a stable mild L1 compression fracture, no new fractures appreciated. Wrist x-ray reveals tiny bone fragment posterior to the lunate on the lateral view. Question of acute versus chronic chip fracture at the dorsum of the wrist.. Chest x-ray without acute findings. Please see the formal reports. We will have the patient follow-up with orthopedics given the question of tiny chip fracture of the wrist. I will immobilize him in a wrist splint. He may benefit from Robaxin for his back strain. HPI General Date/Time Provider Initiated Documentation: 10/26/22 12:10. Limitations to Documentation: no limitations. Information obtained by: patient. History of Present Illness 72 year old M presents to the emergency department with the chief complaint of Fall 2 days ago, back and right wrist pain, described as moderate, Quality is described as dull and constant, and is localized to the back, right and upper extremity. Patient reports no radiation. Patient started experiencing this day(s) and it has been constant. Rest improves symptom(s), Movement worsens symptoms . Patient notes denies confusion, chest pain, cough, headaches, seizure, shortness of breath, syncope and weakness. Patient did receive the following treatments prior to arrival, none Related Data Home Medications Medication Instructions Recorded Confirmed acetaminophen 325 mg tablet 650 mg PO QID PRN 09/17/20 09/01/22 (Tylenol) albuterol 90 mcg/actuation aerosol 180 mcg inhalation QID PRN 10/01/20 09/01/22 inhaler famotidine 10 mg tablet 10 mg PO BID PRN GERD 10/01/20 09/02/22 finasteride 5 mg tablet 5 mg PO DAILY 10/01/20 09/02/22 folic acid 1 mg tablet 1 mg PO DAILY 10/01/20 09/01/22 magnesium oxide 400 mg PO HS 10/01/20 09/02/22 vitamin A 10,000 unit capsule 10,000 unit PO DAILY 10/01/20 09/01/22 ascorbic acid (vitamin C) 1,000 mg 1,000 mg PO DAILY 06/25/22 09/01/22 tablet bupropion HCl 150 mg 24 hr tablet, 300 mg PO DAILY 06/25/22 09/01/22 extended release clopidogrel 75 mg tablet (Plavix) 75 mg PO DAILY 06/25/22 09/01/22 losartan 25 mg tablet 25 mg PO DAILY 06/25/22 09/01/22 nitroglycerin 0.4 mg sublingual 0.4 mg sublingual PRN PRN 06/25/22 09/01/22 tablet (Nitrostat) aspirin 81 mg tablet,delayed 81 mg PO DAILY 07/03/22 09/01/22 release buspirone 10 mg tablet 20 mg PO BID 07/03/22 09/02/22 cholecalciferol (vitamin D3) 25 25 mcg PO DAILY 07/03/22 09/01/22 mcg (1,000 unit) tablet cyanocobalamin (vitamin B-12) 1,000 mcg PO DAILY 07/03/22 09/01/22 1,000 mcg tablet hydroxyzine HCl 25 mg tablet 25 mg PO TID PRN 07/03/22 09/02/22 rosuvastatin 40 mg tablet 40 mg PO DAILY 07/03/22 09/01/22 bupropion HCl 150 mg 24 hr tablet, 150 mg PO HS 09/01/22 09/01/22 extended release diazepam 5 mg tablet 5 mg PO DAILY PRN Anxiety 09/01/22 09/01/22 gabapentin 100 mg capsule 100 mg PO TID 09/01/22 09/02/22 (Neurontin) isosorbide mononitrate 60 mg 60 mg PO DAILY 09/01/22 09/01/22 tablet,extended release 24 hr pantoprazole 40 mg tablet,delayed 40 mg PO DAILY 09/01/22 09/01/22 release (Protonix) cetirizine 10 mg tablet 10 mg PO DAILY PRN 09/02/22 09/02/22 cromolyn 5.2 mg/spray (4 %) nasal 1 spray intranasal TID PRN 09/02/22 09/02/22 spray fluticasone 250 mcg-salmeterol 50 1 inh inhalation BID 09/02/22 09/02/22 mcg/dose blistr powdr for inhalation (Advair Diskus) gabapentin 300 mg capsule 300 mg PO TID 09/02/22 09/02/22 ibuprofen 800 mg tablet 800 mg PO BID PAIN/INFLAMMATION 09/02/22 09/02/22 ketoconazole 2 % shampoo 1 applic topical DAILY 09/02/22 09/02/22 loperamide 2 mg capsule 2 mg PO QID PRN 09/02/22 09/02/22 melatonin 3 mg tablet 3 mg PO HS PRN 09/02/22 09/02/22 montelukast 10 mg tablet 10 mg PO DAILY 09/02/22 09/02/22 propranolol 10 mg tablet 10 mg PO TID BLOOD PRESSURE/ANXIETY 09/02/22 09/02/22 psyllium 1 tbsp PO BID 09/02/22 09/02/22 terazosin 2 mg capsule 2 mg PO QHS 09/02/22 09/02/22 tiotropium bromide 2.5 2 puff inhalation DAILY 09/02/22 09/02/22 mcg/actuation mist for inhalation (Spiriva Respimat) Inhaler, Assist Devices [Pocket 1 ea miscellaneous DIRECTED ##0 09/07/22 Chamber] Patient's Own Medication 5 ea PO AC & HS PRN ##0 09/07/22 levalbuterol tartrate 45 2 puff inhalation Q4H PRN PRN #15 09/07/22 mcg/actuation aerosol inhaler grams metoprolol succinate 50 mg 100 mg PO DAILY #0 tabs 09/07/22 tablet,extended release 24 hr ranolazine 500 mg tablet,extended 1,000 mg PO BID #0 tabs 09/07/22 release,12 hr simethicone 80 mg chewable tablet 80 mg PO QID PRN PRN #0 tabs 09/07/22 methocarbamol 500 mg tablet 500 mg PO Q6H PRN Back pain or 10/26/22 spasm #14 tabs Previous Rx's Medication Instructions Recorded Inhaler, Assist Devices [Pocket 1 ea miscellaneous DIRECTED ##0 09/07/22 Chamber] Patient's Own Medication 5 ea PO AC & HS PRN ##0 09/07/22 levalbuterol tartrate 45 2 puff inhalation Q4H PRN PRN #15 09/07/22 mcg/actuation aerosol inhaler grams metoprolol succinate 50 mg 100 mg PO DAILY #0 tabs 09/07/22 tablet,extended release 24 hr ranolazine 500 mg tablet,extended 1,000 mg PO BID #0 tabs 09/07/22 release,12 hr simethicone 80 mg chewable tablet 80 mg PO QID PRN PRN #0 tabs 12/05/22 methocarbamol 500 mg tablet 500 mg PO Q6H PRN Back pain or 10/26/22 spasm #14 tabs Allergies Allergy/AdvReac Type Severity Reaction Status Date / Time simvastatin AdvReac Unknown abdominal Unverified 09/01/22 17:02 pain General Stated Complaint: Fall/Non TraumaCriteria RICKI: 4 Review of Systems Narrative: 6 systems reviewed and otherwise negative. Patient denies loss of consciousness. No weakness or tingling of the upper extremity. Complains of right wrist and lower back pain. PFSH All Active Problems (Updated 10/26/22 @ 13:25 by Victor M Bailey MD) Back strain (Acute) Injury of right wrist (Acute) Reactive airway disease (Acute) Coronary artery disease (Chronic) Unstable angina (Acute) BPH (benign prostatic hyperplasia) (Chronic) Depression (Chronic) Acute non-ST elevation myocardial infarction (NSTEMI) (Acute) Elevated ETOH level (Acute) Chest pain (Acute) TAYLOR (obstructive sleep apnea) (Chronic) Non-ST elevation FL (NSTEMI) (Acute) Medical History AAA (abdominal aortic aneurysm) without rupture Anxiety GERD (gastroesophageal reflux disease) High cholesterol Kidney stones Sleep apnea Surgical History S/P spinal surgery multiple cervical and lumbar spine surgeries Status post coronary artery stent placement Family History Father Dementia Mother Dementia Social History Smoking/Tobacco Use Status: Never Smoking risk assessment performed?: Yes Alcohol Intake: current Alcohol Intake frequency: a few times a week Alcohol type: beer and hard liquor Drug use: Never Substance use type: does not use Do you feel safe at home: Yes Do you feel safe in your relationship?: Yes Additional Social history: Lives alone [address] in [facility], Grew up in [facility], family goes back generations there. Served in [employer] on [employer] out of [place], [place]. On disability for spinal injuries since. Exam Narrative Exam Narrative: GEN: awake, alert, oriented 3. Pleasant, well groomed, interactive. HEAD: Normocephalic, atraumatic ENT: Mucous membranes moist, oropharynx unremarkable, External ear exam unremarkable EYES: PERRL, EOMI NECK: Full ROM, no FLAKO, no menigismus CHEST/RESP: Minimal tenderness left posterior chest, clear to auscultation bilateral, no wheeze/rhonchi/rales CARDIOVASCULAR: RRR, no murmur, rub alla. 2+ Rad pulse bilateral ABDOMEN: Soft, nontender, no mass. +Bowel sounds Back: No step-off or deformity. Cervical spine shows a healed surgical incision without tenderness. There is mild lumbar paraspinous tenderness and mild spasm present left greater than right. EXT: Full ROM, tender right distal radius, no deformity noted. Normal motor and sensory function throughout. Neuro: Grossly normal neurologic exam, conversant, interactive. Psych: Speech fluent, thoughts congruent, affect normal Course Vital Signs Vital signs: Vital Signs Temperature 37.1 C 10/26/22 12:06 Pulse 64 10/26/22 12:06 Respiratory Rate 18 10/26/22 12:06 Blood Pressure 129/75 10/26/22 12:06 Pulse Oximetry 100 10/26/22 12:06 Temperature 37.1 C 10/26/22 12:06 Temperature Source Skin 10/26/22 12:06 Pulse 64 10/26/22 12:06 Respiratory Rate 18 10/26/22 12:06 Blood Pressure 129/75 10/26/22 12:06 Pulse Oximetry 100 10/26/22 12:06 Oxygen Delivery Method Room Air 10/26/22 12:06 Oxygen Flow Rate 0 10/26/22 12:06 Pain Level 10 10/26/22 12:06
--- NOTE | 2022-10-26 13:30 | NUR.NOTE ---
Consultation request with Orthopaedics, Right wrist bone chip. patient is wearing a removal splint within 2 weeks p/ Dr. Bailey
[2022-10-26 13:47] VITALS: BP 127/64; PULSE 62; RESP 22; O2SAT 98
[2022-10-26] MEDS: Methocarbamol 500 MG TAB 1000 MG PO (13:50)
== END 2022-10-26 13:55 | disposition home or self-care (01) ==
PROVIDERS: Emergency Provider Emergency Medicine; PCP Internal Medicine
DX: S39.012A Strain of muscle, fascia and tendon of lower back, initial encounter (principal); S69.91XA Unspecified injury of right wrist, hand and finger(s), initial encounter; W01.10XA Fall on same level from slipping, tripping and stumbling with subsequent striking against unspecified object, initial encounter; Y92.009 Unspecified place in unspecified non-institutional (private) residence as the place of occurrence of the external cause
CPT/HCPCS: 99284; 71046; 71100; 72100; 73110

== ENCOUNTER 2022-11-15 04:52 | Observation (INO) | payer OTHER, SELFPAY ==
[2022-11-15] VITALS (147 sets, daily range): BP systolic 112–160; BP diastolic 55–95; PULSE 66–112; RESP 11–30; TEMP 36.8–37.5; O2SAT 94–100
--- NOTE | 2022-11-15 04:45 | RT.EKG_ITS ---
APPROVED REPORT Exam: Resting ECG Reason for Exam: chest pain Patient Location: E HR:112 bpm ECG Measurements Heart Rate 112 AXIS AR 128 P 39 QRSd 74 QRS 31 QT 346 T 36 QTc 473 Conclusion Sinus tachycardia...rate> 99 Low voltage, precordial leads...precordial leads <1.0mV
--- NOTE | 2022-11-15 05:06 | W.ED.GENAD ---
Discharge Plan Disposition Condition: Stable Discharge Details Chief Complaint: Chest Pain Clinical Impression: Chest pain Primary Care Provider: Jae Del Toro ED Provider: Jae Andrew Home Meds and New Rx's Prescriptions: No Action acetaminophen [Tylenol] 325 mg Tablet 650 mg PO QID PRN cyanocobalamin (vitamin B-12) 1,000 mcg Tablet 1,000 mcg PO DAILY aspirin 81 mg Tablet,Delayed Release (Dr/Ec) 81 mg PO DAILY buspirone 10 mg Tablet 20 mg PO BID hydroxyzine HCl 25 mg Tablet 25 mg PO TID PRN rosuvastatin 40 mg Tablet 40 mg PO DAILY cholecalciferol (vitamin D3) 25 mcg (1,000 unit) Tablet 25 mcg PO DAILY gabapentin [Neurontin] 100 mg capsule 100 mg PO TID isosorbide mononitrate 60 mg Tablet Extended Release 24 Hr 60 mg PO DAILY pantoprazole [Protonix] 40 mg Tablet,Delayed Release (Dr/Ec) 40 mg PO DAILY diazepam 5 mg Tablet 5 mg PO DAILY PRN (Reason: Anxiety) bupropion HCl 150 mg Tablet Extended Release 24 Hr 150 mg PO HS cetirizine 10 mg Tablet 10 mg PO DAILY PRN fluticasone propion-salmeterol [Advair Diskus] 250-50 mcg/dose Blister With Device 1 inh INHALATION BID ketoconazole 2 % Shampoo 1 applic TOPICAL DAILY cromolyn 5.2 mg/spray (4 %) [place],Non-Aerosol 1 spray INTRANASAL TID PRN loperamide 2 mg Capsule 2 mg PO QID PRN ibuprofen 800 mg Tablet 800 mg PO BID melatonin 3 mg Tablet 3 mg PO HS PRN gabapentin 300 mg Capsule 300 mg PO TID propranolol 10 mg Tablet 10 mg PO TID psyllium Powder 1 tbsp PO BID Rx Instructions: mix into at least 8 oz of water or juice before administering terazosin 2 mg Capsule 2 mg PO QHS montelukast 10 mg Tablet 10 mg PO DAILY Spiriva Respimat 2.5 mcg/actuation Mist 2 puff INHALATION DAILY metoprolol succinate 50 mg Tablet Extended Release 24 Hr 100 mg PO DAILY Qty: 0 0RF simethicone 80 mg Tablet,Chewable 80 mg PO QID PRN PRNQty: 0 0RF ranolazine 500 mg Tablet Extended Release 12 Hr 1,000 mg PO BID Qty: 0 0RF Inhaler, Assist Devices [Pocket Chamber] 1 ea miscellaneous DIRECTED Qty: 0 0RF Patient's Own Medication 5 ea PO AC & HS PRNQty: 0 0RF levalbuterol tartrate 45 mcg/actuation Hfa Aerosol Inhaler 2 puff inhalation Q4H PRN PRNQty: 15 0RF methocarbamol 500 mg tablet 500 mg PO Q6H PRN (Reason: Back pain or spasm) Qty: 14 0RF famotidine 10 mg Tablet 10 mg PO BID PRN (Reason: GERD) vitamin A 10,000 unit Capsule 10,000 unit PO DAILY folic acid 1 mg Tablet 1 mg PO DAILY albuterol 90 mcg/actuation Aerosol 180 mcg INHALATION QID PRN Hold Instructions: Now using Xopenex. Will restart if [facility] Xoepnex Rx Instructions: INHALE 2 PUFFS BY MOUTH FOUR TIMES DAILY NEEDED finasteride 5 mg Tablet 5 mg PO DAILY magnesium oxide 400 mg magnesium Tablet 400 mg PO HS clopidogrel [Plavix] 75 mg Tablet 75 mg PO DAILY losartan 25 mg Tablet 25 mg PO DAILY nitroglycerin [Nitrostat] 0.4 mg Tablet, Sublingual 0.4 mg sublingual PRN PRN bupropion HCl 150 mg Tablet Extended Release 24 Hr 300 mg PO DAILY ascorbic acid (vitamin C) 1,000 mg Tablet 1,000 mg PO DAILY Medical Decision Making 72 yo male with hx of CAD with stent placement late last year, who comes in with chest tightness after he states he had a nightmare that woke him from sleep. He denies any diaphoresis or n/v, he states he took 3 nitro and had another sublingual nitro with ems which did not change his pain. HE has not had any recent fevers or chills. He arrives stable in no distress speaking clearly and appears comfortable. EKG nondiagnostic, no stemi or acute changes from prior. He has clear lungs, no murmurs, no jvd, no leg swelling, no abdominal tenderness. Given his history will obtain troponin, cbc, cmp. HE is mildly tachycardic to 108 on my exam, no leg swelling or calf tenderness to suggest dvt. If renal function adequate will proceed with cta of the chest to evaluate for pe troponin 160, when last checked it was in the 80's, he is comfortable in no distress, will start heparin and give his daily plavix 75mg, had 324mg asa with ems. His renal function is adequate, will proceed with cta of the chest to evaluate for pe Differential Diagnosis Differential Diagnosis: nstemi, angina Medical Records Medical records reviewed: Yes I reviewed the patient's medical records. ECG Data Attestation: I personally reviewed and interpreted this ECG (s) as follows: Prior ECG tracings: available for review Interpretation: sinus tachycardia, rate of 112, pr 128, no stemi HPI General Mode of arrival: EMS. Date/Time Provider Initiated Documentation: 11/15/22 04:56. Limitations to Documentation: no limitations. Information obtained by: patient. History of Present Illness 72 year old M presents to the emergency department with the chief complaint of chest pain, described as moderate, Quality is described as other (tightness), and is localized to the chest. Patient reports no radiation. Patient started experiencing this day(s) (1) and it has been constant. No relieving factors improve symptom(s), No exacerbating factors reported . Patient notes other (anxious). Patient did receive the following treatments prior to arrival, none Related Data Home Medications Medication Instructions Recorded Confirmed acetaminophen 325 mg tablet 650 mg PO QID PRN 09/17/20 09/01/22 (Tylenol) albuterol 90 mcg/actuation aerosol 180 mcg inhalation QID PRN 10/01/20 09/01/22 inhaler famotidine 10 mg tablet 10 mg PO BID PRN GERD 10/01/20 09/02/22 finasteride 5 mg tablet 5 mg PO DAILY 10/01/20 09/02/22 folic acid 1 mg tablet 1 mg PO DAILY 10/01/20 09/01/22 magnesium oxide 400 mg PO HS 10/01/20 09/02/22 vitamin A 3,000 mcg (10,000 unit) 10,000 unit PO DAILY 10/01/20 09/01/22 capsule ascorbic acid (vitamin C) 1,000 mg 1,000 mg PO DAILY 06/25/22 09/01/22 tablet bupropion HCl 150 mg 24 hr tablet, 300 mg PO DAILY 06/25/22 09/01/22 extended release clopidogrel 75 mg tablet (Plavix) 75 mg PO DAILY 06/25/22 09/01/22 losartan 25 mg tablet 25 mg PO DAILY 06/25/22 09/01/22 nitroglycerin 0.4 mg sublingual 0.4 mg sublingual PRN PRN 06/25/22 09/01/22 tablet (Nitrostat) aspirin 81 mg tablet,delayed 81 mg PO DAILY 07/03/22 09/01/22 release buspirone 10 mg tablet 20 mg PO BID 07/03/22 09/02/22 cholecalciferol (vitamin D3) 25 25 mcg PO DAILY 07/03/22 09/01/22 mcg (1,000 unit) tablet cyanocobalamin (vitamin B-12) 1,000 mcg PO DAILY 07/03/22 09/01/22 1,000 mcg tablet hydroxyzine HCl 25 mg tablet 25 mg PO TID PRN 07/03/22 09/02/22 rosuvastatin 40 mg tablet 40 mg PO DAILY 07/03/22 09/01/22 bupropion HCl 150 mg 24 hr tablet, 150 mg PO HS 09/01/22 09/01/22 extended release diazepam 5 mg tablet 5 mg PO DAILY PRN Anxiety 09/01/22 09/01/22 gabapentin 100 mg capsule 100 mg PO TID 09/01/22 09/02/22 (Neurontin) isosorbide mononitrate 60 mg 60 mg PO DAILY 09/01/22 09/01/22 tablet,extended release 24 hr pantoprazole 40 mg tablet,delayed 40 mg PO DAILY 09/01/22 09/01/22 release (Protonix) cetirizine 10 mg tablet 10 mg PO DAILY PRN 09/02/22 09/02/22 cromolyn 5.2 mg/spray (4 %) nasal 1 spray intranasal TID PRN 09/02/22 09/02/22 spray fluticasone 250 mcg-salmeterol 50 1 inh inhalation BID 09/02/22 09/02/22 mcg/dose blistr powdr for inhalation (Advair Diskus) gabapentin 300 mg capsule 300 mg PO TID 09/02/22 09/02/22 ibuprofen 800 mg tablet 800 mg PO BID PAIN/INFLAMMATION 09/02/22 09/02/22 ketoconazole 2 % shampoo 1 applic topical DAILY 09/02/22 09/02/22 loperamide 2 mg capsule 2 mg PO QID PRN 09/02/22 09/02/22 melatonin 3 mg tablet 3 mg PO HS PRN 09/02/22 09/02/22 montelukast 10 mg tablet 10 mg PO DAILY 09/02/22 09/02/22 propranolol 10 mg tablet 10 mg PO TID BLOOD PRESSURE/ANXIETY 09/02/22 09/02/22 psyllium 1 tbsp PO BID 09/02/22 09/02/22 terazosin 2 mg capsule 2 mg PO QHS 09/02/22 09/02/22 tiotropium bromide 2.5 2 puff inhalation DAILY 09/02/22 09/02/22 mcg/actuation mist for inhalation (Spiriva Respimat) Inhaler, Assist Devices [Pocket 1 ea miscellaneous DIRECTED ##0 09/07/22 Chamber] Patient's Own Medication 5 ea PO AC & HS PRN ##0 09/07/22 levalbuterol tartrate 45 2 puff inhalation Q4H PRN PRN #15 09/07/22 mcg/actuation aerosol inhaler grams metoprolol succinate 50 mg 100 mg PO DAILY #0 tabs 09/07/22 tablet,extended release 24 hr ranolazine 500 mg tablet,extended 1,000 mg PO BID #0 tabs 09/07/22 release,12 hr simethicone 80 mg chewable tablet 80 mg PO QID PRN PRN #0 tabs 09/07/22 methocarbamol 500 mg tablet 500 mg PO Q6H PRN Back pain or 10/26/22 spasm #14 tabs Previous Rx's Medication Instructions Recorded Inhaler, Assist Devices [Pocket 1 ea miscellaneous DIRECTED ##0 09/07/22 Chamber] Patient's Own Medication 5 ea PO AC & HS PRN ##0 09/07/22 levalbuterol tartrate 45 2 puff inhalation Q4H PRN PRN #15 09/07/22 mcg/actuation aerosol inhaler grams metoprolol succinate 50 mg 100 mg PO DAILY #0 tabs 09/07/22 tablet,extended release 24 hr ranolazine 500 mg tablet,extended 1,000 mg PO BID #0 tabs 09/07/22 release,12 hr simethicone 80 mg chewable tablet 80 mg PO QID PRN PRN #0 tabs 09/07/22 methocarbamol 500 mg tablet 500 mg PO Q6H PRN Back pain or 10/26/22 spasm #14 tabs Allergies Allergy/AdvReac Type Severity Reaction Status Date / Time simvastatin AdvReac Unknown abdominal Unverified 09/01/22 17:02 pain General Stated Complaint: Chest Pain RICKI: 3 Review of Systems All systems reviewed & are unremarkable except as noted in HPI and below Constitutional Constitutional: Denies chills, Denies fever(s) and Denies weakness Cardiovascular Cardiovascular: Denies dyspnea Respiratory Respiratory: Denies cough and Denies dyspnea Gastrointestinal Gastrointestinal: Denies abdominal pain, Denies nausea and Denies vomiting Musculoskeletal Musculoskeletal: Denies joint swelling Neurologic Neurologic: Denies weakness PFS All Active Problems (Updated 11/15/22 @ 07:23 by Jae Andrew MD) Back strain (Acute) Injury of right wrist (Acute) Reactive airway disease (Acute) Coronary artery disease (Chronic) Unstable angina (Acute) BPH (benign prostatic hyperplasia) (Chronic) Depression (Chronic) Acute non-ST elevation myocardial infarction (NSTEMI) (Acute) Elevated ETOH level (Acute) Chest pain (Acute) TAYLOR (obstructive sleep apnea) (Chronic) Non-ST elevation NV (NSTEMI) (Acute) Medical History AAA (abdominal aortic aneurysm) without rupture Anxiety GERD (gastroesophageal reflux disease) High cholesterol Kidney stones Sleep apnea Surgical History S/P spinal surgery multiple cervical and lumbar spine surgeries Status post coronary artery stent placement Family History Father Dementia Mother Dementia Social History Smoking/Tobacco Use Status: Never Smoking risk assessment performed?: Yes Alcohol Intake: current Alcohol Intake frequency: a few times a week Alcohol type: beer and hard liquor Drug use: Never Substance use type: does not use Do you feel safe at home: Yes Do you feel safe in your relationship?: Yes Additional Social history: Lives alone on [address] in [place], G[place] up in [place], family goes back generations there. Served in [employer] out of [place], [place]. On disability for spinal injuries since. Exam Const General: no acute distress Orientation: alert HENDE Head: normal to inspection Ears: external ears normal General nose exam: external nose normal Mouth: moist mucous membranes Eyes General: appearance normal, both eyes and all related structures Neck Neck: normal visual inspection Chest Chest: normal inspection of the chest Resp Effort & Inspection: normal respiratory effort and able to speak in complete sentences Auscultation: clear to auscultation bilaterally Cardio Jugular venous pressure: no JVD Rate: regular rate Heart Sounds: no murmurs GI Palpation: soft and nontender Skin General skin exam: no rashes or lesions noted Neuro General: patient alert and patient oriented x3 Extrem General: normal to inspection Psych Mental Status: mental status grossly normal Course Vital Signs Vital signs: Vital Signs Temperature 36.8 C 11/15/22 04:52 Pulse 112 H 11/15/22 04:52 Respiratory Rate 16 11/15/22 04:52 Blood Pressure 146/87 H 11/15/22 04:52 Pulse Oximetry 97 11/15/22 04:52 Temperature 36.8 C 11/15/22 04:52 Temperature Source Tympanic 11/15/22 04:52 Pulse 112 H 11/15/22 04:52 Respiratory Rate 16 11/15/22 04:52 Respiratory Effort Normal, Non-Labored 11/15/22 05:02 Respiratory Depth Normal 11/15/22 05:02 Respiratory Pattern Normal 11/15/22 05:02 Blood Pressure 146/87 H 11/15/22 04:52 Blood Pressure Position Sitting 11/15/22 04:52 Pulse Oximetry 97 11/15/22 04:52 Oxygen Delivery Method Room Air 11/15/22 04:52 Oxygen Flow Rate 0 11/15/22 04:52 Pain Level 3 11/15/22 04:52 Sign Out Sign Out Data: Sign Out Comment: history of CAD and had stent last june and recent admissions for nstemi, here with chest pain, no distress on exam. ekg nondiagnostic, initial troponin 160 and last time he was here it was 80. He was tachycardic to 110 on arrival, pending cta for pe and delta troponin Last updated by Jae Andrew MD at 11/15/22 07:13
[2022-11-15 05:11] LABS: Abs Immature Grans 0.05 10^3/uL (0.0-0.06); Absolute Basophil Count 0.04 10^3/uL (0.0-0.2); Absolute Eosinophil Count 0.08 10^3/uL (0.0-0.7); Absolute Lymphocyte Count 2.73 10^3/uL (1.2-3.4); Absolute Monocyte Count 0.67 10^3/uL (0.1-0.8); Absolute Neutrophil Count 4.19 10^3/uL (1.2-6.7); Basophils % 0.5; HCT 38.9 % (40.0-50.0); HGB 13.1 g/dL (13.5-17.5); Immature Grans % 0.6; Lymphocytes % 35.2; MCH 32.8 pg (27.0-33.0); MCHC 33.7 % (32.0-36.0); MCV 98 fL (80-95); MPV 9.1 fL (8.0-11.0); Monocytes % 8.6; Neutrophils % 54.1; Platelet Count 230 10^3/uL (130-400); RBC 3.99 10^6/uL (4.36-5.78); RDW 11.9 % (11.8-14.1); RDW-SD 42.9 fL; WBC 7.76 10^3/uL (4.4-10.8)
[2022-11-15 05:28] LABS: ALT 29 U/L (16-63); AST 21 U/L (15-37); Albumin 3.5 g/dL (3.4-5.0); Alkaline Phosphatase 69 U/L (46-116); Anion Gap 9.4 mmol/L (3-11); BUN 14 mg/dL (7-18); Bilirubin, Total 0.3 mg/dL (0.2-1.0); CO2 28.6 mmol/L (21.0-32.0); CREATININE 1.3 mg/dL (0.70-1.30); Calcium 8.8 mg/dL (8.5-10.1); Chloride 103 mmol/L (98-107); Estimated GFR 58.37 (mL/min/1.73m2); Glucose 134 mg/dL (74-106); Lipase 19 U/L (16-77); Magnesium 1.9 mg/dL (1.8-2.4); Potassium 3.4 mmol/L (3.5-5.1); Sodium 141 mmol/L (136-145); Total Protein 6.6 g/dL (6.4-8.2)
[2022-11-15 05:35] LABS: Troponin I 160 ng/L (<or=60)
[2022-11-15 05:38] LABS: PTT Activated 25.7 sec (21.5-31.9); Prothrombin Time 9.9 sec (9.3-11.0)
--- NOTE | 2022-11-15 05:41 | NUR.NOTE ---
50mcg fentanyl brought in for pt. Pt refused med. Wasted in Pyxis per protocol.
[2022-11-15] MEDS: Clopidogrel 75 MG TAB PO (05:55)
[2022-11-15] MEDS: Normal Saline - Diluent 50 ML VIAL IJ (07:19)
[2022-11-15] MEDS: Omnipaque 350 MG/ML 100 ML BTL IJ (07:53)
--- NOTE | 2022-11-15 07:54 | DI.CT_ITS ---
Exam(s) CT CHEST PE CTA EXAM: CT CHEST PE CTA CLINICAL HISTORY: chest pain, tachycardia. TECHNIQUE: Imaging Protocol: CT angiography of the chest was performed using pulmonary embolus dc col. Multi planar reconstructions were performed. CONTRAST MATERIAL: Intravenous: Omnipaque 350 Contrast volume: 100 cc COMPARISON: CT CT THORAX ABD/PEL CTA from 09/01/2022 FINDINGS: CHEST: PULMONARY ARTERIES: There are no intraluminal filling defects to suggest acute pulmonary emboli. LUNGS: There is some atelectasis in the right middle lobe. There are no confluent infiltrates. No p leural effusions. No findings in the trachea and mainstem bronchi.. MEDIASTINUM: There is no hilar nor mediastinal adenopathy. Visualized thyroid unremarkable. CARDIAC: Heart size is upper normal. There is no pericardial effusion.Caliber of the thoracic aorta is within normal limits. There is no significant shift of the interventricular septum. PARTIALLY VISUALIZED UPPERMOST ABDOMEN: No adrenal masses. There appear to be calculi in the kidneys . Spleen size normal OSSEOUS: No significant osseous lesions.Slight loss of height at superior endplate of L1 noted. This , however, is unchanged from 09/01/2022.. IMPRESSION: 1. No evidence of acute pulmonary emboli. No evidence of pulmonary infarction.No pleural effusions. 2. No acute findings. RADIATION DOSE DELIVERED: 414.86mGy.cm Total DLP DATA REPOSITORY: All CT scans at this facility are submitted to the National Radiology Data Registry (NRDR) Dose Index Registry (DIR) with the [employer] (A[employer]). RADIATION OPTIMIZATION: All CT scans at this facility use at least one of these dose optimization te chniques: automated exposure control; mA and/or kV adjustment per patient size (includes targeted exa ms where dose is matched to clinical indication); or iterative reconstruction.
--- NOTE | 2022-11-15 08:05 | DI.VRAD_ITS ---
PROCEDURE INFORMATION: Exam: CTA Chest With Contrast Exam date and time: 11/15/2022 7:34 AM Age: 72 years old Clinical indication: Chest pain TECHNIQUE: Imaging protocol: Computed tomographic angiography of the chest with contrast. 3D rendering (Not supervised by radiologist): MIP and/or 3D reconstructed images were created by the technologist. Radiation optimization: All CT scans at this facility use at least one of these dose optimization techniques: automated exposure control; mA and/or kV adjustment per patient size (includes targeted exams where dose is matched to clinical indication); or iterative reconstruction. Contrast material: OMNI 350; Contrast volume: 100 ml; Contrast route: INTRAVENOUS (IV); COMPARISON: CT THORAX ABD/PEL CTA 09/01/2022 2:04 PM FINDINGS: Pulmonary arteries: No sign of acute pulmonary embolism. Aorta: No thoracic aortic aneurysm or dissection when allowing for pulsation artifact. Lungs: No pneumonia or pulmonary edema. Minimal bilateral dependent atelectasis. Scarring in the right middle lobe. Pleural spaces: No pleural effusion or pneumothorax. Heart: The heart is not enlarged. No pericardial effusion. Coronary arteries: Calcified coronary artery atherosclerotic plaque visualized. Lymph nodes: No pathologically enlarged lymph nodes. Bones/joints: No acute osseous abnormality. Soft tissues: No acute soft tissue abnormality. IMPRESSION: No acute finding. Dictated and Authenticated by: Antonio Arnold MD. Ordering:AYANA Rowe MD
--- NOTE | 2022-11-15 08:44 | ED.PROG_ITS ---
Date of service: 11/15/22 Time of Service: 08:45 Medical Decision Making Patient was signed out to me by my colleague Dr. Jae Andrew. Please refer to his HPI, physical exam, assessment and plan. At time of signout we are awaiting results of CTA and repeat troponin. Repeat troponin is slightly downtrending at 155, from the initial 160. CTA shows no evidence of pulmonary embolism. Patient states that he still feels like someone is punching him in the chest, but it is mild. I did get the patient up and ambulated him throughout the emergency department, this both worsened his shortness of breath and also his chest pain notably. I am concerned for potential cardiac etiology, and on rediscussion with the patient it sounds like over the last 2 to 3 days the symptoms have been coming on, he is felt like he is being punched in the chest, which he attributed to nervousness and anxiety. He states when he would sit down it would make it better. I suspect there was an event a few days ago, which we are now seeing the downtrending component for the troponin. He is currently heparinized, he received 75 mg of Plavix. Nitro x3 was of no benefit clinically to the patient's pain. We will contact [facility] for further discussion. 12:42 PM I contacted [facility] and discussed the case with Dr. Bangura of cardiology. They state at this time they do not have any bed availability for transfer. They recommend continuing to trend the troponins, and perform an echo and stress test tomorrow. They recommend continuing the heparinization. They have no other additional recommendations for Plavix at this time. We still do not have any beds available for inpatient admission here at [facility] and we are boarding in the ED currently. We did reach out to [facility], and they are not able to take or perform stress test/echo needing patient's at this time. [facility] does not have capability for this. [facility] does not currently have availability for this. [facility] does have bed availability, and stated they were willing to accept the patient, however we were required to go through [facility] for this. I did contact the [facility] and spoke with their on-call medical office receptionist/provider , and expressed my concern for keeping the patient here at [facility], the need for higher level of care, and the need for further testing. He stated that since testing may be available at [facility] on Wednesday morning, that the patient should stay here and could be disc harged to have follow-up if needed. He also recommended that we perform a more thorough assessment of noncardiac causes of his chest pain. I felt that with the current CTA that was performed, his current EKG and elevated albeit plateaued troponins, in conjunction with his exertional chest pain and discomfort that worsens with activity as well as associated worsening shortness of breath with this activity, that my high suspicion and concern was for cardiac etiology at this time I do not feel that it would be quinones to discharge the patient per their thoughts. We will continue to board in the emergency department and reach out to our hospitalist team as there are currently no other inpatient transfer availability options at this time. FINDINGS: Pulmonary arteries: No sign of acute pulmonary embolism. Aorta: No thoracic aortic aneurysm or dissection when allowing for pulsation artifact. Lungs: No pneumonia or pulmonary edema. Minimal bilateral dependent atelectasis. Scarring in the right middle lobe. Pleural spaces: No pleural effusion or pneumothorax. Heart: The heart is not enlarged. No pericardial effusion. Coronary arteries: Calcified coronary artery atherosclerotic plaque visualized. Lymph nodes: No pathologically enlarged lymph nodes. Bones/joints: No acute osseous abnormality. Soft tissues: No acute soft tissue abnormality IMPRESSION: No acute finding. Thank you for allowing us to participate in the care of your patient. Dictated and Authenticated by: Antonio Arnold MD 11/15/2022 8:05 AM Eastern Time ([place] & [place]) Critical Care Time Critical Care Time Critical Care Time: Yes Total Critical Care Time: 120 Attestation: Upon my evaluation, this patient had a high probability of imminent or life- threatening deterioration, which required my direct attention, intervention, and personal management. I have personally provided 120 minutes of critical care time exclusive of time spent on separately billable procedures. Time includes review of laboratory data, radiology results, discussion with consultants, and m onitoring for potential decompensation. Interventions were performed as documented. Sign Out Sign Out Data: Sign Out Comment: history of CAD and had stent last june and recent admissions for nstemi, here with chest pain, no distress on exam. ekg nondiagnostic, initial troponin 160 and last time he was here it was 80. He was tachycardic to 110 on arrival, pending cta for pe and delta troponin Last updated by Jae Andrew MD at 11/15/22 07:13 Discharge Plan Disposition Condition: Stable Discharge Details Chief Complaint: Chest Pain Clinical Impression: Chest pain Primary Care Provider: Jae Del Toro ED Provider: Tan Loredo Home Meds and New Rx's Prescriptions: No Action acetaminophen [Tylenol] 325 mg Tablet 650 mg PO QID PRN cyanocobalamin (vitamin B-12) 1,000 mcg Tablet 1,000 mcg PO DAILY aspirin 81 mg Tablet,Delayed Release (Dr/Ec) 81 mg PO DAILY buspirone 10 mg Tablet 20 mg PO BID hydroxyzine HCl 25 mg Tablet 25 mg PO TID PRN rosuvastatin 40 mg Tablet 40 mg PO DAILY cholecalciferol (vitamin D3) 25 mcg (1,000 unit) Tablet 25 mcg PO DAILY gabapentin [Neurontin] 100 mg capsule 100 mg PO TID isosorbide mononitrate 60 mg Tablet Extended Release 24 Hr 60 mg PO DAILY pantoprazole [Protonix] 40 mg Tablet,Delayed Release (Dr/Ec) 40 mg PO DAILY diazepam 5 mg Tablet 5 mg PO DAILY PRN (Reason: Anxiety) bupropion HCl 150 mg Tablet Extended Release 24 Hr 150 mg PO HS cetirizine 10 mg Tablet 10 mg PO DAILY PRN fluticasone propion-salmeterol [Advair Diskus] 250-50 mcg/dose Blister With Device 1 inh INHALATION BID ketoconazole 2 % Shampoo 1 applic TOPICAL DAILY cromolyn 5.2 mg/spray (4 %) [place],Non-Aerosol 1 spray INTRANASAL TID PRN loperamide 2 mg Capsule 2 mg PO QID PRN ibuprofen 800 mg Tablet 800 mg PO BID melatonin 3 mg Tablet 3 mg PO HS PRN gabapentin 300 mg Capsule 300 mg PO TID propranolol 10 mg Tablet 10 mg PO TID psyllium Powder 1 tbsp PO BID Rx Instructions: mix into at least 8 oz of water or juice before administering terazosin 2 mg Capsule 2 mg PO QHS montelukast 10 mg Tablet 10 mg PO DAILY Spiriva Respimat 2.5 mcg/actuation Mist 2 puff INHALATION DAILY metoprolol succinate 50 mg Tablet Extended Release 24 Hr 100 mg PO DAILY Qty: 0 0RF simethicone 80 mg Tablet,Chewable 80 mg PO QID PRN PRNQty: 0 0RF ranolazine 500 mg Tablet Extended Release 12 Hr 1,000 mg PO BID Qty: 0 0RF Inhaler, Assist Devices [Pocket Chamber] 1 ea miscellaneous DIRECTED Qty: 0 0RF Patient's Own Medication 5 ea PO AC & HS PRNQty: 0 0RF levalbuterol tartrate 45 mcg/actuation Hfa Aerosol Inhaler 2 puff inhalation Q4H PRN PRNQty: 15 0RF methocarbamol 500 mg tablet 500 mg PO Q6H PRN (Reason: Back pain or spasm) Qty: 14 0RF tamsulosin 0.4 mg Capsule 0.8 mg PO HS Rx Instructions: 30 minutes after meal famotidine 10 mg Tablet 10 mg PO BID PRN (Reason: GERD) vitamin A 10,000 unit Capsule 10,000 unit PO DAILY folic acid 1 mg Tablet 1 mg PO DAILY albuterol 90 mcg/actuation Aerosol 180 mcg INHALATION BID Hold Instructions: Now using Xopenex. Will restart if [facility] Xoepnex Rx Instructions: INHALE 2 PUFFS BY MOUTH FOUR TIMES DAILY NEEDED finasteride 5 mg Tablet 5 mg PO DAILY magnesium oxide 400 mg magnesium Tablet 400 mg PO HS clopidogrel [Plavix] 75 mg Tablet 75 mg PO DAILY losartan 25 mg Tablet 25 mg PO DAILY nitroglycerin [Nitrostat] 0.4 mg Tablet, Sublingual 0.4 mg sublingual PRN PRN bupropion HCl 150 mg Tablet Extended Release 24 Hr 300 mg PO DAILY Rx Instructions: am dose ascorbic acid (vitamin C) 1,000 mg Tablet 1,000 mg PO DAILY
[2022-11-15 08:49] LABS: Troponin I 155 ng/L (<or=60)
--- NOTE | 2022-11-15 15:15 | RT.EKG_ITS ---
APPROVED REPORT Exam: Resting ECG Reason for Exam: chest pain Patient Location: E HR:70 bpm ECG Measurements Heart Rate 70 AXIS FL 138 P 19 QRSd 75 QRS 28 QT 396 T 32 QTc 428 Conclusion Sinus rhythm...normal P axis, V-rate 60- 99 Low voltage, precordial leads...precordial leads <1.0mV Physician: no stemi
--- NOTE | 2022-11-15 15:17 | W.PM.HP.N ---
Date of service: 11/15/22 Time of Service: 15:17 Assessment and Plan Assessment and plan (1) Chest pain: Status: Acute Assessment and plan: Some features suggest a cardiac component (exertional, elevated troponin) while others not (unrelieved with nitroglycerin). Will monitor on tele, repeat EKG, obtain an echocardiogram. If good, will obtain an MPI stress test. May require a cardiology consult. Continue home imdur 60 mg, consider increase to 90 mg, consider ranexa. Keep on heparin gtt for now. Continue asa, plavix, BB, statin. (2) Elevated troponin: Status: Acute Assessment and plan: As above (3) Coronary artery disease: Status: Chronic Assessment and plan: S/p SD/stent [facility] 06/25. (4) GERD (gastroesophageal reflux disease): (5) Anxiety: (6) Discharge planning issues: Status: Acute Assessment and plan: Full code (7) DVT prophylaxis: Status: Acute Assessment and plan: On therapeutic heparin gtt C/s PT to help fit a brace for his R wrist fracture. History of Present Illness History of Present Illness Chief Complaint: chest pain Narrative: Mr Barbosa is a 72 year old male with PMHx of CAD s/p NSTEMI/stent 06/25 ([facility]), on EDUARDA, as well as h/o AAA, HTN, GERD, anxiety, TAYLOR, who presented to [facility] ED today with intermittent chest pain. The pains have been going on for 2-3 days, and the patient had attributed them to anxiety. He described a sensation of something fluttering in his upper chest and a racing heart. Last night, the patient woke up with L-sided pressure-like chest pain and palpitations from sleep. He took nitroglycerin for it (it did not help the pain) and came to the ER. Of note, the patient frequently takes his nitroglycerin for palpitations, and we discussed how it helps with some types of chest pain, but not palpitations. He stated that he had never seen his HR up to 130s, and it was (he checked with a pulse oximeter). Here, he had no ischemic changes on the EKG, but his troponin I was 160. Nitroglycerin did not relieve the chest pain. The patient did find that exertion made the chest pain worse and rest better, which was reproduced in the ED. He was empirically started on heparin gtt. He is already on plavix and aspirin. CTA of the chest ruled out acute PE or aortic dissection within the thoracic region. [facility] is at capacity at this time, but no beds were available anywhere else in the surrounding area, so the hospitalists were asked to take over care while the patient with the patient holding in the ER. [facility] cardiology recommended an echo and a stress test tomorrow, but not a transfer. [facility] did ask that we call back tomorrow to see if there are beds at that time. His repeat troponin is 155. Per ER provider, he still has some chest disocmfort. He states he has recently fractured his R wrist and is supposed to wear a brace, but forgot it at home. Review of Systems All systems reviewed & are unremarkable except as noted in HPI and below PFSH All Active Problems (Updated 11/15/22 @ 15:30 by Terri Storey MD) DVT prophylaxis (Acute) Discharge planning issues (Acute) Elevated troponin (Acute) Back strain (Acute) Injury of right wrist (Acute) Reactive airway disease (Acute) Coronary artery disease (Chronic) Unstable angina (Acute) BPH (benign prostatic hyperplasia) (Chronic) Depression (Chronic) Acute non-ST elevation myocardial infarction (NSTEMI) (Acute) Elevated ETOH level (Acute) Chest pain (Acute) TAYLOR (obstructive sleep apnea) (Chronic) Non-ST elevation SD (NSTEMI) (Acute) Medical History (Updated 11/15/22 @ 15:30 by Terri Storey MD) AAA (abdominal aortic aneurysm) without rupture Anxiety GERD (gastroesophageal reflux disease) High cholesterol Kidney stones Sleep apnea Surgical History (Updated 11/15/22 @ 19:16 by Terri Storey MD) S/P colonoscopy S/P spinal surgery multiple cervical and lumbar spine surgeries Status post coronary artery stent placement Family History (Updated 11/15/22 @ 19:18 by Terri Storey MD) Father Dementia Mother Dementia Paternal Grandfather Heart disease Brother Stroke Paternal Aunt Diabetes Paternal Grandmother Diabetes Social History Smoking/Tobacco Use Status: Never Smoking risk assessment performed?: Yes Alcohol Intake: current Alcohol Intake frequency: a few times a week Alcohol type: beer and hard liquor Drug use: Never Substance use type: does not use Do you feel safe at home: Yes Do you feel safe in your relationship?: Yes Additional Social history: Lives alone [address] in [facility], Grew up in [facility], family goes back generations there. Served in [employer] out of [place], [place]. On disability for spinal injuries since. Meds Allergies and Home Medications Allergies Allergy/AdvReac Type Severity Reaction Status Date / Time simvastatin AdvReac Unknown abdominal Unverified 09/01/22 17:02 pain Home Medications Medication Instructions Recorded Confirmed Type acetaminophen 325 mg tablet 650 mg PO QID PRN 09/17/20 11/15/22 History (Tylenol) albuterol 90 mcg/actuation aerosol 180 mcg inhalation BID 10/01/20 11/15/22 History inhaler famotidine 10 mg tablet 10 mg PO BID PRN GERD 10/01/20 11/15/22 History finasteride 5 mg tablet 5 mg PO DAILY 10/01/20 11/15/22 History folic acid 1 mg tablet 1 mg PO DAILY 10/01/20 11/15/22 History magnesium oxide 400 mg PO HS 10/01/20 11/15/22 History vitamin A 3,000 mcg (10,000 unit) 10,000 unit PO DAILY 10/01/20 11/15/22 History capsule ascorbic acid (vitamin C) 1,000 mg 1,000 mg PO DAILY 06/25/22 11/15/22 History tablet bupropion HCl 150 mg 24 hr tablet, 300 mg PO DAILY 06/25/22 11/15/22 History extended release clopidogrel 75 mg tablet (Plavix) 75 mg PO DAILY 06/25/22 11/15/22 History losartan 25 mg tablet 25 mg PO DAILY 06/25/22 11/15/22 History nitroglycerin 0.4 mg sublingual 0.4 mg sublingual PRN PRN 06/25/22 11/15/22 History tablet (Nitrostat) aspirin 81 mg tablet,delayed 81 mg PO DAILY 07/03/22 11/15/22 History release buspirone 10 mg tablet 20 mg PO BID 07/03/22 11/15/22 History cholecalciferol (vitamin D3) 25 25 mcg PO DAILY 07/03/22 11/15/22 History mcg (1,000 unit) tablet cyanocobalamin (vitamin B-12) 1,000 mcg PO DAILY 07/03/22 11/15/22 History 1,000 mcg tablet hydroxyzine HCl 25 mg tablet 25 mg PO TID PRN 07/03/22 11/15/22 History rosuvastatin 40 mg tablet 40 mg PO DAILY 07/03/22 11/15/22 History bupropion HCl 150 mg 24 hr tablet, 150 mg PO HS 09/01/22 11/15/22 History extended release diazepam 5 mg tablet 5 mg PO DAILY PRN Anxiety 09/01/22 11/15/22 History gabapentin 100 mg capsule 100 mg PO TID 09/01/22 11/15/22 History (Neurontin) isosorbide mononitrate 60 mg 60 mg PO DAILY 09/01/22 11/15/22 History tablet,extended release 24 hr pantoprazole 40 mg tablet,delayed 40 mg PO DAILY 09/01/22 11/15/22 History release (Protonix) cetirizine 10 mg tablet 10 mg PO DAILY PRN 09/02/22 11/15/22 History cromolyn 5.2 mg/spray (4 %) nasal 1 spray intranasal TID PRN 09/02/22 11/15/22 History spray gabapentin 300 mg capsule 300 mg PO TID PRN 09/02/22 11/15/22 History ibuprofen 800 mg tablet 800 mg PO BID PAIN/INFLAMMATION 09/02/22 11/15/22 History ketoconazole 2 % shampoo 1 applic topical DAILY 09/02/22 11/15/22 History loperamide 2 mg capsule 2 mg PO QID PRN 09/02/22 11/15/22 History melatonin 3 mg tablet 3 mg PO HS PRN 09/02/22 11/15/22 History montelukast 10 mg tablet 10 mg PO DAILY 09/02/22 11/15/22 History propranolol 10 mg tablet 10 mg PO TID BLOOD PRESSURE/ANXIETY 09/02/22 11/15/22 History psyllium 1 tbsp PO BID 09/02/22 09/02/22 History terazosin 2 mg capsule 2 mg PO QHS 09/02/22 11/15/22 History tiotropium bromide 2.5 2 puff inhalation DAILY 09/02/22 11/15/22 History mcg/actuation mist for inhalation (Spiriva Respimat) Inhaler, Assist Devices [Pocket 1 ea miscellaneous DIRECTED ##0 09/07/22 Rx Chamber] Patient's Own Medication 5 ea PO AC & HS PRN ##0 09/07/22 Rx metoprolol succinate 50 mg 100 mg PO DAILY #0 tabs 09/07/22 11/15/22 Rx tablet,extended release 24 hr ranolazine 500 mg tablet,extended 1,000 mg PO BID #0 tabs 09/07/22 11/15/22 Rx release,12 hr simethicone 80 mg chewable tablet 80 mg PO QID PRN PRN #0 tabs 09/07/22 11/15/22 Rx methocarbamol 500 mg tablet 500 mg PO Q6H PRN Back pain or 10/26/22 11/15/22 Rx spasm #14 tabs tamsulosin 0.4 mg capsule 0.8 mg PO HS 11/15/22 11/15/22 History Exam Narrative Exam Narrative: General: Pleasant anxious male, A&Ox3, laying comfortably in bed, doing exercises with his R wrist. Neurological: A&Ox3, no focal deficits Psychiatric: mildly anxious, appropriate speech pattern/content Skin: Visible skin in tact HEENT: Atraumatic, normocephalic, EOMI, dry MM, clear oropharynx, no submandibular or cervical lymphadenopathy, no goiter or JVD Cardiovascular: RRR, no m/r/g Lungs: CTAB Gastrointestinal: soft, nontender, nondistended Genitourinary: deferred Extremities: no edema BLEs Results Imaging Additional studies: CTA chest: No acute finding. EKG: ST, HR 112, no acute ischemia, nonspecific ST-T changes Labs 11/15/22 04:55 11/15/22 04:55 Labs: Laboratory Results - last 24 hr 11/15/22 11/15/22 11/15/22 04:55 04:55 04:55 WBC 7.76 RBC 3.99 L Hgb 13.1 L Hct 38.9 L MCV 98 H MCH 32.8 MCHC 33.7 RDW 11.9 Plt Count 230 MPV 9.1 Immature Gran % 0.6 Neutrophils % 54.1 Lymphocytes % 35.2 Monocytes % 8.6 Eosinophils % 1.0 Basophils % 0.5 Nucleated RBC % 0.0 Absolute Neutrophils 4.19 Absolute Lymphocytes 2.73 Absolute Monocytes 0.67 Absolute Eosinophils 0.08 Absolute Basophils 0.04 PT 9.9 INR 1.0 APTT 25.7 Sodium 141 Potassium 3.4 L Chloride 103 Carbon Dioxide 28.6 Anion Gap 9.4 BUN 14 Creatinine 1.3 Est GFR (CKD-EPI 2020) 58.37 Glucose 134 H Calcium 8.8 Magnesium 1.9 Total Bilirubin 0.3 AST 21 ALT 29 Alkaline Phosphatase 69 Troponin I 160 H* Total Protein 6.6 Albumin 3.5 Lipase 19 11/15/22 08:20 WBC RBC Hgb Hct MCV MCH MCHC RDW Plt Count MPV Immature Gran % Neutrophils % Lymphocytes % Monocytes % Eosinophils % Basophils % Nucleated RBC % Absolute Neutrophils Absolute Lymphocytes Absolute Monocytes Absolute Eosinophils Absolute Basophils PT INR APTT Sodium Potassium Chloride Carbon Dioxide Anion Gap BUN Creatinine Est GFR (CKD-EPI 2020) Glucose Calcium Magnesium Total Bilirubin AST ALT Alkaline Phosphatase Troponin I 155 H* Total Protein Albumin Lipase Last Vital Signs Temp 37.5 C 11/15/22 06:50 Pulse 75 11/15/22 13:31 Resp 16 11/15/22 13:50 BP 141/67 H 11/15/22 13:31 Pulse Ox 98 11/15/22 13:50 PAWSS Have you Been Recently Intoxicated or Drunk Within the Last 30 days?: No Have you Ever Experienced Previous Episodes of Alcohol Withdrawal?: Yes Have you ever Experienced Withdrawal Seizures?: No Have you ever Experienced Delirium Tremens(DT)s?: Yes Have you ever undergone Alcohol Rehabilitation Treatment (i.e, inpt ot outpatient treatment programs)?: Yes Have you ever Experienced Blackouts?: Yes Have you ever Combined Alcohol with other Downers within the last 90 days?: No Have you ever Combined Alcohol with any other Substance of Abuse during the last 90 days?: No Positive Blood Alcohol level on Presentation? [PCS.BAL]: Unable to Obtain Evidence of Increased Autonomic Activity (i.e. HR>120, tremor, sweating, agitation, nausea)?: No Result: 4 Time Spent Time spent with Patient: 55-74 minutes Time was spent: preparing to see the patient(eg.review tests), obtaining and/or reviewing separately otained hiistory, ordering medications,tests, procedures, referring, communicating with other health family member caretaker, indepentently interpreting results, counseling the patient and care coordination
--- NOTE | 2022-11-15 15:50 | RESPIRATORY ---
RT spoke with patient concerning history of TAYLOR listed in chart. Patient does use a PAP device at home but hasn't for the last few nights. RT asked if anyone available to bring in his own device to which patient stated No. RT offered hospital unit to patient in which he refused and feels he does not need the device at this time.
[2022-11-15 17:35] LABS: Source Nasal/Nares
[2022-11-15 18:08] LABS: COVID-19 PCR Negative (Negative)
[2022-11-15] MEDS: Ranolazine 500 MG TABCR 1000 MG PO (21:00)
[2022-11-15] MEDS: Gabapentin 100 MG CAP PO (21:05)
[2022-11-15] MEDS: Budesonide/Formoterol 160/4.5 6 GM 60 PUFF INH IH (21:17)
[2022-11-15 23:47] LABS: PTT Activated 46.3 sec (21.5-31.9)
[2022-11-15] MEDS: Tamsulosin 0.4 MG CAPCR 0.8 MG PO (23:50)
[2022-11-15] MEDS: diazePAM 5 MG TAB PO (23:50)
[2022-11-15] MEDS: Melatonin 3 MG TAB PO (23:50)
[2022-11-15] MEDS: buPROPion-XL 150 MG TABCR PO (23:50)
[2022-11-15] MEDS: Magnesium Oxide 400 MG TAB PO (23:52)
[2022-11-16] VITALS (158 sets, daily range): BP systolic 122–143; BP diastolic 58–80; PULSE 59–89; RESP 11–22; TEMP 36.1–36.9; O2SAT 95–99
--- NOTE | 2022-11-16 | DI.US_ITS ---
APPROVED REPORT EXAM: Comprehensive 2D, Doppler, and color-flow Echocardiogram Patient Location: In-Patient Room/Bed: ER2 Computer Science Intern: Thalia Bryan RDCS (AE) Indications: Chest pain, h/o CAD, Elevated troponin Other Information Study Quality: Adequate. Technically limited study due to inability to position patient exam done sup ine bedside in the er. Conclusion Normal left ventricular wall thickness and chamber size. Ejection fraction is 60%. There is a very small apical wall motion abnormality Right ventricle is grossly normal in size Both atria are normal in size There are no structural valvular abnormalities There is trace to mild mitral regurgitation, trace tricuspid regurgitation Estimated right ventricular systolic pressure is 26 mmHg Mildly dilated ascending aorta There is no interval change compared to echocardiogram from July 2022 Wall motion Left Ventricle The left ventricle is normal size. The left ventricular systolic function is normal. The left ventric ular ejection fraction is within the normal range. There is normal left ventricular wall thickness. Regional wall motion is grossly normal. There is no ventricular septal defect visualized. LVEF is 60% . Right Ventricle Right ventricle is grossly normal in size. Right ventricular systolic function could not be assessed. The RVSP is 26.2mmHg. Atria The left atrium size is normal. The right atrium size is normal. The interatrial septum is intact wit h no evidence for an atrial septal defect. Aortic Valve The aortic valve is normal in structure. Aortic valve is trileaflet. There is no aortic valvular sten osis. No aortic regurgitation is present. Mitral Valve The mitral valve is normal in structure. No evidence of mitral valve stenosis. Trace to mild mitral regurgitation. Tricuspid Valve The tricuspid valve is normal in structure. There is no tricuspid valve stenosis. Trace tricuspid reg urgitation. Pulmonic Valve The pulmonary valve is normal in structure. There is no pulmonic valvular stenosis. Trace pulmonic re gurgitation. Great Vessels The aortic root is normal in size. The ascending aorta is mildly dilated. Aortic arch is notl visuali zed. IVC is normal in size and collapses >50% with inspiration. Pericardium There is no pericardial effusion. 2D Dimensions IVSD d PLAX 0.87 cm M: 0.6-1.2 LV Vol A2C d MOD 76.2 mL LVPW d PLAX 0.89 cm M: 0.6 - 1.2 LV Vol A4C d MOD 109.3 mL LVID d PLAX 4.19 cm M: 4.2 - 5.8 LA Area A4C s MOD 21.71 cm2 LVDs 2.85 cm M: 2.5 - 4.0 LA Area A2C s MOD 21.42 cm2 Ao Root d 2.78 cm M: 3.1 - 3.7 LV EF A4C MOD 59.4 % RA Area A4C 14.00 cm2 LV EF A2C MOD 59.8 % Ao Asc Diam d 3.54 cm M: 2.6 - 3.4 LV EF Biplane MOD 58.7 % LV EF Teichholz 59.7 % SV 53.48 mL LVEF (Pacheco's) 58.71 % M: 52 - 72 LV Volume 91.10 mL M: 62 - 150 LV Volume Index 49.51 mL/m2 M: 34 - 74 LV Vol Biplane MOD 91.1 mL FS 31.40 % M-Mode TAPSE 2.35 cm (M/F) >1.7 LV Diastology MV E' medial 0.072 (>0.07 m/s) E/A Ratio 0.9 LV E/e MED 11.70 (<14) MV E Vmax 0.85 (0.4-1.3 m/s) MV E' lateral 0.074 (>0.1 m/s) MV A Vmax 1.00 (0.4-1.3 m/s) LV E/e LAT 11.40 (<14) MV E/A Ratio 0.81 MV E/E' medial 11.73 MV E/E' lateral 11.43 Aortic Valve LVOT Area 3.01 cm2 AoV Area Vmax 2.61 cm2 LVOT Vmax 1.10 m/s JAVY Mean Karl. 2.29 cm2 LVOT Mean Karl. 0.68 m/s LVOT Peak Grad 4.9 mmHg LVOT Mean Grad 2.3 mmHg LVOT VTI 0.237 m LVOT Diam s 1.95 cm AoV Vmax 1.27 m/s Velocity Ratio 0.87 AoV Mean Karl. 0.90 m/s AoV Peak Grad 6.4 mmHg LVOT SV 71.37 mL AoV Mean Grad 3.6 mmHg AoV VTI 0.270 m AoV Area VTI 2.64 cm2 Mitral Valve MV DT 247 (160-240 msec) MV PHT 72 msec MV Area PHT 3.07 cm2 MV VTI 0.349 m MV Area VTI 2.04 (4.0-6.0 cm2) Pulmonary Valve PV Vmax 1.02 (0.5-1.5 m/s) RVOT Peak Gr. 1.57 mmHg PV Peak Grad 4.2 mmHg RVOT Mean Gr. 0.85 mmHg PV Mean Grad 2.1 mmHg RVOT VTI 0.134 m PV VTI 0.199 m RVOT Vmax 0.63 m/s Tricuspid Valve TR Peak Grad 23.1 mmHg TR Vmax 2.41 m/s RA Pressure 3.00 mmHg RVSP (TR) 26.2 mmHg
[2022-11-16 05:47] LABS: Abs Immature Grans 0.02 10^3/uL (0.0-0.06); Absolute Basophil Count 0.02 10^3/uL (0.0-0.2); Absolute Eosinophil Count 0.05 10^3/uL (0.0-0.7); Absolute Monocyte Count 0.69 10^3/uL (0.1-0.8); Absolute Neutrophil Count 3.72 10^3/uL (1.2-6.7); Basophils % 0.3; Eosinophils % 0.7; HCT 36.1 % (40.0-50.0); HGB 12.3 g/dL (13.5-17.5); Immature Grans % 0.3; Lymphocytes % 33.8; MCH 32.5 pg (27.0-33.0); MCHC 34.1 % (32.0-36.0); MCV 95 fL (80-95); MPV 9.4 fL (8.0-11.0); Monocytes % 10.1; Neutrophils % 54.8; Platelet Count 185 10^3/uL (130-400); RBC 3.79 10^6/uL (4.36-5.78); RDW 11.9 % (11.8-14.1); RDW-SD 41.2 fL
[2022-11-16 06:00] LABS: Hemoglobin A1C 5.2 % (<5.7)
[2022-11-16 06:10] LABS: Anion Gap 8.1 mmol/L (3-11); BUN 11 mg/dL (7-18); CO2 26.9 mmol/L (21.0-32.0); CREATININE 1.1 mg/dL (0.70-1.30); Calcium 8.7 mg/dL (8.5-10.1); Calculated LDL 79 mg/dL (<100); Chloride 104 mmol/L (98-107); Cholesterol 161 mg/dL (<200); Estimated GFR 71.32 (mL/min/1.73m2); Glucose 109 mg/dL (74-106); HDL Cholesterol 53 mg/dL (40-60); Magnesium 1.8 mg/dL (1.8-2.4); Potassium 3.9 mmol/L (3.5-5.1); Sodium 139 mmol/L (136-145); Triglyceride 145 mg/dL (<150)
--- NOTE | 2022-11-16 08:27 | NUR.NOTE ---
echo at bedside
[2022-11-16 08:31] LABS: PTT Activated 43.7 sec (21.5-31.9); Prothrombin Time 10.4 sec (9.3-11.0)
[2022-11-16] MEDS: Budesonide/Formoterol 160/4.5 6 GM 60 PUFF INH IH ×2 (09:34→19:52)
[2022-11-16] MEDS: Tiotropium Bromide-Respimat 10 PUFF INH 2 PUFF IH (09:36)
[2022-11-16] MEDS: Acetaminophen 325 MG TAB PO (13:39)
--- NOTE | 2022-11-16 16:49 | PT.INIE ---
Date of service: 11/16/22 Time of Service: 13:48 PT Notes Visit Reasons: Chest Pain,Mildly Elevated Troponin Inpatient Physical Therapy Evaluation Date: 11/16/22 Referring Doctor:? Terri Storey MD PT Orders: PT CONSULT: Limited ability Precautions: Activity as tolerated. R universal splint on at all times, may only take off for hygiene. Patient Profile/Admitting Diagnosis:?? Patient is admitted for medical management of chest pain, elevated troponin, CAD, GERD, and anxiety. Dr. Storey requested PT consult to asssess for appropriate brace that can support R wrist from recent injury resulting from a fall. PMHX: All Active Problems?(Updated 11/15/22 @ 15:30 by Terri Storey MD) DVT prophylaxis (Acute) Discharge planning issues (Acute) Elevated troponin (Acute) Back strain (Acute) Injury of right wrist (Acute) Reactive airway disease (Acute) Coronary artery disease (Chronic) Unstable angina (Acute) BPH (benign prostatic hyperplasia) (Chronic) Depression (Chronic) Acute non-ST elevation myocardial infarction (NSTEMI) (Acute) Elevated ETOH level (Acute) Chest pain (Acute) TAYLOR (obstructive sleep apnea) (Chronic) Non-ST elevation LA (NSTEMI) (Acute) Medical History?(Updated 11/15/22 @ 15:30 by Terri Storey MD) AAA (abdominal aortic aneurysm) without rupture Anxiety GERD (gastroesophageal reflux disease) High cholesterol Kidney stones Sleep apnea Surgical History?(Updated 11/15/22 @ 19:16 by Terri Storey MD) S/P colonoscopy S/P spinal surgery multiple cervical and lumbar spine surgeries Status post coronary artery stent placement Social History/Home Situation: Patient lives alone in small apartment with ~40 steps to enter, single rail. Uses a cane for community ambulation, stating his knees give out when turning. Does not utilize AD in his home. Reports ability to walk approx 300' before getting short of breath at baseline. Equipment Owned/DME: S[facility] Subjective:? Pacheco states that he has has been going to the bathroom in his room here on his own without any assistive device. He expresses that he does have some pre-existing balance issues and is agreeable to having PT address this while he is here. States that he fell 3-4 weeks ago and sustained a break in his arm bone close to the R wrist and [facility] ago to wear a wrist brace for the next couple of weeks and to avoid any bending at the wrist. Objective:? General Observation: Resting in bed. Mental Status: A&O x 3. Pain: Some discomfort in the R wrist with movement Vital Signs: Monitored on telemetry throughout ROM: Left upper extremity: Limited extension at the wrist due to recent ulnar styloid fracture? but no [facility]record [facility] the [facility] has been available Right Lower Extremity: Grossly WFL Left Lower Extremity: Grossly WFL Strength: Left upper extremity: NT Right Lower Extremity: Hip flexion 5/5. Quads 5/5. Ankle DF 5/5 Left Lower Extremity:? Hip flexion 5/5. Quads 5/5. Ankle DF 5/5 Bed Mobility/Transfers: supine-sit: independent sit-supine: independent sit-stand: independent stand-sit: independent Gait:? Patient is able to ambulate inside room for up to 50 feet without an assitive device. Patient reports that he is extra careful walking and feels that slowing down is safer for him. Balance:? Static Sitting: normal Dynamic Sitting: normal Static Standing: good Dynamic Standing: fair Special Tests: Mobility Limitations Standardized Measure [facility]-PAC 6 clicks Basic Mobility Inpatient Short Form: Raw Score: 23? CMS Score: 11% impairment ? ? ? 4-stage Balance test: To be tested in the next session Informed Consent/Education:? Patient instructed in purpose of PT consult and plan of care. Assessment:?? Session today focused on assessing wristinjury as well as procurement and fitting of R universal wrist splint for patient. Patient was admitted for medical management of chest pain, elevated troponin, CAD, GERD, and anxiety. He currently demonstrates the following impairment level findings: 1. Self-reported balance issue 2. At risk for falls Impairments are contributing to the following functional limitations: 1. decreased activity tolerance following cardiac event Patient is [place] as? Low 29507 ?low complexity based on the following: History: Patient presenting with decreased activity tolerance following NSTEMI x 2, now with unstable angina. Complicating factors include difficult access to home setting (~40 stairs), limitations in safety awareness, and extensive medical history as noted above. Examination: functional limitations as above Presentation: evolving Decision Makin low complexity Goals: 1. Gait : Independent with 300' with cane without RUIZ 2. Stairs : Indepedent with ascent and descent with consistent use of rail without RUIZ Plan of Care/Treatment Plan: 1-2x/day, 7 days/week x 1 week. Plan of care has been reviewed with the [employer] PRODUCER providing the service under Physical Therapy direction. Initiate Physical Therapy intervention for strengthening, bed mobility, transfers, gait, stairs, balance training, use of assistive device. DISCHARGE RECOMMENDATIONS: Patient will benefit from home health PT services in order to progress mobility level using least restrictive assistive ambulatory device, assess home safety, identify additional equipment needs, and establish a functional maintenance program that will increase ability of patient to remain at home. TREATMENT CODE/TIME: 08264 x 15 minutes, 25214 x 15 minutes beginning at 13:48 PM. Thank you for the opportunity to participate in the care of this patient. Maria Esther Bassett PT, DPT, CLT [facility] [place], [place] ?
--- NOTE | 2022-11-16 20:28 | W.PM.PROGNOT ---
Date of Service Date of service: 11/16/22 Time of Service: 20:29 Assessment and Plan Assessment and plan (1) Chest pain: Status: Acute Assessment and plan: Some features suggest a cardiac component (exertional, elevated troponin) while others not (unrelieved with nitroglycerin). Echo, EKGs unchanged. Continue home imdur 60 mg, consider increase to 90 mg, consider ranexa. Heparin gtt d/c'ed. Continue asa, plavix, BB, statin. For MPI stress test tomorrow. (2) Elevated troponin: Status: Acute Assessment and plan: As above (3) Coronary artery disease: Status: Chronic Assessment and plan: S/p [place]/stent [facility] [place] 06/25. (4) GERD (gastroesophageal reflux disease): Assessment and plan: Continue PPI. (5) Anxiety: Assessment and plan: Continue home regimen. (6) Normocytic anemia: Status: Acute Assessment and plan: F/u as outpatient. (7) Discharge planning issues: Status: Acute Assessment and plan: Full code (8) DVT prophylaxis: Status: Acute Assessment and plan: Start SC heparin. Subjective Subjective Interval history since last seen: Mr Barbosa states that his pain has been coming and going independent of whether he is exerting himself or is at rest. He thinks tylenol helps it. It also helps his neck pain. Denies dizziness, chest pain, shortness of breath, nausea. Case was discussed with Dr Ortiz who recommended discontinuing heparin gtt today and doing the MPI tomorrow. Exam Narrative Exam Narrative: General: Pleasant anxious male, A&Ox3, Sitting up in bed, not wearing his splint. HEENT: EOMI, MMM Cardiovascular: RRR, no m/r/g Lungs: CTAB Gastrointestinal: soft, nontender, nondistended Extremities: no edema BLEs Objective Last Vital Signs Temp 36.9 C 11/16/22 19:27 Pulse 82 11/16/22 19:27 Resp 17 11/16/22 19:27 BP 143/80 H 11/16/22 19:27 Pulse Ox 96 11/16/22 19:27 Laboratory Results - last 24 hr 11/15/22 11/16/22 11/16/22 23:25 05:20 05:20 WBC RBC Hgb Hct MCV MCH MCHC RDW Plt Count MPV Immature Gran % Neutrophils % Lymphocytes % Monocytes % Eosinophils % Basophils % Nucleated RBC % Absolute Neutrophils Absolute Lymphocytes Absolute Monocytes Absolute Eosinophils Absolute Basophils PT INR APTT 46.3 H Sodium 139 Potassium 3.9 Chloride 104 Carbon Dioxide 26.9 Anion Gap 8.1 BUN 11 Creatinine 1.1 Est GFR (CKD-EPI 2020) 71.32 Glucose 109 H Hemoglobin A1c 5.2 Calcium 8.7 Magnesium 1.8 Triglycerides 145 Total Cholesterol 161 LDL Cholesterol, Calc 79 HDL Cholesterol 53 11/16/22 11/16/22 05:20 08:09 WBC 6.80 RBC 3.79 L Hgb 12.3 L Hct 36.1 L MCV 95 MCH 32.5 MCHC 34.1 RDW 11.9 Plt Count 185 MPV 9.4 Immature Gran % 0.3 Neutrophils % 54.8 Lymphocytes % 33.8 Monocytes % 10.1 Eosinophils % 0.7 Basophils % 0.3 Nucleated RBC % 0.0 Absolute Neutrophils 3.72 Absolute Lymphocytes 2.30 Absolute Monocytes 0.69 Absolute Eosinophils 0.05 Absolute Basophils 0.02 PT 10.4 INR 1.0 APTT 43.7 H Sodium Potassium Chloride Carbon Dioxide Anion Gap BUN Creatinine Est GFR (CKD-EPI 2020) Glucose Hemoglobin A1c Calcium Magnesium Triglycerides Total Cholesterol LDL Cholesterol, Calc HDL Cholesterol Objective Narrative Objective Narrative: Echo: Normal left ventricular wall thickness and chamber size.? Ejection fraction is 60%.? There is a very small apical wall motion abnormality Right ventricle is grossly normal in size Both atria are normal in size There are no structural valvular abnormalities There is trace to mild mitral regurgitation, trace tricuspid regurgitation Estimated right ventricular systolic pressure is 26 mmHg Mildly dilated ascending aorta There is no interval change compared to echocardiogram from July 2022 PAWSS Have you Been Recently Intoxicated or Drunk Within the Last 30 days?: No Have you Ever Experienced Previous Episodes of Alcohol Withdrawal?: Yes Have you ever Experienced Withdrawal Seizures?: No Have you ever Experienced Delirium Tremens(DT)s?: Yes Have you ever undergone Alcohol Rehabilitation Treatment (i.e, inpt ot outpatient treatment programs)?: Yes Have you ever Experienced Blackouts?: Yes Have you ever Combined Alcohol with other Downers within the last 90 days?: No Have you ever Combined Alcohol with any other Substance of Abuse during the last 90 days?: No Positive Blood Alcohol level on Presentation? [PCS.BAL]: Unable to Obtain Evidence of Increased Autonomic Activity (i.e. HR>120, tremor, sweating, agitation, nausea)?: No Result: 4 Time Spent with Patient Time Spent with Patient: 25-34 minutes Time was spent: preparing to see the patient(eg.review tests), obtaining and/or reviewing separately otained hiistory, ordering medications,tests, procedures, referring, communicating with other health customer care coordinator, indepentently interpreting results, counseling the patient and care coordination
[2022-11-16] MEDS: Melatonin 3 MG TAB PO (21:05)
[2022-11-16] MEDS: buPROPion-XL 150 MG TABCR PO (21:05)
[2022-11-16] MEDS: Tamsulosin 0.4 MG CAPCR 0.8 MG PO (21:06)
[2022-11-16] MEDS: Ranolazine 500 MG TABCR 1000 MG PO (21:06)
[2022-11-16] MEDS: Magnesium Oxide 400 MG TAB PO (21:12)
[2022-11-17] VITALS (8 sets, daily range): BP systolic 106–143; BP diastolic 67–89; PULSE 65–97; RESP 16–17; TEMP 35.6–37; O2SAT 96–99
[2022-11-17 07:13] LABS: Anion Gap 9.7 mmol/L (3-11); BUN 17 mg/dL (7-18); CO2 26.3 mmol/L (21.0-32.0); CREATININE 1.2 mg/dL (0.70-1.30); Chloride 102 mmol/L (98-107); Estimated GFR 64.25 (mL/min/1.73m2); Glucose 99 mg/dL (74-106); Potassium 4.1 mmol/L (3.5-5.1); Sodium 138 mmol/L (136-145)
--- NOTE | 2022-11-17 08:00 | DI.NM_ITS ---
APPROVED REPORT Exam: Pharmacologic Patient Location: In-Patient Room/Bed: 228 Stress Nurse: Sameera Mark RN Ordering Provider:SUHAIL RUBI, Contact Number: [phone] BMI: 25.21 Baseline Rhythm: Sinus Rhythm Indications: Chest pain, history of CAD Medical History Medical History: CAD, GERD, Depression/anxiety, reactive airway disease, BPH, TAYLOR Cardiac Medications: ASA, plavix, imdur, cozaar, toprol XL Allergies: Simvastatin Cardiac Risk Factors: +family history, CVD, HLD, Asthma Previous Cardiac Procedures: history of IA w/ stent x2 June 2022 Pretest Chest Pain Characteristics: Pt reports on and off left chest pain for days, it comes and goes , lasting minutes to hours, prior to test it was 4/10, immediately before test it had subsided Exercise History: Sedentary Physical Disabilities: Right wrist brace Lung Sounds: Lungs clear Heart Sounds: regular, s1/s2 Stress Test Details Test: Pharmacologic stress testing performed using 0.4 mg of regadenoson per 5 mL given IV over 10 s econds. Reason for pharmacologic stress test: physical limitation. Nuclear Acquisition: Rest Tc-99m/Stress Tc-99m 1 day Rest Isotope: Tc-99m Sestamibi. Dose: 10.2 Date: 11/17/2022 Injection Time: 1330 Stress Isotope: Tc-99m Sestamibi. Dose: 31.0 Date: 11/17/2022 Injection Time: 15:12 HR Resting HR Supine: 69 bpm Max Heart Rate (APMHR): 148.304039 bpm Resting HR Standin bpm Target HR (85% APMHR): 125.359221 bpm Max HR Achieved: 109 bpm % of APMHR: 73.65 Recovery HR: 89 bpm HR response to stress: Normal HR response to stress BP Resting BP Supine: 150/80 mmHg Resting BP Standin/62 mmHg Max BP: 150/86 mmHg Recovery BP: 122/72 mmHg BP response to stress: Normal blood pressure response to stress. ECG Resting ECG: Sinus Rhythm Ectopy: None Stress ECG: Sinus Tachycardia ST Change: No significant ST segment changes noted Arrhythmia: None Recovery ECG: Sinus Rhythm Recovery ST Change: No significant ST segment changes noted Recovery Arrhythmia: None Clinical Stress Symptoms: Chest pain, dizziness, headache, feeling faint Angina Score: Non-Limiting Rate Pressure Product: 118594 Stress ECG Conclusion 1. Resting electrocardiogram was within normal limits 2. Patient underwent testing using pharmacologic stress with regadenoson 3. Peak heart rate achieved was 74% of predicted for age 4. The electrocardiographic portion of the test was nondiagnostic due to inadequate heart rate 5. See MPI report Stress Test Summary STAGE HR BP SpO2 Symptoms NOTES Supine 69 150/80 Standing 98 130/62 1 min post Lexiscan injection 101 150/86 Feeling faint 3 min post Lexiscan injection 105 142/68 Chest pain 4-5/10 6 min post Lexiscan injection 98 148/76 Dizziness 9 min post Lexiscan injection 93 122/72 12 min post Lexiscan injection 92 Chest pain 2/10 15 min post Lexiscan injection Chest pain resolved, headache Patient admitted inpatient for chest pain that has been coming and going for multiple days. The chest pain can last minutes or hours. Patient description of chest pain can be difficult to follow at time s. Pt stated prior to starting test that he was having chest pain in his left chest 4/10. Minutes lat er pt reported that pain had subsided. Stress testing team attempted walking lexiscan test but pt was unable to tolerate long on the treadmill and EKG reading was not clear. Test was transitioned to lay ing lexiscan. Patient tolerated the test well overall. He reported symptoms of feeling faint, chest pain, dizziness and headache. All symptomts except headache subsided within 16 minutes of lexiscan a dministration and patient was able to ambulate to scanning area. Patients chest pain ranged from a 2- 4/10. MPI Conclusion There is a small fixed inferoapical defect. There is no additional ischemia EF 53%, normal wall motion Findings are similar to that reported from [facility] July 31, 2022 Radiologist Interpretation Radiologist agrees with [employer] Co[employer] Supervisor's Interpretation. Radiologist Interpretation by: Gerhard Pinto MD Interpretation Date/Time: 11/17/2022 16:59:02
[2022-11-17] MEDS: Cyanocobalamin 500 MCG TAB 1000 MCG PO (10:13)
[2022-11-17] MEDS: Cholecalciferol (Vitamin D3) 1,000 UNIT TAB 1000 UNITS PO (10:13)
[2022-11-17] MEDS: Folic Acid 1 MG TAB PO (10:13)
[2022-11-17] MEDS: ROSUVASTATIN 20 MG TAB 40 MG PO (10:14)
[2022-11-17] MEDS: Finasteride 5 MG TAB PO (10:14)
[2022-11-17] MEDS: buPROPion-XL 150 MG TABCR 300 MG PO (10:14)
--- NOTE | 2022-11-17 14:10 | PDOC.CMDIS ---
- If Service Date Differs Date of service: 11/17/22 Time of Service: 14:10 LACE Index Scoring Tool - Questions: Length of Stay (in days): 2 Acuity (Admit via E.D.?): Yes E.D. Visits: 7 - Answers: Total Score: 9 Risk of Readmission: Low Risk Care Management Discharge Reason for Hospitalization: Chest Pain, mildly elevated troponin Discharge Plan: Oniel will return home with no additional services, he will follow up with his PCP and plan of care as prescribed. He will transport via private vehicle, with a friend or via RCT. Patient/Family Education Needs: Review discharge instructions, discuss Ask Me Three.
--- NOTE | 2022-11-17 16:01 | PT.INTREAT ---
Date of service: 11/17/22 Time of Service: 10:20 PT Notes Visit Reasons: Chest Pain,Mildly Elevated Troponin Inpatient Physical Therapy Treatment Note [facility] Date: 11/17/2022 PRECAUTIONS: Activity as tolerated SUBJECTIVE: Oniel is pleasant and agreeable to participating in PT. He reports that he is feeling better today compared to yesterday. He continues to have some SOB with activity though, as his inhalers were held this morning in preparation for his stress test this afternoon. OBJECTIVE: PAIN: No c/o pain BED MOBILITY/TRANSFERS Supine-sit: I Sit-supine: I Sit-stand: I Stand-sit: I GAIT Assistive Device: SPC Weight bearing: Full Assist: Supervision Distance: 400' Deviation: Several standing rests due to SOB. STAIRS: Up/down 23x6 using U rail and a step-over pattern with supervision ASSESSMENT: Patient tolerated session well, although with some complaint of increased fatigue and of SOB with gait training. PLAN: Patient to discharge to home later today, per provider. No services recommended at this time. TREATMENT CODE/TIME: 15 minutes; 28290 (10:20)
[2022-11-17] MEDS: Regadenoson 0.4 MG/5 ML SYR IVP (16:04)
[2022-11-17] MEDS: Metoprolol CR 50 MG TABCR 100 MG PO (17:07)
[2022-11-17] MEDS: Isosorbide Mononitrate 60 MG TABCR PO (17:07)
[2022-11-17] MEDS: Losartan 25 MG TAB PO (17:08)
[2022-11-17] MEDS: Aspirin E.C. 81 MG TABEC PO (17:08)
[2022-11-17] MEDS: Clopidogrel 75 MG TAB PO (17:08)
[2022-11-17] MEDS: Budesonide/Formoterol 160/4.5 6 GM 60 PUFF INH IH (19:58)
[2022-11-17] MEDS: Ranolazine 500 MG TABCR 1000 MG PO (20:01)
--- NOTE | 2022-11-17 20:31 | PGE_ITS ---
Date of Service Date of service: 11/17/22 Time of Service: 20:31 Assessment and Plan Assessment and plan (1) Chest pain: Status: Acute Assessment and plan: Some features suggest a cardiac component (exertional, elevated troponin) while others not (unrelieved with nitroglycerin). Echo, EKGs unchanged. Continue home imdur 60 mg, consider increase to 90 mg, continue ranexa. Heparin gtt d/c'ed. Continue asa, plavix, BB, statin. For MPI stress test today still pending (2) Elevated troponin: Status: Acute Assessment and plan: As above (3) Coronary artery disease: Status: Chronic Assessment and plan: S/p [place] [facility] [place]. (4) GERD (gastroesophageal reflux disease): Assessment and plan: Continue PPI. (5) Anxiety: Assessment and plan: Continue home regimen. (6) Normocytic anemia: Status: Acute Assessment and plan: F/u as outpatient. (7) DVT prophylaxis: Status: Acute Assessment and plan: SC heparin. (8) Discharge planning issues: Status: Acute Assessment and plan: Full code Discussed with Dr Storey Subjective Subjective Patient reports: no new complaints, feels better, tolerating a regular diet and afebrile; denies flatus, bowel movement, diarrhea, vomiting or shortness of breath Interval history since last seen: Awale. alert, conversant - awaiting stress test to be discharged - in agreement with plan, has had no further chest pain and no shortness of breath. Exam Narrative Exam Narrative: General: Pleasant anxious male, A&Ox3, HEENT: EOMI, MMM Cardiovascular: RRR, no m/r/g Lungs: CTAB Gastrointestinal: soft, nontender, nondistended Extremities: no edema BLEs Objective Last Vital Signs Temp 37.0 C 11/17/22 19:22 Pulse 74 11/17/22 19:22 Resp 16 11/17/22 19:22 BP 106/70 11/17/22 19:22 Pulse Ox 98 11/17/22 19:22 Laboratory Results - last 24 hr 11/17/22 06:38 Sodium 138 Potassium 4.1 Chloride 102 Carbon Dioxide 26.3 Anion Gap 9.7 BUN 17 Creatinine 1.2 Est GFR (CKD-EPI 2020) 64.25 Glucose 99 Calcium 9.0 Magnesium 2.0 PAWSS Have you Been Recently Intoxicated or Drunk Within the Last 30 days?: No Have you Ever Experienced Previous Episodes of Alcohol Withdrawal?: Yes Have you ever Experienced Withdrawal Seizures?: No Have you ever Experienced Delirium Tremens(DT)s?: Yes Have you ever undergone Alcohol Rehabilitation Treatment (i.e, inpt ot outpatient treatment programs)?: Yes Have you ever Experienced Blackouts?: Yes Have you ever Combined Alcohol with other Downers within the last 90 days?: No Have you ever Combined Alcohol with any other Substance of Abuse during the last 90 days?: No Positive Blood Alcohol level on Presentation? [PCS.BAL]: Unable to Obtain Evidence of Increased Autonomic Activity (i.e. HR>120, tremor, sweating, agitation, nausea)?: No Result: 4 Time Spent with Patient Time Spent with Patient: 35-49 minutes Time was spent: preparing to see the patient(eg.review tests), obtaining and/or reviewing separately otained hiistory, ordering medications,tests, procedures, referring, communicating with other health career and guidance counselor, indepentently interpreting results, counseling the patient and care coordination
[2022-11-17] MEDS: Tamsulosin 0.4 MG CAPCR 0.8 MG PO (21:22)
[2022-11-17] MEDS: Magnesium Oxide 400 MG TAB PO (21:22)
[2022-11-17] MEDS: buPROPion-XL 150 MG TABCR PO (21:22)
[2022-11-18] VITALS (9 sets, daily range): BP systolic 94–107; BP diastolic 57–65; PULSE 59–85; RESP 12–32; TEMP 35.7–36.6; O2SAT 94–99
[2022-11-18 07:27] LABS: Abs Immature Grans 0.03 10^3/uL (0.0-0.06); Absolute Basophil Count 0.02 10^3/uL (0.0-0.2); Absolute Eosinophil Count 0.05 10^3/uL (0.0-0.7); Absolute Lymphocyte Count 1.69 10^3/uL (1.2-3.4); Absolute Monocyte Count 0.82 10^3/uL (0.1-0.8); Absolute Neutrophil Count 5.14 10^3/uL (1.2-6.7); Basophils % 0.3; Eosinophils % 0.6; HCT 40.5 % (40.0-50.0); HGB 13.5 g/dL (13.5-17.5); Immature Grans % 0.4; Lymphocytes % 21.8; MCH 31.8 pg (27.0-33.0); MCHC 33.3 % (32.0-36.0); MCV 96 fL (80-95); MPV 9.2 fL (8.0-11.0); Monocytes % 10.6; Neutrophils % 66.3; Platelet Count 202 10^3/uL (130-400); RBC 4.24 10^6/uL (4.36-5.78); RDW-SD 41.3 fL; WBC 7.75 10^3/uL (4.4-10.8)
[2022-11-18 08:01] LABS: BUN 15 mg/dL (7-18); CREATININE 1.3 mg/dL (0.70-1.30); Calcium 9.7 mg/dL (8.5-10.1); Chloride 101 mmol/L (98-107); Estimated GFR 58.37 (mL/min/1.73m2); Glucose 101 mg/dL (74-106); Magnesium 2.2 mg/dL (1.8-2.4); Potassium 4.3 mmol/L (3.5-5.1); Sodium 137 mmol/L (136-145)
[2022-11-18] MEDS: Aspirin E.C. 81 MG TABEC PO (08:19)
[2022-11-18] MEDS: buPROPion-XL 150 MG TABCR 300 MG PO (08:25)
[2022-11-18] MEDS: Cholecalciferol (Vitamin D3) 1,000 UNIT TAB 1000 UNITS PO (08:28)
[2022-11-18] MEDS: Isosorbide Mononitrate 60 MG TABCR PO (08:31)
[2022-11-18] MEDS: Cyanocobalamin 500 MCG TAB 1000 MCG PO (08:31)
[2022-11-18] MEDS: ROSUVASTATIN 20 MG TAB 40 MG PO (08:32)
[2022-11-18] MEDS: Metoprolol CR 50 MG TABCR 100 MG PO (08:33)
[2022-11-18] MEDS: Clopidogrel 75 MG TAB PO (08:33)
[2022-11-18] MEDS: Losartan 25 MG TAB PO (08:33)
[2022-11-18] MEDS: Finasteride 5 MG TAB PO (08:34)
[2022-11-18] MEDS: Folic Acid 1 MG TAB PO (08:34)
[2022-11-18] MEDS: Normal Saline Flush 10 ML SYR IVP (08:39)
[2022-11-18] MEDS: Ranolazine 500 MG TABCR 1000 MG PO (09:21)
[2022-11-18] MEDS: Budesonide/Formoterol 160/4.5 6 GM 60 PUFF INH IH (09:28)
[2022-11-18] MEDS: Tiotropium Bromide-Respimat 10 PUFF INH 2 PUFF IH (09:29)
[2022-11-18] MEDS: Mylanta Suspension 30 ML CUP PO (10:53)
--- NOTE | 2022-11-18 10:58 | CHAPLAIN ---
Oniel was admitted last night after coming to the ED with chest pains. He had a stent put in last year. Oniel was sitting up in bed watching tv w hen I came he. He said he is fine and wasn't interested in further conversation.
--- NOTE | 2022-11-18 13:44 | DSE_ITS ---
Date of service: 11/18/22 Time of Service: 13:44 DS: Diagnosis Discharge Diagnosis (1) Chest pain: Status: Resolved (2) Elevated troponin: Status: Resolved (3) Coronary artery disease: Status: Chronic (4) GERD (gastroesophageal reflux disease): (5) Anxiety: (6) Normocytic anemia: Status: Acute (7) DVT prophylaxis: Status: Deleted Discharge Plan Disposition Patient Disposition: Home Condition: Good Discharge Details Reason For Visit: Chest Pain,Mildly Elevated Troponin Admit Date/Time: 11/15/22 15:10 Admit Provider: Terri Storey Attending Provider: Terri Storey Primary Care Provider: Jae Del Toro Hospital Course Hospital Course: Mr Barbosa is a 72 year old male with PMHx of CAD s/p NSTEMI/stent 06/25 ([facility] [place]), on EDUARDA, as well as h/o AAA, HTN, GERD, anxiety, TAYLOR, who presented to [facility] ED on 11/15/22 with intermittent chest pain. He reported having chest pain for 2-3 days, he attributed to anxiety. He described a sensation of something fluttering in his upper chest and a racing heart.? The night of admission, the patient woke up with L-sided pressure-like chest pain and palpitations from sleep. He took nitroglycerin for it (it did not help the pain) and came to the ED. In the ED, he had no ischemic changes on the EKG, but his troponin I was 160.?The patient did find that exertion made the chest pain worse and rest did make it feel better, which was reproduced in the ED. He was empirically started on heparin gtt. He was already on plavix and aspirin. CTA of the chest ruled out acute PE or aortic dissection within the thoracic region. [facility] cardiology recommended an echo and a stress test tomorrow, but not a transfer. His repeat troponin was 155. He reported to us he has recently fractured his R wrist and is supposed to wear a brace, but forgot it at home. He no longer had pain, labs were improving, he had an echocardiogram and myocardial perfusion study, reviewed by cardiology. He was discharged to home and will follow up with cardiology. Discussed with Dr Garcia ? Home Meds and New Rx's Prescriptions: New levalbuterol tartrate 45 mcg/actuation Hfa Aerosol Inhaler 2 puff inhalation Q4H PRN PRNQty: 0 0RF Continued acetaminophen [Tylenol] 325 mg Tablet 650 mg PO QID PRN cyanocobalamin (vitamin B-12) 1,000 mcg Tablet 1,000 mcg PO DAILY aspirin 81 mg Tablet,Delayed Release (Dr/Ec) 81 mg PO DAILY buspirone 10 mg Tablet 20 mg PO BID hydroxyzine HCl 25 mg Tablet 25 mg PO TID PRN rosuvastatin 40 mg Tablet 40 mg PO DAILY cholecalciferol (vitamin D3) 25 mcg (1,000 unit) Tablet 25 mcg PO DAILY gabapentin [Neurontin] 100 mg capsule 100 mg PO TID PRN isosorbide mononitrate 60 mg Tablet Extended Release 24 Hr 60 mg PO DAILY pantoprazole [Protonix] 40 mg Tablet,Delayed Release (Dr/Ec) 40 mg PO DAILY diazepam 5 mg Tablet 5 mg PO DAILY PRN (Reason: Anxiety) bupropion HCl 150 mg Tablet Extended Release 24 Hr 150 mg PO HS cetirizine 10 mg Tablet 10 mg PO DAILY PRN ketoconazole 2 % Shampoo 1 applic TOPICAL DAILY cromolyn 5.2 mg/spray (4 %) [place],Non-Aerosol 1 spray INTRANASAL TID PRN loperamide 2 mg Capsule 2 mg PO QID PRN ibuprofen 800 mg Tablet 800 mg PO BID melatonin 3 mg Tablet 3 mg PO HS PRN gabapentin 300 mg Capsule 300 mg PO TID PRN propranolol 10 mg Tablet 10 mg PO TID psyllium Powder 1 tbsp PO BID Rx Instructions: mix into at least 8 oz of water or juice before administering terazosin 2 mg Capsule 2 mg PO QHS montelukast 10 mg Tablet 10 mg PO DAILY Spiriva Respimat 2.5 mcg/actuation Mist 2 puff INHALATION DAILY metoprolol succinate 50 mg Tablet Extended Release 24 Hr 100 mg PO DAILY Qty: 0 0RF simethicone 80 mg Tablet,Chewable 80 mg PO QID PRN PRNQty: 0 0RF ranolazine 500 mg Tablet Extended Release 12 Hr 1,000 mg PO BID Qty: 0 0RF Inhaler, Assist Devices [Pocket Chamber] 1 ea miscellaneous DIRECTED Qty: 0 0RF Patient's Own Medication 5 ea PO AC & HS PRNQty: 0 0RF methocarbamol 500 mg tablet 500 mg PO Q6H PRN (Reason: Back pain or spasm) Qty: 14 0RF tamsulosin 0.4 mg Capsule 0.8 mg PO HS Rx Instructions: 30 minutes after meal famotidine 10 mg Tablet 10 mg PO BID PRN (Reason: GERD) vitamin A 10,000 unit Capsule 10,000 unit PO DAILY folic acid 1 mg Tablet 1 mg PO DAILY albuterol 90 mcg/actuation Aerosol 180 mcg INHALATION BID Hold Instructions: Now using Xopenex. Will restart if [facility] doesn't [facility] Xoepnex Rx Instructions: INHALE 2 PUFFS BY MOUTH FOUR TIMES DAILY NEEDED finasteride 5 mg Tablet 5 mg PO DAILY magnesium oxide 400 mg magnesium Tablet 400 mg PO HS clopidogrel [Plavix] 75 mg Tablet 75 mg PO DAILY losartan 25 mg Tablet 25 mg PO DAILY nitroglycerin [Nitrostat] 0.4 mg Tablet, Sublingual 0.4 mg sublingual PRN PRN bupropion HCl 150 mg Tablet Extended Release 24 Hr 300 mg PO DAILY Rx Instructions: am dose ascorbic acid (vitamin C) 1,000 mg Tablet 1,000 mg PO DAILY Discharge Instructions Instructions: Chest Pain (DC) Additional Instructions: Continue home medications; follow up with your Clarity Developer. Stand Alone Forms: Nursing Discharge Form Referrals: Jae Del Toro [Primary Care Provider] - 11/24/22 2:30 pm (1-2 weeks) Activity:: Activity as Tolerated Equipment/Supplies:: No Equipment Needed Diet:: As Tolerated Discharge Orders Discharge Orders: Discharge Order (Routine); Ordered 11/18/22 Ordered By: Cailin Mendez Discharge Data Discharge Date/Time-TO BE ENTERED AT DEPARTURE: 11/18/22 15:37 DS: Summary Time Spent with Patient providing and/or coordinating discharge services: Greater than 30 minutes Status at Discharge Functional status at discharge: independent ambulation Overall status at discharge: patient is back to baseline Mental Status: mental status grossly normal Speech and Movement: speech and movement normal Mood: congruent mood Affect: normal affect Exam Narrative Exam Narrative: General: Pleasant anxious male, A&Ox3 Neurological: A&Ox3, no focal deficits Psychiatric: mildly anxious, appropriate speech pattern/content Skin: Visible skin in tact HEENT: Atraumatic, normocephalic, EOMI, dry MM, clear oropharynx, no submandibular or cervical lymphadenopathy, no goiter or JVD Cardiovascular: RRR, no m/r/g Lungs: CTAB Gastrointestinal: soft, nontender, nondistended Genitourinary: deferred Extremities: no edema BLEs Psych Mental Status: mental status grossly normal Speech and Movement: speech and movement normal Mood: congruent mood Affect: normal affect DS: Data Vitals/I&O Vitals and I&O: Vital Signs Temperature 35.9 C L 11/18/22 11:54 Temperature Source Tympanic 11/18/22 11:54 Pulse 65 11/18/22 11:54 Pulse Rhythm Regular 11/18/22 09:03 Pulse 65 11/16/22 11:40 Respiratory Rate 16 11/18/22 11:54 Respiratory Effort Normal, Non-Labored 11/18/22 09:51 Respiratory Depth Normal 11/18/22 09:51 Respiratory Pattern Normal 11/18/22 09:51 Blood Pressure 94/57 L 11/18/22 11:54 Blood Pressure Mean 78 11/16/22 11:30 Blood Pressure Position Sitting 11/15/22 04:52 Pulse Oximetry 96 11/18/22 11:54 Oxygen Delivery Method Room Air 11/18/22 10:14 Oxygen Flow Rate 0 11/18/22 10:14 Pain Level 2 11/18/22 13:26 Comment NS 11/15/22 06:46 Intake & Output 11/17/22 11/18/22 11/18/22 23:59 11:59 23:59 Intake Total 24.5 / 24.5 Balance 24.5 / 24.5 Intake: IV 24.5 / 24.5 Other: Urine Appearance Clear Clear Comment unable to assess Voiding Methods Toilet Urinal Data Completed and Pending Completed studies during hospitalization [Text1]: Echo Conclusion Normal left ventricular wall thickness and chamber size.? Ejection fraction is 60%.? There is a very small apical wall motion abnormality Right ventricle is grossly normal in size Both atria are normal in size There are no structural valvular abnormalities There is trace to mild mitral regurgitation, trace tricuspid regurgitation Estimated right ventricular systolic pressure is 26 mmHg Mildly dilated ascending aorta There is no interval change compared to echocardiogram from July 2022 Labs on day of discharge: Labs from last 24 hours 11/18/22 11/18/22 06:58 06:58 WBC 7.75 RBC 4.24 L Hgb 13.5 Hct 40.5 MCV 96 H MCH 31.8 MCHC 33.3 RDW 12.0 Plt Count 202 MPV 9.2 Immature Gran % 0.4 Neutrophils % 66.3 Lymphocytes % 21.8 Monocytes % 10.6 Eosinophils % 0.6 Basophils % 0.3 Nucleated RBC % 0.0 Absolute Neutrophils 5.14 Absolute Lymphocytes 1.69 Absolute Monocytes 0.82 H Absolute Eosinophils 0.05 Absolute Basophils 0.02 Sodium 137 Potassium 4.3 Chloride 101 Carbon Dioxide 26.0 Anion Gap 10.0 BUN 15 Creatinine 1.3 Est GFR (CKD-EPI 2020) 58.37 Glucose 101 Calcium 9.7 Magnesium 2.2 PFSH All Active Problems (Updated 11/26/22 @ 00:05 by CLYDE LIU) Normocytic anemia (Acute) Reactive airway disease (Acute) Coronary artery disease (Chronic) Unstable angina (Acute) BPH (benign prostatic hyperplasia) (Chronic) Depression (Chronic) Acute non-ST elevation myocardial infarction (NSTEMI) (Acute) Elevated ETOH level (Acute) TAYLOR (obstructive sleep apnea) (Chronic) Non-ST elevation RI (NSTEMI) (Acute) Medical History (Updated 11/26/22 @ 00:05 by CLYDE LIU) AAA (abdominal aortic aneurysm) without rupture Anxiety GERD (gastroesophageal reflux disease) High cholesterol Kidney stones Sleep apnea Surgical History (Updated 11/15/22 @ 19:16 by Terri Storey MD) S/P colonoscopy S/P spinal surgery multiple cervical and lumbar spine surgeries Status post coronary artery stent placement Family History (Updated 11/15/22 @ 19:18 by Terri Storey MD) Father Dementia Mother Dementia Paternal Grandfather Heart disease Brother Stroke Paternal Aunt Diabetes Paternal Grandmother Diabetes Social History Smoking/Tobacco Use Status: Never Smoking risk assessment performed?: Yes Alcohol Intake: current Alcohol Intake frequency: a few times a week Alcohol type: beer and hard liquor Drug use: Never Substance use type: does not use Do you feel safe at home: Yes Do you feel safe in your relationship?: Yes Additional Social history: Lives alone on [address] in [facility], Grew up in [place], family goes back generations there. Served in [employer] out of [place], [place]. On disability for spinal injuries since. Time Spent with Patient Time Spent with Patient: 45-69 minutes Time was spent: preparing to see the patient(eg.review tests), obtaining and/or reviewing separately otained hiistory, ordering medications,tests, procedures, referring, communicating with other health manager medicare marketing, indepentently interpreting results, counseling the patient and care coordination
--- NOTE | 2022-11-18 14:06 | PDOC.CMDIS ---
- If Service Date Differs Date of service: 11/18/22 Time of Service: 14:06 LACE Index Scoring Tool - Questions: Length of Stay (in days): 3 Acuity (Admit via E.D.?): Yes E.D. Visits: 7 - Answers: Total Score: 10 Risk of Readmission: High Risk Care Management Discharge Reason for Hospitalization: Chest Pain, mildly elevated troponin Discharge Plan: Oniel is discharged with no additional services, he will follow up with his PCP and plan of care as prescribed. Pt transported via Taxi. Patient/Family Education Needs: Review discharge instructions, medications and plan to follow up with PCP and cardiology. Discuss ask me three.
--- NOTE | 2022-11-19 14:30 | INDS_ITS ---
Date of service: 11/17/22 PT Notes Visit Reasons: Chest Pain,Mildly Elevated Troponin Physical Therapy Inpatient Discharge Summary Date: 11/17/22 Service: 11/16/2022 through 11/17/2022 This is a clinical summary of care provided for the duration of dates listed above. No charge was made in the completion of this documentation. Referring Doctor:? Terri Storey MD PT Orders: PT CONSULT: Limited ability Precautions: Activity as tolerated.? R universal splint on at all times,? may only take off for hygiene. Patient Profile/Admitting Diagnosis:?? Patient is admitted for medical management of chest pain, elevated troponin,? CAD,? GERD,? and anxiety.? Dr. Storey requested PT consult to asssess for appropriate brace that can support R wrist from recent injury resulting from a fall. PMHX: All Active Problems?(Updated 11/15/22 @ 15:30 by Terri Storey MD) DVT prophylaxis (Acute) Discharge planning issues (Acute) Elevated troponin (Acute) Back strain (Acute) Injury of right wrist (Acute) Reactive airway disease (Acute) Coronary artery disease (Chronic) Unstable angina (Acute) BPH (benign prostatic hyperplasia) (Chronic) Depression (Chronic) Acute non-ST elevation myocardial infarction (NSTEMI) (Acute) Elevated ETOH level (Acute) Chest pain (Acute) TAYLOR (obstructive sleep apnea) (Chronic) Non-ST elevation [place] (NSTEMI) (Acute) Medical History?(Updated 11/15/22 @ 15:30 by Terri Storey MD) AAA (abdominal aortic aneurysm) without rupture Anxiety GERD (gastroesophageal reflux disease) High cholesterol Kidney stones Sleep apnea Surgical History?(Updated 11/15/22 @ 19:16 by Terri Storey MD) S/P colonoscopy S/P spinal surgery multiple cervical and lumbar spine surgeries Status post coronary artery stent placement Social History/Home Situation: Patient lives alone in small apartment with ~40 steps to enter, single rail.? Uses a cane for community ambulation, stating his knees give out when turning.? Does not utilize AD in his home. Reports ability to walk approx 300' before getting short of breath at baseline. Equipment Owned/DME: SPC Subjective:? NT. See most recent BUSINESS SERVICES ASSISTANT notes. Objective:? General Observation: NT. See most recent BUSINESS SERVICES ASSISTANT notes. Mental Status: NT. See most recent BUSINESS SERVICES ASSISTANT notes. Pain: NT. See most recent BUSINESS SERVICES ASSISTANT notes. Vital Signs: NT. See most recent BUSINESS SERVICES ASSISTANT notes. ROM: Left upper extremity:? Limited extension at the wrist due to recent ulnar styloid fracture? but no paperwork[facility] the [facility] has been available Right Lower Extremity: Grossly WFL Left Lower Extremity: Grossly WFL Strength: Left upper extremity: NT Right Lower Extremity: Hip flexion 5/5. Quads 5/5. Ankle DF 5/5 Left Lower Extremity:? Hip flexion 5/5. Quads 5/5. Ankle DF 5/5 Bed Mobility/Transfers: supine-sit: independent sit-supine: independent sit-stand: independent stand-sit: independent Gait:? Independent with all level surface ambulation for up to 300 feet. Unlimited distances using SPC. Balance:? Static Sitting: Normal Dynamic Sitting: Normal Static Standing: Normal Dynamic Standing: Good Informed Consent/Education:? Patient instructed in purpose of PT consult and plan of care. Assessment:?? All goals achieved without AD. Goals: 1. Gait : Independent with 300' with cane without RUIZ MET 2. Stairs : Indepedent with ascent and descent with consistent use of rail without RUIZ MET DISCHARGE RECOMMENDATIONS: No services needed at this time. TREATMENT CODE/TIME: NC Thank you for the opportunity to participate in the care of this patient. Maira Esther Bassett PT, DPT, CLT [facility] [place], [place] ?
== END 2022-11-18 15:37 | disposition home or self-care (01) ==
LOC: ER 16:40 → MS 11-16 12:47
PROVIDERS: Emergency Medicine; Family Medicine; Nurse Practitioner Family; Admitting Provider Internal Medicine; Emergency Provider Student in an Organized Health Care Education/Training Program; PCP Internal Medicine; Visit Provider Internal Medicine
DX: R07.89 Other chest pain; R74.8 Abnormal levels of other serum enzymes; I25.10 Atherosclerotic heart disease of native coronary artery without angina pectoris; I25.2 Old myocardial infarction; Z95.5 Presence of coronary angioplasty implant and graft; K21.9 Gastro-esophageal reflux disease without esophagitis; F41.9 Anxiety disorder, unspecified; I71.40 Abdominal aortic aneurysm, without rupture, unspecified; I10 Essential (primary) hypertension; G47.33 Obstructive sleep apnea (adult) (pediatric); J45.909 Unspecified asthma, uncomplicated; N40.0 Benign prostatic hyperplasia without lower urinary tract symptoms; F32.A Depression, unspecified; E78.00 Pure hypercholesterolemia, unspecified; D64.9 Anemia, unspecified; Z79.899 Other long term (current) drug therapy
CPT/HCPCS: 36415; 71275; 78452; 80048; 80053; 80061; 83690; 87635; 93005; 94618; 94640; 96374; 97161; 97530; 99285; 83036; 83735; 84484; 85025; 85610; 85730; 93010; 93017; 93306; 94664; 99223; 99232; 99239; G0378; J2785; J3490

== ENCOUNTER 2023-01-01 13:10 | Outpatient (RCR) | payer OTHER, SELFPAY | END 2023-01-01 23:59 | disposition home or self-care (01) | LOC: CR 13:10 | PROVIDERS: PCP Internal Medicine; Visit Provider Internal Medicine Cardiovascular Disease | DX: I25.10 Atherosclerotic heart disease of native coronary artery without angina pectoris (principal); I25.2 Old myocardial infarction | CPT/HCPCS: S9472 ==

== ENCOUNTER 2023-01-29 12:58 | Outpatient (RCR) | payer OTHER, SELFPAY | END 2023-01-31 23:59 | disposition home or self-care (01) | LOC: CR 12:58 | PROVIDERS: PCP Internal Medicine; Visit Provider Internal Medicine Cardiovascular Disease | DX: I25.2 Old myocardial infarction (principal); Z95.5 Presence of coronary angioplasty implant and graft; I25.10 Atherosclerotic heart disease of native coronary artery without angina pectoris; Z51.89 Encounter for other specified aftercare | CPT/HCPCS: S9472 ==

== ENCOUNTER 2023-03-03 13:05 | Outpatient (RCR) | payer OTHER, SELFPAY | END 2023-03-03 23:59 | disposition home or self-care (01) | LOC: CR 13:05 | PROVIDERS: PCP Internal Medicine; Visit Provider Internal Medicine Cardiovascular Disease | DX: I25.2 Old myocardial infarction (principal); I25.10 Atherosclerotic heart disease of native coronary artery without angina pectoris; Z95.5 Presence of coronary angioplasty implant and graft | CPT/HCPCS: S9472 ==

== ENCOUNTER 2023-04-02 13:23 | Outpatient (RCR) | payer OTHER, SELFPAY | END 2023-04-02 23:59 | disposition home or self-care (01) | LOC: CR 13:23 | PROVIDERS: PCP Internal Medicine; Visit Provider Internal Medicine Cardiovascular Disease | DX: I25.10 Atherosclerotic heart disease of native coronary artery without angina pectoris (principal); I25.2 Old myocardial infarction; Z95.5 Presence of coronary angioplasty implant and graft | CPT/HCPCS: S9472 ==

== ENCOUNTER 2023-04-07 13:00 | Outpatient (RCR) | payer OTHER, SELFPAY | END 2023-05-03 23:59 | disposition home or self-care (01) | LOC: CR 13:00 | PROVIDERS: PCP Internal Medicine; Visit Provider Internal Medicine Cardiovascular Disease | CPT/HCPCS: S9472 ==

== ENCOUNTER 2023-12-15 04:38 | Emergency (ER) | payer OTHER, SELFPAY ==
[2023-12-15] VITALS (66 sets, daily range): BP systolic 108–134; BP diastolic 68–87; PULSE 67–81; RESP 13–25; TEMP 36.7; O2SAT 95–100
--- NOTE | 2023-12-15 04:30 | RT.EKG_ITS ---
APPROVED REPORT Exam: Resting ECG Reason for Exam: chest pain Patient Location: E HR:79 bpm ECG Measurements Heart Rate 79 AXIS AZ 127 P 36 QRSd 78 QRS 29 QT 401 T 18 QTc 461 Conclusion Sinus rhythm.. V-rate 60- 99 Probable left atrial enlargement...P >50mS, <-0.10mV V1 Low voltage, precordial leads...precordial leads <1.0mV no ST segment or T wave abnormalitites to suggest occlusive RI
[2023-12-15 05:01] LABS: Abs Immature Grans 0.05 10^3/uL (0.0-0.06); Absolute Basophil Count 0.05 10^3/uL (0.0-0.2); Absolute Eosinophil Count 0.03 10^3/uL (0.0-0.7); Absolute Lymphocyte Count 3.22 10^3/uL (1.2-3.4); Absolute Monocyte Count 1.02 10^3/uL (0.1-0.8); Absolute Neutrophil Count 5.27 10^3/uL (1.2-6.7); Basophils % 0.5; Eosinophils % 0.3; HCT 43.5 % (40.0-50.0); HGB 15.3 g/dL (13.5-17.5); Immature Grans % 0.5; Lymphocytes % 33.4; MCH 34.2 pg (27.0-33.0); MCHC 35.2 % (32.0-36.0); MCV 97 fL (80-95); Monocytes % 10.6; Neutrophils % 54.7; Platelet Count 228 10^3/uL (130-400); RBC 4.48 10^6/uL (4.36-5.78); RDW 11.8 % (11.8-14.1); RDW-SD 42.6 fL; WBC 9.64 10^3/uL (4.4-10.8)
[2023-12-15] MEDS: chlordiazePOXIDE 25 MG CAP PO (05:15)
[2023-12-15 05:30] LABS: ALT 36 U/L (16-63); AST 36 U/L (15-37); Albumin 3.9 g/dL (3.4-5.0); Alkaline Phosphatase 86 U/L (46-116); BUN 12 mg/dL (7-18); Bilirubin, Total 1.5 mg/dL (0.2-1.0); CREATININE 1.4 mg/dL (0.70-1.30); Calcium 8.9 mg/dL (8.5-10.1); Chloride 102 mmol/L (98-107); Estimated GFR 53.07 (mL/min/1.73m2); Glucose 136 mg/dL (74-106); Magnesium 1.6 mg/dL (1.8-2.4); Sodium 142 mmol/L (136-145); Total Protein 7.6 g/dL (6.4-8.2)
[2023-12-15 05:35] LABS: Troponin I 87 ng/L (< or =60)
--- NOTE | 2023-12-15 05:41 | ED.GENADUL_ITS ---
Discharge Plan Discharge Details Chief Complaint: ETOHWithdr Primary Care Provider: Jae Del Toro ED Provider: Brooklynn Ramsey Home Meds and New Rx's Prescriptions: No Action cyanocobalamin (vitamin B-12) 1,000 mcg Tablet 1,000 mcg PO DAILY aspirin 81 mg Tablet,Delayed Release (Dr/Ec) 81 mg PO DAILY buspirone 10 mg Tablet 20 mg PO BID hydroxyzine HCl 25 mg Tablet 25 mg PO TID PRN rosuvastatin 40 mg Tablet 40 mg PO DAILY cholecalciferol (vitamin D3) 25 mcg (1,000 unit) Tablet 25 mcg PO DAILY isosorbide mononitrate 60 mg Tablet Extended Release 24 Hr 60 mg PO DAILY pantoprazole [Protonix] 40 mg Tablet,Delayed Release (Dr/Ec) 40 mg PO DAILY diazepam 5 mg Tablet 5 mg PO DAILY PRN (Reason: Anxiety) bupropion HCl 150 mg Tablet Extended Release 24 Hr 150 mg PO HS cetirizine 10 mg Tablet 10 mg PO DAILY PRN loperamide 2 mg Capsule 2 mg PO QID PRN ibuprofen 800 mg Tablet 800 mg PO BID propranolol 10 mg Tablet 10 mg PO TID psyllium Powder 1 tbsp PO BID Rx Instructions: mix into at least 8 oz of water or juice before administering terazosin 2 mg Capsule 2 mg PO QHS montelukast 10 mg Tablet 10 mg PO DAILY Spiriva Respimat 2.5 mcg/actuation Mist 2 puff INHALATION DAILY metoprolol succinate 50 mg Tablet Extended Release 24 Hr 100 mg PO DAILY Qty: 0 0RF simethicone 80 mg Tablet,Chewable 80 mg PO QID PRN PRNQty: 0 0RF ranolazine 500 mg Tablet Extended Release 12 Hr 1,000 mg PO BID Qty: 0 0RF Inhaler, Assist Devices [Pocket Chamber] 1 ea miscellaneous DIRECTED Qty: 0 0RF Patient's Own Medication 5 ea PO AC & HS PRNQty: 0 0RF methocarbamol 500 mg tablet 500 mg PO Q6H PRN (Reason: Back pain or spasm) Qty: 14 0RF tamsulosin 0.4 mg Capsule 0.8 mg PO HS Rx Instructions: 30 minutes after meal famotidine 10 mg Tablet 10 mg PO BID PRN (Reason: GERD) folic acid 1 mg Tablet 1 mg PO DAILY albuterol 90 mcg/actuation Aerosol 180 mcg INHALATION BID Hold Instructions: Now using Xopenex. Will restart if [facility] Xoepnex Rx Instructions: INHALE 2 PUFFS BY MOUTH FOUR TIMES DAILY NEEDED finasteride 5 mg Tablet 5 mg PO DAILY clopidogrel [Plavix] 75 mg Tablet 75 mg PO DAILY losartan 25 mg Tablet 25 mg PO DAILY nitroglycerin [Nitrostat] 0.4 mg Tablet, Sublingual 0.4 mg sublingual PRN PRN bupropion HCl 150 mg Tablet Extended Release 24 Hr 300 mg PO DAILY Rx Instructions: am dose HPI General Mode of arrival: EMS . Date/Time Provider Initiated Documentation: 12/15/23 05:12 . Limitations to Documentation: no limitations . Information obtained by: patient, EMS and old records reviewed . HPI Narrative: 73yo M with hx CAD, NSTEMI, TAYLOR, ETOH abuse, presenting for chest pain and alcohol withdrawal. Heavy daily drinker, no prior hx of ETOH withdrawal. Last drink about 24 hours ago, tremors overnight. At around 11pm he began to have dull substernal/left sided chest pressure; took nitro at home without improvement. Pain does not radiate. It is not pleuritic. Pain persisted and so he called EMS. No nausea, vomiting, abdominal pain, or back pain. Did have an episode earlier in the night where he felt short of breath, began hyperventilating, checked his O2 ad home and had a sat of 98% with a HR in the 110's. Has never experienced similar symptoms in the past. He is otherwise in his usual state of health with no fevers, chills, rash, flank pain, dysuria, hematuria, or other concerns. Related Data Home Medications Medication Instructions Recorded Confirmed albuterol 90 mcg/actuation aerosol 180 mcg inhalation BID 10/01/20 12/15/23 inhaler famotidine 10 mg tablet 10 mg PO BID PRN GERD 10/01/20 12/15/23 finasteride 5 mg tablet 5 mg PO DAILY 10/01/20 12/15/23 folic acid 1 mg tablet 1 mg PO DAILY 10/01/20 12/15/23 bupropion HCl 150 mg 24 hr tablet, 300 mg PO DAILY 06/25/22 11/15/22 extended release clopidogrel 75 mg tablet (Plavix) 75 mg PO DAILY 06/25/22 12/15/23 losartan 25 mg tablet 25 mg PO DAILY 06/25/22 12/15/23 nitroglycerin 0.4 mg sublingual 0.4 mg sublingual PRN PRN 06/25/22 12/15/23 tablet (Nitrostat) aspirin 81 mg tablet,delayed 81 mg PO DAILY 07/03/22 12/15/23 release buspirone 10 mg tablet 20 mg PO BID 07/03/22 12/15/23 cholecalciferol (vitamin D3) 25 25 mcg PO DAILY 07/03/22 11/15/22 mcg (1,000 unit) tablet cyanocobalamin (vitamin B-12) 1,000 mcg PO DAILY 07/03/22 12/15/23 1,000 mcg tablet hydroxyzine HCl 25 mg tablet 25 mg PO TID PRN 07/03/22 12/15/23 rosuvastatin 40 mg tablet 40 mg PO DAILY 07/03/22 11/15/22 bupropion HCl 150 mg 24 hr tablet, 150 mg PO HS 09/01/22 11/15/22 extended release diazepam 5 mg tablet 5 mg PO DAILY PRN Anxiety 09/01/22 12/15/23 isosorbide mononitrate 60 mg 60 mg PO DAILY 09/01/22 12/15/23 tablet,extended release 24 hr pantoprazole 40 mg tablet,delayed 40 mg PO DAILY 09/01/22 12/15/23 release (Protonix) cetirizine 10 mg tablet 10 mg PO DAILY PRN 09/02/22 11/15/22 ibuprofen 800 mg tablet 800 mg PO BID PAIN/INFLAMMATION 09/02/22 12/15/23 loperamide 2 mg capsule 2 mg PO QID PRN 09/02/22 12/15/23 montelukast 10 mg tablet 10 mg PO DAILY 09/02/22 11/15/22 propranolol 10 mg tablet 10 mg PO TID BLOOD PRESSURE/ANXIETY 09/02/22 11/15/22 psyllium 1 tbsp PO BID 09/02/22 09/02/22 terazosin 2 mg capsule 2 mg PO QHS 09/02/22 11/15/22 tiotropium bromide 2.5 2 puff inhalation DAILY 09/02/22 12/15/23 mcg/actuation mist for inhalation (Spiriva Respimat) Inhaler, Assist Devices [Pocket 1 ea miscellaneous DIRECTED ##0 09/07/22 12/15/23 Chamber] Patient's Own Medication 5 ea PO AC & HS PRN ##0 09/07/22 metoprolol succinate 50 mg 100 mg (2 x 50 mg) PO DAILY #0 tabs 09/07/22 11/15/22 tablet,extended release 24 hr ranolazine 500 mg tablet,extended 1,000 mg (2 x 500 mg) PO BID #0 09/07/22 11/15/22 release,12 hr tabs simethicone 80 mg chewable tablet 80 mg PO QID PRN PRN #0 tabs 09/07/22 11/15/22 methocarbamol 500 mg tablet 500 mg PO Q6H PRN Back pain or 10/26/22 11/15/22 spasm #14 tabs tamsulosin 0.4 mg capsule 0.8 mg PO HS 11/15/22 12/15/23 Previous Rx's Medication Instructions Recorded Inhaler, Assist Devices [Pocket 1 ea miscellaneous DIRECTED ##0 09/07/22 Chamber] Patient's Own Medication 5 ea PO AC & HS PRN ##0 09/07/22 metoprolol succinate 50 mg 100 mg (2 x 50 mg) PO DAILY #0 tabs 09/07/22 tablet,extended release 24 hr ranolazine 500 mg tablet,extended 1,000 mg (2 x 500 mg) PO BID #0 09/07/22 release,12 hr tabs simethicone 80 mg chewable tablet 80 mg PO QID PRN PRN #0 tabs 09/07/22 methocarbamol 500 mg tablet 500 mg PO Q6H PRN Back pain or 10/26/22 spasm #14 tabs Allergies Allergy/AdvReac Type Severity Reaction Status Date / Time simvastatin AdvReac Unknown abdominal Unverified 09/01/22 17:02 pain General Stated Complaint: ETOHWithdr RICKI: 3 Review of Systems Narrative: see HPI Exam Narrative Exam Narrative: General: Alert, well appearing, well nourished, in no acute distress. Head: Normocephalic, atraumatic Neck: Trachea midline, ?Neck supple. Cardiac: ?RRR, no murmurs appreciated Resp: No respiratory distress. CTAB. Abd: ?Soft, non-distended, nontender : ?No suprapubic tenderness. Extremities: ?No deformities.? No peripheral edema. Neurologic: GCS 15. ? Moves all extremities freely against gravity Course Vital Signs Vital signs: Vital Signs Temperature 36.7 C 12/15/23 04:35 Pulse 81 12/15/23 04:35 Respiratory Rate 20 12/15/23 04:35 Blood Pressure 133/87 12/15/23 04:35 Temperature 36.7 C 12/15/23 04:35 Temperature Source Oral 12/15/23 04:35 Pulse 81 12/15/23 04:35 Respiratory Rate 20 12/15/23 04:35 Respiratory Effort Normal, Non-Labored 12/15/23 04:43 Respiratory Pattern Tachypnea 12/15/23 04:43 Blood Pressure 133/87 12/15/23 04:35 Oxygen Delivery Method Room Air 12/15/23 04:35 Oxygen Flow Rate 0 12/15/23 04:35 Lab/Test Results Lab/Test Results: Laboratory Tests Range/Units 12/15/23 04:30 WBC (4.4-10.8) 10^3/uL 9.64 RBC (4.36-5.78) 10^6/uL 4.48 Hgb (13.5-17.5) g/dL 15.3 Hct (40.0-50.0) % 43.5 MCV (80-95) fL 97 H MCH (27.0-33.0) pg 34.2 H MCHC (32.0-36.0) % 35.2 RDW (11.8-14.1) % 11.8 Plt Count (130-400) 10^3/uL 228 MPV (8.0-11.0) fL 9.0 Immature Gran % 0.5 Neutrophils % 54.7 Lymphocytes % 33.4 Monocytes % 10.6 Eosinophils % 0.3 Basophils % 0.5 Nucleated RBC % (0.0-0.3) % 0.0 Absolute Neutrophils (1.2-6.7) 10^3/uL 5.27 Absolute Lymphocytes (1.2-3.4) 10^3/uL 3.22 Absolute Monocytes (0.1-0.8) 10^3/uL 1.02 H Absolute Eosinophils (0.0-0.7) 10^3/uL 0.03 Absolute Basophils (0.0-0.2) 10^3/uL 0.05 Sodium (136-145) mmol/L 142 Potassium (3.5-5.1) mmol/L 3.0 L Chloride (98-107) mmol/L 102 Carbon Dioxide (21.0-32.0) mmol/L 25.0 Anion Gap (3-11) mmol/L 15.0 H BUN (7-18) mg/dL 12 Creatinine (0.70-1.30) mg/dL 1.4 H Est GFR (CKD-EPI 2020) (mL/min/1.73m2) 53.07 Glucose (74-106) mg/dL 136 H Calcium (8.5-10.1) mg/dL 8.9 Magnesium (1.8-2.4) mg/dL 1.6 L Total Bilirubin (0.2-1.0) mg/dL 1.5 H AST (15-37) U/L 36 ALT (16-63) U/L 36 Alkaline Phosphatase (46-116) U/L 86 Troponin I (< or =60) ng/L 87 H* Total Protein (6.4-8.2) g/dL 7.6 Albumin (3.4-5.0) g/dL 3.9 Medical Decision Making 73yo M with hx CAD, NSTEMI, TAYLOR, ETOH abuse, presenting for chest pain and alcohol withdrawal. Heavy daily drinker, no prior hx of ETOH withdrawal. Last drink about 24 hours ago, tremors overnight. No history prior ETOH withdrawal or DT's. At around 11pm he began to have dull substernal/left sided chest pressure; took nitro at home without improvement. Also had an episode where he felt short of breath, began hyperventilating, checked his O2 ad home and had a sat of 98% with a HR in the 110's. Vital signs reassuring on arrival, benign physical exam with no increased work of breathing. Broad differential; higher risk for cardiac pathology given history. No abdominal tenderness or epigastric tenderness to suggest pancreatitis or gallbladder pathology. PE possible though less likely. EKG on arrival SR with appropriate intervals, no ST segment or T wave abnormalities to suggest occlusive ME. CXR independently reviewed; no focal pneumonia or pneumothorax or pulmonary edema on my view, radiology read pending. Initial CIWA 8; given 25mg librium. Labs reviewed as below, CBC reassuring with no leukocytosis or anemia, CMP with hypokalemia and hypomagnesium consistent with hx of ETOH abuse (oral repletion given), Cr 1.4 (baseline on [facility] record review) bili mildly elevated at 1.5, initial troponin 87 (most recent priors 83, 85, 80 last year, likely baseline for patient). In the setting of 4+ hours of constant chest pain less likely ACS however will give 325 of ASA now. D-dimer and repeat troponin pending. Signed out to oncoming physican, plan to followup delta trop and dimer, repeat CIWA. Disposition pending results and shared decision making with patient. Imaging Data Radiologic Study: Imaging: X-Ray Lab Data Lab results reviewed: Yes I reviewed the patient's lab results. Labs: Laboratory Tests Range/Units 12/15/23 12/15/23 04:30 06:50 WBC (4.4-10.8) 10^3/uL 9.64 RBC (4.36-5.78) 10^6/uL 4.48 Hgb (13.5-17.5) g/dL 15.3 Hct (40.0-50.0) % 43.5 MCV (80-95) fL 97 H MCH (27.0-33.0) pg 34.2 H MCHC (32.0-36.0) % 35.2 RDW (11.8-14.1) % 11.8 Plt Count (130-400) 10^3/uL 228 MPV (8.0-11.0) fL 9.0 Immature Gran % 0.5 Neutrophils % 54.7 Lymphocytes % 33.4 Monocytes % 10.6 Eosinophils % 0.3 Basophils % 0.5 Nucleated RBC % (0.0-0.3) % 0.0 Absolute Neutrophils (1.2-6.7) 10^3/uL 5.27 Absolute Lymphocytes (1.2-3.4) 10^3/uL 3.22 Absolute Monocytes (0.1-0.8) 10^3/uL 1.02 H Absolute Eosinophils (0.0-0.7) 10^3/uL 0.03 Absolute Basophils (0.0-0.2) 10^3/uL 0.05 D-Dimer (<500) ng/mlFEU 520 H Sodium (136-145) mmol/L 142 Potassium (3.5-5.1) mmol/L 3.0 L Chloride (98-107) mmol/L 102 Carbon Dioxide (21.0-32.0) mmol/L 25.0 Anion Gap (3-11) mmol/L 15.0 H BUN (7-18) mg/dL 12 Creatinine (0.70-1.30) mg/dL 1.4 H Est GFR (CKD-EPI 2020) (mL/min/1.73m2) 53.07 Glucose (74-106) mg/dL 136 H Calcium (8.5-10.1) mg/dL 8.9 Magnesium (1.8-2.4) mg/dL 1.6 L Total Bilirubin (0.2-1.0) mg/dL 1.5 H AST (15-37) U/L 36 ALT (16-63) U/L 36 Alkaline Phosphatase (46-116) U/L 86 Troponin I (< or =60) ng/L 87 H* Total Protein (6.4-8.2) g/dL 7.6 Albumin (3.4-5.0) g/dL 3.9 Ethyl Alcohol (<10) mg/dL < 3.0 Quality:SDOH Health Related Social Needs: No Data to Display PFSH All Active Problems (Updated 11/26/22 @ 00:05 by CLYDE LIU) Normocytic anemia (Acute) Reactive airway disease (Acute) Coronary artery disease (Chronic) Unstable angina (Acute) BPH (benign prostatic hyperplasia) (Chronic) Depression (Chronic) Acute non-ST elevation myocardial infarction (NSTEMI) (Acute) Elevated ETOH level (Acute) TAYLOR (obstructive sleep apnea) (Chronic) Non-ST elevation ME (NSTEMI) (Acute) Medical History (Updated 11/26/22 @ 00:05 by CLYDE LIU) AAA (abdominal aortic aneurysm) without rupture GERD (gastroesophageal reflux disease) Sleep apnea High cholesterol Anxiety Kidney stones Surgical History (Updated 11/15/22 @ 19:16 by Terri Storey MD) S/P colonoscopy Status post coronary artery stent placement S/P spinal surgery multiple cervical and lumbar spine surgeries Family History (Updated 11/15/22 @ 19:18 by Terri Storey MD) Father Dementia Mother Dementia Paternal Grandfather Heart disease Brother Stroke Paternal Aunt Diabetes Paternal Grandmother Diabetes Social History Smoking/Tobacco Use Status: Never Smoking risk assessment performed?: Yes Alcohol Intake: current Alcohol Intake frequency: 3 or more drinks per day Alcohol type: beer and hard liquor Drug use: Never Substance use type: does not use Do you feel safe at home: Yes Do you feel safe in your relationship?: Yes Additional Social history: Lives alone on [address] in [facility], G[place] up in [place], family goes back generations there. Served in [employer] on [employer] out of [place], [place]. On disability for spinal injuries since. Sign Out Sign Out Data: Sign Out Comment: 73yo M hx CAD, NSTEMI, ETOH abuse presenting with etoh withdrawal and chest pain. Also had episode of shortness of breath wand h yperventilating. CIWA 8, given 25mg librium. Labs with hypoK and hypoMg (orally repleted), ETOH negative, initial trop 80's (seems to be baseline, gave 325 ASA here). Pending dimer and delta troponin and repeat CIWAs. Dispo pending results and shared decision making with pt. Last updated by Brooklynn Ramsey MD at 12/15/23 07:32 PAWSS Have you Been Recently Intoxicated or Drunk Within the Last 30 days?: Yes Have you Ever Experienced Previous Episodes of Alcohol Withdrawal?: No Have you ever Experienced Withdrawal Seizures?: No Have you ever Experienced Delirium Tremens(DT)s?: No Have you ever undergone Alcohol Rehabilitation Treatment (i.e, inpt ot outpatient treatment programs)?: No Have you ever Experienced Blackouts?: Yes Have you ever Combined Alcohol with other Downers within the last 90 days?: No Have you ever Combined Alcohol with any other Substance of Abuse during the last 90 days?: No Positive Blood Alcohol level on Presentation? [PCS.BAL]: Unable to Obtain Evidence of Increased Autonomic Activity (i.e. HR>120, tremor, sweating, agitation, nausea)?: No Result: 2
[2023-12-15] MEDS: Potassium Chloride 20 MEQ TABCR 40 MEQ PO (05:48)
[2023-12-15] MEDS: Aspirin 81 MG CHEW 324 MG CH (05:48)
[2023-12-15 05:50] LABS: ETHANOL BLOOD < 3.0 mg/dL (<10)
[2023-12-15] MEDS: Magnesium Gluconate 500 MG TAB 1000 MG PO (05:55)
--- NOTE | 2023-12-15 06:05 | DI.RAD_ITS ---
Exam(s) XR CHEST 2V PA LATERAL EXAM: XR CHEST 2V PA LATERAL CLINICAL HISTORY: chest pain TECHNIQUE: 2D digital imaging was performed of the chest. Two images were obtained. PA and lateral views were obtained. COMPARISON: CR XR CHEST 2V PA LATERAL from 06/25/2022 FINDINGS: MEDIASTINUM: Normal. HEART: Normal. PULMONARY VASCULATURE: Normal. LUNGS: Clear. PLEURAL SPACE: No pleural effusion or pneumothorax. BONE:Within normal limits for the patient's age. OTHER FINDINGS:Normal. IMPRESSION: No acute pulmonary findings. DATA REPOSITORY: RADIATION DOSE DELIVERED:
[2023-12-15 07:27] LABS: D-Dimer 520 ng/mlFEU (<500)
--- NOTE | 2023-12-15 07:51 | DI.VRAD_ITS ---
PROCEDURE INFORMATION: Exam: XR Chest Exam date and time: 12/15/2023 6:02 AM Age: 73 years old Clinical indication: Other: Chest pain TECHNIQUE: Imaging protocol: Radiologic exam of the chest. Views: 2 views. COMPARISON: No relevant prior studies are available for comparison. FINDINGS: Lungs: No focal consolidation seen. Pleural spaces: No large pleural effusion seen. Heart/Mediastinum: No cardiomegaly. Bones/joints: Grossly unremarkable. IMPRESSION: No acute findings to explain reported symptoms. Dictated and Authenticated by: Coral Monge MD. Ordering:ANILA Overton MD
[2023-12-15 08:06] LABS: Troponin I 72 ng/L (< or =60)
--- NOTE | 2023-12-15 08:12 | ED.PROG_ITS ---
Date of service: 12/15/23 Time of Service: 08:18 Medical Decision Making 73-year-old male who was seen and assessed by my colleague Shanae Hill. Please refer to HPI, physical exam, assessment and plan. At time of signout we are awaiting repeat troponin. Repeat troponin has come back at 73. Patient chronically has elevated troponins for the last few years. Review of prior assessments indicate that when his troponins were in the 1000's, he did receive a stent at [facility]. His most recent episodes had normal troponins in the 70s and 80s which appeared to be his baseline, patient was here less than 1 month ago, at that time he had presentation of more persistent chest pain, and troponin in the 150s to 180s which was double his numbers today. He had stress and echo at that time, which returned stable with no evidence of significant or acute change. Patient was discharged. Patient remains stable today. Repeat troponin stable. Patient feels well and would like to go home. He has a follow-up with cardiology in the next 7 days. No other complaints at this time. He feels well. Patient will be discharged home with close follow-up. Discussed red flags which to return. I have extensively reviewed the treatment plan and discharge instructions with the patient. I have addressed all patient concerns at this time. The patient was made aware of what symptoms to monitor for that would warrant a return to the emergency department. Discussed the plan with the patient, they demonstrate verbal understanding and agreement with our assessment and plan at this time. The documentation in this chart was dictated using Muse dictation software. Please excuse any dictation errors. Quality:SDOH Health Related Social Needs: No Data to Display Sign Out Sign Out Data: Sign Out Comment: 73yo M hx CAD, NSTEMI, ETOH abuse presenting with etoh withdrawal and chest pain. Also had episode of shortness of breath wand hyperventilating. CIWA 8, given 25mg librium. Labs with hypoK and hypoMg (orally repleted), ETOH negative, initial trop 80's (seems to be baseline, gave 325 ASA here). Pending dimer and delta troponin and repeat CIWAs. Dispo pending results and shared decision making with pt. Last updated by Brooklynn Ramsey MD at 12/15/23 07:32 Discharge Plan Disposition Patient Disposition: Home Condition: Good Discharge Details Chief Complaint: ETOHWithdr Clinical Impression: Chest discomfort Primary Care Provider: Jae Del Toro ED Provider: Tan Loredo Home Meds and New Rx's Prescriptions: No Action cyanocobalamin (vitamin B-12) 1,000 mcg Tablet 1,000 mcg PO DAILY aspirin 81 mg Tablet,Delayed Release (Dr/Ec) 81 mg PO DAILY buspirone 10 mg Tablet 20 mg PO BID hydroxyzine HCl 25 mg Tablet 25 mg PO TID PRN rosuvastatin 40 mg Tablet 40 mg PO DAILY cholecalciferol (vitamin D3) 25 mcg (1,000 unit) Tablet 25 mcg PO DAILY isosorbide mononitrate 60 mg Tablet Extended Release 24 Hr 60 mg PO DAILY pantoprazole [Protonix] 40 mg Tablet,Delayed Release (Dr/Ec) 40 mg PO DAILY diazepam 5 mg Tablet 5 mg PO DAILY PRN (Reason: Anxiety) bupropion HCl 150 mg Tablet Extended Release 24 Hr 150 mg PO HS cetirizine 10 mg Tablet 10 mg PO DAILY PRN loperamide 2 mg Capsule 2 mg PO QID PRN ibuprofen 800 mg Tablet 800 mg PO BID propranolol 10 mg Tablet 10 mg PO TID psyllium Powder 1 tbsp PO BID Rx Instructions: mix into at least 8 oz of water or juice before administering terazosin 2 mg Capsule 2 mg PO QHS montelukast 10 mg Tablet 10 mg PO DAILY Spiriva Respimat 2.5 mcg/actuation Mist 2 puff INHALATION DAILY metoprolol succinate 50 mg Tablet Extended Release 24 Hr 100 mg PO DAILY Qty: 0 0RF simethicone 80 mg Tablet,Chewable 80 mg PO QID PRN PRNQty: 0 0RF ranolazine 500 mg Tablet Extended Release 12 Hr 1,000 mg PO BID Qty: 0 0RF Inhaler, Assist Devices [Pocket Chamber] 1 ea miscellaneous DIRECTED Qty: 0 0RF Patient's Own Medication 5 ea PO AC & HS PRNQty: 0 0RF methocarbamol 500 mg tablet 500 mg PO Q6H PRN (Reason: Back pain or spasm) Qty: 14 0RF tamsulosin 0.4 mg Capsule 0.8 mg PO HS Rx Instructions: 30 minutes after meal famotidine 10 mg Tablet 10 mg PO BID PRN (Reason: GERD) folic acid 1 mg Tablet 1 mg PO DAILY albuterol 90 mcg/actuation Aerosol 180 mcg INHALATION BID Hold Instructions: Now using Xopenex. Will restart if [facility] doesn't [facility] Xoepnex Rx Instructions: INHALE 2 PUFFS BY MOUTH FOUR TIMES DAILY NEEDED finasteride 5 mg Tablet 5 mg PO DAILY clopidogrel [Plavix] 75 mg Tablet 75 mg PO DAILY losartan 25 mg Tablet 25 mg PO DAILY nitroglycerin [Nitrostat] 0.4 mg Tablet, Sublingual 0.4 mg sublingual PRN PRN bupropion HCl 150 mg Tablet Extended Release 24 Hr 300 mg PO DAILY Rx Instructions: am dose Discharge Instructions Instructions: Chest Pain (ED) Additional Instructions: At this time your troponins/cardiac enzymes have returned at a stable level that is lower than your normal's. In the past you have been here with higher values and have had negative stress testing. 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 Currently with your workup there does not appear to be evidence to suggest current heart attack. Please continue to take your nitro if needed at home. If you notice any worsening of your symptoms, or any new symptoms such as vomiting, diarrhea, fever, chills, shortness of breath, chest pain, numbness, weakness, or fainting , please return immediately to the emergency department for reevaluation. Please follow up with your primary care provider as soon as possible for reassessment and reevaluation. As always, it was a pleasure participating in your medical care today. Referrals: Jae Del Toro [Primary Care Provider] -
== END 2023-12-15 08:42 | disposition home or self-care (01) ==
PROVIDERS: Student in an Organized Health Care Education/Training Program; Emergency Provider Student in an Organized Health Care Education/Training Program; PCP Internal Medicine
DX: F10.130 Alcohol abuse with withdrawal, uncomplicated (principal); I25.10 Atherosclerotic heart disease of native coronary artery without angina pectoris; I25.2 Old myocardial infarction; G47.33 Obstructive sleep apnea (adult) (pediatric); Z79.01 Long term (current) use of anticoagulants; Z95.5 Presence of coronary angioplasty implant and graft; Z79.82 Long term (current) use of aspirin; E87.6 Hypokalemia; E83.42 Hypomagnesemia
CPT/HCPCS: 00123; 80053; 93005; 99285; 71046; 80320; 83735; 84484; 85025; 85379; 93010; 99284

== ENCOUNTER 2024-02-16 13:04 | Emergency (ER) | payer OTHER, SELFPAY ==
[2024-02-16 13:01] VITALS: BP 139/77; PULSE 66; RESP 15; TEMP 36.3; O2SAT 99
--- NOTE | 2024-02-16 13:15 | DI.RAD_ITS ---
Exam(s) XR HIP LT COMPLETE AP PELVIS EXAM: XR HIP LT COMPLETE AP PELVIS CLINICAL HISTORY: left hip pain, difficulty walking, etoh. TECHNIQUE: 2D digital imaging was performed of the left hip. Two views were obtained. AP pelvis an d lateral left hip views were obtained. COMPARISON: No exams were available for comparison FINDINGS: BONES: No acute fracture is present. No bony destructive lesion is seen. JOINTS: No dislocation present. The left hip is well maintained. Degenerative changes are seen in th e lower lumbar spine. The sacroiliac joints are unremarkable. SOFT TISSUE: Normal. IMPRESSION: 1. Unremarkable radiographs of the left hip. 2. Degenerative changes seen in the lower lumbar spine. DATA REPOSITORY: RADIATION DOSE DELIVERED:
--- NOTE | 2024-02-16 14:00 | DI.CT_ITS ---
Exam(s) CT PELVIC WO EXAM: CT PELVIC WO CLINICAL HISTORY: left hip and SI pain, difficulty walking, neg xr. TECHNIQUE: Imaging Protocol: Axial computed tomography images with coronal and sagittal reformatted images were created and reviewed. COMPARISON: CR XR HIP LT COMPLETE AP PELVIS from 02/16/2024 FINDINGS: Bones: The osseous structures and articular surfaces are intact. Bony alignment is satisfactory. T here is a lucency in the subcortical bone of the left femoral head. No cortical disruption is seen. There is joint space narrowing and spurring seen of the left acetabulum and left femoral head consis tent with osteoarthritis. Similar but more mild changes are seen in the right hip. The sacroiliac j oints and symphysis pubis are well maintained. There are degenerative changes seen in the lower lumb ar spine. No lytic or sclerotic lesions are identified. Soft Tissues: The prostate gland is enlarged. There are fat containing inguinal hernias. IMPRESSION: 1. No acute fracture or dislocation is identified. 2. Degenerative changes seen in the hips, left greater than right. 3. Lucency seen the subcortical bone of the left femoral head. Differential considerations include s ubchondral cyst related to arthrosis, avascular necrosis. If there is continued clinical concern, an MRI of the left hip may be obtained for further evaluation. RADIATION DOSE DELIVERED: 431.39mGy.cm Total DLP 431.39mGy.cmTotal DLP DATA REPOSITORY: All CT scans at this facility are submitted to the National Radiology Data Registry (NRDR) Dose Index Registry (DIR) with the [employer] (ACR). RADIATION OPTIMIZATION: All CT scans at this facility use at least one of these dose optimization te chniques: automated exposure control; mA and/or kV adjustment per patient size (includes targeted exa ms where dose is matched to clinical indication); or iterative reconstruction.
--- NOTE | 2024-02-16 15:26 | W.ED.GENAD ---
Discharge Plan Disposition Patient Disposition: Home Condition: Stable Discharge Details Clinical Impression: Acute pain of left hip Primary Care Provider: Jae Del Toro ED Provider: Nichol Acharya Home Meds and New Rx's Prescriptions: New lidocaine [Lidoderm] 5 % adhesive patch,medicated 1 patch topical ONCE Qty: 15 0RF Rx Instructions: leave on most painful area for up to 12 hrs Continued cyanocobalamin (vitamin B-12) 1,000 mcg Tablet 1,000 mcg PO DAILY aspirin 81 mg Tablet,Delayed Release (Dr/Ec) 81 mg PO DAILY buspirone 10 mg Tablet 20 mg PO BID hydroxyzine HCl 25 mg Tablet 25 mg PO TID PRN rosuvastatin 40 mg Tablet 40 mg PO DAILY cholecalciferol (vitamin D3) 25 mcg (1,000 unit) Tablet 25 mcg PO DAILY isosorbide mononitrate 60 mg Tablet Extended Release 24 Hr 60 mg PO DAILY pantoprazole [Protonix] 40 mg Tablet,Delayed Release (Dr/Ec) 40 mg PO DAILY diazepam 5 mg Tablet 5 mg PO DAILY PRN (Reason: Anxiety) bupropion HCl 150 mg Tablet Extended Release 24 Hr 150 mg PO HS cetirizine 10 mg Tablet 10 mg PO DAILY PRN loperamide 2 mg Capsule 2 mg PO QID PRN ibuprofen 800 mg Tablet 800 mg PO BID propranolol 10 mg Tablet 10 mg PO TID psyllium Powder 1 tbsp PO BID Rx Instructions: mix into at least 8 oz of water or juice before administering terazosin 2 mg Capsule 2 mg PO QHS montelukast 10 mg Tablet 10 mg PO DAILY Spiriva Respimat 2.5 mcg/actuation Mist 2 puff INHALATION DAILY metoprolol succinate 50 mg Tablet Extended Release 24 Hr 100 mg PO DAILY Qty: 0 0RF simethicone 80 mg Tablet,Chewable 80 mg PO QID PRN PRNQty: 0 0RF ranolazine 500 mg Tablet Extended Release 12 Hr 1,000 mg PO BID Qty: 0 0RF Inhaler, Assist Devices [Pocket Chamber] 1 ea miscellaneous DIRECTED Qty: 0 0RF Patient's Own Medication 5 ea PO AC & HS PRNQty: 0 0RF methocarbamol 500 mg tablet 500 mg PO Q6H PRN (Reason: Back pain or spasm) Qty: 14 0RF tamsulosin 0.4 mg Capsule 0.8 mg PO HS Rx Instructions: 30 minutes after meal famotidine 10 mg Tablet 10 mg PO BID PRN (Reason: GERD) folic acid 1 mg Tablet 1 mg PO DAILY albuterol 90 mcg/actuation Aerosol 180 mcg INHALATION BID Hold Instructions: Now using Xopenex. Will restart if [facility] Xoepnex Rx Instructions: INHALE 2 PUFFS BY MOUTH FOUR TIMES DAILY NEEDED finasteride 5 mg Tablet 5 mg PO DAILY clopidogrel [Plavix] 75 mg Tablet 75 mg PO DAILY losartan 25 mg Tablet 25 mg PO DAILY nitroglycerin [Nitrostat] 0.4 mg Tablet, Sublingual 0.4 mg sublingual PRN PRN bupropion HCl 150 mg Tablet Extended Release 24 Hr 300 mg PO DAILY Rx Instructions: am dose Discharge Instructions Instructions: Leg Pain (ED) Additional Instructions: Please follow-up with orthopedics next week for reassessment use your walker with ambulation Take Tylenol as needed for pain You may apply Lidoderm patches topically Return earlier should you have new or worsening complaints Referrals: Billy Vincent MD [ [facility] STAFF PHYSICIAN] - 1 day Jae Del Toro [Primary Care Provider] - Discharge Data Discharge Date/Time-TO BE ENTERED AT DEPARTURE: 02/16/24 16:06 HPI General Date/Time Provider Initiated Documentation: 02/16/24 13:12. HPI Narrative: This 73-year-old male presents with left hip pain which is reportedly atraumatic. Patient is an alcoholic he states has not consumed any alcohol for the past several days. He states the pain is improved at rest but when he tries to ambulate the pain worsens. He has been using 2 canes at home to help with pain. Denies fever or chills, illicit drug use, or any back or abdominal pain. States the pain is exacerbated with movement. Related Data Home Medications Medication Instructions Recorded Confirmed albuterol 90 mcg/actuation aerosol 180 mcg inhalation BID 10/01/20 12/15/23 inhaler famotidine 10 mg tablet 10 mg PO BID PRN GERD 10/01/20 12/15/23 finasteride 5 mg tablet 5 mg PO DAILY 10/01/20 12/15/23 folic acid 1 mg tablet 1 mg PO DAILY 10/01/20 12/15/23 bupropion HCl 150 mg 24 hr tablet, 300 mg PO DAILY 06/25/22 11/15/22 extended release clopidogrel 75 mg tablet (Plavix) 75 mg PO DAILY 06/25/22 12/15/23 losartan 25 mg tablet 25 mg PO DAILY 06/25/22 12/15/23 nitroglycerin 0.4 mg sublingual 0.4 mg sublingual PRN PRN 06/25/22 12/15/23 tablet (Nitrostat) aspirin 81 mg tablet,delayed 81 mg PO DAILY 07/03/22 12/15/23 release buspirone 10 mg tablet 20 mg PO BID 07/03/22 12/15/23 cholecalciferol (vitamin D3) 25 25 mcg PO DAILY 07/03/22 11/15/22 mcg (1,000 unit) tablet cyanocobalamin (vitamin B-12) 1,000 mcg PO DAILY 07/03/22 12/15/23 1,000 mcg tablet hydroxyzine HCl 25 mg tablet 25 mg PO TID PRN 07/03/22 12/15/23 rosuvastatin 40 mg tablet 40 mg PO DAILY 07/03/22 11/15/22 bupropion HCl 150 mg 24 hr tablet, 150 mg PO HS 09/01/22 11/15/22 extended release diazepam 5 mg tablet 5 mg PO DAILY PRN Anxiety 09/01/22 12/15/23 isosorbide mononitrate 60 mg 60 mg PO DAILY 09/01/22 12/15/23 tablet,extended release 24 hr pantoprazole 40 mg tablet,delayed 40 mg PO DAILY 09/01/22 12/15/23 release (Protonix) cetirizine 10 mg tablet 10 mg PO DAILY PRN 09/02/22 11/15/22 ibuprofen 800 mg tablet 800 mg PO BID PAIN/INFLAMMATION 09/02/22 12/15/23 loperamide 2 mg capsule 2 mg PO QID PRN 09/02/22 12/15/23 montelukast 10 mg tablet 10 mg PO DAILY 09/02/22 11/15/22 propranolol 10 mg tablet 10 mg PO TID BLOOD PRESSURE/ANXIETY 09/02/22 11/15/22 psyllium 1 tbsp PO BID 09/02/22 09/02/22 terazosin 2 mg capsule 2 mg PO QHS 09/02/22 11/15/22 tiotropium bromide 2.5 2 puff inhalation DAILY 09/02/22 12/15/23 mcg/actuation mist for inhalation (Spiriva Respimat) Inhaler, Assist Devices [Pocket 1 ea miscellaneous DIRECTED ##0 09/07/22 12/15/23 Chamber] Patient's Own Medication 5 ea PO AC & HS PRN ##0 09/07/22 metoprolol succinate 50 mg 100 mg (2 x 50 mg) PO DAILY #0 tabs 09/07/22 11/15/22 tablet,extended release 24 hr ranolazine 500 mg tablet,extended 1,000 mg (2 x 500 mg) PO BID #0 09/07/22 11/15/22 release,12 hr tabs simethicone 80 mg chewable tablet 80 mg PO QID PRN PRN #0 tabs 09/07/22 11/15/22 methocarbamol 500 mg tablet 500 mg PO Q6H PRN Back pain or 10/26/22 11/15/22 spasm #14 tabs tamsulosin 0.4 mg capsule 0.8 mg PO HS 11/15/22 12/15/23 lidocaine 5 % topical patch 1 patch topical ONCE #15 ea 02/16/24 (Lidoderm) Previous Rx's Medication Instructions Recorded Inhaler, Assist Devices [Pocket 1 ea miscellaneous DIRECTED ##0 09/07/22 Chamber] Patient's Own Medication 5 ea PO AC & HS PRN ##0 09/07/22 metoprolol succinate 50 mg 100 mg (2 x 50 mg) PO DAILY #0 tabs 09/07/22 tablet,extended release 24 hr ranolazine 500 mg tablet,extended 1,000 mg (2 x 500 mg) PO BID #0 09/07/22 release,12 hr tabs simethicone 80 mg chewable tablet 80 mg PO QID PRN PRN #0 tabs 09/07/22 methocarbamol 500 mg tablet 500 mg PO Q6H PRN Back pain or 10/26/22 spasm #14 tabs lidocaine 5 % topical patch 1 patch topical ONCE #15 ea 02/16/24 (Lidoderm) Allergies Allergy/AdvReac Type Severity Reaction Status Date / Time simvastatin AdvReac Unknown abdominal Unverified 09/01/22 17:02 pain General Stated Complaint: Orthopedic RICKI: 3 Exam Narrative Exam Narrative: 73-year-old male presenting with report of left hip pain, on exam patient is alert, oriented without any visible sign of trauma, head to toe exam performed, pupils equal round reactive to light and accommodation, lungs clear to auscultation, cardiac rate rhythm regular, distal pulses intact all 4 extremities, no abdominal bruit or pulsatile mass, no abdominal tenderness appreciated on exam, no lumbar spine tenderness appreciated on exam, mildly decreased range of motion to left hip no rashes or lesions, strength and sensation intact distally, ambulatory with antalgic steady gait Course Vital Signs Vital signs: Vital Signs Temperature 36.3 C L 02/16/24 13:01 Pulse 66 02/16/24 13:01 Respiratory Rate 15 02/16/24 13:01 Blood Pressure 139/77 02/16/24 13:01 Pulse Oximetry 99 02/16/24 13:01 Temperature 36.3 C L 02/16/24 13:01 Temperature Source Temporal Artery Scan 02/16/24 13:01 Pulse 66 02/16/24 13:01 Respiratory Rate 15 02/16/24 13:01 Respiratory Effort Normal 02/16/24 13:06 Blood Pressure 139/77 02/16/24 13:01 Blood Pressure Position Sitting 02/16/24 13:01 Pulse Oximetry 99 02/16/24 13:01 Oxygen Delivery Method Room Air 02/16/24 13:01 Oxygen Flow Rate 0 02/16/24 13:01 Pain Level 10 02/16/24 13:01 Medical Decision Making Alert and oriented 73-year-old male presents with report of left hip pain, reproducible tenderness, x-ray with degenerative changes, CT was ordered for further evaluation to which does not show evidence of acute abnormality per radiology interpretation my review. There is question of avascular necrosis or subchondral cyst, patient is referred for orthopedics for evaluation of these. He is given walker and ambulates well. He is fully alert, oriented, of decisional capacity and is clinically does not appear to be under the influence of alcohol presentation. He is encouraged to use Lidoderm patches and Tylenol as needed pain encouraged to follow-up with orthopedics and primary care physician in the outpatient setting. Quality:SDOH Health Related Social Needs: No Data to Display PFSH All Active Problems (Updated 02/16/24 @ 15:27 by ROMIE Palomino) Acute pain of left hip (Acute) Normocytic anemia (Acute) Reactive airway disease (Acute) Coronary artery disease (Chronic) Unstable angina (Acute) BPH (benign prostatic hyperplasia) (Chronic) Depression (Chronic) Acute non-ST elevation myocardial infarction (NSTEMI) (Acute) Elevated ETOH level (Acute) TAYLOR (obstructive sleep apnea) (Chronic) Non-ST elevation [place] (NSTEMI) (Acute) Medical History (Updated 02/16/24 @ 15:27 by ROMIE Palomino) AAA (abdominal aortic aneurysm) without rupture GERD (gastroesophageal reflux disease) Sleep apnea High cholesterol Anxiety Kidney stones Surgical History (Updated 11/15/22 @ 19:16 by Terri Storey MD) S/P colonoscopy Status post coronary artery stent placement S/P spinal surgery multiple cervical and lumbar spine surgeries Family History (Updated 11/15/22 @ 19:18 by Terri Storey MD) Father Dementia Mother Dementia Paternal Grandfather Heart disease Brother Stroke Paternal Aunt Diabetes Paternal Grandmother Diabetes Social History Smoking/Tobacco Use Status: Never Smoking risk assessment performed?: Yes Alcohol Intake: current Alcohol Intake frequency: 3 or more drinks per day Alcohol type: beer and hard liquor Drug use: Never Substance use type: does not use Do you feel safe at home: Yes Do you feel safe in your relationship?: Yes Additional Social history: Lives alone [place] [address] in [place], G[place] up in [place] [facility] [place], family goes back generations there. Served in [employer] out of [place], [place]. On disability for spinal injuries since. PAWSS Have you Been Recently Intoxicated or Drunk Within the Last 30 days?: No Have you Ever Experienced Previous Episodes of Alcohol Withdrawal?: No Have you ever Experienced Withdrawal Seizures?: No Have you ever Experienced Delirium Tremens(DT)s?: No Have you ever undergone Alcohol Rehabilitation Treatment (i.e, inpt ot outpatient treatment programs)?: No Have you ever Experienced Blackouts?: No Have you ever Combined Alcohol with other Downers within the last 90 days?: No Have you ever Combined Alcohol with any other Substance of Abuse during the last 90 days?: No Positive Blood Alcohol level on Presentation? [PCS.BAL]: No Evidence of Increased Autonomic Activity (i.e. HR>120, tremor, sweating, agitation, nausea)?: No Result: 0
[2024-02-16 15:28] LABS: Bilirubin Negative (Negative); Blood Negative (Negative); Clarity Clear (Clear); Glucose Negative (Negative); Ketones Negative (Negative); Leukocyte Esterase Negative (Negative); Nitrite Negative (Negative); Specific Gravity 1.015 (1.005-1.025); Urobilinogen 0.2 mg/dL (Up to 0.2); pH 6.5 (5-8)
[2024-02-16 16:03] VITALS: BP 139/77; PULSE 66; RESP 15; TEMP 36.3; O2SAT 99
== END 2024-02-16 16:06 | disposition home or self-care (01) ==
PROVIDERS: Emergency Provider Physician Assistant; PCP Internal Medicine
DX: M25.552 Pain in left hip (principal)
CPT/HCPCS: 99284; 72192; 73502; 81003; 99283

== ENCOUNTER 2024-09-15 14:51 | Emergency (ER) | payer OTHER, SELFPAY ==
[2024-09-15] VITALS (54 sets, daily range): BP systolic 93–116; BP diastolic 50–73; PULSE 52–68; RESP 12–21; TEMP 36.6; O2SAT 96–100
--- NOTE | 2024-09-15 14:45 | RT.EKG_ITS ---
APPROVED REPORT Exam: Resting ECG Reason for Exam: Syncope Patient Location: E HR:53 bpm ECG Measurements Heart Rate 53 AXIS NJ 149 P 32 QRSd 78 QRS 67 QT 466 T 59 QTc 438 Conclusion Sinus bradycardia, rate 53 No interval abnormalities No STEMI Compared to priors, rate has dereased
--- NOTE | 2024-09-15 15:00 | DI.CT_ITS ---
Exam(s) CT HEAD CERVICAL SPINE WO EXAM: CT HEAD CERVICAL SPINE WO CLINICAL HISTORY: Syncope with head strike. TECHNIQUE: Imaging Protocol: Axial computed tomography images with coronal and sagittal reformatted images were created and reviewed COMPARISON: No exams were available for comparison FINDINGS: Head CT Ventricles and Extra axial spaces: Normal in size and morphology for the patient's age. Patent cavu m septum pellucidum. Hemorrhage: None. Cerebral parenchyma: No evidence of mass or acute infarct. Basal ganglia calcifications Midline shift: None. Brainstem/Cerebellum: Calcifications again noted in the dentate nuclei. Calvarium: Normal. Visualized Paranasal sinuses/Mastoids: Clear. Soft tissues: Mild soft tissue swelling right frontal region. Cervical Spine CT BONES: Vertebral body heights are maintained. Alignment is normal. There is no evidence of acute frac ture. On prior cervical spinal fusion from C4 through C6. Degenerative disc changes and facet degen erative changes. Degenerative disc changes and facet degenerative changes are seen . SOFT TISSUES: No paraspinal hematoma. The airway appears intact. No pneumothorax is seen at the lung apices. IMPRESSION: Head CT: No acute abnormality. C-spine CT: Degenerative and postsurgical changes, no acute abnormality. RADIATION DOSE DELIVERED: Total DLP DATA REPOSITORY: All CT scans at this facility are submitted to the National Radiology Data Registry (NRDR) Dose Index Registry (DIR) with the [employer] (ACR). RADIATION OPTIMIZATION: All CT scans at this facility use at least one of these dose optimization te chniques: automated exposure control; mA and/or kV adjustment per patient size (includes targeted exa ms where dose is matched to clinical indication); or iterative reconstruction.
--- NOTE | 2024-09-15 15:00 | DI.RAD_ITS ---
Exam(s) XR PORTABLE CHEST AP EXAM: XR PORTABLE CHEST AP CLINICAL HISTORY: Syncope TECHNIQUE: 2D digital imaging was performed. COMPARISON: CR,XR XR CHEST 2V PA LATERAL from 12/15/2023 FINDINGS: LUNGS: Clear. No pleural abnormality seen. HEART: Normal size. AORTA: Normal diameter. BONES: Unremarkable for age. Soft tissues: Unremarkable. IMPRESSION: No acute findings. DATA REPOSITORY: RADIATION DOSE DELIVERED:
--- NOTE | 2024-09-15 15:08 | W.ED.GENAD ---
Discharge Plan Disposition Patient Disposition: Home Condition: Stable Discharge Details Clinical Impression: Syncope, TAYLOR (obstructive sleep apnea), Acute non-ST elevation myocardial infarction (NSTEMI), Coronary artery disease Primary Care Provider: Jae Del Toro ED Provider: Paola Diaz Home Meds and New Rx's Prescriptions: No Action cyanocobalamin (vitamin B-12) 1,000 mcg Tablet 1,000 mcg PO DAILY aspirin 81 mg Tablet,Delayed Release (Dr/Ec) 81 mg PO DAILY buspirone 10 mg Tablet 20 mg PO BID hydroxyzine HCl 25 mg Tablet 25 mg PO TID PRN rosuvastatin 40 mg Tablet 40 mg PO DAILY cholecalciferol (vitamin D3) 25 mcg (1,000 unit) Tablet 25 mcg PO DAILY isosorbide mononitrate 60 mg Tablet Extended Release 24 Hr 60 mg PO DAILY pantoprazole [Protonix] 40 mg Tablet,Delayed Release (Dr/Ec) 40 mg PO DAILY diazepam 5 mg Tablet 5 mg PO DAILY PRN (Reason: Anxiety) bupropion HCl 150 mg Tablet Extended Release 24 Hr 150 mg PO HS cetirizine 10 mg Tablet 10 mg PO DAILY PRN loperamide 2 mg Capsule 2 mg PO QID PRN ibuprofen 800 mg Tablet 800 mg PO BID propranolol 10 mg Tablet 10 mg PO TID psyllium Powder 1 tbsp PO BID Rx Instructions: mix into at least 8 oz of water or juice before administering terazosin 2 mg Capsule 2 mg PO QHS montelukast 10 mg Tablet 10 mg PO DAILY Spiriva Respimat 2.5 mcg/actuation Mist 2 puff INHALATION DAILY metoprolol succinate 50 mg Tablet Extended Release 24 Hr 100 mg PO DAILY Qty: 0 0RF simethicone 80 mg Tablet,Chewable 80 mg PO QID PRN PRNQty: 0 0RF ranolazine 500 mg Tablet Extended Release 12 Hr 1,000 mg PO BID Qty: 0 0RF Inhaler, Assist Devices [Pocket Chamber] 1 ea miscellaneous DIRECTED Qty: 0 0RF Patient's Own Medication 5 ea PO AC & HS PRNQty: 0 0RF methocarbamol 500 mg tablet 500 mg PO Q6H PRN (Reason: Back pain or spasm) Qty: 14 0RF tamsulosin 0.4 mg Capsule 0.8 mg PO HS Rx Instructions: 30 minutes after meal lidocaine [Lidoderm] 5 % adhesive patch,medicated 1 patch topical ONCE Qty: 15 0RF Rx Instructions: leave on most painful area for up to 12 hrs famotidine 10 mg Tablet 10 mg PO BID PRN (Reason: GERD) folic acid 1 mg Tablet 1 mg PO DAILY albuterol 90 mcg/actuation Aerosol 180 mcg INHALATION BID Rx Instructions: INHALE 2 PUFFS BY MOUTH FOUR TIMES DAILY NEEDED finasteride 5 mg Tablet 5 mg PO DAILY clopidogrel [Plavix] 75 mg Tablet 75 mg PO DAILY losartan 25 mg Tablet 25 mg PO DAILY nitroglycerin [Nitrostat] 0.4 mg Tablet, Sublingual 0.4 mg sublingual PRN PRN bupropion HCl 150 mg Tablet Extended Release 24 Hr 300 mg PO DAILY Rx Instructions: am dose Discharge Instructions Instructions: Syncope (Fainting) (DC) Additional Instructions: You were seen in the emergency department today for evaluation after a fainting episode. In our department you had a full physical examination performed, had laboratory studies that were reassuring, and received IV fluids for rehydration. At this time it is safe for you to go home and follow-up at your scheduled appointment on Wednesday. Please ensure that you maintain good hydration and nutrition, and take all of your medications as prescribed. If you do develop dizziness, if you faint again, if you have chest pain that is new or different for you, or any other symptoms that cause you concern you should return to the emergency department for reevaluation. Thank you for allowing us to be part of your care. HPI General Mode of arrival: EMS. Date/Time Provider Initiated Documentation: 09/15/24 14:52. Limitations to Documentation: no limitations. Information obtained by: patient, EMS and old records reviewed. HPI Narrative: HPI: This is a 74-year-old male patient with a past medical history significant for coronary artery disease status post 2 stents, TAYLOR, who is presenting for evaluation after a syncopal episode. The patient was at a restaurant, and states that he began to feel very warm and flushed, and nauseated. He attempted to get up to go outside and see if the cool air helped him, and lost consciousness. Bystanders state that he struck his head on the table followed by the floor as he fell. The patient takes Plavix and aspirin but does not use anticoagulant medications. He woke up on the floor and had no recollection of the event. He reports that he did not experiencing any chest pain prior to this event, and was his in his normal state of health prior to this episode. The patient has had continued dizziness when he attempts to sit or stand, ongoing nausea. He states that he has been taking all of his medications normally, has been maintaining his hydration and nutrition. At this time he is not experiencing any pain other than in his right shoulder, which feels sore. Exam: Gen: awake and alert, in no apparent distress. Appears well nourished. HEENT: PERRL, EOMs full and without nystagmus. External ears and nose normal, mucous membranes moist. No lacerations appreciated to the tongue Neck: Supple, full range of motion, no observable masses. C-spine without tenderness, step-offs, well-healed surgical incision appreciated. Lungs: No increased work of breathing, lung sounds clear and equal bilaterally without wheezes, rhonchi, or rales. CV: Heart with bradycardic rate and regular rhythm, no murmurs auscultated. Strong and symmetrical radial pulses. Abdomen: Soft, nondistended, non-tended to palpation. No rigidity, rebound tenderness, or guarding. MSK: No joint swelling, no redness. Full ROM without limitation, no external traumatic findings. The right shoulder is without ecchymosis, limitation range of motion, but is slightly tender to palpation over the anterior aspect. No deformity or crepitus Skin: No rashes or lesions to visualized skin. Normal color, warm, and dry. Neuro: Cranial nerves II-XII intact and symmetrical bilaterally. 5/5 strength in all muscle groups x4 extremities. No sensory deficits. Psych: Appropriate for situation. MDM: This is a 74-year-old male patient who is presenting for evaluation after syncopal episode. My differential includes but is not limited to orthostasis, vasovagal syncope, cardiac syncope including arrhythmia, bradycardia, and certainly considered ACS. I considered dehydration, kidney injury, anemia. I also considered injury sustained including intracranial hemorrhage, skull fracture, spine fracture. The patient's shoulder is without obvious evidence on physical examination for fracture or dislocation, considered contusion and sprain. I considered aortic pathology though the patient is without chest pain or neurodeficit. No evidence on history or physical examination for seizure, stroke. Given the patient's ongoing dizziness with sitting or standing I am concerned for orthostasis, and will provide him with a 500 cc bolus of IV fluids (given the recent IV fluid shortage, we will start with the smallest reasonable bolus and increase as needed), as well as a dose of Zofran for the ongoing nausea. We will obtain laboratory studies to include CBC, CMP, magnesium, troponin, and will obtain an EKG and chest x-ray. ED Course: I independently interpreted the laboratory studies, which show no significant leukocytosis, anemia, or thrombocytopenia. The chemistry panel is without evidence of electrolyte abnormality, kidney dysfunction, or liver injury. Troponin negative and without delta change on recheck. EKG reveals sinus bradycardia without QTc prolongation, arrhythmia, ectopy. No evidence for ischemia. The patient received an additional 500 cc of fluid after initial bolus given some ongoing dizziness. After that he felt that his symptoms have resolved, and he had orthostatic vital signs that were negative. He is low risk for cardiac syncope based on the [place] syncope risk score, and has a follow-up appointment with his providers on Wednesday. We did discuss return precautions and risk factors given his history of cardiac disease, and he understands to return if he has recurrent syncope, chest pain, etc. At this time, the patient has had a full medical evaluation and is safe for discharge to home. They are hemodynamically stable, ambulatory, and tolerating PO. They are understanding of the follow-up plan and return precautions. They left our facility without incident. Paola Diaz MD Related Data Home Medications ?Medication ?Instructions ?Recorded ?Confirmed albuterol 90 mcg/actuation aerosol 180 mcg inhalation BID 10/01/20 09/15/24 inhaler famotidine 10 mg tablet 10 mg PO BID PRN GERD 10/01/20 09/15/24 finasteride 5 mg tablet 5 mg PO DAILY 10/01/20 09/15/24 folic acid 1 mg tablet 1 mg PO DAILY 10/01/20 09/15/24 bupropion HCl 150 mg 24 hr tablet, 300 mg PO DAILY 06/25/22 09/15/24 extended release clopidogrel 75 mg tablet (Plavix) 75 mg PO DAILY 06/25/22 09/15/24 losartan 25 mg tablet 25 mg PO DAILY 06/25/22 09/15/24 nitroglycerin 0.4 mg sublingual 0.4 mg sublingual PRN PRN 06/25/22 09/15/24 tablet (Nitrostat) aspirin 81 mg tablet,delayed 81 mg PO DAILY 07/03/22 09/15/24 release buspirone 10 mg tablet 20 mg PO BID 07/03/22 09/15/24 cholecalciferol (vitamin D3) 25 25 mcg PO DAILY 07/03/22 09/15/24 mcg (1,000 unit) tablet cyanocobalamin (vitamin B-12) 1,000 mcg PO DAILY 07/03/22 09/15/24 1,000 mcg tablet hydroxyzine HCl 25 mg tablet 25 mg PO TID PRN 07/03/22 09/15/24 rosuvastatin 40 mg tablet 40 mg PO DAILY 07/03/22 09/15/24 bupropion HCl 150 mg 24 hr tablet, 150 mg PO HS 09/01/22 09/15/24 extended release diazepam 5 mg tablet 5 mg PO DAILY PRN Anxiety 09/01/22 09/15/24 isosorbide mononitrate 60 mg 60 mg PO DAILY 09/01/22 09/15/24 tablet,extended release 24 hr pantoprazole 40 mg tablet,delayed 40 mg PO DAILY 09/01/22 09/15/24 release (Protonix) cetirizine 10 mg tablet 10 mg PO DAILY PRN 09/02/22 09/15/24 ibuprofen 800 mg tablet 800 mg PO BID PAIN/INFLAMMATION 09/02/22 09/15/24 loperamide 2 mg capsule 2 mg PO QID PRN 09/02/22 09/15/24 montelukast 10 mg tablet 10 mg PO DAILY 09/02/22 09/15/24 propranolol 10 mg tablet 10 mg PO TID BLOOD PRESSURE/ANXIETY 09/02/22 09/15/24 psyllium 1 tbsp PO BID 09/02/22 09/15/24 terazosin 2 mg capsule 2 mg PO QHS 09/02/22 09/15/24 tiotropium bromide 2.5 2 puff inhalation DAILY 09/02/22 09/15/24 mcg/actuation mist for inhalation (Spiriva Respimat) Inhaler, Assist Devices [Pocket 1 ea miscellaneous DIRECTED ##0 09/07/22 09/15/24 Chamber] Patient's Own Medication 5 ea PO AC & HS PRN ##0 09/07/22 09/15/24 metoprolol succinate 50 mg 100 mg (2 x 50 mg) PO DAILY #0 tabs 09/07/22 09/15/24 tablet,extended release 24 hr ranolazine 500 mg tablet,extended 1,000 mg (2 x 500 mg) PO BID #0 09/07/22 09/15/24 release,12 hr tabs simethicone 80 mg chewable tablet 80 mg PO QID PRN PRN #0 tabs 09/07/22 09/15/24 methocarbamol 500 mg tablet 500 mg PO Q6H PRN Back pain or 10/26/22 09/15/24 spasm #14 tabs tamsulosin 0.4 mg capsule 0.8 mg PO HS 11/15/22 09/15/24 lidocaine 5 % topical patch 1 patch topical ONCE #15 ea 02/16/24 09/15/24 (Lidoderm) Previous Rx's ?Medication ?Instructions ?Recorded Inhaler, Assist Devices [Pocket 1 ea miscellaneous DIRECTED ##0 09/07/22 Chamber] Patient's Own Medication 5 ea PO AC & HS PRN ##0 09/07/22 metoprolol succinate 50 mg 100 mg (2 x 50 mg) PO DAILY #0 tabs 09/07/22 tablet,extended release 24 hr ranolazine 500 mg tablet,extended 1,000 mg (2 x 500 mg) PO BID #0 09/07/22 release,12 hr tabs simethicone 80 mg chewable tablet 80 mg PO QID PRN PRN #0 tabs 09/07/22 methocarbamol 500 mg tablet 500 mg PO Q6H PRN Back pain or 10/26/22 spasm #14 tabs lidocaine 5 % topical patch 1 patch topical ONCE #15 ea 02/16/24 (Lidoderm) Allergies Allergy/AdvReac Type Severity Reaction Status Date / Time simvastatin AdvReac Unknown abdominal Unverified 09/15/24 15:03 pain General Stated Complaint: Dizzy/Sync RICKI: 3 Course Vital Signs Vital signs: Vital Signs Temperature 36.6 C 09/15/24 14:51 Pulse 54 L 09/15/24 14:51 Respiratory Rate 16 09/15/24 14:51 Blood Pressure 104/71 09/15/24 14:51 Pulse Oximetry 100 09/15/24 14:51 Temperature 36.6 C 09/15/24 14:51 Temperature Source Oral 09/15/24 14:51 Pulse 54 L 09/15/24 14:51 Respiratory Rate 16 09/15/24 14:51 Blood Pressure 104/71 09/15/24 14:51 Blood Pressure Position Supine 09/15/24 14:51 Pulse Oximetry 100 09/15/24 14:51 Oxygen Delivery Method Room Air 09/15/24 14:51 Oxygen Flow Rate 0 09/15/24 14:51 Pain Level 0 09/15/24 14:51 Medical Decision Making Quality:SDOH Health Related Social Needs: No Data to Display PFSH All Active Problems (Updated 09/15/24 @ 19:25 by Paola Diaz MD) Syncope (Chronic) Normocytic anemia (Acute) Reactive airway disease (Acute) Coronary artery disease (Chronic) Unstable angina (Acute) BPH (benign prostatic hyperplasia) (Chronic) Depression (Chronic) Acute non-ST elevation myocardial infarction (NSTEMI) (Acute) Elevated ETOH level (Acute) TAYLOR (obstructive sleep apnea) (Chronic) Non-ST elevation [place] (NSTEMI) (Acute) Medical History (Updated 09/15/24 @ 19:25 by Paola Diaz MD) AAA (abdominal aortic aneurysm) without rupture GERD (gastroesophageal reflux disease) Sleep apnea High cholesterol Anxiety Kidney stones Surgical History (Updated 11/15/22 @ 19:16 by Terri Storey MD) S/P colonoscopy Status post coronary artery stent placement S/P spinal surgery multiple cervical and lumbar spine surgeries Family History (Updated 11/15/22 @ 19:18 by Terri Storey MD) Father Dementia Mother Dementia Paternal Grandfather Heart disease Brother Stroke Paternal Aunt Diabetes Paternal Grandmother Diabetes Social History Smoking/Tobacco Use Status: Never Smoking risk assessment performed?: Yes Alcohol Intake: current Alcohol Intake frequency: 3 or more drinks per day Alcohol type: beer and hard liquor Drug use: Never Substance use type: does not use Do you feel safe at home: Yes Do you feel safe in your relationship?: Yes Additional Social history: Lives alone on [address] in [place], Grew up in [place], family goes back generations there. 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 On disability for spinal injuries since. PAWSS Have you Been Recently Intoxicated or Drunk Within the Last 30 days?: No Have you Ever Experienced Previous Episodes of Alcohol Withdrawal?: No Have you ever Experienced Withdrawal Seizures?: No Have you ever Experienced Delirium Tremens(DT)s?: No Have you ever undergone Alcohol Rehabilitation Treatment (i.e, inpt ot outpatient treatment programs)?: No Have you ever Experienced Blackouts?: No Have you ever Combined Alcohol with other Downers within the last 90 days?: No Have you ever Combined Alcohol with any other Substance of Abuse during the last 90 days?: No Positive Blood Alcohol level on Presentation? [PCS.BAL]: Unable to Obtain Evidence of Increased Autonomic Activity (i.e. HR>120, tremor, sweating, agitation, nausea)?: No Result: 0
[2024-09-15] MEDS: Ondansetron 4 MG/2 ML VIAL IVP (15:23)
[2024-09-15] MEDS: Lactated Ringers 500 ML IV ×2 (15:24→16:29)
[2024-09-15 15:25] LABS: Abs Immature Grans 0.01 10^3/uL (0.0-0.06); Absolute Basophil Count 0.03 10^3/uL (0.0-0.2); Absolute Eosinophil Count 0.13 10^3/uL (0.0-0.7); Absolute Lymphocyte Count 2.13 10^3/uL (1.2-3.4); Absolute Monocyte Count 0.56 10^3/uL (0.1-0.8); Absolute Neutrophil Count 2.52 10^3/uL (1.2-6.7); Basophils % 0.6 %; Eosinophils % 2.4 %; HCT 41.1 % (40.0-50.0); HGB 14.2 g/dL (13.5-17.5); Immature Grans % 0.2 %; Lymphocytes % 39.6 %; MCH 33.7 pg (27.0-33.0); MCHC 34.5 % (32.0-36.0); MCV 98 fL (80-95); MPV 9.5 fL (8.0-11.0); Monocytes % 10.4 %; Neutrophils % 46.8 %; Platelet Count 192 10^3/uL (130-400); RBC 4.21 10^6/uL (4.36-5.78); RDW 12.2 % (11.8-14.1); RDW-SD 44.1 fL; WBC 5.38 10^3/uL (4.4-10.8)
[2024-09-15 15:44] LABS: INR 1.1 (0.9-1.1); Prothrombin Time 11.4 sec (9.1-11.1)
[2024-09-15 15:45] LABS: ALT 23 U/L (16-63); AST 17 U/L (15-37); Albumin 3.3 g/dL (3.4-5.0); Alkaline Phosphatase 70 U/L (46-116); Anion Gap 5.8 mmol/L (3-11); BUN 12 mg/dL (7-18); Bilirubin, Total 0.66 mg/dL (0.2-1.0); CO2 28.2 mmol/L (21.0-32.0); CREATININE 1.4 mg/dL (0.70-1.30); Calcium 8.6 mg/dL (8.5-10.1); Chloride 106 mmol/L (98-107); Estimated GFR 52.74 (mL/min/1.73m2); Glucose 111 mg/dL (74-106); Magnesium 1.8 mg/dL (1.8-2.4); Potassium 4.7 mmol/L (3.5-5.1); Sodium 140 mmol/L (136-145); Total Protein 6.4 g/dL (6.4-8.2); Troponin I 68 ng/L (<or=76)
[2024-09-15 16:39] LABS: Troponin I 48 ng/L (<or=76)
[2024-09-15 18:48] LABS: Troponin I 68 ng/L (<or=76)
== END 2024-09-15 20:01 | disposition home or self-care (01) ==
PROVIDERS: Emergency Provider Emergency Medicine; PCP Internal Medicine
DX: R55 Syncope and collapse (principal); G47.33 Obstructive sleep apnea (adult) (pediatric); I21.4 Non-ST elevation (NSTEMI) myocardial infarction; I25.10 Atherosclerotic heart disease of native coronary artery without angina pectoris
CPT/HCPCS: 36415; 80053; 93005; 96361; 96374; 99285; 70450; 71045; 72125; 83735; 84484; 85025; 85610; 93010; 99284; J2405

== ENCOUNTER 2024-11-20 02:06 | Emergency (ER) | payer OTHER, SELFPAY ==
[2024-11-20] VITALS (24 sets, daily range): BP systolic 133–165; BP diastolic 67–89; PULSE 79–101; RESP 15–30; TEMP 37.3–37.6; O2SAT 94–96
--- NOTE | 2024-11-20 02:00 | RT.EKG_ITS ---
APPROVED REPORT Exam: Resting ECG Reason for Exam: Chest Pain Patient Location: E HR:96 bpm ECG Measurements Heart Rate 96 AXIS PA 122 P 46 QRSd 74 QRS 45 QT 338 T 31 QTc 428 Conclusion Sinus rhythm...normal P axis, V-rate 60- 99 Probable left atrial enlargement...P >50mS, <-0.10mV V1 There are no significant changes compared to prior EKG performed on 12/15/2023 at 04:42.
--- NOTE | 2024-11-20 02:05 | ED.GENADUL_ITS ---
Discharge Plan Disposition Patient Disposition: Home Condition: Good Discharge Details Clinical Impression: Influenza A, Incidental pulmonary nodule Primary Care Provider: Jae Del Toro ED Provider: Beau Dao Barton Meds and New Rx's Prescriptions: New oseltamivir [Tamiflu] 75 mg capsule 75 mg PO BID 5 Days Qty: 10 0RF Continued cyanocobalamin (vitamin B-12) 1,000 mcg Tablet 1,000 mcg PO DAILY aspirin 81 mg Tablet,Delayed Release (Dr/Ec) 81 mg PO DAILY buspirone 10 mg Tablet 20 mg PO BID hydroxyzine HCl 25 mg Tablet 25 mg PO TID PRN rosuvastatin 40 mg Tablet 40 mg PO DAILY cholecalciferol (vitamin D3) 25 mcg (1,000 unit) Tablet 25 mcg PO DAILY isosorbide mononitrate 60 mg Tablet Extended Release 24 Hr 60 mg PO DAILY pantoprazole [Protonix] 40 mg Tablet,Delayed Release (Dr/Ec) 40 mg PO DAILY diazepam 5 mg Tablet 5 mg PO DAILY PRN (Reason: Anxiety) bupropion HCl 150 mg Tablet Extended Release 24 Hr 150 mg PO HS cetirizine 10 mg Tablet 10 mg PO DAILY PRN loperamide 2 mg Capsule 2 mg PO QID PRN propranolol 10 mg Tablet 10 mg PO TID psyllium Powder 1 tbsp PO BID Rx Instructions: mix into at least 8 oz of water or juice before administering terazosin 2 mg Capsule 2 mg PO QHS montelukast 10 mg Tablet 10 mg PO DAILY Spiriva Respimat 2.5 mcg/actuation Mist 2 puff INHALATION DAILY metoprolol succinate 50 mg Tablet Extended Release 24 Hr 100 mg PO DAILY Qty: 0 0RF simethicone 80 mg Tablet,Chewable 80 mg PO QID PRN PRNQty: 0 0RF ranolazine 500 mg Tablet Extended Release 12 Hr 1,000 mg PO BID Qty: 0 0RF Inhaler, Assist Devices [Pocket Chamber] 1 ea miscellaneous DIRECTED Qty: 0 0RF Patient's Own Medication 5 ea PO AC & HS PRNQty: 0 0RF methocarbamol 500 mg tablet 500 mg PO Q6H PRN (Reason: Back pain or spasm) Qty: 14 0RF tamsulosin 0.4 mg Capsule 0.8 mg PO HS Rx Instructions: 30 minutes after meal lidocaine [Lidoderm] 5 % adhesive patch,medicated 1 patch topical ONCE Qty: 15 0RF Rx Instructions: leave on most painful area for up to 12 hrs famotidine 10 mg Tablet 10 mg PO BID PRN (Reason: GERD) folic acid 1 mg Tablet 1 mg PO DAILY albuterol 90 mcg/actuation Aerosol 180 mcg INHALATION BID Rx Instructions: INHALE 2 PUFFS BY MOUTH FOUR TIMES DAILY NEEDED finasteride 5 mg Tablet 5 mg PO DAILY clopidogrel [Plavix] 75 mg Tablet 75 mg PO DAILY losartan 25 mg Tablet 25 mg PO DAILY nitroglycerin [Nitrostat] 0.4 mg Tablet, Sublingual 0.4 mg sublingual PRN PRN bupropion HCl 150 mg Tablet Extended Release 24 Hr 300 mg PO DAILY Rx Instructions: am dose Discharge Instructions Instructions: Flu, Adult ED Additional Instructions: You were seen for shortness of breath and chest pain. Overall your workup is reassuring and you were found to have influenza A for which you will be placed on Tamiflu. Radiology incidentally suggest a right lung pulmonary nodule which you should discuss with primary care. Follow-up with primary care towards the end of this week. Rest and hydrate at home. Continue previous medications especially your inhalers. Return to ED for any worsening shortness of breath, confusion/mental status change, worsening chest pain, other concerns. Referrals: Jae Del Toro [Primary Care Provider] - [facility] General Mode of arrival: EMS . Date/Time Provider Initiated Documentation: 11/20/24 02:13 . Limitations to Documentation: no limitations . Information obtained by: patient, RN notes reviewed and old records reviewed . HPI Narrative: Patient presents to ED by ambulance with onset of shortness of breath Wednesday. He is felt fatigued and malaise and has had a cough. No fever that he is aware of. No vomiting or abdominal pain. Started to have episodes of intermittent chest pain lasting minutes this evening. Continues to feel short of breath. Denies any leg pain or leg swelling. Has never been a smoker and has no lung disease that he is aware of. Does have coronary disease with previous stents. Related Data Home Medications ?Medication ?Instructions ?Recorded ?Confirmed albuterol 90 mcg/actuation aerosol 180 mcg inhalation BID 10/01/20 11/20/24 inhaler famotidine 10 mg tablet 10 mg PO BID PRN GERD 10/01/20 11/20/24 finasteride 5 mg tablet 5 mg PO DAILY 10/01/20 11/20/24 folic acid 1 mg tablet 1 mg PO DAILY 10/01/20 11/20/24 bupropion HCl 150 mg 24 hr tablet, 300 mg PO DAILY 06/25/22 11/20/24 extended release clopidogrel 75 mg tablet (Plavix) 75 mg PO DAILY 06/25/22 11/20/24 losartan 25 mg tablet 25 mg PO DAILY 06/25/22 11/20/24 nitroglycerin 0.4 mg sublingual 0.4 mg sublingual PRN PRN 06/25/22 11/20/24 tablet (Nitrostat) aspirin 81 mg tablet,delayed 81 mg PO DAILY 07/03/22 11/20/24 release buspirone 10 mg tablet 20 mg PO BID 07/03/22 11/20/24 cholecalciferol (vitamin D3) 25 25 mcg PO DAILY 07/03/22 11/20/24 mcg (1,000 unit) tablet cyanocobalamin (vitamin B-12) 1,000 mcg PO DAILY 07/03/22 11/20/24 1,000 mcg tablet hydroxyzine HCl 25 mg tablet 25 mg PO TID PRN 07/03/22 11/20/24 rosuvastatin 40 mg tablet 40 mg PO DAILY 07/03/22 11/20/24 bupropion HCl 150 mg 24 hr tablet, 150 mg PO HS 09/01/22 11/20/24 extended release diazepam 5 mg tablet 5 mg PO DAILY PRN Anxiety 09/01/22 11/20/24 isosorbide mononitrate 60 mg 60 mg PO DAILY 09/01/22 11/20/24 tablet,extended release 24 hr pantoprazole 40 mg tablet,delayed 40 mg PO DAILY 09/01/22 11/20/24 release (Protonix) cetirizine 10 mg tablet 10 mg PO DAILY PRN 09/02/22 11/20/24 loperamide 2 mg capsule 2 mg PO QID PRN 09/02/22 11/20/24 montelukast 10 mg tablet 10 mg PO DAILY 09/02/22 11/20/24 propranolol 10 mg tablet 10 mg PO TID BLOOD PRESSURE/ANXIETY 09/02/22 11/20/24 psyllium 1 tbsp PO BID 09/02/22 11/20/24 terazosin 2 mg capsule 2 mg PO QHS 09/02/22 11/20/24 tiotropium bromide 2.5 2 puff inhalation DAILY 09/02/22 11/20/24 mcg/actuation mist for inhalation (Spiriva Respimat) Inhaler, Assist Devices [Pocket 1 ea miscellaneous DIRECTED ##0 09/07/22 11/20/24 Chamber] Patient's Own Medication 5 ea PO AC & HS PRN ##0 09/07/22 11/20/24 metoprolol succinate 50 mg 100 mg (2 x 50 mg) PO DAILY #0 tabs 09/07/22 11/20/24 tablet,extended release 24 hr ranolazine 500 mg tablet,extended 1,000 mg (2 x 500 mg) PO BID #0 09/07/22 11/20/24 release,12 hr tabs simethicone 80 mg chewable tablet 80 mg PO QID PRN PRN #0 tabs 09/07/22 11/20/24 methocarbamol 500 mg tablet 500 mg PO Q6H PRN Back pain or 10/26/22 11/20/24 spasm #14 tabs tamsulosin 0.4 mg capsule 0.8 mg PO HS 11/15/22 11/20/24 lidocaine 5 % topical patch 1 patch topical ONCE #15 ea 02/16/24 11/20/24 (Lidoderm) oseltamivir 75 mg capsule (Tamiflu) 75 mg PO BID 5 days #10 caps 11/20/24 Previous Rx's ?Medication ?Instructions ?Recorded Inhaler, Assist Devices [Pocket 1 ea miscellaneous DIRECTED ##0 09/07/22 Chamber] Patient's Own Medication 5 ea PO AC & HS PRN ##0 09/07/22 metoprolol succinate 50 mg 100 mg (2 x 50 mg) PO DAILY #0 tabs 09/07/22 tablet,extended release 24 hr ranolazine 500 mg tablet,extended 1,000 mg (2 x 500 mg) PO BID #0 09/07/22 release,12 hr tabs simethicone 80 mg chewable tablet 80 mg PO QID PRN PRN #0 tabs 09/07/22 methocarbamol 500 mg tablet 500 mg PO Q6H PRN Back pain or 10/26/22 spasm #14 tabs lidocaine 5 % topical patch 1 patch topical ONCE #15 ea 02/16/24 (Lidoderm) oseltamivir 75 mg capsule (Tamiflu) 75 mg PO BID 5 days #10 caps 11/20/24 Allergies Allergy/AdvReac Type Severity Reaction Status Date / Time simvastatin AdvReac Unknown abdominal Verified 11/20/24 02:44 pain General RICKI: 3 Review of Systems Narrative: Per HPI Exam Narrative Exam Narrative: Const: WDWN elderly male in NAD. VS per triage. HEENT: NC/AT. Normal facial exam. Neck: Supple. Trachea midline. Lungs: Normal respiratory effort. Lungs are with rhonchi both bases. Cor: RRR without murmur. Good radial pulses. GI: Soft/ND/NT. Neuro: A+O x 3. Normal speech, mentation. Cranial nerves II - XII grossly intact. No gross motor or sensory deficit. Ext: No C/C/E. No calf tenderness. Medical Decision Making Patient presenting to ED with shortness of breath and malaise since Wednesday morning with intermittent episodes of chest pain tonight. Room air saturations are normal. He does have some rhonchi in the bases bilaterally. He has had no fever but he does have a cough. Suspect this is likely viral in nature. He does have a cardiac history. His EKG shows no acute ST changes per my read. IV is established and laboratory studies sent including D-dimer and troponin. Chest imaging will be based upon D-dimer results. A nasal swab has also been sent. Patient's laboratory studies with normal white count and hemoglobin. Chemistries unremarkable other than elevated creatinine 1.6. Creatinine seem to very over time with some normal values as well as higher values like tonight. Magnesium is low at 1.6 and he is given replacement intravenously. He is also given a 500 mL bolus of saline for the elevated creatinine. His initial troponin was elevated to 89. His repeat at one hour 78. Has had previous elevated troponins. His nasal swab is positive for influenza A. I suspect this is the cause of all of his symptoms. His D-dimer is negative so chest x-ray obtained. His chest x-ray shows no acute cardiopulmonary process per my read. Preliminary read per radiology reports nodule in the right lung which can be followed up as outpatient. He has been given a dose of Tamiflu. If anything I think his troponins may be related to kidney function, possibly some mild demand but given previously elevated troponins, lack of EKG changes, episodes of chest pain only lasting a few minutes I am not concerned that this represents ACS. Patient be discharged home. He will be placed on Tamiflu as discussed. Follow- up with primary care this week. Return precautions provided. Differential Diagnosis Differential Diagnosis: Consider pneumonia, ACS, PE, viral illness Medical Records Medical records reviewed: Yes I reviewed the patient's medical records. Medical records narrative: previous admissions Lab Data Lab results reviewed: Yes I reviewed the patient's lab results. Lab results narrative: see MDM ECG Data Attestation: I personally reviewed and interpreted this ECG (s) as follows: Prior ECG tracings: available for review Interpretation: see MDM/EKG PFSH All Active Problems (Updated 11/20/24 @ 04:07 by Beau Dao MD) Incidental pulmonary nodule (Acute) Influenza A (Acute) Medical History Depression TAYLOR (obstructive sleep apnea) BPH (benign prostatic hyperplasia) Coronary artery disease AAA (abdominal aortic aneurysm) without rupture GERD (gastroesophageal reflux disease) High cholesterol Anxiety Kidney stones Surgical History S/P colonoscopy Status post coronary artery stent placement S/P spinal surgery multiple cervical and lumbar spine surgeries Family History (Updated 11/15/22 @ 19:18 by Terri Storey MD) Father Dementia Mother Dementia Paternal Grandfather Heart disease Brother Stroke Paternal Aunt Diabetes Paternal Grandmother Diabetes Social History Smoking/Tobacco Use Status: Never Smoking risk assessment performed?: Yes Alcohol Intake: current Alcohol Intake frequency: 3 or more drinks per day Alcohol type: beer and hard liquor Drug use: Never Substance use type: does not use Do you feel safe at home: Yes Do you feel safe in your relationship?: Yes Additional Social history: Lives alone on [address] in [place], Grew up in [place], family goes back generations there. Served in [employer] on [employer] out of [place], [place]. On disability for spinal injuries since.
[2024-11-20 02:46] LABS: ALT 22 U/L (16-63); AST 18 U/L (15-37); Albumin 3.4 g/dL (3.4-5.0); Alkaline Phosphatase 85 U/L (46-116); BUN 8 mg/dL (7-18); Bilirubin, Total 0.71 mg/dL (0.2-1.0); CREATININE 1.6 mg/dL (0.70-1.30); Calcium 8.9 mg/dL (8.5-10.1); Chloride 105 mmol/L (98-107); Estimated GFR 44.93 (mL/min/1.73m2); Glucose 113 mg/dL (74-106); Magnesium 1.6 mg/dL (1.8-2.4); Potassium 3.6 mmol/L (3.5-5.1); Sodium 140 mmol/L (136-145); Total Protein 6.9 g/dL (6.4-8.2)
[2024-11-20 02:51] LABS: Troponin I 89 ng/L (<or=76)
[2024-11-20 02:52] LABS: Abs Immature Grans 0.04 10^3/uL (0.0-0.06); Absolute Basophil Count 0.02 10^3/uL (0.0-0.2); Absolute Eosinophil Count 0.04 10^3/uL (0.0-0.7); Absolute Lymphocyte Count 0.72 10^3/uL (1.2-3.4); Absolute Monocyte Count 1.12 10^3/uL (0.1-0.8); Absolute Neutrophil Count 4.14 10^3/uL (1.2-6.7); Basophils % 0.3 %; Eosinophils % 0.7 %; HCT 44.5 % (40.0-50.0); HGB 15.6 g/dL (13.5-17.5); Immature Grans % 0.7 %; Lymphocytes % 11.8 %; MCH 34.1 pg (27.0-33.0); MCHC 35.1 % (32.0-36.0); MCV 97 fL (80-95); MPV 9.5 fL (8.0-11.0); Monocytes % 18.4 %; Neutrophils % 68.1 %; Platelet Count 179 10^3/uL (130-400); RBC 4.57 10^6/uL (4.36-5.78); RDW 12.3 % (11.8-14.1); RDW-SD 44.6 fL; WBC 6.08 10^3/uL (4.4-10.8)
[2024-11-20 02:53] LABS: D-Dimer 494 ng/mlFEU (<500)
[2024-11-20 03:03] LABS: COVID-19 PCR Negative (Negative); Influenza A PCR Positive (Negative); Influenza B PCR Negative (Negative); RSV PCR Negative (Negative)
[2024-11-20 03:06] LABS: Source Nasopharynx
--- NOTE | 2024-11-20 03:26 | DI.RAD_ITS ---
Exam(s) XR CHEST 2V PA LATERAL EXAM: XR CHEST 2V PA LATERAL CLINICAL HISTORY: cough, SOB, CP TECHNIQUE: 2D digital imaging was performed of the chest. Two images were obtained. PA and lateral views were obtained. COMPARISON: CT CT CHEST PE CTA from 11/15/2022 CR,XR XR CHEST 2V PA LATERAL from 12/15/2023 CR XR PORTABLE CHEST AP from 09/15/2024 FINDINGS: MEDIASTINUM: Normal. HEART: Normal. PULMONARY VASCULATURE: Normal. LUNGS: There is a new 1 cm nodule projected in the right upper lobe overlying the right 5th rib. The lungs are otherwise clear. PLEURAL SPACE: No pleural effusion or pneumothorax. BONE:Within normal limits for the patient's age. OTHER FINDINGS:Normal. IMPRESSION: 1. No acute pulmonary findings. 2. New 1 cm right upper lobe pulmonary nodule. A follow-up CT scan of the chest should be considered for further evaluation. Unexpected findings DATA REPOSITORY: RADIATION DOSE DELIVERED:
[2024-11-20] MEDS: MAGNESIUM SULFATE 2 GM/50 ML BAG IV_INF (03:27)
[2024-11-20] MEDS: Normal Saline 500 ML IV (03:27)
--- NOTE | 2024-11-20 03:30 | DI.VRAD_ITS ---
PROCEDURE INFORMATION: Exam: XR Chest Exam date and time: 11/20/2024 3:18 AM Age: 74 years old Clinical indication: Pain; Cough and shortness of breath; Chest pressure; Cough, SOB, cp TECHNIQUE: Imaging protocol: Radiologic exam of the chest. Views: 2 views. COMPARISON: CR XR PORTABLE CHEST AP 09/15/2024 4:13 PM FINDINGS: Lungs: No focal consolidation seen. 1 cm nodule projecting over the right upper lung. Pleural spaces: No large pleural effusion seen. Heart/Mediastinum: No cardiomegaly. Bones/joints: No acute abnormality. IMPRESSION: 1. No acute findings to explain reported symptoms. 2. Findings as above. Dictated and Authenticated by: Coral Monge MD. Orderin Feliberto Yanez MD
[2024-11-20] MEDS: Oseltamivir 75 MG CAP PO (03:34)
[2024-11-20 03:48] LABS: Troponin I 78 ng/L (<or=76)
== END 2024-11-20 04:34 | disposition home or self-care (01) ==
PROVIDERS: Emergency Provider Emergency Medicine; PCP Internal Medicine
DX: J09.X2 Influenza due to identified novel influenza A virus with other respiratory manifestations (principal); R06.02 Shortness of breath; R91.1 Solitary pulmonary nodule; R07.9 Chest pain, unspecified; Z86.79 Personal history of other diseases of the circulatory system
CPT/HCPCS: 36415; 80053; 87637; 93005; 96365; 96366; 99284; 71046; 83735; 84484; 85025; 85379; 93010; J3475